=== PATIENT | male | born 1960 | race Caucasian/White ===

== ENCOUNTER 2023-08-24 11:00 | Inpatient (IN) | payer MEDICARE, OTHER, SELFPAY ==
[2023-08-24] VITALS (17 sets, daily range): BP systolic 115–146; BP diastolic 67–82; BMI 41.0
--- NOTE | 2023-08-24 08:33 | ED.GENMED ---
History of Present Illness
General
Chief Complaint: Musculo-Skeletal Complaint
Source: patient
Exam Limitations: none
Time Seen by Provider: 08/24/23 08:23
Nursing documentation reviewed up to this point in time: agreed with
Travel History
Have you had any contact with someone who has COVID-19?: No
Do you have any symptoms of coronavirus? Fever > 100 degrees, chills, cough, shortness of breath, sore throat, loss of taste or smell, muscle aches, or headache?: No
History of Present Illness
History of Present Illness:
62-year-old male with past medical history of hypertension hyperlipidemia, insulin-dependent diabetes presenting to the emergency department today with concerns of osteomyelitis to his right second toe. Patient was seen by his contract recruiter Dr. Casillas
who recommended admission for surgical treatment at this time. Patient denies any additional symptoms otherwise. No fevers nausea vomiting chest pain shortness of breath.
Past History
Past History
ED Past Medical History: HTN, Hypercholesterolemia, IDDM and Other (Osteomyelitis right foot, kidney stones, Cellulitis, osteomyelitis L foot with surgery on 05/07/23)
ED Past Surgical History: Appendectomy, Orthopedic, Tonsilectomy and Other (gastric stapling , Eliana-en-Y, debridement of right foot wound)
Social History
Tobacco: Non-smoker
Alcohol: Occasional
Drug: None
Personal: Single
Living: with roommate
Employment: Not employed
Family History
Family History: Other (Father with stomach cancer and father with lymphoma)
Review of Systems
Review of Systems
Allergies reviewed?: Yes
All Other Systems: ROS reviewed and negative except as documented in HPI and ROS
Phy Exam
Physical Exam
Physical Exam:
GENERAL: Alert , in no apparent distress
EYE: pupils equal and reactive
NECK: Supple, no significant adenopathy.
ENT: o/p clr, mmm.
CARDIAC: Regular rate and rhythm .
LUNGS: Clear breath sounds bilaterally, no acute respiratory distress, no wheezes/rales/rhonchi
ABDOMEN: Soft, without focal tenderness, no r/g, no cvat
NEUROLOGICAL: Alert and oriented, no focal neuro deficits
SKIN: Warm and dry, skin intact.
MUSCULOSKELETAL: Bandage of the right second toe is clean dry and intact. This was taking off and assessed he does have an ulcer just below the second toe with no obvious purulent drainage but is surrounded by redness. Mild tenderness to the area.
No edema, well perfused.
PSYCH: Normal and appropriate interaction.
Course
Orders/Labs/Results
Orders:
Orders
08/24/23 08:40
EKG [Electrocardiogram (*1)] Urgent
Reason for Study: PreOp
EKG- Treatment ONCE
CR Foot - Right Min 3 Views Urgent
Comment:
Reason For Exam: osteo 2nd toe
08/24/23 09:24
CBC/With Diff [Complete Blood Count/With Diff] Urgent
CMP [Comprehensive Metabolic Panel] Urgent
08/24/23 10:21
Admit/Transfer Patient As Directed
Co-Sign Provider:
Level of Care: Inpatient admission
Assign to:: Medical/Surgical
Physician / Group: Payal/hospitalist
Diagnosis: R toe OM
Reason for Hospitalization: R toe OM
Expected length of stay greater than two midnights?: Yes
ELOS- Estimated Length of Stay in days: 3
I certify the patient meets the requirements for IP care: Yes
08/24/23 10:23
Code Status As Directed
Resuscitation Status: Full Code
Abnormal Lab Results
08/24/23
09:24
RBC 3.99 L 10^6/uL
(4.70-6.10)
Hgb 11.3 L g/dL
(13.0-18.0)
Hct 33.1 L %
(39.0-52.0)
Chloride 108 H mmol/L
(98-107)
Glucose 103 H mg/dl
(70-99)
Alkaline Phosphatase 154 H U/L
(38-126)
08/24/23 09:24
08/24/23 09:24
Vital Signs
Initial and Last Documented VS:
Initial Vital Signs
Temp Pulse Resp BP Pulse Ox
98.3 F 73 16 137/77 100
08/24/23 07:07 08/24/23 07:07 08/24/23 07:07 08/24/23 07:07 08/24/23 07:07
Last Documented Vital Signs
Temp Pulse Resp BP Pulse Ox
98.3 F 68 18 142/81 96
08/24/23 07:07 08/24/23 10:00 08/24/23 10:00 08/24/23 10:00 08/24/23 10:00
MDM/Problems Addressed
MDM/Problems Addressed:
62-year-old male presenting to the emergency department today with concerns of osteomyelitis to the right second toe sent in for surgery. Denies systemic symptoms or additional concerns. Vital signs normal upon arrival. Case discussed with
patient's contract recruiter who would like to take him to surgery earlier this afternoon. Patient is been n.p.o. all day. Patient is well-appearing in no distress here stable for admission and surgical intervention.
*Critical Care Note
Total Time (30-74mins, 75-104mins- exclusive of procedures): Not Applicable
ED Attending Note
-
Portions of this chart may have been created with voice recognition software.� Occasional wrong word or��sound alike� substitutions may have occurred due to the inherent limitations of voice recognition software.
Discharge Plan
Departure
Patient Disposition: Admit
Date of Disposition: 08/24/23
Time of Disposition: 10:06
Admit to: Med/Surg
Presentation/result/management discussed w/ accepting MD/DO: Hospitalist
Patient with high blood pressure during this ER visit?: No
Condition: Good
Covid-19: Not Applicable
Discharge Problem:
Osteomyelitis
Prescriptions:
No Action
lisinopril 20 MG tablet
20 mg PO DAILY
calcium carbonate [Calcium 600] 600 MG tablet
600 mg PO DAILY
gabapentin 300 MG capsule
300 mg PO TID
carvedilol 12.5 MG tablet
12.5 mg PO Q12H
diphenhydramine HCl [Banophen] 25 MG capsule
25 mg PO HS
Flexi Joint 500-400-166.6 mg Tablet
1 tab PO DAILY
cyanocobalamin (vitamin B-12) 1,000 mcg Tablet
1,000 mcg PO Q48H@0800
aspirin 81 mg Tablet,Delayed Release (Dr/Ec)
81 mg PO DAILY
Align 4 mg Capsule
4 mg PO NOON
ascorbic acid (vitamin C) [Vitamin C] 1,000 mg Tablet
1,000 mg PO DAILY
atorvastatin 20 mg Tablet
20 mg PO DAILY
Theragen Tablet
1 tab PO DAILY
ferrous sulfate [iron] 325 mg (65 mg iron) Tablet
325 mg PO Q72H
Patient Comments:
08/24/2023, Q72H@0800.
insulin aspart U-100 [Novolog FlexPen U-100 Insulin] 100 unit/mL (3 mL) Insulin Pen
15 unit SC AC
cholecalciferol (vitamin D3) 50 mcg (2,000 unit) Tablet
50 mcg PO DAILY
Trulicity 4.5 mg/0.5 mL Pen Injector
4.5 mg SC MO@0800
Eliquis 5 mg tablet
5 mg PO Q12H
Patient Comments:
08/24/2023, currently on hold for pt.'s upcoming sugery.
insulin glargine U-300 conc [Toujeo SoloStar U-300 Insulin] 300 UNIT/ML insulin pen
30 unit SC HS
insulin glargine U-300 conc [Toujeo SoloStar U-300 Insulin] 300 UNIT/ML insulin pen
25 unit SC DAILY
Referrals:
Benjamin Simon MD [Family Provider] -
Interventions
Interventions:
*Risk Screen - Suicide Last Done: 08/24/23 07:07
*General Assessment Last Done: 08/24/23 07:07
*Neglect/Abuse Screening Last Done: 08/24/23 07:07
ED- Fall Risk Assessment Last Done: 08/24/23 09:07
*ED COVID-19 Vaccine History Last Done: 08/24/23 08:48
ED-Musculoskeletal Assessment Last Done: 08/24/23 09:07
[2023-08-24 09:36] LABS: % Basophils 0.4 % (0-2); % Eosinophils 2.3 % (0-6); % Immature Granulocytes 0.3 % (0-0.5); % Lymphocytes 24.7 % (20.5-51.1); % Neutrophils 65.3 % (42.2-75.2); Absolute Eosinophils 0.2 10^3/uL (0-0.7); Absolute Lymphocytes 1.7 10^3/uL (1.2-3.4); Absolute Monocytes 0.5 10^3/uL (0.1-0.6); Absolute Neutrophils 4.5 10^3/uL (1.4-6.5); Hematocrit 33.1 % (39.0-52.0); Hemoglobin 11.3 g/dL (13.0-18.0); Mean Corp Hgb Conc. 34.1 g/dL (33.0-37.0); Mean Corpuscular Hgb 28.3 pg (27.0-31.0); Mean Platelet Volume 8.7 fL (7.4-10.4); Nucleated Red Blood Cells % 0 % (-); Platelet Count 250 10^3/uL (130-400); Red Blood Cell Count 3.99 10^6/uL (4.70-6.10); Red Cell Dist. Width 13.5 % (11.5-14.5); White Blood Cell Count 6.8 10^3/uL (4.8-10.8)
[2023-08-24 09:51] LABS: ALT (SGPT) 25 U/L (0-50); AST (SGOT) 30 U/L (17-59); Albumin 3.8 g/dl (3.5-5.0); Alkaline Phosphatase 154 U/L (38-126); Blood Urea Nitrogen 12 mg/dl (9-20); Calcium 8.8 mg/dl (8.4-10.2); Carbon Dioxide 27 mmol/L (22-30); Chloride 108 mmol/L (98-107); Estimated Creatinine Clearance > 125 ml/min; Glucose 103 mg/dl (70-99); Potassium 4.1 mmol/L (3.5-5.1); Sodium 138 mmol/L (135-145); Total Bilirubin 0.9 mg/dl (0.2-1.3); Total Protein 7.2 g/dl (6.3-8.2); eGFR > 60.00
--- NOTE | 2023-08-24 09:58 | HPS.HSE ---
Family Physician
-
Family Physician: Benjamin Kumar [facility]
Chief Complaint
-
R second toe OM
History of Present Illness
HPI: 62-year-old male with PMH hypertension, hyperlipidemia, insulin-dependent diabetes, obesity; p/w right second toe osteomyelitis evidenced from outpatient MRI.
Patient was seen by his sports equipment repairer Dr. Casillas who recommended admission for surgical treatment at this time.
Patient denies any additional symptoms otherwise.� No fevers nausea vomiting chest pain shortness of breath.
Medical History
Past Medical History
Past Medical History: Reports Other
Additional Past Medical History:
Hypertension
DM-II
Obesity
Chronic R Foot Wounds / Osteomyelitis
Past Surgical History: Reports Other
Additional Past Surgical History:
Multiple R Foot Surgeries including 5th Toe Amputation, Partial R Toe Amputation, etc
Appendectomy
Eliana-en-Y Bypass
T&A
Social History
Tobacco: Non-smoker
Alcohol: Occasional (Rarely)
Drug: None
Family History
Family History: Other (Father: Gastric Cancer Mother: NHL)
Allergies / Home Medications
Allergies reflects when Allergies were last updated in [facility].
Home Medications with original date entered in [facility]
Allergy/Medication List:
Allergies
Allergy/AdvReac Type Severity Reaction Status Date / Time
ketorolac Allergy Rash Verified 08/24/23 07:07
NSAIDS (Non-Steroidal Allergy Rash Verified 08/24/23 07:07
Anti-Inflamma
Home Medications
calcium carbonate 600 mg calcium (1,500 mg) tablet (Calcium) 600 mg PO DAILY Supplement 04/23/13
lisinopril 20 mg tablet 20 mg PO DAILY Blood pressure 04/23/13
gabapentin 300 mg capsule 300 mg PO TID Neurological Condition 11/11/13
carvedilol 12.5 mg tablet 12.5 mg PO Q12H Blood pressure 09/13/20
diphenhydramine HCl 25 mg capsule (Banophen) 25 mg PO HS Allergies 09/13/20
qzhxeqlzrml-kgkap-zzw-vit C-Mn 500 mg-400 mg-166.6 mg tablet (Flexi Joint) 1 tab PO DAILY Supplement 03/29/22
aspirin 81 mg tablet,delayed release 81 mg PO DAILY Blood clot prevention/tx 08/22/22
cyanocobalamin (vitamin B-12) 1,000 mcg tablet 1,000 mcg PO Q48H@0800 Supplement 08/22/22
Bifidobacterium infantis 4 mg capsule (Align) 4 mg PO NOON Supplement 10/05/22
apixaban 5 mg tablet (Eliquis) 5 mg PO Q12H 08/24/23
ascorbic acid (vitamin C) 1,000 mg tablet (Vitamin C) 1,000 mg PO DAILY 08/24/23
atorvastatin 20 mg tablet 20 mg PO DAILY 08/24/23
cholecalciferol (vitamin D3) 50 mcg (2,000 unit) tablet 50 mcg PO DAILY 08/24/23
dulaglutide 4.5 mg/0.5 mL subcutaneous pen injector (Trulicity) 4.5 mg SC MO@0800 08/24/23
ferrous sulfate 325 mg (65 mg iron) tablet (iron) 325 mg PO Q72H 08/24/23
insulin aspart U-100 100 unit/mL (3 mL) subcutaneous pen (Novolog FlexPen U-100 Insulin aspart) 15 unit SC AC 08/24/23
insulin glargine U-300 conc 300 unit/mL (1.5 mL) subcutaneous pen (Toujeo SoloStar U-300 Insulin) 25 unit SC DAILY Diabetes 08/24/23
insulin glargine U-300 conc 300 unit/mL (1.5 mL) subcutaneous pen (Toujeo SoloStar U-300 Insulin) 30 unit SC HS Diabetes 08/24/23
therapeutic multivitamin 1 tab PO DAILY 08/24/23
Review of Systems
-
Constitutional: Reports No Symptoms
Physical Exam
Vital Signs
Vital Signs
Temp Pulse Resp BP Pulse Ox
36.8 C 73 16 137/77 100
08/24/23 07:07 08/24/23 07:07 08/24/23 07:07 08/24/23 07:07 08/24/23 07:07
Physical Exam
General: Well Developed, Well Nourished, No Apparent Distress, Comfortable and Conversant
HEENT: NormoCephalic, Moist mucous membranes and Atraumatic
Respiratory: Clear and Non Labored Respirations; No Accessory Resp Muscle Use
Cardiac: S1/S2 and Regular Rhythm; No Murmur or Rub
GI: Soft, Non Tender, Non Distended and Normal Bowel Sounds; No Organomegaly
Rectal: Deferred by Provider
Musculoskeletal: No Clubbing, No Cyanosis and No Edema
Skin: No Rash
Neuro: Awake
Psych: Calm and Intact Judgment/Insight
Laboratory Results
-
08/24/23 09:24
08/24/23 09:24
Laboratory Results
Total Bilirubin 0.9 mg/dl (0.2-1.3) 08/24/23 09:24
AST 30 U/L (17-59) 08/24/23 09:24
ALT 25 U/L (0-50) 08/24/23 09:24
Alkaline Phosphatase 154 U/L (38-126) H 08/24/23 09:24
Data Reviewed
-
Lab Data: Labs Reviewed by me
Impression/Plan
-
HPI: 62-year-old male with PMH hypertension, hyperlipidemia, insulin-dependent diabetes, obesity; p/w right second toe osteomyelitis evidenced from outpatient MRI.
Patient was seen by his sports equipment repairer Dr. Casillas who recommended admission for surgical treatment at this time.
Patient denies any additional symptoms otherwise.� No fevers nausea vomiting chest pain shortness of breath.
A/P:
# Right second toe osteomyelitis noted on outpt MRI
# h/o bilateral Foot Osteomyelitis, Right second toe diabetic wound with osteo by MRI and Left 5th met head diabetic wound with osteo by MRI, status post partial amp right 2nd toe, left 5th metatarsophalangeal joint resection
Pt was treated with daptomycin through 06/15/2023
Podiatry CS for surgical intervention
ID CS , defer Abx to ID
PT OT eval following procedure
# DM-II
decrease JAILER/TRAINING OFFICER Lantus to 20 units HS with current NPO status
hold bolus insulin
cover with ISS
# Benign Hypertension, Stable.�
Continue home meds Lisinopril and Coreg with holding parameter
# Morbid Obesity s/p Gastric Bypass
BMI 41
DVT Prophylaxis:�Lovenox SQ while off JAILER/TRAINING OFFICER Eliquis
Code Status:�Full
[2023-08-24] MEDS: COREG PO (11:31)
[2023-08-24 13:29] LABS: Glucose - Point of Care 85 mg/dl (70-99)
--- NOTE | 2023-08-24 13:30 | W.PN.UPDATE ---
Update Note
Progress Note Update
pt seen in RR
no pain
dressing cdi
cft intact
a/p s/p prox phal resection, 2nd met head right foot--stable
start iv abx, rec ID consult
will pull packing tomorrow, osteo resected, should ne fine for po abx upon d/c
nwb right foot
anticipate d/.c tomorrow
--- NOTE | 2023-08-24 14:00 | CON.ID ---
Consultation
-
Date/Time Consultation Requested: August 24, 2023 1109
Date/Time Consultation Performed: August 24, 2023 1400
Requesting Provider: Dr. Mariam Moe
Performing Provider: Dr. Keshia Basurto
Reason for Consultation: Toe osteo
Chief Complaint / Past History
Chief Complaint
Toe osteo
History of Present Illness
62-year-old male with history of diabetes mellitus, neuropathy, hx multiple right foot chronic wounds, osteomyelitis, toe amputations, bone resections last being 04/2023 s/p Right second toe partial amp and Left 5th MPJ resection and treated with 6
weeks daptomycin. He had non-healing wound on plantar aspect of the right second met head. His grain merchandiser ordered an MRI done outside which showed osteo. Pt was sent to ED today. He underwent right second toe prox phalanx and met head resection
just now. He reports no fever/chills. No post-op pain.
Past History
Additional Past Medical History:
Diabetes mellitus, well controlled.
Neuropathy.
Hypertension.
Class 3 obesity, BMI 40.
Dyslipidemia.
Sciatica.
History of bariatric surgery.
Remote history of right foot gangrene in 2007.
History of osteomyelitis right foot
S/P (R)2nd toe partial amp, (R) 3rd met head resection.
History of (R) 5th toe abscess S/P drainage & partial bone resection.
Right 5th MT stump and 4th met head resection (08/22/22)
s/p Right second toe partial amp and Left 5th MPJ resection (05/05/23) s/p 6 weeks daptomycin
Allergy History:
ketorolac Allergy (Verified 08/24/23 07:07)
Rash
NSAIDS (Non-Steroidal Anti-Inflamma Allergy (Verified 08/24/23 07:07)
Rash
Medications Reviewed: Yes
Current Antibiotics:
S/p cefazolin x 1
Social History
Tobacco: Non-Smoker
Alcohol: None
Drug: None
Personal: ()
Family History
Family History: Not Pertinent
Review of Systems
Review of Systems
General: Negative Fever, Chills or Change in Appetite
HEENT: Negative Sinus Problems or Headache
Cardiovascular: Negative Chest Pain or Edema
Respiratory: Negative Dyspnea or Cough
Gasteroenterology: Negative Nausea or Vomiting
Genital / Urological: Negative Dysuria
Neurological: Negative Dizziness
All systems: All other systems were reviewed and were negative
Vital Signs
Temp Pulse Resp BP Pulse Ox
97.9 F 64 17 140/81 97
08/24/23 13:12 08/24/23 13:45 08/24/23 13:45 08/24/23 13:30 08/24/23 13:45
Physical Exam
Physical Exam
Constitutional: No Acute Distress and Comfortable
Eyes: No Conjunctival Hemorrhage and Sclera Anicteric
Cardiovascular: Regular Rate and S1/S2
Pulmonary: Clear
Gastrointestinal: Soft, Non Tender, Non Distended and Normal Bowel Sounds
Genito-Urinary: Negative CVA Tenderness
Extremities: Negative Edema
Wound: Other (Right foot with post-op dressing)
Neurological: AO x 3
Lab / Diagnostic Study Results
08/24/23 09:24
08/24/23 09:24
Abs Immat Gran (auto) 0.0 10^3/uL (0-0.05) 08/24/23 09:24
Absolute Neuts (auto) 4.5 10^3/uL (1.4-6.5) 08/24/23 09:24
Absolute Lymphs (auto) 1.7 10^3/uL (1.2-3.4) 08/24/23 09:24
Absolute Monos (auto) 0.5 10^3/uL (0.1-0.6) 08/24/23 09:24
Absolute Basos (auto) 0.0 10^3/uL (0-0.2) 08/24/23 09:24
Immature Gran % 0.3 % (0-0.5) 08/24/23:
Neutrophils % 65.3 % (42.2-75.2) 08/24/23 09:
Lymphocytes % 24.7 % (20.5-51.1) 08/24/23:
Monocytes % 7.0 % (1.7-9.3) 08/24/23:
Eosinophils % 2.3 % (0-6) 08/24/23:
Basophils % 0.4 % (0-2) 08/24/23 09:24
Assessment / Plan
# Right foot nonhealing wound with osteo of right second toe by outside MRI.
- Today he underwent prox phalanx and met head resection.
Per Podiatry, + surgical cure.
- Recommend Augmentin 875mg po bid x 14 days.
- DC home tomorrow.
--- NOTE | 2023-08-24 16:09 | PTCARENOTE ---
Patient admitted from pacu post right second toe amputation and biopsy of second metatarsal.Vital signs are stable.The patient staes that he is having spasms but is unable to rate it.The dressing is dry and intact with an nacho wrap.Neurovascular
assessment is within normal limits and ongoing.
[2023-08-24 16:59] LABS: Glucose - Point of Care 87 mg/dl (70-99)
[2023-08-24] MEDS: LOVENOX 40 MG SC (17:02)
[2023-08-24] MEDS: NEURONTIN 300 MG PO ×2 (17:03→21:43)
[2023-08-24] MEDS: AUGMENTIN 875 MG/125 MG 1 TABLET PO (20:15)
[2023-08-24 21:37] LABS: Glucose - Point of Care 126 mg/dl (70-99)
[2023-08-24] MEDS: COREG 12.5 MG PO (21:43)
[2023-08-24] MEDS: LANTUS 0.200000000000000011 UNITS SC (21:43)
[2023-08-25 03:15] VITALS: BP 146/64
[2023-08-25 06:54] LABS: Hematocrit 33.2 % (39.0-52.0); Hemoglobin 11.4 g/dL (13.0-18.0); Mean Corp Hgb Conc. 34.3 g/dL (33.0-37.0); Mean Corpuscular Hgb 28.1 pg (27.0-31.0); Mean Platelet Volume 8.8 fL (7.4-10.4); Platelet Count 237 10^3/uL (130-400); Red Blood Cell Count 4.05 10^6/uL (4.70-6.10); Red Cell Dist. Width 13.3 % (11.5-14.5); White Blood Cell Count 7.2 10^3/uL (4.8-10.8)
[2023-08-25 07:26] LABS: Blood Urea Nitrogen 13 mg/dl (9-20); Calcium 8.7 mg/dl (8.4-10.2); Carbon Dioxide 26 mmol/L (22-30); Chloride 101 mmol/L (98-107); Estimated Creatinine Clearance > 125 ml/min; Glucose 141 mg/dl (70-99); Magnesium 2.1 mg/dl (1.6-2.3); Potassium 4.1 mmol/L (3.5-5.1); Sodium 138 mmol/L (135-145); eGFR > 60.00
[2023-08-25 07:54] LABS: Glucose - Point of Care 130 mg/dl (70-99)
[2023-08-25 07:55] VITALS: BP 122/69
[2023-08-25] MEDS: AUGMENTIN 875 MG/125 MG 1 TABLET PO (08:16)
[2023-08-25] MEDS: ASPIR LOW (ENTERIC COATED) 81 MG PO (08:16)
[2023-08-25] MEDS: NEURONTIN 300 MG PO (08:16)
[2023-08-25] MEDS: ZESTRIL 20 MG PO (08:17)
[2023-08-25 09:22] VITALS: BP 140/74; PULSE 74; O2SAT 97
[2023-08-25 09:27] LABS: Glycohemoglobin (HgbA1c) 6.7 % (4.0-5.6)
--- NOTE | 2023-08-25 09:29 | W.PN.HOSP.TC ---
Addendum entered and electronically signed by Mariam Moe MD 08/25/23 14:24:
total DC time 35 min
Original Note:
Today's Communication/Plan
-
DC home today
Assessment / Plan
Assessment / Plan
HPI: 62-year-old male with PMH hypertension, hyperlipidemia, insulin-dependent diabetes, obesity; p/w right second toe osteomyelitis evidenced from outpatient MRI.
Patient was seen by his pediatrician/medical doctor Dr. Casillas who recommended admission for surgical treatment at this time.
Patient denies any additional symptoms otherwise.� No fevers nausea vomiting chest pain shortness of breath.
A/P:
# Right second toe osteomyelitis noted on outpt MRI�
# h/o bilateral Foot Osteomyelitis, Right second toe diabetic wound with osteo by MRI and Left 5th met head diabetic wound with osteo by MRI, status post partial amp right 2nd toe, left 5th metatarsophalangeal joint resection
Pt was treated with daptomycin through 06/15/2023�
s/p Right second�prox phalange resection and 2nd met head
Per Podiatry, + surgical cure.
ID Recommend Augmentin 875mg po bid x 14 days.
follow path result outpt
# DM-II
resume home insulin after discharge
# Benign Hypertension, Stable.�
Continue home meds Lisinopril and Coreg with holding parameter
# Morbid Obesity s/p Gastric Bypass
BMI 41
DVT Prophylaxis:�Lovenox SQ while off [employer] Eliquis
Code Status:�Full
DW Traffic Signal Supervisor Maintenance 08/24
DW ID
Anticipated Discharge: Today
Subjective/Interval History
-
Date of Service: August 25, 2023
Objective Data
-
Labs:
Laboratory Results
08/25/23
06:25
WBC 7.2
Hgb 11.4 L
Hct 33.2 L
Plt Count 237
Sodium 138
Potassium 4.1
Chloride 101
Carbon Dioxide 26
BUN 13
Creatinine 0.8
Glucose 141 H
Calcium 8.7
Vital Signs:
Vital Signs
Temp Pulse Resp BP Pulse Ox
36.9 C 74 18 122/69 100
08/25/23 07:55 08/25/23 08:17 08/25/23 07:55 08/25/23 08:17 08/25/23 07:55
I&O
08/24/23 08/25/23 08/26/23
06:59 06:59 06:59
Intake Total 940 / 940
Balance 940 / 940
Review of Systems
-
History Source: Patient
All other systems: Reviewed and negative
Physical Exam
-
General: Well Developed, Well Nourished, No Apparent Distress, Comfortable and Morbidly Obese
HEENT: Normocephalic, Nose Appears Normal and Ears Appear Normal
Respiratory: Clear to Auscultation and Non Labored Respirations; Negative Accessory Resp Muscle Use
Cardiac: Regular Rhythm and S1/S2
GI: Soft and Nontender
Skin: Other (R foot in wound dressing)
Neuro: Awake
Psych: Calm and Intact Judgement/Insight
Data Reviewed
-
Labs: Labs Reviewed by me
[2023-08-25 09:31] VITALS: BP 140/74; PULSE 74; O2SAT 97
--- NOTE | 2023-08-25 09:38 | W.PN.ID1 ---
Date of Service
Date of Service: August 25, 2023
Today's Communication
Continue abx.
Assessment / Plan
# Right foot nonhealing wound with osteo of right second toe by outside MRI.
- S/P (R) 2nd toe / (R) 2nd met head resection (08/24/23)
- felt to be surgical cure per Pod.
- continue with 14 day course of Augmentin 875mg po BID
- local care to foot wound
- For D/C today.
Chief Complaint
-: Other (Right second toe osteomyelitis)
Subjective / Review of Systems
Review of Systems: No Fever and No Chills
Vital Signs / Physical Exam
Vital Signs
Vital Signs
Temp Pulse Resp BP Pulse Ox
98.5 F 74 18 122/69 100
08/25/23 07:55 08/25/23 08:17 08/25/23 07:55 08/25/23 08:17 08/25/23 07:55
Physical Exam
Constitutional: No Acute Distress, Comfortable and Non-toxic
Eyes: Sclera Anicteric
Pulmonary: Non Labored
Extremities: Edema (Bilateral lower extremities)
Wound: Other (Right foot dressed. No strikethrough. No erythema extending up the leg.)
Neurological: Awake and Alert
Psychological: Calm
Objective Data
Lab Data
Lab Results
08/25/23 06:25
08/25/23 06:25
Estimated Creat Clear > 125 ml/min 08/25/23 06:25
Total Bilirubin 0.9 mg/dl (0.2-1.3) 08/24/23 09:24
AST 30 U/L (17-59) 08/24/23 09:24
ALT 25 U/L (0-50) 08/24/23 09:24
Alkaline Phosphatase 154 U/L (38-126) H 08/24/23 09:24
Most recent labs reviewed.
Micro Results:
08/24/23 13:15 Tissue Culture - Pending
Toe Gram Stain - Preliminary
08/24/23 13:15 Tissue Culture - Pending
Foot - Right Gram Stain - Preliminary
08/24/23 13:15 Wound Culture - Pending
Toe Gram Stain - Preliminary
08/24/23 13:15 Anaerobic Culture - Pending
Foot - Right
08/24/23 13:15 Anaerobic Culture - Pending
Toe
08/24/23 13:15 Anaerobic Culture - Pending
Toe
Care Review
Plan reviewed with: Physician (Hospitalist)
[2023-08-25] MEDS: COREG 12.5 MG PO (10:55)
--- NOTE | 2023-08-25 11:07 | W.PN.POD ---
Today's Communication
Today's Communication
stable for dc on augmentin
Assessment / Plan
-
s/p removal prox phal/2nd met head right foot--stable
no SOI
packing pulled and repack
path pending
bandages applid
pt can be d/c
pt can change bandages at home
sunday
nwb right foot
Subjective
Chief Complaint
pt seen s/p removal prox phal and 2nd met head right foot
no pain
no f/n/c/ns
dressing with blood noted
Subjective
vasc intact, cft intact
derm sutures intact, mild edema and erythema
no cellulitis
'no pus
no SOI
Objective
Temp Pulse Resp BP Pulse Ox
98.5 F 71 18 129/68 100
08/25/23 07:55 08/25/23 10:55 08/25/23 07:55 08/25/23 10:55 08/25/23 07:55
08/25/23 06:25
08/25/23 06:25
Vital Signs and Lab results were reviewed.
[2023-08-25 11:25] LABS: Glucose - Point of Care 137 mg/dl (70-99)
[2023-08-25 11:34] VITALS: BP 130/76
--- NOTE | 2023-08-25 12:10 | CM ---
Reviewed the chart notes and spoke with the patient at the bedside. The patient resides with his partner in a one story home with a ramp to enter. The patient has a rollator. The patient is current with [facility]. The patient confirmed his
pharmacy of choice is the [facility] [address]. The patient is discharged to home. The patient's partner to provide transporation. CM continues to be available to patient/family and is monitoring medical plan for needs at discharge.
Plan: Discharge to home with resumption of [facility].
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
== END 2023-08-25 12:35 | disposition home health service (06) | DRG 617 ==
LOC: 2 SOUTH 11:00
PROVIDERS: Physician Assistant; ADMITTING PHYSICIAN Internal Medicine; CONSULT PHYSICIAN Podiatrist Foot Surgery; EMERGENCY PHYSICIAN Emergency Medicine; FAMILY PHYSICIAN Family Medicine; OTHER PHYSICIAN Internal Medicine Infectious Disease
PROC: 0Y6M0ZB Detachment at Right Foot, Partial 2nd Ray, Open Approach (ICD-10-PCS; 2023-08-24)
PROC: 0Y6R0Z1 Detachment at Right 2nd Toe, High, Open Approach (ICD-10-PCS; 2023-08-24)
DX: E11.69 Type 2 diabetes mellitus with other specified complication (principal); M86.171 Other acute osteomyelitis, right ankle and foot; Z68.41 Body mass index [BMI] 40.0-44.9, adult; E11.40 Type 2 diabetes mellitus with diabetic neuropathy, unspecified; E11.621 Type 2 diabetes mellitus with foot ulcer; M54.30 Sciatica, unspecified side; L97.519 Non-pressure chronic ulcer of other part of right foot with unspecified severity; I10 Essential (primary) hypertension; E78.00 Pure hypercholesterolemia, unspecified; E66.01 Morbid (severe) obesity due to excess calories; Z79.4 Long term (current) use of insulin; Z87.442 Personal history of urinary calculi; Z80.0 Family history of malignant neoplasm of digestive organs; Z80.7 Family history of other malignant neoplasms of lymphoid, hematopoietic and related tissues; Z79.82 Long term (current) use of aspirin; Z79.85 Long-term (current) use of injectable non-insulin antidiabetic drugs; Z79.01 Long term (current) use of anticoagulants; Z98.84 Bariatric surgery status
CPT/HCPCS: 88304; 88305; 88311; 73630; 80048; 80053; 82962; 83036; 83735; 85025; 85027; 87070; 87075; 87076; 87077; 87176; 87185; 87186; 87205; 93005; 97163; 97166; 99285

== ENCOUNTER → 2023-09-15 07:04 | Outpatient (REF) | payer MEDICARE, OTHER, SELFPAY ==
[2023-09-15 08:30] LABS: % Basophils 0.3 % (0-2); % Eosinophils 2.6 % (0-6); % Immature Granulocytes 0.4 % (0-0.5); % Lymphocytes 23.4 % (20.5-51.1); % Monocytes 8.1 % (1.7-9.3); % Neutrophils 65.2 % (42.2-75.2); Absolute Eosinophils 0.2 10^3/uL (0-0.7); Absolute Lymphocytes 1.7 10^3/uL (1.2-3.4); Absolute Monocytes 0.6 10^3/uL (0.1-0.6); Absolute Neutrophils 4.6 10^3/uL (1.4-6.5); Hematocrit 33.4 % (39.0-52.0); Hemoglobin 11.2 g/dL (13.0-18.0); Mean Corp Hgb Conc. 33.5 g/dL (33.0-37.0); Mean Corpuscular Hgb 28.5 pg (27.0-31.0); Mean Platelet Volume 9.1 fL (7.4-10.4); Nucleated Red Blood Cells % 0 % (-); Platelet Count 287 10^3/uL (130-400); Red Blood Cell Count 3.93 10^6/uL (4.70-6.10); Red Cell Dist. Width 13.1 % (11.5-14.5)
[2023-09-15 08:35] LABS: Microalbumin, Random Urine 1.6 mg/dl (0.6-1.7)
[2023-09-15 08:37] LABS: ALT (SGPT) 17 U/L (0-50); AST (SGOT) 24 U/L (17-59); Albumin 3.7 g/dl (3.5-5.0); Alkaline Phosphatase 155 U/L (38-126); Blood Urea Nitrogen 14 mg/dl (9-20); Calcium 8.8 mg/dl (8.4-10.2); Carbon Dioxide 26 mmol/L (22-30); Chloride 104 mmol/L (98-107); Glucose 117 mg/dl (70-99); HDL Cholesterol 37 mg/dl; Iron 55 ug/dl (49-181); LDL Cholesterol, Calculated 67 mg/dl; Potassium 4.7 mmol/L (3.5-5.1); Sodium 134 mmol/L (135-145); Total Cholesterol 117 mg/dl (50-199); Total Protein 7.1 g/dl (6.3-8.2); Triglyceride 68 mg/dl (10-149); Very Low Density Lipoprotein 13 mg/dl (0-30); eGFR > 60.00
[2023-09-15 08:46] LABS: Percent Saturation 21 % (20-50); Total Iron Binding Capacity 257 ug/dl (261-462)
[2023-09-15 09:09] LABS: Ferritin 84.7 ng/ml (17.9-464.0)
[2023-09-15 10:57] LABS: Glycohemoglobin (HgbA1c) 6.9 % (4.0-5.6)
== END ==
LOC: REG 07:04
PROVIDERS: ATTENDING PHYSICIAN Family Medicine
DX: E11.42 Type 2 diabetes mellitus with diabetic polyneuropathy (principal); Z79.4 Long term (current) use of insulin; D50.9 Iron deficiency anemia, unspecified
CPT/HCPCS: 36415; 80053; 80061; 82043; 82570; 82728; 83036; 83540; 83550; 85025

== ENCOUNTER 2023-09-17 16:03 | Emergency (ER) | payer MEDICARE, OTHER, SELFPAY ==
[2023-09-17 16:15] VITALS: BP 140/74
--- NOTE | 2023-09-17 17:41 | ED.GENMED ---
History of Present Illness
General
Chief Complaint: Wound Check/Suture Removal
Source: patient and physician
Time Seen by Provider: 09/17/23 17:04
Travel History
Have you had any contact with someone who has COVID-19?: No
Do you have any symptoms of coronavirus? Fever > 100 degrees, chills, cough, shortness of breath, sore throat, loss of taste or smell, muscle aches, or headache?: No
History of Present Illness
History of Present Illness:
62-year-old male with past medical history of hypertension, hyperlipidemia and diabetes, status post metatarsal resection secondary to osteomyelitis that had been treated about 3 weeks ago here at this facility, discharged home and been monitored by
a visiting nurse, completed a course of antibiotics and had out today with his design center consultant states small area of bleeding and slight dehiscence, sutures were removed from this area and due to sick bleeding was sent to the emergency department for
further evaluation. Patient notes that he is on Eliquis due to a DVT he developed in his right upper extremity from a previous PICC line that he had placed but notes that he is scheduled to have a repeat ultrasound in the coming weeks hopefully
discontinue the Eliquis. Patient notes that he had his Eliquis discontinued preoperatively and postoperatively but is now taking the medication again. Patient states that at the office he had a dressing placed and bleeding seems to have subsided.
He has no other concerns at this time.
Past History
Past History
ED Past Medical History: HTN, Hypercholesterolemia, IDDM and Other (Osteomyelitis right foot, kidney stones, Cellulitis, osteomyelitis L foot with surgery on 05/07/23)
ED Past Surgical History: Appendectomy, Orthopedic, Tonsilectomy and Other (gastric stapling , Elinaa-en-Y, debridement of right foot wound)
Social History
Tobacco: Non-smoker
Alcohol: Occasional
Drug: None
Personal: Single
Living: with roommate
Employment: Not employed
Family History
Family History: Other (Father with stomach cancer and father with lymphoma)
Review of Systems
Review of Systems
All Other Systems: ROS reviewed and negative except as documented in HPI and ROS
Phy Exam
Physical Exam
Physical Exam:
GENERAL: Alert , in no apparent distress
EYE: conjunctiva clear
Head: Normocephalic atraumatic
NECK: Supple,
ENT: mmm.
LUNGS: no acute respiratory distress
NEUROLOGICAL: Alert and oriented
SKIN: Warm and dry, Dehisced wound at the proximal portion of the dorsal foot at the level of the distal second metatarsal very small oozing but no active bleeding or arterial spurting noted. Bleeding is well-controlled with light pressure.
MUSCULOSKELETAL: well perfused.
PSYCH: Normal and appropriate interaction.
Scores
Heart Failure Risk
Heart Failure Risk Score: Not Applicable
Heart Score for Chest Pain Patients
STEMI patient?: Not applicable
Withdrawal Assessment of Alcohol
Withdrawal Assessment Completed?: Not applicable
Course
Vital Signs
Initial and Last Documented VS:
Initial Vital Signs
Temp Pulse Resp BP Pulse Ox
98.3 F 79 16 140/74 100
09/17/23 16:15 09/17/23 16:15 09/17/23 16:15 09/17/23 16:15 09/17/23 16:15
Last Documented Vital Signs
Temp Pulse Resp BP Pulse Ox
98.3 F 80 18 127/67 99
09/17/23 16:15 09/17/23 18:02 09/17/23 18:02 09/17/23 18:02 09/17/23 18:02
MDM/Problems Addressed
Differential Diagnosis Includes:
Postoperative bleeding, infectious etiology, poor wound healing secondary to diabetes
MDM/Problems Addressed:
62-year-old male present emergency department from his design center consultant office due to concern for bleeding from postoperative wound. At time of my exam bleeding is well-controlled. I replaced the dressing that was initially put on at the design center consultant
office which continue to control the bleeding. Will discuss case with patient's design center consultant to discuss further or if they would like any change in management.
Chronic conditions affecting care: DM
*Pulse Oximetry
Patient hypoxic: no
*Critical Care Note
Total Time (30-74mins, 75-104mins- exclusive of procedures): Not Applicable
Data Reviewed
Review of Other/Old Records Reveals: Labs, Records and Discharge Summary
Source: patient and physician
Patient Management
Discussion with other providers: Real Estate Agent/Broker
Escalation/DeEscalation of care consider admission/obs:
I spoke to patient's design center consultant, Dr. Casillas, who states that there was a significant amount of bleeding at his office which is why he was concerned and sent patient to the ER for further evaluation I explained that patient's bleeding is
well-controlled here and only a very slight ooze. It is certainly possible his bleeding persists because he is on Eliquis. There are no signs of hemodynamic instability. Notified podiatry that I replaced the pressure dressing and achieved good
hemostasis. Patient will continue follow-up as an outpatient and has a scheduled wound care nurse coming to his house this coming Sunday. He also has follow-up with his primary care doctor on . Stable for discharge and aware of return
precautions.
ED Attending Note
-
Portions of this chart may have been created with voice recognition software.� Occasional wrong word or��sound alike� substitutions may have occurred due to the inherent limitations of voice recognition software.
Discharge Plan
Departure
Patient Disposition: Home (Routine Discharge)
Date of Disposition: 09/17/23
Time of Disposition: 17:41
Patient with high blood pressure during this ER visit?: Yes
Discharge Problem:
Post-op bleeding
Instructions: Wound Care (DC)
Prescriptions:
No Action
lisinopril 20 MG tablet
20 mg PO DAILY
calcium carbonate [Calcium 600] 600 MG tablet
600 mg PO DAILY
gabapentin 300 MG capsule
300 mg PO TID
carvedilol 12.5 MG tablet
12.5 mg PO Q12H
diphenhydramine HCl [Banophen] 25 MG capsule
25 mg PO HS
Flexi Joint 500-400-166.6 mg Tablet
1 tab PO DAILY
cyanocobalamin (vitamin B-12) 1,000 mcg Tablet
1,000 mcg PO Q48H@0800
aspirin 81 mg Tablet,Delayed Release (Dr/Ec)
81 mg PO DAILY
Align 4 mg Capsule
4 mg PO NOON
ascorbic acid (vitamin C) [Vitamin C] 1,000 mg Tablet
1,000 mg PO DAILY
atorvastatin 20 mg Tablet
20 mg PO DAILY
therapeutic multivitamin Tablet
1 tab PO DAILY
ferrous sulfate [iron] 325 mg (65 mg iron) Tablet
325 mg PO Q72H
Patient Comments:
08/24/2023, Q72H@0800.
insulin aspart U-100 [Novolog FlexPen U-100 Insulin] 100 unit/mL (3 mL) Insulin Pen
15 unit SC AC
cholecalciferol (vitamin D3) 50 mcg (2,000 unit) Tablet
50 mcg PO DAILY
Trulicity 4.5 mg/0.5 mL Pen Injector
4.5 mg SC MO@0800
Eliquis 5 mg tablet
5 mg PO Q12H
Patient Comments:
08/24/2023, currently on hold for pt.'s upcoming sugery.
insulin glargine U-300 conc [Toujeo SoloStar U-300 Insulin] 300 UNIT/ML insulin pen
30 unit SC HS
insulin glargine U-300 conc [Toujeo SoloStar U-300 Insulin] 300 UNIT/ML insulin pen
25 unit SC DAILY
amoxicillin-pot clavulanate 875-125 mg Tablet
1 tab PO Q12 14 Days Qty: 28 0RF
Referrals:
Perilstein,Benjamin S., MD [Family Provider] -
Interventions
Interventions:
*Risk Screen - Suicide Last Done: 09/17/23 16:15
*General Assessment Last Done: 09/17/23 16:15
*Neglect/Abuse Screening Last Done: 09/17/23 16:15
ED- Fall Risk Assessment Last Done: 09/17/23 18:05
*ED COVID-19 Vaccine History Last Done: 09/17/23 16:15
*Nursing Disposition Last Done: 09/17/23 18:05
ED-Skin Assessment Last Done: 09/17/23 18:02
Discharge Date and Time
Discharge Date/Time: 09/17/23 18:06
[2023-09-17 18:02] VITALS: BP 127/67
== END 2023-09-17 18:06 | disposition home or self-care (01) ==
LOC: EMR 16:03
PROVIDERS: EMERGENCY PHYSICIAN Emergency Medicine; FAMILY PHYSICIAN Family Medicine
DX: L76.22 Postprocedural hemorrhage of skin and subcutaneous tissue following other procedure (principal); I10 Essential (primary) hypertension; E78.00 Pure hypercholesterolemia, unspecified; E11.9 Type 2 diabetes mellitus without complications
CPT/HCPCS: 99282

== ENCOUNTER 2023-09-21 10:48 | Inpatient (IN) | payer MEDICARE, OTHER, SELFPAY ==
[2023-09-21] VITALS (16 sets, daily range): BP systolic 95–125; BP diastolic 52–68; BMI 40.1
--- NOTE | 2023-09-21 07:26 | ED.GENMED ---
Addendum entered and electronically signed by Chandu Cary DO 09/21/23 10:50:
EKG incomplete right bundle branch block at 70 bpm
Original Note:
History of Present Illness
General
Chief Complaint: Skin Problem
Source: patient and physician
Exam Limitations: none
Time Seen by Provider: 09/21/23 06:47
Nursing documentation reviewed up to this point in time: agreed with
Travel History
Have you had any contact with someone who has COVID-19?: No
Do you have any symptoms of coronavirus? Fever > 100 degrees, chills, cough, shortness of breath, sore throat, loss of taste or smell, muscle aches, or headache?: No
History of Present Illness
History of Present Illness:
62-year-old diabetic recurrent wounds on his right lower extremity followed by Dr. Casillas from podiatry sent in for blood work facilitated expedited evaluation prior to planned for operative transmetatarsal resection today not currently on
antibiotics I reviewed images on the patient's phone looks like he has necrotic wounds on his right foot patient asked me not to undress his foot no fever no nausea or vomiting
Past History
Past History
ED Past Medical History: HTN, Hypercholesterolemia, IDDM and Other (Osteomyelitis right foot, kidney stones, Cellulitis, osteomyelitis L foot with surgery on 05/07/23)
ED Past Surgical History: Appendectomy, Orthopedic, Tonsilectomy and Other (gastric stapling , Eliana-en-Y, debridement of right foot wound)
Social History
Tobacco: Non-smoker
Alcohol: Occasional
Drug: None
Personal: Single
Living: with roommate
Employment: Not employed
Family History
Family History: Other (Father with stomach cancer and father with lymphoma)
Review of Systems
Review of Systems
All Other Systems: Not applicable
Constitutional: Denies fever or fatigue
EENT: Reports no symptoms
Respiratory: Reports no symptoms
Cardiac: Reports no symptoms
ABD/GI: Reports no symptoms
Phy Exam
Physical Exam
Physical Exam:
Physical Exam
General: no apparent distress, not acutely ill
Neck: No jaundice
Heart: s1/s2 regular rate and rhythm, no murmur. equal radial pulses.
Lungs: no acute respiratory distress.
Neuro: alert and oriented. no focal neurological deficits
Skin: no rash
Psychiatric: well kept. interactive and cooperative
Extremities: Right lower extremity foot swollen wrapped(images reviewed on the patient's phone described in HPI)
Course
Orders/Labs/Results
Orders:
Orders
09/21/23 06:52
Complete Blood Count/With Diff Urgent
Comprehensive Metabolic Panel Urgent
09/21/23 06:55
Foot, Right 3 View [CR Foot - Right Min 3 Views] Urgent
Comment:
Reason For Exam: infectin
09/21/23 07:00
Lactic Acid Q4H
Comment: CANCEL 2nd LACTIC ACID IF 1st LACTIC ACID IS LESS THAN 2
Blood Culture Q30M
MODESTA Source: Blood/Venous
Specimen Description:
09/21/23 07:16
MR Right Le Joint W W/o Urgent
Reason For Exam: osteo infection
OK for patient to be off Cardiac Monitoring for MRI: Yes
Recent pill cam endoscopy?: No
09/21/23 07:30
Blood Culture Q30M
MODESTA Source: Blood/Venous
Specimen Description:
09/21/23 11:00
Lactic Acid Q4H
Comment: CANCEL 2nd LACTIC ACID IF 1st LACTIC ACID IS LESS THAN 2
Vital Signs
Initial and Last Documented VS:
Initial Vital Signs
Temp Pulse Resp Pulse Ox
98.9 F 60 20 98
09/21/23 06:29 09/21/23 06:29 09/21/23 06:29 09/21/23 06:29
Last Documented Vital Signs
Temp Pulse Resp Pulse Ox
98.9 F 60 20 98
09/21/23 06:29 09/21/23 06:29 09/21/23 06:29 09/21/23 06:29
*Critical Care Note
Total Time (30-74mins, 75-104mins- exclusive of procedures): Not Applicable
Update Note
Update Note:
Suspect osteomyelitis, imaging requested by referring physician reviewed with radiology message sent to hospitalist
ED Attending Note
-
Portions of this chart may have been created with voice recognition software.� Occasional wrong word or��sound alike� substitutions may have occurred due to the inherent limitations of voice recognition software.
Discharge Plan
Departure
Patient Disposition: Admit
Date of Disposition: 09/21/23
Time of Disposition: 07:34
Admit to: Med/Surg
Presentation/result/management discussed w/ accepting MD/DO: Hospitalist
Patient with high blood pressure during this ER visit?: No
Condition: Fair
Discharge Problem:
Insulin dependent diabetes mellitus, Acute osteomyelitis of right foot, Obese, BMI 40.0-44.9, adult, Diabetic neuropathy, HLD (hyperlipidemia), Osteomyelitis
Prescriptions:
No Action
lisinopril 20 MG tablet
20 mg PO DAILY
calcium carbonate [Calcium 600] 600 MG tablet
600 mg PO DAILY
gabapentin 300 MG capsule
300 mg PO TID
carvedilol 12.5 MG tablet
12.5 mg PO Q12H
diphenhydramine HCl [Banophen] 25 MG capsule
25 mg PO HS
Flexi Joint 500-400-166.6 mg Tablet
1 tab PO DAILY
cyanocobalamin (vitamin B-12) 1,000 mcg Tablet
1,000 mcg PO Q48H@0800
aspirin 81 mg Tablet,Delayed Release (Dr/Ec)
81 mg PO DAILY
Align 4 mg Capsule
4 mg PO NOON
ascorbic acid (vitamin C) [Vitamin C] 1,000 mg Tablet
1,000 mg PO DAILY
atorvastatin 20 mg Tablet
20 mg PO DAILY
therapeutic multivitamin Tablet
1 tab PO DAILY
ferrous sulfate [iron] 325 mg (65 mg iron) Tablet
325 mg PO Q72H
Patient Comments:
08/24/2023, Q72H@0800.
insulin aspart U-100 [Novolog FlexPen U-100 Insulin] 100 unit/mL (3 mL) Insulin Pen
15 unit SC AC
cholecalciferol (vitamin D3) 50 mcg (2,000 unit) Tablet
50 mcg PO DAILY
Trulicity 4.5 mg/0.5 mL Pen Injector
4.5 mg SC MO@0800
Eliquis 5 mg tablet
5 mg PO Q12H
Patient Comments:
08/24/2023, currently on hold for pt.'s upcoming sugery.
insulin glargine U-300 conc [Toujeo SoloStar U-300 Insulin] 300 UNIT/ML insulin pen
30 unit SC HS
insulin glargine U-300 conc [Toujeo SoloStar U-300 Insulin] 300 UNIT/ML insulin pen
25 unit SC DAILY
amoxicillin-pot clavulanate 875-125 mg Tablet
1 tab PO Q12 14 Days Qty: 28 0RF
Interventions
Interventions:
*Risk Screen - Suicide Last Done: 09/21/23 06:29
*General Assessment Last Done: 09/21/23 06:29
*Neglect/Abuse Screening Last Done: 09/21/23 06:29
ED- Fall Risk Assessment Last Done: 09/21/23 06:29
*ED COVID-19 Vaccine History Last Done: 09/21/23 06:29
[2023-09-21 08:06] LABS: % Basophils 0.2 % (0-2); % Eosinophils 1.5 % (0-6); % Immature Granulocytes 0.2 % (0-0.5); % Lymphocytes 15.8 % (20.5-51.1); % Monocytes 10.2 % (1.7-9.3); % Neutrophils 72.1 % (42.2-75.2); Absolute Eosinophils 0.1 10^3/uL (0-0.7); Absolute Lymphocytes 0.8 10^3/uL (1.2-3.4); Absolute Monocytes 0.5 10^3/uL (0.1-0.6); Absolute Neutrophils 3.8 10^3/uL (1.4-6.5); Hematocrit 30.1 % (39.0-52.0); Hemoglobin 10.3 g/dL (13.0-18.0); Mean Corp Hgb Conc. 34.2 g/dL (33.0-37.0); Mean Corpuscular Hgb 27.7 pg (27.0-31.0); Mean Corpuscular Volume 80.9 fL (80.0-94.0); Mean Platelet Volume 8.8 fL (7.4-10.4); Nucleated Red Blood Cells % 0 % (-); Platelet Count 237 10^3/uL (130-400); Red Blood Cell Count 3.72 10^6/uL (4.70-6.10); Red Cell Dist. Width 13.2 % (11.5-14.5); White Blood Cell Count 5.3 10^3/uL (4.8-10.8)
[2023-09-21 08:16] LABS: Lactic Acid 1.1 mmol/L (0.7-2.0)
[2023-09-21 08:17] LABS: ALT (SGPT) 22 U/L (0-50); AST (SGOT) 39 U/L (17-59); Albumin 3.5 g/dl (3.5-5.0); Alkaline Phosphatase 154 U/L (38-126); Blood Urea Nitrogen 20 mg/dl (9-20); Calcium 8.7 mg/dl (8.4-10.2); Carbon Dioxide 22 mmol/L (22-30); Chloride 105 mmol/L (98-107); Estimated Creatinine Clearance 104 ml/min; Glucose 162 mg/dl (70-99); Potassium 4.3 mmol/L (3.5-5.1); Sodium 134 mmol/L (135-145); Total Bilirubin 1.1 mg/dl (0.2-1.3); eGFR > 60.00
--- NOTE | 2023-09-21 10:59 | HPS.HSE ---
Family Physician
-
Family Physician: Benjamin Kumar [facility] [place]
Chief Complaint
-
Right foot bleeding
History of Present Illness
Patient started to have issues with right foot bleeding for which he needed to come to ER 3 days ago. He was discharged to the care of his door liner who sent him back today with concerns of bleeding and wound infection and the need of
transmetatarsal amputation of the right foot.
He denies any fever or chills.
He has neuropathy in the feet and still feeling pain in the right foot which he states is moderate.
Denies any chest pain, palpitations or shortness of breath. Denies any cardiac disease.
No known functional status as he cannot walk much with the foot issues.
He was here a month ago ,he had a left second toe osteomyelitis and had toe amputation along with second metatarsal head amputation.
He tolerated the procedure well.
Medical History
Past Medical History
Past Medical History: Reports HTN, Hypercholesterolemia and IDDM
Past Surgical History: Reports Appendectomy and Other (LE toe amputations;gastric stapling)
Social History
Tobacco: Non-smoker
Alcohol: None
Drug: None
Family History
Family History: Not pertinent
Allergies / Home Medications
Allergies reflects when Allergies were last updated in [facility].
Home Medications with original date entered in [facility]
Allergy/Medication List:
Allergies
Allergy/AdvReac Type Severity Reaction Status Date / Time
ketorolac Allergy Rash Verified 09/21/23 06:28
NSAIDS (Non-Steroidal Allergy Rash Verified 09/21/23 06:28
Anti-Inflamma
Home Medications
calcium carbonate 600 mg calcium (1,500 mg) tablet (Calcium) 600 mg PO DAILY Supplement 04/23/13
lisinopril 20 mg tablet 20 mg PO DAILY Blood pressure 04/23/13
gabapentin 300 mg capsule 300 mg PO TID pain 04/15/14
carvedilol 12.5 mg tablet 12.5 mg PO Q12H Blood pressure 09/13/20
diphenhydramine HCl 25 mg capsule (Banophen) 25 mg PO HS sleep 09/13/20
tfgfncwkzjk-cigeo-rwr-vit C-Mn 500 mg-400 mg-166.6 mg tablet (Flexi Joint) 1 tab PO DAILY Supplement 03/29/22
aspirin 81 mg tablet,delayed release 81 mg PO DAILY Blood clot prevention/tx 08/22/22
cyanocobalamin (vitamin B-12) 1,000 mcg tablet 1,000 mcg PO MOTUTHFRSA Supplement 08/22/22
Bifidobacterium infantis 4 mg capsule (Align) 4 mg PO NOON probiotic 10/05/22
apixaban 5 mg tablet (Eliquis) 5 mg PO Q12H dvt 08/24/23
ascorbic acid (vitamin C) 1,000 mg tablet (Vitamin C) 1,000 mg PO DAILY Supplement 08/24/23
atorvastatin 20 mg tablet 20 mg PO DAILY High Cholesterol 08/24/23
cholecalciferol (vitamin D3) 50 mcg (2,000 unit) tablet 50 mcg PO DAILY Supplement 08/24/23
dulaglutide 4.5 mg/0.5 mL subcutaneous pen injector (Trulicity) 4.5 mg SC MO@0800 Diabetes 08/24/23
ferrous sulfate 325 mg (65 mg iron) tablet (iron) 325 mg PO Q48H Supplement 08/24/23
insulin aspart U-100 100 unit/mL (3 mL) subcutaneous pen (Novolog FlexPen U-100 Insulin aspart) 15 unit SC AC Diabetes 08/24/23
insulin glargine U-300 conc 300 unit/mL (1.5 mL) subcutaneous pen (Toujeo SoloStar U-300 Insulin) 25 unit SC DAILY Diabetes 08/24/23
insulin glargine U-300 conc 300 unit/mL (1.5 mL) subcutaneous pen (Toujeo SoloStar U-300 Insulin) 30 unit SC HS Diabetes 08/24/23
therapeutic multivitamin 1 tab PO DAILY Supplement 08/24/23
zolpidem 5 mg tablet 5 mg PO HS PRN sleep 09/21/23
Review of Systems
-
A 12 point ROS was completed and negative except as noted: Yes
Physical Exam
Vital Signs
Vital Signs
Temp Pulse Resp BP Pulse Ox
98.9 F 74 18 118/68 97
09/21/23 06:29 09/21/23 08:49 09/21/23 08:49 09/21/23 08:49 09/21/23 08:49
Physical Exam
General: Comfortable
HEENT: Moist mucous membranes
Respiratory: Clear
Cardiac: S1/S2 and Regular Rhythm
Musculoskeletal: Edema, Right Lower Extremity (warm to touch); No Edema, Right Upper Extremity
Neuro: AO x 3 and No Motor Deficits
Laboratory Results
-
09/21/23 07:40
09/21/23 07:40
Laboratory Results
Lactic Acid Cancelled 09/21/23 11:00
Total Bilirubin 1.1 mg/dl (0.2-1.3) 09/21/23 07:40
AST 39 U/L (17-59) 09/21/23 07:40
ALT 22 U/L (0-50) 09/21/23 07:40
Alkaline Phosphatase 154 U/L (38-126) H 09/21/23 07:40
Data Reviewed
-
Lab Data: Labs Reviewed by me
Impression/Plan
-
Right diabetic wound infection with bleeding-plan for TMA today noted. Suspect surrounding cellulitis. Admit to hospital for proposed surgery. Keep NPO. Start on empirical cefazolin based on prior isolates. Consult ID.
Diabetes mellitus type 2-continue with his insulin regimen postop once he is on diet. Patient on Trulicity at home which is noted. Add sliding scale insulin.
Hypertension-hold lisinopril today, start tomorrow.cw coreg
History of right arm PICC associated DVT and now November 2022. Patient still remains on anticoagulation. Currently right lung base normal without any edema. I do not see further indication for Eliquis. This is his first episode of DVT which is
provoked by PICC line. Start subcu heparin for postop DVT prophylaxis. He has not taken his Eliquis for 3 days now as advised by his door liner.
Full code
[2023-09-21 12:37] LABS: Glucose - Point of Care 121 mg/dl (70-99)
[2023-09-21 14:41] LABS: Glucose - Point of Care 160 mg/dl (70-99)
--- NOTE | 2023-09-21 14:43 | CON.ID ---
Consultation
-
Date/Time Consultation Requested: 09/21/2023 1030
Date/Time Consultation Performed: 09/22/2023 1415
Requesting Provider: Dr. Hunter
Performing Provider: Dr. Hernandez
Reason for Consultation: Right foot infection
Chief Complaint / Past History
History of Present Illness
Julio Sexton is a 62-year-old man with a significant past medical history of diabetes mellitus and recent right foot osteomyelitis being evaluated at the request of Dr. Hunter in regards to possible recurrence of right foot infection. History is
obtained from chart review, along with patient interview. The patient was seen by the Infectious Diseases service on his prior admission dated 08/24/2023. During that period of time he underwent right second toe and partial metatarsal amputation
for osteomyelitis. He was discharged to home on 08/25/2013, to continue with a 14-day course of Augmentin.
The patient presented back to the emergency room yesterday, having been sent in by Dr. Casillas secondary to wound dehiscence and bleeding. The patient had followed up with Dr. Casillas in the office, and x-rays there revealed several areas of new
fractures, indicating the patient had not adhered to his nonweightbearing status. The patient was brought into the hospital, and is currently in the PACU, status post right TMA. Intraoperative cultures have been obtained.
Past History
Additional Past Medical History:
Diabetes mellitus, well controlled.
Neuropathy.
Hypertension.
Class 3 obesity, BMI 40.
Dyslipidemia.
Sciatica.
Additional Past Surgical History:
History of bariatric surgery.
Remote history of right foot gangrene in 2007.
History of osteomyelitis right foot
S/P (R)2nd toe partial amp, (R) 3rd met head resection.
History of (R) 5th toe abscess S/P drainage & partial bone resection.
Right 5th MT stump and 4th met head resection (08/22/22)
s/p Right second toe partial amp and Left 5th MPJ resection (05/05/23) s/p 6 weeks daptomycin
Allergy History:
ketorolac Allergy (Verified 09/21/23 06:28)
Rash
NSAIDS (Non-Steroidal Anti-Inflamma Allergy (Verified 09/21/23 06:28)
Rash
Medications Reviewed: Yes
Social History
Tobacco: Non-Smoker
Alcohol: Occasional
Drug: None
Personal: Single
Living: With Roomate
Employment: Not Employed
Family History
Family History: Not Pertinent
Review of Systems
Vital Signs
Temp Pulse Resp BP Pulse Ox
99.8 F 74 18 120/64 98
09/21/23 11:40 09/21/23 11:40 09/21/23 11:40 09/21/23 11:40 09/21/23 11:40
Physical Exam
Physical Exam
Constitutional: No Acute Distress, Comfortable and Non-toxic
Eyes: No Conjunctival Hemorrhage and Sclera Anicteric
Cardiovascular: Regular Rate and S1/S2; Negative S3/S4
Pulmonary: Clear; Negative Wheezes, Rales or Rhonchi
Gastrointestinal: Soft, Non Tender, Non Distended and Normal Bowel Sounds
Extremities: Edema (Right lower extremity; 2+) and Erythema
Wound: Other (Right foot dressed in Junito wrap.)
Neurological: Other (Somnolent status post surgery)
Lab / Diagnostic Study Results
09/21/23 07:40
09/21/23 07:40
Abs Immat Gran (auto) 0.0 10^3/uL (0-0.05) 09/21/23 07:40
Absolute Neuts (auto) 3.8 10^3/uL (1.4-6.5) 09/21/23 07:40
Absolute Lymphs (auto) 0.8 10^3/uL (1.2-3.4) L 09/21/23 07:40
Absolute Monos (auto) 0.5 10^3/uL (0.1-0.6) 09/21/23 07:40
Absolute Basos (auto) 0.0 10^3/uL (0-0.2) 09/21/23 07:40
Immature Gran % 0.2 % (0-0.5) 09/21/23 07:40
Neutrophils % 72.1 % (42.2-75.2) 09/21/23 07:40
Lymphocytes % 15.8 % (20.5-51.1) L 09/21/23 07:40
Monocytes % 10.2 % (1.7-9.3) H 09/21/23 07:40
Eosinophils % 1.5 % (0-6) 09/21/23 07:40
Basophils % 0.2 % (0-2) 09/21/23 07:40
Lactic Acid Cancelled 09/21/23 11:00
Microbiology Results
Micro:
09/21/23 10:23 Blood Culture - Pending
Blood/Venous
09/21/23 07:40 Blood Culture - Pending
Blood/Venous
Assessment / Plan
Right foot wound dehiscence
Suspected ongoing wound infection
S/P (R) TMA)
Diabetes mellitus, well controlled.
Neuropathy.
Hypertension.
Class 3 obesity, BMI 40.
Dyslipidemia.
Sciatica.
Recommendations:
Prior cultures reviewed and were polymicrobial.
Begin vancomycin and Zosyn for now.
Case discussed with Podiatry; intraoperative cultures obtained, along with proximal margin biopsies.
Follow white count and temperature.
Follow-up pending cultures and adjust antibiotics as further data is returned.
Care Review
Plan reviewed with: Physician (Podiatry)
--- NOTE | 2023-09-21 14:49 | W.PN.UPDATE ---
Update Note
Progress Note Update
pt seen in RR
no pain
no bleeding
afvss
a/p s/p TMA right--stable, NWB with complete bed rest. If wb will bleed and pop sutures
d/w ID, will start abx
will apply post splint
will pull packing this weekend
c& s taken of bone nd ST
1st met, 2nd met sent to path, prox 2nd met sent for clean margin
3rd toe sent to path
2nd met bone cult
NWB
--- NOTE | 2023-09-21 15:17 | PHA.VAN.IN ---
Assessment
- Assessment
Renal Function: Appears elevated from baseline (08/25/23 BASELINE SCR: 0.8)
Concomitant Antimicrobials: ZOSYN
- Previous Dosing Experience
Previous Regimen: 1500MG IV Q12H
Date of Regimen: 05/04/23
Provided Trough of: 14
Provided AUC of: 432
Patient's SCR is: Elevated compared to previous dosing experience (05/04/23 SCR = 0.9)
Patient's weight is: Decreased compared to previous dosing experience (05/04/23 WT = 138.9 KG)
AUC Dosing Plan
- Dosing Variables
Dosing Weight (kg): 137.7
Dosing CrCl (ml/min): 100
Vd coefficient (L/kg): 0.5
- Empiric Dosing
Initial / Loading Dose: 2GM
Maintenance Regimen: 1500MG IV Q12H
Estimated AUC (mcg*h/mL): 531
Estimated Peak (mcg*h/mL): 33.5
Estimated Trough (mcg/ml): 13.4
Estimated Half Life (H): 7.9
Pharmacokinetics Vancomycin I
- -
Patient Age: 62
Patient Sex: Male
Vancomycin Day #: 1
Indication: Bone And Joint ([R] FOOT OM/TMA)
Requesting Provider: DAVID
Height / Weight:
Height 6 ft 1 in
Actual Weight 137.7 kg
Pertinent Past Medical History: DM; PRIOR TMA
- Vital Signs / Lab Results
Temp Pulse Resp BP Pulse Ox
97.4 F 68 9 114/64 95
09/21/23 14:30 09/21/23 15:15 09/21/23 15:15 09/21/23 15:00 09/21/23 15:15
Lab Results - Hematology
09/21/23
07:40
WBC 5.3
Lab Results - Chemistry
09/21/23
07:40
BUN 20
Creatinine 1.1
Estimated Creat Clear 104
Albumin 3.5
09/21/23 09/21/23
07:40 11:00
Lactic Acid 1.1 Cancelled
[2023-09-21] MEDS: VANCOCIN 540 MG IV (15:30)
--- NOTE | 2023-09-21 16:39 | PTCARENOTE ---
Pt arrived to 2S in bed. Full assessment completed. IV Vancomycin infusing per order. Continuous pulse ox applied, nasal cannula maintained. RLE DSG secured with nacho wrap. + doppler R popliteal pulse. Pt educated on strict bedrest and NWB status,
verbalized understanding. Bed locked and in the lowest position, safety maintained. Oriented to room and call.
[2023-09-21] MEDS: NOVOLOG FLEXPEN-LOW RESISTANCE SC (17:00)
[2023-09-21 17:01] LABS: Glucose - Point of Care 184 mg/dl (70-99)
[2023-09-21] MEDS: HEPARIN 5000 UNITS SC ×2 (17:41→23:51)
[2023-09-21] MEDS: NEURONTIN 300 MG PO ×2 (17:41→20:24)
[2023-09-21] MEDS: NOVOLOG FLEXPEN 15 UNITS SC (17:41)
[2023-09-21] MEDS: ZOSYN 50 IV ×2 (17:41→23:51)
[2023-09-21] MEDS: NOVOLOG FLEXPEN-LOW RESISTANCE 1 UNITS SC (17:42)
[2023-09-21] MEDS: COLACE 100 MG PO (20:21)
[2023-09-21] MEDS: COREG 12.5 MG PO (20:21)
[2023-09-21] MEDS: BENADRYL 25 MG PO (20:24)
[2023-09-21 21:33] LABS: Glucose - Point of Care 260 mg/dl (70-99)
[2023-09-21] MEDS: LANTUS 0.239999999999999991 UNITS SC (21:36)
[2023-09-22 03:10] VITALS: BP 108/58
[2023-09-22] MEDS: ZOSYN 50 IV ×4 (05:34→23:42)
[2023-09-22] MEDS: VANCOCIN 300 ML IV ×2 (06:09→18:13)
[2023-09-22] MEDS: VANCOCIN 300 MG IV ×2 (06:09→18:13)
[2023-09-22 06:51] LABS: Hemoglobin 9.9 g/dL (13.0-18.0); Mean Corp Hgb Conc. 34.1 g/dL (33.0-37.0); Mean Corpuscular Volume 82.2 fL (80.0-94.0); Mean Platelet Volume 9.1 fL (7.4-10.4); Platelet Count 250 10^3/uL (130-400); Red Blood Cell Count 3.53 10^6/uL (4.70-6.10); Red Cell Dist. Width 12.9 % (11.5-14.5); White Blood Cell Count 7.1 10^3/uL (4.8-10.8)
[2023-09-22 07:16] LABS: Blood Urea Nitrogen 15 mg/dl (9-20); Calcium 8.2 mg/dl (8.4-10.2); Carbon Dioxide 23 mmol/L (22-30); Chloride 105 mmol/L (98-107); Estimated Creatinine Clearance > 125 ml/min; Glucose 146 mg/dl (70-99); Potassium 4.5 mmol/L (3.5-5.1); Sodium 133 mmol/L (135-145); eGFR > 60.00
[2023-09-22 07:18] VITALS: BP 127/62
[2023-09-22] MEDS: COLACE PO ×3 (07:55→19:55)
[2023-09-22] MEDS: MIRALAX PO (07:56)
[2023-09-22] MEDS: VITAMIN C 1000 MG PO (07:58)
[2023-09-22] MEDS: ASPIR LOW (ENTERIC COATED) 81 MG PO (07:58)
[2023-09-22] MEDS: NEURONTIN 300 MG PO ×3 (07:58→22:15)
[2023-09-22] MEDS: VITAMIN D3 (cholecalciferol) 50 MCG PO (07:58)
[2023-09-22] MEDS: THERAGRAN 1 TABLET PO (07:58)
[2023-09-22] MEDS: OSCAL CAL 500 500 MG PO (07:59)
[2023-09-22] MEDS: LIPITOR 20 MG PO (07:59)
[2023-09-22] MEDS: LANTUS 0.200000000000000011 UNITS SC (07:59)
[2023-09-22] MEDS: HEPARIN 5000 UNITS SC ×3 (07:59→23:42)
--- NOTE | 2023-09-22 08:27 | PHA.VAN.FU ---
Vancomycin Assessment / Plan
- Assessment
Renal Function: SCR Decreasing
WBC's are: WNL
In the past 24 hrs, patient has been: Afebrile
Concomitant Antimicrobials: zosyn
- Dosing Plan
Continue: 1500mg q12h
- Monitoring Plan
Peak Level: 09/23 @2100
Trough Level: 09/24 @0530
- Follow Up
Pharmacy will continue to follow.
Vancomycin Follow UP
- -
Patient Age: 62
Patient Sex: Male
Vancomycin Day #: 2
Indication: Bone And Joint ([R] FOOT OM/TMA)
Requesting Provider: DAVID
Height / Weight:
Height 6 ft 1 in
Actual Weight 137.7 kg
Pertinent Past Medical History: DM; PRIOR TMA
- Vital Signs / Lab Results
Temp Pulse Resp BP Pulse Ox
98 F 71 19 127/62 97
09/22/23 07:18 09/22/23 07:18 09/22/23 07:18 09/22/23 07:18 09/22/23 07:18
Lab Results - Hematology
09/21/23 09/22/23
07:40 05:13
WBC 5.3 7.1
Lab Results - Chemistry
09/21/23 09/22/23
07:40 05:13
BUN 20 15
Creatinine 1.1 0.8
Estimated Creat Clear 104 > 125
Albumin 3.5
09/21/23 09/21/23
07:40 11:00
Lactic Acid 1.1 Cancelled
Microbiology Results
09/21/23 07:40 Blood Culture - Preliminary
Blood/Venous Positive culture in progress
Gram Stain - Preliminary
09/21/23 15:00 Gram Stain - Final
Wound-Superficial
[2023-09-22] MEDS: NOVOLOG FLEXPEN-LOW RESISTANCE SC (08:54)
[2023-09-22] MEDS: COREG 12.5 MG PO ×2 (08:55→19:44)
[2023-09-22] MEDS: VITAMIN B-12 1000 MCG PO (08:55)
[2023-09-22] MEDS: NOVOLOG FLEXPEN 15 UNITS SC ×3 (08:56→17:15)
--- NOTE | 2023-09-22 11:09 | W.PN.HOSP.TC ---
Today's Communication/Plan
-
Follow BCX data
CW ABX
Follow HH
Assessment / Plan
Assessment / Plan
Right diabetic wound infection with bleeding-status post TMA 09/21.� Continue with wound care and pain medication per car dropper
Suspect surrounding cellulitis.� Continue with current antibiotics of Zosyn and vancomycin. ID following. Afebrile and white count normal.
Staph aureus bacteremia -1 out of 2 bottles from admission lab draw showed Staph aureus-patient currently on vancomycin which I would continue.
Acute blood loss anemia-patient had a bleeding before adx and with procedure. Hemoglobin 9.9 which is below his baseline. Continue to follow.
Diabetes mellitus type 2-hemoglobin A1c 6.9 .� Continue his home insulin regimen along with sliding scale insulin. Patient on Trulicity as well at home. No hypoglycemia
Hypertension-resume lisinopril .cw coreg
History of right arm PICC associated DVT and now November 2022.� Patient still remains on anticoagulation.� Currently right arm normal without any edema.� I do not see further indication for Eliquis.� This is his first episode of DVT which is provoked by
PICC line.� cw subcu heparin for postop DVT prophylaxis.� He has not taken his Eliquis for 3 days now as advised by his car dropper.
Full code
Anticipated Discharge: 24 - 48 hours
Subjective/Interval History
-
Date of Service: September 22, 2023
Intermittent throbbing pain to the right foot. Has peripheral neuropathy. Pain picks at it is 5-6 out of 10.
Not requiring much pain medicine he states.
No fever or chills.
No shortness of breath or chest pain.
Objective Data
-
Labs:
Laboratory Results
09/22/23
05:13
WBC 7.1
Hgb 9.9 L
Hct 29.0 L
Plt Count 250
Sodium 133 L
Potassium 4.5
Chloride 105
Carbon Dioxide 23
BUN 15
Creatinine 0.8
Glucose 146 H
Calcium 8.2 L
Vital Signs:
Vital Signs
Temp Pulse Resp BP Pulse Ox
98 F 71 19 127/62 97
09/22/23 07:18 09/22/23 07:18 09/22/23 07:18 09/22/23 07:18 09/22/23 07:18
I&O
09/21/23 09/22/23 09/23/23
06:59 06:59 06:59
Intake Total 1170 / 1170
Balance 1170 / 1170
Review of Systems
-
Respiratory: Denies Trouble Breathing
Cardiac: Denies Chest Pain
Abdomen/GI: Denies Abdominal Pain, Nausea or Vomiting
Neuro: Denies Dizzy
Physical Exam
-
General: No Apparent Distress
HEENT: Moist Mucous Membranes
Respiratory: Clear to Auscultation
Cardiac: Regular Rhythm and S1/S2
GI: Soft and Nontender
Musculoskeletal: Other (Right TMA site opened by car dropper who is at bedside-no bleeding. No drainage.)
Neuro: AO x 3
Psych: Calm
Data Reviewed
-
Labs: Labs Reviewed by me
--- NOTE | 2023-09-22 11:21 | W.PN.POD ---
Today's Communication
Today's Communication
s/p TMA right foot--stable
cont abx, ID involved, following cultures
flap warm
packing advanced, no active blood
will pull tomorrow and suture at bedside
nwb, will apply splint as well
anticipate dc sunday/sunday
appreciate all input
Subjective
Chief Complaint
pt seen at bedside s/p tma right foot
+ throbs
minimal pain
no bleeding threw bandages
packing in place
Subjective
vasc intact, flap with normal cft, warm
derm mild edema
no cellulitis
no pus
no active bleeding
no cellulitis
sutures intact
Objective
Temp Pulse Resp BP Pulse Ox
98 F 71 19 127/62 97
09/22/23 07:18 09/22/23 07:18 09/22/23 07:18 09/22/23 07:18 09/22/23 07:18
09/22/23 05:13
09/22/23 05:13
Vital Signs and Lab results were reviewed.
[2023-09-22 11:24] VITALS: BP 105/56
[2023-09-22 12:04] LABS: Glucose - Point of Care 172 mg/dl (70-99)
[2023-09-22] MEDS: VISBIOME 1 CAP PO (12:12)
[2023-09-22] MEDS: NOVOLOG FLEXPEN-LOW RESISTANCE 1 UNITS SC ×2 (12:14→17:19)
--- NOTE | 2023-09-22 13:11 | W.PN.ID1 ---
Date of Service
Date of Service: September 22, 2023
Today's Communication
s aureus bacteremia
blood cultures x2
continue current antibiotics
Assessment / Plan
Right foot wound dehiscence
Suspected ongoing wound infection
S/P (R) TMA)
H/o R arm DVT related to PICC
Diabetes mellitus, well controlled.
Neuropathy.
Hypertension.
Class 3 obesity, BMI 40.
Dyslipidemia.
Sciatica.
Recommendations:
09/21 blood culture s aurues in 1 set, repeat blood cultures x2 today
Prior cultures reviewed and were polymicrobial.
OR cultures in progress
Continue vancomycin and Zosyn for now.
Follow white count and temperature.
Follow-up pending cultures and adjust antibiotics as further data is returned.
Chief Complaint
-: Other (diabetic foot infection,)
Subjective / Review of Systems
afebrile
bp stable
wbc normal
cr stable
OR culture in progress - gram stain few gpcs
Vital Signs / Physical Exam
Vital Signs
Vital Signs
Temp Pulse Resp BP Pulse Ox
98.3 F 69 19 105/56 96
09/22/23 11:24 09/22/23 11:24 09/22/23 11:24 09/22/23 11:24 09/22/23 11:24
Physical Exam
Constitutional: No Acute Distress
Cardiovascular: Regular Rate and S1/S2; Negative Murmur or Rub
Pulmonary: Clear and Symmetric; Negative Wheezes or Rales
Gastrointestinal: Soft, Non Tender, Non Distended and Normal Bowel Sounds
Skin: Warm and Dry; Negative Rash or Jaundice
Wound: Other (dressing clean, dry, intact)
Objective Data
Lab Data
Lab Results
09/22/23 05:13
09/22/23 05:13
Estimated Creat Clear > 125 ml/min 09/22/23 05:13
Lactic Acid Cancelled 09/21/23 11:00
Total Bilirubin 1.1 mg/dl (0.2-1.3) 09/21/23 07:40
AST 39 U/L (17-59) 09/21/23 07:40
ALT 22 U/L (0-50) 09/21/23 07:40
Alkaline Phosphatase 154 U/L (38-126) H 09/21/23 07:40
Most recent labs reviewed.
Micro Results:
09/21/23 15:00 Wound Culture - Pending
Foot - Right Gram Stain - Pending
09/21/23 14:59 Tissue Culture - Pending
Bone Gram Stain - Pending
09/21/23 10:23 Blood Culture - Preliminary
Blood/Venous No Growth in 24 hours- Final report to follow
09/21/23 07:40 Blood Culture - Preliminary
Blood/Venous Staphylococcus aureus
Gram Stain - Preliminary
09/21/23 15:00 Gram Stain - Final
Wound-Superficial
09/21/23 15:00 Anaerobic Culture - Pending
Wound-Superficial
09/21/23 14:59 Anaerobic Culture - Pending
Bone
[2023-09-22 15:39] VITALS: BP 126/69
--- NOTE | 2023-09-22 16:15 | CM ---
Alert awake oriented patient who lives with his SO Damir who lives in a 1 story home with ramp and bed and bathroom on first floor. He is independent in driving and in all activities of daily living.He is current with [facility].Uses walker cane.
[facility] /SNF history
Pharmacy [facility]
PCP DR Simon
PLAN Home with [facility]
[2023-09-22 17:13] LABS: Glucose - Point of Care 155 mg/dl (70-99)
[2023-09-22] MEDS: LANTUS 0.299999999999999989 UNITS SC (22:15)
[2023-09-22] MEDS: BENADRYL 25 MG PO (22:15)
[2023-09-22 22:19] LABS: Glucose - Point of Care 133 mg/dl (70-99)
[2023-09-22 23:40] VITALS: BP 102/57
[2023-09-23] MEDS: ZOSYN 50 IV ×4 (05:59→23:05)
[2023-09-23] MEDS: VANCOCIN 300 ML IV ×2 (06:30→17:51)
[2023-09-23] MEDS: VANCOCIN 300 MG IV ×2 (06:30→17:51)
[2023-09-23 07:10] VITALS: BP 106/65
[2023-09-23 07:29] LABS: Glucose - Point of Care 109 mg/dl (70-99)
[2023-09-23] MEDS: NOVOLOG FLEXPEN-LOW RESISTANCE SC ×3 (07:31→17:19)
--- NOTE | 2023-09-23 07:49 | PHA.VAN.FU ---
Vancomycin Assessment / Plan
- Assessment
Renal Function: SCR Decreasing
WBC's are: WNL
In the past 24 hrs, patient has been: Afebrile
Concomitant Antimicrobials: ZOSYN
- Dosing Plan
Continue: 1500MG Q12H
- Monitoring Plan
Peak Level: 09/23 @2100
Trough Level: 09/24 @0530
- Follow Up
Pharmacy will continue to follow.
Vancomycin Follow UP
- -
Patient Age: 62
Patient Sex: Male
Vancomycin Day #: 3
Indication: Bone And Joint ([R] FOOT OM/TMA)
Requesting Provider: DAVID
Height / Weight:
Height 6 ft 1 in
Actual Weight 137.7 kg
Pertinent Past Medical History: DM; PRIOR TMA
- Vital Signs / Lab Results
Temp Pulse Resp BP Pulse Ox
99.2 F 72 18 102/57 96
09/22/23 23:40 09/22/23 23:40 09/22/23 23:40 09/22/23 23:40 09/22/23 23:40
Lab Results - Hematology
09/21/23 09/22/23
07:40 05:13
WBC 5.3 7.1
Lab Results - Chemistry
09/21/23 09/22/23
07:40 05:13
BUN 20 15
Creatinine 1.1 0.8
Estimated Creat Clear 104 > 125
Albumin 3.5
09/21/23 09/21/23
07:40 11:00
Lactic Acid 1.1 Cancelled
Microbiology Results
09/21/23 14:59 Gram Stain - Preliminary
Bone
09/21/23 14:59 Anaerobic Culture - Preliminary
Bone Culture pending. Anaerobic cultures are examined after 3
days incubation. Additional information to follow.
09/21/23 15:00 Anaerobic Culture - Preliminary
Wound-Superficial Culture pending. Anaerobic cultures are examined after 3
days incubation. Additional information to follow.
09/21/23 15:00 Wound Culture - Preliminary
Foot - Right Gram Stain - Preliminary
09/21/23 10:23 Blood Culture - Preliminary
Blood/Venous No Growth in 24 hours- Final report to follow
09/21/23 07:40 Blood Culture - Preliminary
Blood/Venous Staphylococcus aureus
Gram Stain - Preliminary
[2023-09-23] MEDS: MIRALAX PO (08:38)
[2023-09-23] MEDS: COLACE PO (08:38)
[2023-09-23] MEDS: ASPIR LOW (ENTERIC COATED) 81 MG PO (08:43)
[2023-09-23] MEDS: COREG 12.5 MG PO ×2 (08:44→20:20)
[2023-09-23] MEDS: NEURONTIN 300 MG PO ×3 (08:44→21:48)
[2023-09-23] MEDS: LIPITOR 20 MG PO (08:44)
[2023-09-23] MEDS: FEOSOL 325 MG PO (08:44)
[2023-09-23] MEDS: THERAGRAN 1 TABLET PO (08:44)
[2023-09-23] MEDS: OSCAL CAL 500 500 MG PO (08:45)
[2023-09-23] MEDS: ZESTRIL 20 MG PO (08:45)
[2023-09-23] MEDS: VITAMIN D3 (cholecalciferol) 50 MCG PO (08:45)
[2023-09-23] MEDS: VITAMIN C 1000 MG PO (08:45)
[2023-09-23] MEDS: HEPARIN 5000 UNITS SC ×3 (08:46→23:05)
[2023-09-23] MEDS: LANTUS 0.25 UNITS SC (08:47)
[2023-09-23] MEDS: NOVOLOG FLEXPEN 15 UNITS SC ×3 (08:47→17:49)
--- NOTE | 2023-09-23 10:30 | W.PN.ID1 ---
Date of Service
Date of Service: September 23, 2023
Today's Communication
continue vanc/zosyn
Assessment / Plan
Right foot wound dehiscence
Suspected ongoing wound infection
S/P (R) TMA)
H/o R arm DVT related to PICC
Diabetes mellitus, well controlled.
Neuropathy.
Hypertension.
Class 3 obesity, BMI 40.
Dyslipidemia.
Sciatica.
Recommendations:
09/21 blood culture s aureus in 1 set, repeat blood cultures x2 no growth
Prior cultures reviewed and were polymicrobial.
OR cultures - s aureus and a gram negative; 08/24 culture sensi not reported on the staph
Continue vancomycin and Zosyn for now.
Discussed PICC 09/22 - refusing home IV antibiotics, he identifies Dr Basurto as his ID MD, encouraged him to discuss further with Dr Basurto who will be back on service tomorrow
Follow white count and temperature.
Follow-up pending cultures and adjust antibiotics as further data is returned.
Chief Complaint
-: Other (diabetic foot infection,)
Subjective / Review of Systems
afebrile
bp stable
wound culture in progress
no complaints
podiatry removed packing - reports no signs of infection
Vital Signs / Physical Exam
Vital Signs
Vital Signs
Temp Pulse Resp BP Pulse Ox
98.2 F 73 18 109/57 95
09/23/23 07:10 09/23/23 08:45 09/23/23 07:10 09/23/23 08:45 09/23/23 07:10
Physical Exam
Constitutional: No Acute Distress
Cardiovascular: Regular Rate and S1/S2; Negative Murmur or Rub
Pulmonary: Clear and Symmetric; Negative Wheezes or Rales
Gastrointestinal: Soft, Non Tender, Non Distended and Normal Bowel Sounds
Skin: Warm and Dry; Negative Rash or Jaundice
Wound: Other (dressing clean/dry/intact)
Objective Data
Lab Data
Lab Results
09/22/23 05:13
09/22/23 05:13
Estimated Creat Clear > 125 ml/min 09/22/23 05:13
Lactic Acid Cancelled 09/21/23 11:00
Total Bilirubin 1.1 mg/dl (0.2-1.3) 09/21/23 07:40
AST 39 U/L (17-59) 09/21/23 07:40
ALT 22 U/L (0-50) 09/21/23 07:40
Alkaline Phosphatase 154 U/L (38-126) H 09/21/23 07:40
Most recent labs reviewed.
Micro Results:
09/21/23 10:23 Blood Culture - Preliminary
Blood/Venous No Growth in 48 hours- Final report to follow
09/21/23 07:40 Blood Culture - Preliminary
Blood/Venous Staphylococcus aureus
Gram Stain - Preliminary
09/22/23 15:05 Blood Culture - Pending
Blood/Venous
09/21/23 14:59 Tissue Culture - Pending
Bone Gram Stain - Preliminary
09/22/23 14:32 Blood Culture - Pending
Blood/Venous
09/21/23 14:59 Anaerobic Culture - Preliminary
Bone Culture pending. Anaerobic cultures are examined after 3
days incubation. Additional information to follow.
09/21/23 15:00 Anaerobic Culture - Preliminary
Wound-Superficial Culture pending. Anaerobic cultures are examined after 3
days incubation. Additional information to follow.
09/21/23 15:00 Wound Culture - Preliminary
Foot - Right Gram Stain - Preliminary
[2023-09-23 11:01] LABS: Glucose - Point of Care 152 mg/dl (70-99)
--- NOTE | 2023-09-23 11:43 | W.PN.POD ---
Today's Communication
Today's Communication
s/p tma right---stable
no SOI
packing pulled, 3 simple sutures placed
bandages and splint applied
PT for NWB right foot
cont ABX PER id
will see tomorrow, if stable will be ok to dc after i round
Subjective
Chief Complaint
s/p TMA right foot
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
dressing cdi
Subjective
vasc intact
foot warm, cft wnl to flap, pink and wrm
sutures intact
derm mild edema, no erythema or cellulitis, no pus
packing in place, pulled out, no bleeding
Objective
Temp Pulse Resp BP Pulse Ox
98.2 F 73 18 109/57 95
09/23/23 07:10 09/23/23 08:45 09/23/23 07:10 09/23/23 08:45 09/23/23 07:10
09/22/23 05:13
09/22/23 05:13
Vital Signs and Lab results were reviewed.
path pending
bone and wound cx, wbc and gram positive cocci,
[2023-09-23] MEDS: VISBIOME 1 CAP PO (11:52)
--- NOTE | 2023-09-23 12:43 | W.PN.HOSP.TC ---
Today's Communication/Plan
-
Continue antibiotics and wound care
Follow-up repeat blood cultures
Assessment / Plan
Assessment / Plan
Right diabetic wound infection with bleeding-status post TMA 09/21.� Continue with wound care and pain medication per batch unit treater
Suspect surrounding cellulitis.� Continue with current antibiotics of Zosyn and vancomycin. ID following. Afebrile and white count normal.
Staph aureus bacteremia -1 out of 2 bottles from admission lab draw showed Staph aureus-patient currently on vancomycin which I would continue.
Acute blood loss anemia-patient had a bleeding before adx and with procedure. Hemoglobin 9.9 which is below his baseline. Continue to follow.
Diabetes mellitus type 2-hemoglobin A1c 6.9 .� Continue his home insulin regimen along with sliding scale insulin. Patient on Trulicity as well at home. No hypoglycemia
Hypertension-resume lisinopril .cw coreg
History of right arm PICC associated DVT and now November 2022.� Patient still remains on anticoagulation.� Currently right arm normal without any edema.� I do not see further indication for Eliquis.� This is his first episode of DVT which is provoked by
PICC line.� cw subcu heparin for postop DVT prophylaxis.� He has not taken his Eliquis for 3 days now as advised by his batch unit treater.
Full code
Anticipated Discharge: Within 24 hours
Subjective/Interval History
-
Date of Service: September 23, 2023
No overnight events
Pain from the right foot amputation site is okay
Objective Data
-
Vital Signs:
Vital Signs
Temp Pulse Resp BP Pulse Ox
98.2 F 73 18 109/57 95
09/23/23 07:10 09/23/23 08:45 09/23/23 07:10 09/23/23 08:45 09/23/23 07:10
I&O
09/22/23 09/23/23 09/24/23
06:59 06:59 06:59
Intake Total 1170 / 1170 2480 / 2480
Output Total 1200 / 1200
Balance 1170 / 1170 1280 / 1280
Review of Systems
-
Constitutional: Denies Fever or Chills
Respiratory: Denies Trouble Breathing
Cardiac: Denies Chest Pain
Abdomen/GI: Denies Abdominal Pain, Nausea or Vomiting
Neuro: Denies Dizzy
Physical Exam
-
General: No Apparent Distress
HEENT: Moist Mucous Membranes
Respiratory: Clear to Auscultation
Cardiac: Regular Rhythm and S1/S2
GI: Soft
Musculoskeletal: Other (Right foot in dressing)
Neuro: AO x 3
Psych: Calm
Data Reviewed
-
Labs: Labs Reviewed by me
[2023-09-23 12:47] LABS: Glucose - Point of Care 108 mg/dl (70-99)
[2023-09-23] MEDS: ROXICODONE 10 MG PO (14:37)
--- NOTE | 2023-09-23 14:41 | PTCARENOTE ---
Called to room by patient for severe pain of the right ankle in the area of the splint; Reached out to Dr. Casillas who instructed this RN to remove top TYESHA wrap and splint
[2023-09-23 15:10] VITALS: BP 121/60
[2023-09-23 16:53] LABS: Glucose - Point of Care 111 mg/dl (70-99)
[2023-09-23 17:50] LABS: Glucose - Point of Care 105 mg/dl (70-99)
[2023-09-23 20:19] VITALS: BP 112/59
[2023-09-23] MEDS: COLACE 100 MG PO (20:20)
[2023-09-23 21:36] LABS: Vancomycin Peak 29.6 ug/ml (18-26)
[2023-09-23 21:48] LABS: Glucose - Point of Care 124 mg/dl (70-99)
[2023-09-23] MEDS: BENADRYL 25 MG PO (21:48)
[2023-09-23] MEDS: LANTUS 0.299999999999999989 UNITS SC (21:49)
[2023-09-23 22:52] VITALS: BP 117/61
[2023-09-24] MEDS: ZOSYN 50 IV (05:05)
[2023-09-24 06:04] LABS: Hematocrit 28.6 % (39.0-52.0); Hemoglobin 9.5 g/dL (13.0-18.0); Mean Corp Hgb Conc. 33.2 g/dL (33.0-37.0); Mean Corpuscular Volume 84.4 fL (80.0-94.0); Platelet Count 273 10^3/uL (130-400); Red Blood Cell Count 3.39 10^6/uL (4.70-6.10); Red Cell Dist. Width 13.2 % (11.5-14.5)
[2023-09-24 06:13] LABS: Vancomycin Trough 19.4 ug/ml (5-20)
[2023-09-24] MEDS: VANCOCIN 300 MG IV (06:23)
[2023-09-24] MEDS: VANCOCIN 300 ML IV (06:23)
[2023-09-24 06:31] LABS: Blood Urea Nitrogen 12 mg/dl (9-20); Calcium 8.7 mg/dl (8.4-10.2); Carbon Dioxide 27 mmol/L (22-30); Chloride 103 mmol/L (98-107); Estimated Creatinine Clearance > 125 ml/min; Glucose 93 mg/dl (70-99); Potassium 4.1 mmol/L (3.5-5.1); Sodium 138 mmol/L (135-145); eGFR > 60.00
[2023-09-24 07:10] VITALS: BP 156/80
[2023-09-24 07:33] LABS: Glucose - Point of Care 96 mg/dl (70-99)
[2023-09-24] MEDS: NOVOLOG FLEXPEN-LOW RESISTANCE SC ×2 (07:38→12:53)
[2023-09-24] MEDS: MIRALAX 17 GRAMS PO (07:46)
[2023-09-24] MEDS: COLACE 100 MG PO (07:47)
[2023-09-24] MEDS: ZESTRIL 20 MG PO (07:49)
[2023-09-24] MEDS: COREG 12.5 MG PO (07:49)
[2023-09-24] MEDS: ASPIR LOW (ENTERIC COATED) 81 MG PO (07:49)
[2023-09-24] MEDS: OSCAL CAL 500 500 MG PO (07:50)
[2023-09-24] MEDS: NEURONTIN 300 MG PO ×2 (07:50→15:19)
[2023-09-24] MEDS: VITAMIN C 1000 MG PO (07:50)
[2023-09-24] MEDS: VITAMIN D3 (cholecalciferol) 50 MCG PO (07:50)
[2023-09-24] MEDS: LIPITOR 20 MG PO (07:50)
[2023-09-24] MEDS: THERAGRAN 1 TABLET PO (07:51)
[2023-09-24] MEDS: HEPARIN 5000 UNITS SC ×2 (07:51→15:19)
[2023-09-24] MEDS: LANTUS 0.25 UNITS SC (07:53)
[2023-09-24] MEDS: VITAMIN B-12 1000 MCG PO (08:40)
[2023-09-24] MEDS: NOVOLOG FLEXPEN 15 UNITS SC ×2 (08:40→12:53)
--- NOTE | 2023-09-24 08:40 | PHA.VAN.FU ---
Vancomycin Assessment / Plan
- Assessment
Renal Function: Stable
WBC's are: WNL
In the past 24 hrs, patient has been: Afebrile
Concomitant Antimicrobials: piperacillin/tazobactam
- Assessment - Therapeutic Drug Monitoring
Extrapolated Cmax (mcg/mL): 32.5
Peak level was drawn: Appropriately (drawn ~1.7H after end of previous infusion)
Extrapolated Cmin (mcg/mL): 18.5
Trough Drawn: Appropriately
Levels were drawn: At steady state (levels drawn after 4th maintenance dose)
Calculated AUC (mcg*h/mL): 598
Calculated ke: 0.0538
Calculated half life (H): 12.9
Calculated Vd (L): 93 (~0.67 L/kg)
Calculated Vanc CL (ml/min): 84
Patient has additional accumulation this admission vs prior admission in Apr - was on vancomycin for longer period of time prior to levels this admission and with BMI may be slow to accumulate
- Dosing Plan
Adjust Regimen to: dosing by level
Patient does not follow population PK
Will follow dose by level for now to assess clearance and potential for Q24H regimen
- Monitoring Plan
Random Level: 09/25 0600
- Follow Up
Pharmacy will continue to follow.
Vancomycin Follow UP
- -
Patient Age: 62
Patient Sex: Male
Vancomycin Day #: 4
Indication: [facility]
Requesting Provider: Dr. Hernandez
Pertinent Antimicrobial Allergies:
no pertinent antibiotic allergies
Height / Weight:
Height 6 ft 1 in
Actual Weight 137.7 kg
Pertinent Past Medical History: BMI ~40, DM
- Vital Signs / Lab Results
Temp Pulse Resp BP Pulse Ox
97.5 F 67 18 134/69 96
09/23/23 22:52 09/24/23 07:49 09/23/23 22:52 09/24/23 07:49 09/23/23 22:52
Lab Results - Hematology
09/22/23 09/24/23
05:13 04:56
WBC 7.1 6.0
Lab Results - Chemistry
09/22/23 09/24/23
05:13 04:56
BUN 15 12
Creatinine 0.8 0.9
Estimated Creat Clear > 125 > 125
09/21/23
11:00
Lactic Acid Cancelled
Microbiology Results
09/21/23 07:40 Blood Culture - Preliminary
Blood/Venous S aureus-Methicillin Sensitive
Gram Stain - Preliminary
09/21/23 14:59 Tissue Culture - Preliminary
Bone Staphylococcus aureus
Gram negative bacilli
Gram Stain - Preliminary
09/22/23 15:05 Blood Culture - Preliminary
Blood/Venous No Growth in 24 hours- Final report to follow
09/22/23 14:32 Blood Culture - Preliminary
Blood/Venous No Growth in 24 hours- Final report to follow
09/21/23 15:00 Anaerobic Culture - Preliminary
Wound-Superficial Culture pending. Anaerobic cultures are examined after 3
days incubation. Additional information to follow.
09/21/23 15:00 Wound Culture - Preliminary
Foot - Right Staphylococcus aureus
Gram negative bacilli
Gram Stain - Preliminary
09/21/23 14:59 Anaerobic Culture - Preliminary
Bone Culture pending. Anaerobic cultures are examined after 3
days incubation. Additional information to follow.
09/21/23 10:23 Blood Culture - Preliminary
Blood/Venous No Growth in 48 hours- Final report to follow
Therapeutic Drug Monitoring
Vancomycin Peak 29.6 ug/ml (18-26) H 09/23/23 21:05
Vancomycin Trough 19.4 ug/ml (5-20) 09/24/23 04:56
[2023-09-24 08:41] LABS: Glucose - Point of Care 148 mg/dl (70-99)
[2023-09-24 09:10] VITALS: BP 147/78; PULSE 67; O2SAT 96
--- NOTE | 2023-09-24 10:11 | W.PN.ID1 ---
Date of Service
Date of Service: September 24, 2023
Today's Communication
See below.
Assessment / Plan
Right foot wound dehiscence with underlying osteomyelitis S/P (R) TMA)
MSSA bacteremia 1 of 2 sets
H/o R arm DVT related to PICC
Diabetes mellitus, well controlled.
Neuropathy.
Hypertension.
Class 3 obesity, BMI 40.
Dyslipidemia.
Sciatica.
Recommendations:
OR cultures - MSSA, Citrobacter, Serratia.
Recommend IV abx. Pt refuses PICC due to h/o complications.
Also his insurance does not cover home IV care.
After extensive discussion, patient is agreeable to midline.
Will try to set up Ertapenem 1g IV daily at [facility]
Pt may have issues with transportation to [facility]. Will ask casework supervisor if there are any transportation services available.
Infusion sheet submitted to casework supervisor.
Chief Complaint
-: Other (diabetic foot infection,)
Subjective / Review of Systems
Feels OK.
Vital Signs / Physical Exam
Vital Signs
Vital Signs
Temp Pulse Resp BP Pulse Ox
97.5 F 67 18 134/69 96
09/24/23 07:10 09/24/23 07:49 09/24/23 07:10 09/24/23 07:49 09/24/23 07:10
Physical Exam
Constitutional: No Acute Distress
Cardiovascular: Regular Rate and S1/S2
Gastrointestinal: Soft, Non Tender and Non Distended
Extremities: Negative Edema
Wound: Other (right foot TMA site closed)
Neurological: AO x 3
Objective Data
Lab Data
Lab Results
09/24/23 04:56
09/24/23 04:56
Estimated Creat Clear > 125 ml/min 09/24/23 04:56
Lactic Acid Cancelled 09/21/23 11:00
Total Bilirubin 1.1 mg/dl (0.2-1.3) 09/21/23 07:40
AST 39 U/L (17-59) 09/21/23 07:40
ALT 22 U/L (0-50) 09/21/23 07:40
Alkaline Phosphatase 154 U/L (38-126) H 09/21/23 07:40
Most recent labs reviewed.
Micro Results:
09/21/23 15:00 Wound Culture - Preliminary
Foot - Right S aureus-Methicillin Sensitive
Citrobacter koseri
Gram Stain - Preliminary
09/21/23 14:59 Tissue Culture - Preliminary
Bone S aureus-Methicillin Sensitive
Citrobacter koseri
Serratia marcescens
Gram Stain - Preliminary
09/21/23 07:40 Blood Culture - Preliminary
Blood/Venous S aureus-Methicillin Sensitive
Gram Stain - Preliminary
09/22/23 15:05 Blood Culture - Preliminary
Blood/Venous No Growth in 24 hours- Final report to follow
09/22/23 14:32 Blood Culture - Preliminary
Blood/Venous No Growth in 24 hours- Final report to follow
09/21/23 15:00 Anaerobic Culture - Preliminary
Wound-Superficial Culture pending. Anaerobic cultures are examined after 3
days incubation. Additional information to follow.
09/21/23 14:59 Anaerobic Culture - Preliminary
Bone Culture pending. Anaerobic cultures are examined after 3
days incubation. Additional information to follow.
09/21/23 10:23 Blood Culture - Preliminary
Blood/Venous No Growth in 48 hours- Final report to follow
[2023-09-24] MEDS: INVANZ 60 MG IV (11:26)
[2023-09-24] MEDS: VISBIOME 1 CAP PO (11:26)
--- NOTE | 2023-09-24 12:12 | W.PN.HOSP.TC ---
Addendum entered and electronically signed by Cale Carroll MD 09/28/23 16:39:
Overweight
Addendum entered and electronically signed by Cale Carroll MD 09/24/23 16:44:
[id number]
Original Note:
Today's Communication/Plan
-
restart anticoag
cbc in 2-5 days week with pcp
Ertapenem at outpatient infusion center
f/u podiatry, pcp outpatient
Assessment / Plan
Assessment / Plan
Right foot wound dehiscence with underlying osteomyelitis S/P (R) TMA)
MSSA bacteremia 1 of 2 sets
-Was on Vanc/zosyn
-Switch to Ertapenem IV infusions outpatient
-ID involved
-Pt refuses PICC due to h/o complications.
Acute blood loss anemia
-patient had a bleeding before adx and with procedure.
-Stable; Continue to follow
-resume anticoag
-cbc in 3-5 days
#Diabetes mellitus type 2
-hemoglobin A1c 6.9 .
� Continue his home insulin regimen along with sliding scale insulin.
-Patient on Trulicity as well at home. No hypoglycemia
Hypertension-resume lisinopril . cw coreg
History of right arm PICC associated DVT and now November 2022.� patient states noted clot end of june 2023; Patient still remains on anticoagulation.� has plan for Doppler in october with PCP; Restart Anticoag and f/u outpatient pcp for continued
anticoagulation for provoked dvt. IF bleeding increases, will need to stop.
Full code
More than 30 minutes spent in discharge including
Final examination of the patient
Summarizing hospital stay
Instructions for continuing care to all relevant caregivers
Preparation of discharge records, prescriptions, and referral forms
Total time spent (35 in minutes):
Anticipated Discharge: Today
Subjective/Interval History
-
Date of Service: September 24, 2023
no acute events
Objective Data
-
Labs:
Laboratory Results
09/24/23
04:56
WBC 6.0
Hgb 9.5 L
Hct 28.6 L
Plt Count 273
Sodium 138
Potassium 4.1
Chloride 103
Carbon Dioxide 27
BUN 12
Creatinine 0.9
Glucose 93
Calcium 8.7
Vital Signs:
Vital Signs
Temp Pulse Resp BP Pulse Ox
97.5 F 67 18 134/69 96
09/24/23 07:10 09/24/23 07:49 09/24/23 07:10 09/24/23 07:49 09/24/23 07:10
I&O
09/23/23 09/24/23 09/25/23
06:59 06:59 06:59
Intake Total 2480 / 2480 2220 / 2220
Output Total 1200 / 1200 1600 / 1600
Balance 1280 / 1280 620 / 620
Review of Systems
-
Constitutional: Denies Fever or Chills
Respiratory: Denies Trouble Breathing
Cardiac: Denies Chest Pain
Abdomen/GI: Denies Abdominal Pain, Nausea or Vomiting
Neuro: Denies Dizzy
Physical Exam
-
General: No Apparent Distress
HEENT: Moist Mucous Membranes
Respiratory: Clear to Auscultation
Cardiac: Regular Rhythm and S1/S2
GI: Soft
Musculoskeletal: Other (Right foot in dressing)
Neuro: AO x 3
Psych: Calm
Data Reviewed
-
Diagnostic Radiology: Image personally visualized and interpreted and Report Reviewed by me
MRI: Image personally visualized and interpreted and Report Reviewed by me
Labs: Labs Reviewed by me
--- NOTE | 2023-09-24 12:13 | W.PN.POD ---
Today's Communication
Today's Communication
s/p TMA right---stable
splint applied, no pain
ok for PT
nwb right foot
abx per [facility], anticoag ok upon d/c
pt to do dry bandage changed daily at home, re apply splint
nwb
fu /sunday
will sign off
Subjective
Chief Complaint
s/p TMa
no pain
no f.hall tender
dressing with minimal bleeding
Subjective
vasc intact
derm no edema or erythema
mno SOI
sutures intact
foot warm cft wnl to flap, pink
Objective
Temp Pulse Resp BP Pulse Ox
97.5 F 67 18 134/69 96
09/24/23 07:10 09/24/23 07:49 09/24/23 07:10 09/24/23 07:49 09/24/23 07:10
09/24/23 04:56
09/24/23 04:56
Vital Signs and Lab results were reviewed.
--- NOTE | 2023-09-24 12:22 | W.DS.TRANS ---
DC Summary - [employer]
-
Discharge Instructions:
Discharge Diagnosis/Procedures Right foot wound dehiscence with underlying
osteomyelitis S/P (R) TMA)
MSSA bacteremia 1 of 2 sets
H/o R arm DVT related to PICC
Diet Diabetic, Carb Controlled,Low Cholesterol,Low
Fat
Activity As tolerated
Blood Work cbc and cmp in 3-5 days with pcp
Others Tests US to evaluate dvt s/p picc line
Instructions:
Stand-Alone Forms:
Changes to Home Medications: Yes
Discharge Medications:
DC Medications w/original date entered in [employer]
calcium carbonate 600 mg calcium (1,500 mg) tablet (Calcium) 600 mg PO DAILY Supplement 04/23/13
lisinopril 20 mg tablet 20 mg PO DAILY Blood pressure 04/23/13
gabapentin 300 mg capsule 300 mg PO TID pain 11/11/13
carvedilol 12.5 mg tablet 12.5 mg PO Q12H Blood pressure 09/13/20
diphenhydramine HCl 25 mg capsule (Banophen) 25 mg PO HS sleep 09/13/20
umlmessndwi-ykcty-asf-vit C-Mn 500 mg-400 mg-166.6 mg tablet (Flexi Joint) 1 tab PO DAILY Supplement 03/29/22
aspirin 81 mg tablet,delayed release 81 mg PO DAILY Blood clot prevention/tx 08/22/22
cyanocobalamin (vitamin B-12) 1,000 mcg tablet 1,000 mcg PO MOTUTHFRSA Supplement 08/22/22
Bifidobacterium infantis 4 mg capsule (Align) 4 mg PO NOON probiotic 10/05/22
apixaban 5 mg tablet (Eliquis) 5 mg PO Q12H dvt 08/24/23
ascorbic acid (vitamin C) 1,000 mg tablet (Vitamin C) 1,000 mg PO DAILY Supplement 08/24/23
atorvastatin 20 mg tablet 20 mg PO DAILY High Cholesterol 08/24/23
cholecalciferol (vitamin D3) 50 mcg (2,000 unit) tablet 50 mcg PO DAILY Supplement 08/24/23
dulaglutide 4.5 mg/0.5 mL subcutaneous pen injector (Trulicity) 4.5 mg SC MO@0800 Diabetes 08/24/23
ferrous sulfate 325 mg (65 mg iron) tablet (iron) 325 mg PO Q48H Supplement 08/24/23
insulin aspart U-100 100 unit/mL (3 mL) subcutaneous pen (Novolog FlexPen U-100 Insulin aspart) 15 unit SC AC Diabetes 08/24/23
insulin glargine U-300 conc 300 unit/mL (1.5 mL) subcutaneous pen (Toujeo SoloStar U-300 Insulin) 25 unit SC DAILY Diabetes 08/24/23
insulin glargine U-300 conc 300 unit/mL (1.5 mL) subcutaneous pen (Toujeo SoloStar U-300 Insulin) 30 unit SC HS Diabetes 08/24/23
therapeutic multivitamin 1 tab PO DAILY Supplement 08/24/23
zolpidem 5 mg tablet 5 mg PO HS PRN sleep 09/21/23
Ertapenem [Invanz] 1,000 mg 120 mls/hr IV Q24H 09/24/23
Home Medication Changes
Pending Results: No
[2023-09-24 12:54] LABS: Glucose - Point of Care 107 mg/dl (70-99)
[2023-09-24 15:44] VITALS: BP 117/63
--- NOTE | 2023-09-24 16:07 | CM ---
Patient has been medically cleared for discharge to home with resumption of [facility] services and Outpatient Infusion services at . Significant Other will transport home.
[facility] FAX #: [phone]
--- NOTE | 2023-09-25 12:09 | PN.CDI ---
CDI
- -
CDI:
Physician Documentation Request
Admit Date: 09/21/23 10:48
Dear Doctor Glen,
Clinical Indicators:
Height: 6 ft 1 inch
Weight: 303 lb
BMI: 40.1
RD notes states 'Reviewed due to BMI of 4.1- morbid obesity
If possible, please provide an associated diagnosis related to the abnormal BMI, such as:
BMI > or = to 40
Overweight
Obesity:
Due to excess calories
Drug induced
Due to other cause
Severe or morbid obesity:
With alveolar hypoventilation (Obesity hypoventilation syndrome)
Without alveolar hypoventilation
- BMI is not significant
- Other
- Unable to determine
Use of terms such as suspected, likely, concern for, or probable (associated with a specific diagnosis that is being evaluated, monitored, or treated as if it exists) are acceptable and can be coded in the inpatient setting, when documented at the
time of discharge.
Thank you,
Padma Bird RN, BSN
CDI Specialist
tiger text
Please use your independent medical judgment in providing your response.
== END 2023-09-24 16:54 | disposition home health service (06) | DRG 475 ==
LOC: 2 SOUTH 10:48
PROVIDERS: ADMITTING PHYSICIAN Internal Medicine; ATTENDING PHYSICIAN Internal Medicine; CONSULT PHYSICIAN Podiatrist Foot Surgery; EMERGENCY PHYSICIAN Emergency Medicine; FAMILY PHYSICIAN Family Medicine; OTHER PHYSICIAN Internal Medicine Infectious Disease
PROC: 0Y6M0Z0 Detachment at Right Foot, Complete, Open Approach (ICD-10-PCS; 2023-09-21)
DX: T87.81 Dehiscence of amputation stump (principal); D62 Acute posthemorrhagic anemia; M86.171 Other acute osteomyelitis, right ankle and foot; Z68.41 Body mass index [BMI] 40.0-44.9, adult; R78.81 Bacteremia; M84.474A Pathological fracture, right foot, initial encounter for fracture; E11.69 Type 2 diabetes mellitus with other specified complication; L08.9 Local infection of the skin and subcutaneous tissue, unspecified; E11.40 Type 2 diabetes mellitus with diabetic neuropathy, unspecified; I10 Essential (primary) hypertension; M54.30 Sciatica, unspecified side; E11.610 Type 2 diabetes mellitus with diabetic neuropathic arthropathy; B95.61 Methicillin susceptible Staphylococcus aureus infection as the cause of diseases classified elsewhere; E78.00 Pure hypercholesterolemia, unspecified; X58.XXXA Exposure to other specified factors, initial encounter; E66.01 Morbid (severe) obesity due to excess calories; Z79.4 Long term (current) use of insulin; Z79.82 Long term (current) use of aspirin; Z79.01 Long term (current) use of anticoagulants; Z88.6 Allergy status to analgesic agent; Z88.8 Allergy status to other drugs, medicaments and biological substances; Z79.85 Long-term (current) use of injectable non-insulin antidiabetic drugs; Z86.718 Personal history of other venous thrombosis and embolism; Z98.84 Bariatric surgery status; Z91.199 Patient's noncompliance with other medical treatment and regimen due to unspecified reason
CPT/HCPCS: 88304; 88307; 88311; 73630; 73720; 80048; 80053; 80202; 82962; 83605; 85025; 85027; 87040; 87070; 87075; 87077; 87147; 87149; 87176; 87186; 87205; 93005; 97162; 97530; 99285; A9575; J1335

== ENCOUNTER 2023-09-27 13:36 | Outpatient (RCR) | payer MEDICARE, OTHER, SELFPAY ==
[2023-09-25 14:42] VITALS: BP 125/71
[2023-09-25] MEDS: INVANZ 60 MG IV (14:50)
[2023-09-25 15:27] VITALS: BP 120/75
[2023-09-26 13:50] VITALS: BP 138/55
[2023-09-26] MEDS: INVANZ 60 MG IV (14:04)
[2023-09-27] MEDS: INVANZ 60 MG IV (13:58)
[2023-09-27 14:47] VITALS: BP 124/70
== END 2023-09-27 23:59 | disposition home or self-care (01) ==
LOC: OID 13:36
PROVIDERS: ATTENDING PHYSICIAN Internal Medicine Infectious Disease; FAMILY PHYSICIAN Family Medicine
DX: M86.171 Other acute osteomyelitis, right ankle and foot (principal); L03.90 Cellulitis, unspecified; E11.9 Type 2 diabetes mellitus without complications
CPT/HCPCS: 96365; J1335

== ENCOUNTER 2023-10-27 07:48 | Outpatient (RCR) | payer MEDICARE, OTHER, SELFPAY ==
[2023-09-28] MEDS: INVANZ 60 MG IV (13:50)
[2023-09-28 14:00] VITALS: BP 152/71
[2023-09-29 07:34] VITALS: BP 100/72
[2023-09-29] MEDS: INVANZ 60 MG IV (07:38)
[2023-09-30] MEDS: INVANZ 60 MG IV (07:51)
[2023-09-30 07:54] VITALS: BP 125/94
[2023-10-01 13:35] VITALS: BP 104/49
[2023-10-01] MEDS: INVANZ 60 MG IV (13:47)
[2023-10-01 14:08] LABS: % Basophils 0.6 % (0-2); % Eosinophils 2.7 % (0-6); % Immature Granulocytes 0.3 % (0-0.5); % Lymphocytes 28.5 % (20.5-51.1); % Monocytes 6.4 % (1.7-9.3); % Neutrophils 61.5 % (42.2-75.2); Absolute Eosinophils 0.2 10^3/uL (0-0.7); Absolute Monocytes 0.5 10^3/uL (0.1-0.6); Absolute Neutrophils 4.3 10^3/uL (1.4-6.5); Hematocrit 30.7 % (39.0-52.0); Hemoglobin 10.3 g/dL (13.0-18.0); Mean Corp Hgb Conc. 33.6 g/dL (33.0-37.0); Mean Corpuscular Volume 83.4 fL (80.0-94.0); Mean Platelet Volume 8.7 fL (7.4-10.4); Nucleated Red Blood Cells % 0 % (-); Platelet Count 464 10^3/uL (130-400); Red Blood Cell Count 3.68 10^6/uL (4.70-6.10); Red Cell Dist. Width 13.8 % (11.5-14.5)
[2023-10-01 14:17] LABS: ALT (SGPT) 27 U/L (0-50); AST (SGOT) 31 U/L (17-59); Albumin 3.6 g/dl (3.5-5.0); Alkaline Phosphatase 153 U/L (38-126); Blood Urea Nitrogen 12 mg/dl (9-20); Calcium 8.8 mg/dl (8.4-10.2); Carbon Dioxide 21 mmol/L (22-30); Chloride 106 mmol/L (98-107); Glucose 140 mg/dl (70-99); Potassium 4.4 mmol/L (3.5-5.1); Sodium 136 mmol/L (135-145); Total Bilirubin 0.6 mg/dl (0.2-1.3); Total Protein 7.2 g/dl (6.3-8.2); eGFR > 60.00
[2023-10-02 13:50] VITALS: BP 108/49
[2023-10-02] MEDS: INVANZ 60 MG IV (13:56)
[2023-10-03 13:35] VITALS: BP 116/61
[2023-10-03] MEDS: INVANZ 60 MG IV (13:43)
[2023-10-04] MEDS: INVANZ 60 MG IV (14:24)
[2023-10-04 14:30] VITALS: BP 103/48
[2023-10-05 13:35] VITALS: BP 99/64
[2023-10-05] MEDS: INVANZ 60 MG IV (13:51)
[2023-10-06] MEDS: INVANZ 60 MG IV (08:12)
[2023-10-06 08:21] VITALS: BP 94/53
[2023-10-07] MEDS: INVANZ 60 MG IV (08:06)
[2023-10-07 08:07] VITALS: BP 115/62
[2023-10-08 13:35] VITALS: BP 91/60
[2023-10-08] MEDS: INVANZ 60 MG IV (13:52)
[2023-10-08 14:04] LABS: % Basophils 0.7 % (0-2); % Eosinophils 1.8 % (0-6); % Immature Granulocytes 0.1 % (0-0.5); % Lymphocytes 28.1 % (20.5-51.1); % Neutrophils 62.3 % (42.2-75.2); Absolute Basophils 0.1 10^3/uL (0-0.2); Absolute Eosinophils 0.1 10^3/uL (0-0.7); Absolute Monocytes 0.5 10^3/uL (0.1-0.6); Absolute Neutrophils 4.5 10^3/uL (1.4-6.5); Hematocrit 32.1 % (39.0-52.0); Hemoglobin 10.7 g/dL (13.0-18.0); Mean Corp Hgb Conc. 33.3 g/dL (33.0-37.0); Mean Corpuscular Hgb 27.9 pg (27.0-31.0); Mean Corpuscular Volume 83.6 fL (80.0-94.0); Nucleated Red Blood Cells % 0 % (-); Platelet Count 344 10^3/uL (130-400); Red Blood Cell Count 3.84 10^6/uL (4.70-6.10); Red Cell Dist. Width 13.8 % (11.5-14.5); White Blood Cell Count 7.2 10^3/uL (4.8-10.8)
[2023-10-08 14:19] LABS: ALT (SGPT) 26 U/L (0-50); AST (SGOT) 34 U/L (17-59); Albumin 3.8 g/dl (3.5-5.0); Alkaline Phosphatase 181 U/L (38-126); Blood Urea Nitrogen 18 mg/dl (9-20); Calcium 8.9 mg/dl (8.4-10.2); Carbon Dioxide 21 mmol/L (22-30); Chloride 109 mmol/L (98-107); Glucose 140 mg/dl (70-99); Potassium 4.5 mmol/L (3.5-5.1); Sodium 136 mmol/L (135-145); Total Bilirubin 0.8 mg/dl (0.2-1.3); Total Protein 7.4 g/dl (6.3-8.2); eGFR > 60.00
[2023-10-09 13:55] VITALS: BP 99/54
[2023-10-09] MEDS: INVANZ 60 MG IV (14:02)
[2023-10-10] MEDS: INVANZ 60 MG IV (13:51)
[2023-10-10 13:53] VITALS: BP 93/42
[2023-10-11 14:00] VITALS: BP 90/57
[2023-10-11] MEDS: INVANZ 60 MG IV (14:20)
[2023-10-12 13:56] VITALS: BP 110/48
[2023-10-12] MEDS: INVANZ 60 MG IV (14:02)
[2023-10-13 07:55] VITALS: BP 102/67
[2023-10-13] MEDS: INVANZ 60 MG IV (07:55)
[2023-10-14] MEDS: INVANZ 60 MG IV (07:55)
[2023-10-14 08:18] VITALS: BP 110/69
[2023-10-15 13:40] VITALS: BP 107/69
[2023-10-15] MEDS: INVANZ 60 MG IV (13:47)
[2023-10-15 14:00] LABS: % Basophils 0.5 % (0-2); % Eosinophils 3.1 % (0-6); % Immature Granulocytes 0.2 % (0-0.5); % Lymphocytes 33.9 % (20.5-51.1); % Monocytes 7.7 % (1.7-9.3); % Neutrophils 54.6 % (42.2-75.2); Absolute Eosinophils 0.2 10^3/uL (0-0.7); Absolute Lymphocytes 2.1 10^3/uL (1.2-3.4); Absolute Monocytes 0.5 10^3/uL (0.1-0.6); Absolute Neutrophils 3.3 10^3/uL (1.4-6.5); Hematocrit 32.4 % (39.0-52.0); Hemoglobin 10.7 g/dL (13.0-18.0); Mean Corpuscular Hgb 27.6 pg (27.0-31.0); Mean Corpuscular Volume 83.5 fL (80.0-94.0); Mean Platelet Volume 9.4 fL (7.4-10.4); Nucleated Red Blood Cells % 0 % (-); Platelet Count 247 10^3/uL (130-400); Red Blood Cell Count 3.88 10^6/uL (4.70-6.10); Red Cell Dist. Width 13.9 % (11.5-14.5); White Blood Cell Count 6.1 10^3/uL (4.8-10.8)
[2023-10-15 14:12] LABS: ALT (SGPT) 24 U/L (0-50); AST (SGOT) 34 U/L (17-59); Alkaline Phosphatase 188 U/L (38-126); Blood Urea Nitrogen 16 mg/dl (9-20); Calcium 8.8 mg/dl (8.4-10.2); Carbon Dioxide 21 mmol/L (22-30); Chloride 109 mmol/L (98-107); Glucose 138 mg/dl (70-99); Potassium 4.5 mmol/L (3.5-5.1); Sodium 136 mmol/L (135-145); Total Bilirubin 0.7 mg/dl (0.2-1.3); Total Protein 7.5 g/dl (6.3-8.2); eGFR > 60.00
[2023-10-16] MEDS: INVANZ 60 MG IV (13:59)
[2023-10-16 14:44] VITALS: BP 113/88
[2023-10-17 13:40] VITALS: BP 92/42
[2023-10-17] MEDS: INVANZ 60 MG IV (13:51)
[2023-10-18 13:45] VITALS: BP 101/58
[2023-10-18] MEDS: INVANZ 60 MG IV (14:01)
[2023-10-19 13:50] VITALS: BP 94/50
[2023-10-19] MEDS: INVANZ 60 MG IV (14:02)
[2023-10-20 07:33] VITALS: BP 112/67
[2023-10-20] MEDS: INVANZ 60 MG IV (07:37)
[2023-10-21 07:45] VITALS: BP 109/76
[2023-10-21] MEDS: INVANZ 60 MG IV (07:54)
[2023-10-22] MEDS: INVANZ 60 MG IV (13:39)
[2023-10-22 13:52] LABS: % Basophils 0.3 % (0-2); % Eosinophils 3.9 % (0-6); % Immature Granulocytes 0.2 % (0-0.5); % Lymphocytes 29.7 % (20.5-51.1); % Monocytes 6.8 % (1.7-9.3); % Neutrophils 59.1 % (42.2-75.2); Absolute Eosinophils 0.2 10^3/uL (0-0.7); Absolute Lymphocytes 1.8 10^3/uL (1.2-3.4); Absolute Monocytes 0.4 10^3/uL (0.1-0.6); Absolute Neutrophils 3.6 10^3/uL (1.4-6.5); Hematocrit 32.2 % (39.0-52.0); Hemoglobin 10.5 g/dL (13.0-18.0); Mean Corp Hgb Conc. 32.6 g/dL (33.0-37.0); Mean Corpuscular Hgb 27.6 pg (27.0-31.0); Mean Corpuscular Volume 84.5 fL (80.0-94.0); Mean Platelet Volume 9.4 fL (7.4-10.4); Nucleated Red Blood Cells % 0 % (-); Platelet Count 214 10^3/uL (130-400); Red Blood Cell Count 3.81 10^6/uL (4.70-6.10); White Blood Cell Count 6.2 10^3/uL (4.8-10.8)
[2023-10-22 13:54] VITALS: BP 115/56
[2023-10-22 14:03] LABS: ALT (SGPT) 22 U/L (0-50); AST (SGOT) 29 U/L (17-59); Albumin 3.9 g/dl (3.5-5.0); Alkaline Phosphatase 164 U/L (38-126); Blood Urea Nitrogen 15 mg/dl (9-20); Calcium 8.9 mg/dl (8.4-10.2); Carbon Dioxide 21 mmol/L (22-30); Chloride 106 mmol/L (98-107); Glucose 119 mg/dl (70-99); Sodium 138 mmol/L (135-145); Total Bilirubin 0.6 mg/dl (0.2-1.3); Total Protein 7.2 g/dl (6.3-8.2); eGFR > 60.00
[2023-10-22 14:05] LABS: C-Reactive Protein < 5.00 mg/L (0.0-10.00)
[2023-10-23 14:20] VITALS: BP 121/61
[2023-10-23] MEDS: INVANZ 60 MG IV (14:32)
[2023-10-24 14:27] VITALS: BP 109/55
[2023-10-24] MEDS: INVANZ 60 MG IV (14:30)
[2023-10-25 14:10] VITALS: BP 134/70
[2023-10-25] MEDS: INVANZ 60 MG IV (14:33)
[2023-10-26 14:03] VITALS: BP 123/58
[2023-10-26] MEDS: INVANZ 60 MG IV (14:09)
[2023-10-27] MEDS: INVANZ 60 MG IV (08:14)
[2023-10-27 08:18] VITALS: BP 111/87
[2023-10-28] MEDS: INVANZ 60 MG IV (08:02)
== END 2023-10-28 23:59 | disposition home or self-care (01) ==
LOC: OID 07:48
PROVIDERS: ATTENDING PHYSICIAN Internal Medicine Infectious Disease; FAMILY PHYSICIAN Family Medicine
DX: M86.171 Other acute osteomyelitis, right ankle and foot (principal); L03.90 Cellulitis, unspecified; E11.9 Type 2 diabetes mellitus without complications
CPT/HCPCS: 36415; 80053; 85025; 86140; 96365; J1335

== ENCOUNTER 2023-11-02 14:26 | Outpatient (RCR) | payer MEDICARE, OTHER, SELFPAY ==
[2023-10-29 14:16] VITALS: BP 116/60
[2023-10-29] MEDS: INVANZ 60 MG IV (14:29)
[2023-10-29 15:00] LABS: % Basophils 0.6 % (0-2); % Eosinophils 2.9 % (0-6); % Immature Granulocytes 0.2 % (0-0.5); % Lymphocytes 29.7 % (20.5-51.1); % Monocytes 7.1 % (1.7-9.3); % Neutrophils 59.5 % (42.2-75.2); Absolute Eosinophils 0.2 10^3/uL (0-0.7); Absolute Lymphocytes 1.6 10^3/uL (1.2-3.4); Absolute Monocytes 0.4 10^3/uL (0.1-0.6); Absolute Neutrophils 3.1 10^3/uL (1.4-6.5); Hematocrit 29.7 % (39.0-52.0); Mean Corp Hgb Conc. 33.7 g/dL (33.0-37.0); Mean Corpuscular Volume 83.2 fL (80.0-94.0); Mean Platelet Volume 9.5 fL (7.4-10.4); Nucleated Red Blood Cells % 0 % (-); Platelet Count 205 10^3/uL (130-400); Red Blood Cell Count 3.57 10^6/uL (4.70-6.10); Red Cell Dist. Width 14.2 % (11.5-14.5); White Blood Cell Count 5.2 10^3/uL (4.8-10.8)
[2023-10-29 15:32] LABS: ALT (SGPT) 24 U/L (0-50); AST (SGOT) 31 U/L (17-59); Albumin 3.6 g/dl (3.5-5.0); Alkaline Phosphatase 161 U/L (38-126); Blood Urea Nitrogen 13 mg/dl (9-20); Calcium 8.6 mg/dl (8.4-10.2); Carbon Dioxide 24 mmol/L (22-30); Chloride 108 mmol/L (98-107); Glucose 134 mg/dl (70-99); Potassium 3.9 mmol/L (3.5-5.1); Sodium 135 mmol/L (135-145); Total Bilirubin 0.5 mg/dl (0.2-1.3); Total Protein 6.6 g/dl (6.3-8.2); eGFR > 60.00
[2023-10-30] MEDS: INVANZ 60 MG IV (14:17)
[2023-10-30 14:19] VITALS: BP 118/57
[2023-10-31] MEDS: INVANZ 60 MG IV (14:17)
[2023-11-01 14:05] VITALS: BP 112/70
[2023-11-01] MEDS: INVANZ 60 MG IV (14:11)
[2023-11-02 14:30] VITALS: BP 135/68
[2023-11-02] MEDS: INVANZ 60 MG IV (14:34)
--- NOTE | 2023-11-02 15:18 | PTCARENOTE ---
Pt's right sl midline d/c, per md order; 15cm midline retrieved, pt tolerated well. no bleeding noted at site, pressure dressing applied.
== END 2023-11-05 11:31 | disposition home or self-care (01) ==
LOC: OID 14:26
PROVIDERS: ATTENDING PHYSICIAN Internal Medicine Infectious Disease; FAMILY PHYSICIAN Family Medicine
DX: M86.171 Other acute osteomyelitis, right ankle and foot (principal); L03.90 Cellulitis, unspecified; E11.9 Type 2 diabetes mellitus without complications
CPT/HCPCS: 80053; 85025; 86140; 96365; J1335

== ENCOUNTER → 2023-11-15 10:55 | Outpatient (REF) | payer MEDICARE, OTHER, SELFPAY | LOC: RAD 10:55 | PROVIDERS: ATTENDING PHYSICIAN Family Medicine | DX: I82.621 Acute embolism and thrombosis of deep veins of right upper extremity (principal) | CPT/HCPCS: 93971; 96365 ==

== ENCOUNTER → 2024-01-19 07:07 | Outpatient (REF) | payer MEDICARE, OTHER, SELFPAY ==
[2024-01-19 09:27] LABS: Urine Bacteria Few (Negative); Urine Red Blood Cell 0-2 /HPF (0-2); Urine Squamous Cell 0-2 /LPF (Few); Urine White Cell 0-2 /HPF (0-5)
== END ==
LOC: REG 07:07
PROVIDERS: ATTENDING PHYSICIAN Internal Medicine Hematology & Oncology; FAMILY PHYSICIAN Family Medicine
DX: R36.1 Hematospermia (principal)
CPT/HCPCS: 81015; 87086

== ENCOUNTER → 2024-02-14 15:54 | Outpatient (REF) | payer MEDICARE, OTHER, SELFPAY | LOC: RAD 15:54 | PROVIDERS: ATTENDING PHYSICIAN Internal Medicine Hematology & Oncology; FAMILY PHYSICIAN Family Medicine; REFERRING PHYSICIAN Internal Medicine Endocrinology, Diabetes & Metabolism | DX: R36.1 Hematospermia (principal) | CPT/HCPCS: 76856 ==

== ENCOUNTER 2024-02-20 20:41 | Inpatient (IN) | payer MEDICARE, OTHER, SELFPAY ==
[2024-02-20 16:23] VITALS: BP 112/50; BMI 38.8
[2024-02-20 16:44] LABS: % Basophils 0.2 % (0-2); % Eosinophils 0.5 % (0-6); % Immature Granulocytes 0.7 % (0-0.5); % Lymphocytes 10.1 % (20.5-51.1); % Monocytes 5.9 % (1.7-9.3); % Neutrophils 82.6 % (42.2-75.2); Absolute Eosinophils 0.1 10^3/uL (0-0.7); Absolute Immature Granulocytes 0.1 10^3/uL (0-0.05); Absolute Lymphocytes 1.5 10^3/uL (1.2-3.4); Absolute Monocytes 0.9 10^3/uL (0.1-0.6); Absolute Neutrophils 12.7 10^3/uL (1.4-6.5); Hematocrit 28.9 % (39.0-52.0); Hemoglobin 10.2 g/dL (13.0-18.0); Mean Corp Hgb Conc. 35.3 g/dL (33.0-37.0); Mean Corpuscular Hgb 28.3 pg (27.0-31.0); Mean Corpuscular Volume 80.3 fL (80.0-94.0); Nucleated Red Blood Cells % 0 % (-); Platelet Count 309 10^3/uL (130-400); White Blood Cell Count 15.3 10^3/uL (4.8-10.8)
[2024-02-20 17:02] LABS: ALT (SGPT) 32 U/L (0-50); AST (SGOT) 44 U/L (17-59); Albumin 3.6 g/dl (3.5-5.0); Alkaline Phosphatase 152 U/L (38-126); Blood Urea Nitrogen 22 mg/dl (9-20); Calcium 8.9 mg/dl (8.4-10.2); Carbon Dioxide 23 mmol/L (22-30); Chloride 100 mmol/L (98-107); Estimated Creatinine Clearance 79 ml/min; Glucose 145 mg/dl (70-99); Potassium 4.3 mmol/L (3.5-5.1); Sodium 131 mmol/L (135-145); Total Bilirubin 1.2 mg/dl (0.2-1.3); Total Protein 7.2 g/dl (6.3-8.2); eGFR 57.18
[2024-02-20 17:37] LABS: Lactic Acid 1.7 mmol/L (0.7-2.0)
--- NOTE | 2024-02-20 19:29 | ED.GENMED ---
History of Present Illness
General
Chief Complaint: Skin Problem
Source: patient
Exam Limitations: none
Time Seen by Provider: 02/20/24 18:23
History of Present Illness
History of Present Illness:
This is a 63 year old male that comes in with c/o open wound right foot. State that today he went to his pediatrist and they contacted Dr. Garcia. State that he has his toe amputated and know they are going to amputate his foot and some of his leg.
States that he has infection in the foot and was told to come to the hospital for IV antibiotics to get him ready for surgery. States that he has had a fever on and off and the past couple days he had vertigo but this is now gone. Denies any chills,
chest pain, SOB, abd pain, nausea, vomiting, diarrhea, headache, dizziness, urinary burning.
Past History
Past History
ED Past Medical History: HTN, Hypercholesterolemia, IDDM, Other (Back pain, Neuropathy, Sciatica, sleep apnea, Renal calculus, Cellulitis, Iron def anemia, ) and Other (Osteomyelitis right foot, kidney stones, Cellulitis, osteomyelitis L foot with
surgery on 05/07/23)
ED Past Surgical History: Appendectomy, Orthopedic (Amputation toes of right foot), Tonsilectomy and Other (gastric stapling , Eliana-en-Y, debridement of right foot wound)
Social History
Tobacco: Non-smoker
Alcohol: None
Drug: None
Personal: Partner (Same sex )
Living: with roommate
Employment: Not employed
Family History
Family History: Other (Father with stomach cancer and father with lymphoma)
Review of Systems
Review of Systems
All Other Systems: ROS reviewed and negative except as documented in HPI and ROS
Constitutional: Reports fever (on and off); Denies chills
EENT: Reports no symptoms
Respiratory: Reports no symptoms; Denies cough or trouble breathing
Cardiac: Reports no symptoms; Denies chest pain
ABD/GI: Reports no symptoms; Denies abdominal pain, nausea, vomiting or diarrhea
: Reports no symptoms; Denies dysuria, frequency or urgency
Musculoskeletal: Reports no symptoms
Skin: Reports other (Open wound right foot)
Neurological: Reports no symptoms; Denies dizzy or headache
Psychiatric: Reports no symptoms
Phy Exam
General Physical Exam
General Presentation: no apparent distress
General age: appears stated age
General Skin: warm and dry
General Habitus: normal
General Mental: alert
General Hydration: dry mucous membranes
ENT Exam
ENT Exam: TM's normal, pharynx normal and neck supple
Eye Exam
Eye Exam: EOMI
Cardiovascular Exam
Cardiovascular Exam: regular rate/rhythm, no edema and normal peripheral pulses
Pulmonary Exam
Pulmonary Exam: lungs clear, no respiratory distress, no rales, chest non tender, no crackles, no rhonchi, no wheezing and no cough
Gastrointestinal Exam
Gastrointestinal Exam: normal bowel sounds, non tender, soft, no organomegaly, no pulsatile mass, non distended and other (Obese)
Musculoskeletal Exam
Musculoskeletal Exam: full ROM and no edema
Skin Exam
Skin Exam: normal color, warm/dry, no petechia and other (Open wound right planter aspect, slight redness noted with bleeding. )
Psychiatric Exam
Psychiatric Exam: normal mood/affect
Course
Orders/Labs/Results
Orders:
Orders
02/20/24 Dinner
2000 calorie (17 carb) Diabetic
At Your Request: Full Participation
02/20/24 16:28
Electrocardiogram (*1) Urgent
Reason for Study: Other
Other Reason for Exam: Possible Sepsis
02/20/24 16:29
EKG- Treatment ONCE
02/20/24 16:37
Complete Blood Count/With Diff Urgent
Comprehensive Metabolic Panel Urgent
Lactic Acid Stat
02/20/24 19:29
Piperacillin/Tazo 3.375 Gram [Zosyn] 3.375 gram in 50 ml IV NOW
Vancomycin 1 Gram/200 ml [Vancocin] 1 gram in 200 ml IV NOW
02/20/24 19:32
CR Foot - Right Min 3 Views Urgent
Comment: r/o osteo
Reason For Exam: Open wound
02/20/24 19:45
Wound Culture [Wound/Abscess/Other Culture] Urgent
MODESTA Source: Foot
Specimen Description: Right
Date Specimen was Collected: 02/20/24
Time Specimen was Collected: 19:30
02/20/24 20:06
Admit/Transfer Patient As Directed
Co-Sign Provider:
Level of Care: Inpatient admission
Assign to:: Medical/Surgical
Physician / Group: macie
Diagnosis: open right foot wound
Reason for Hospitalization: open right foot wound
Expected length of stay greater than two midnights?: Yes
ELOS- Estimated Length of Stay in days: 2
I certify the patient meets the requirements for IP care: Yes
Code Status As Directed
Resuscitation Status: Full Code
02/20/24 21:46
0.9% Sodium Chloride 1000 ml [Nss] 1,000 ml IV 100 mls/hr
Acetaminophen [Tylenol] 650 mg PO Q4HPRN PRN
02/20/24 21:46
Activity As Directed
Activity Level: As Tolerated
Vital Signs As Directed
Frequency: Per unit guidelines
DX Deep Vein Thrombosis Video Routine
02/20/24 22:00
VANCOMYCIN Pharmacy to Dose [VANCOCIN Pharmacy to Dose] 1 each Pharmacy To Prepare [Call Pharmacy To Prepare] 0 ml IV PER PROTOCOL
02/21/24 02:00
Piperacillin/Tazo 3.375 Gram [Zosyn] 3.375 gram in 50 ml IV Q6H
02/21/24 06:00
Complete Blood Count/With Diff IN AM
Comprehensive Metabolic Panel IN AM
02/21/24 08:00
Heparin 5,000 units SC Q12
Abnormal Lab Results
02/20/24
16:37
WBC 15.3 H 10^3/uL
(4.8-10.8)
RBC 3.60 L 10^6/uL
(4.70-6.10)
Hgb 10.2 L g/dL
(13.0-18.0)
Hct 28.9 L %
(39.0-52.0)
Abs Immat Gran (auto) 0.1 H 10^3/uL
(0-0.05)
Absolute Neuts (auto) 12.7 H 10^3/uL
(1.4-6.5)
Absolute Monos (auto) 0.9 H 10^3/uL
(0.1-0.6)
Immature Gran % 0.7 H %
(0-0.5)
Neutrophils % 82.6 H %
(42.2-75.2)
Lymphocytes % 10.1 L %
(20.5-51.1)
Sodium 131 L mmol/L
(135-145)
BUN 22 H mg/dl
(9-20)
Creatinine 1.4 H mg/dL
(0.7-1.3)
Glucose 145 H mg/dl
(70-99)
Alkaline Phosphatase 152 H U/L
(38-126)
02/20/24 16:37
02/20/24 16:37
Leukocytosis, H/H slightly low. Anemic, Sodium slightly low Dehydraton. Glucose nofnasting. Alk phos elevation. Lactic acid normal at 1.7
Vital Signs
Initial and Last Documented VS:
Initial Vital Signs
Temp Pulse Resp BP Pulse Ox
100.3 F 73 16 112/50 97
02/20/24 16:23 02/20/24 16:23 02/20/24 16:23 02/20/24 16:23 02/20/24 16:23
Last Documented Vital Signs
Temp Pulse Resp BP Pulse Ox
98.7 F 69 24 122/65 96
02/20/24 23:30 02/20/24 23:30 02/20/24 23:30 02/20/24 23:30 02/20/24 23:35
MDM/Problems Addressed
Differential Diagnosis Includes:
Wound infection,
MDM/Problems Addressed:
This is a 63 year old male that comes in with c/o open wound on the right foot that is infected. States that they are going to Amputate his foot and part of his leg. Pediatrist spoke with Dr. Garcia and he was to come in for admission and started
antibiotics. Patient has a fever on and off.
Will get labs, start antibiotics and admit. Hospitalist notified about admission.
Chronic conditions affecting care: DM
Acute Exacerbation and/or Progression of Chronic Illness: DM and Other (Open wound foot)
*Radiology
Radiology exam reviewed: radiology read reviewed (Right foot-Previou transmetatarsal amputation with ne hypertrophic changes at the resection margins. No clear-evidence for new osseous destruction or erosion to indicate acute osteomyelitis by
radiograph but MRI would be more sensitive if there is persistent clinical concern. ) and other (X-ray cont- Significant irregularity of the overlying stump soft tissues. )
*Pulse Oximetry
Patient hypoxic: no
*EKG
Interpreted by ED Provider?: Yes
Heart Rate: 71
Rate: normal
[place]: left axis deviation
Interval: normal interval
QRS Pattern: right bundle branch block
Ischemia: no ischemia
*Agriculture Instructor Interpretation
Rate: Agriculture Instructor- N/A
*Critical Care Note
Total Time (30-74mins, 75-104mins- exclusive of procedures): Not Applicable
ED Attending Note
-
Portions of this chart may have been created with voice recognition software.� Occasional wrong word or��sound alike� substitutions may have occurred due to the inherent limitations of voice recognition software.
Discharge Plan
Departure
Patient Disposition: Admit
Date of Disposition: 02/20/24
Time of Disposition: 19:41
Admit to: Med/Surg
Presentation/result/management discussed w/ accepting MD/DO: Hospitalist
Patient with high blood pressure during this ER visit?: No
Discharge Problem:
Open wound of right foot, Wound infection
Interventions
Interventions:
*Risk Screen - Suicide Last Done: 02/20/24 16:23
*General Assessment Last Done: 02/20/24 21:32
*Neglect/Abuse Screening Last Done: 02/20/24 16:23
*ED COVID-19 Vaccine History Last Done: 02/20/24 22:16
*Nursing Disposition Last Done: 02/20/24 21:45
ED-Skin Assessment Last Done: 02/20/24 19:30
Discharge Date and Time
Discharge Date/Time: 02/20/24 21:48
[2024-02-20 19:44] VITALS: BP 120/68
--- NOTE | 2024-02-20 20:09 | HPS.HSE ---
Family Physician
-
Family Physician: Benjamin Kumar [facility]
Chief Complaint
-
open wound
History of Present Illness
63-year-old male past medical history of right foot wound complicated by dehiscence with underlying osteomyelitis status post right TMA, MSSA bacteremia, type 2 diabetes, hypertension, right upper extremity PICC line associated DVT,
hypercholesterolemia, presenting with open wound of the right foot ongoing since recent right transmetatarsal amputation for osteomyelitis in August. Today he went to his med spec and they contacted Dr. Garcia who recommended that his foot is
infected and needs to be amputated. He has had a fever on and off for the past few days has had vertigo but this is resolved. Denies any chest pain, shortness of breath, abdominal pain, nausea vomiting, diarrhea, headache, dizziness or urinary
symptoms.
Denies smoking or alcohol use.
Medical History
Past Medical History
Past Medical History: Reports Other ( right foot wound complicated by dehiscence with underlying osteomyelitis status post right TMA, MSSA bacteremia, type 2 diabetes, hypertension, right upper extremity PICC line associated DVT,
hypercholesterolemia)
Past Surgical History: Reports Other ( Appendectomy, Orthopedic (Amputation toes of right foot), Tonsilectomy and Other (gastric stapling , Eliana-en-Y, debridement of right foot wound))
Social History
Tobacco: Non-smoker
Alcohol: None
Drug: None
Family History
Family History: Not pertinent
Allergies / Home Medications
Allergies reflects when Allergies were last updated in [employer].
Home Medications with original date entered in [employer]
Allergy/Medication List:
Allergies
Allergy/AdvReac Type Severity Reaction Status Date / Time
coconut Allergy Rash Verified 02/20/24 16:23
ketorolac Allergy Rash Verified 02/20/24 16:23
NSAIDS (Non-Steroidal Allergy Rash Verified 02/20/24 16:23
Anti-Inflamma
Home Medications
calcium carbonate (Calcium 600) 600 mg PO DAILY Supplement 04/23/13
lisinopril 20 mg tablet 20 mg PO DAILY Blood pressure 04/23/13
gabapentin 300 mg capsule 300 mg PO TID pain 11/11/13
carvedilol 12.5 mg tablet 12.5 mg PO Q12H Blood pressure 09/13/20
diphenhydramine HCl 25 mg capsule (Banophen) 25 mg PO HS sleep 09/13/20
jwmvhmtjifo-mhzvz-esb-vit C-Mn 500 mg-400 mg-166.6 mg tablet (Flexi Joint) 1 tab PO DAILY Supplement 03/29/22
aspirin 81 mg tablet,delayed release 81 mg PO DAILY Blood clot prevention/tx 08/22/22
cyanocobalamin (vitamin B-12) 1,000 mcg tablet 1,000 mcg PO MOTUTHFRSA Supplement 08/22/22
Bifidobacterium infantis 4 mg capsule (Align) 4 mg PO NOON probiotic 10/05/22
ascorbic acid (vitamin C) 1,000 mg tablet (Vitamin C) 1,000 mg PO DAILY Supplement 08/24/23
atorvastatin 20 mg tablet 20 mg PO DAILY High Cholesterol 08/24/23
cholecalciferol (vitamin D3) 50 mcg (2,000 unit) tablet 50 mcg PO DAILY Supplement 08/24/23
dulaglutide 4.5 mg/0.5 mL subcutaneous pen injector (Trulicity) 4.5 mg SC MO@0800 Diabetes 08/24/23
ferrous sulfate 325 mg (65 mg iron) tablet (iron) 325 mg PO Q48H Supplement 08/24/23
insulin aspart U-100 100 unit/mL (3 mL) subcutaneous pen (Novolog FlexPen U-100 Insulin aspart) 15 unit SC AC Diabetes 08/24/23
insulin glargine U-300 conc 300 unit/mL (1.5 mL) subcutaneous pen (Toujeo SoloStar U-300 Insulin) 25 unit SC DAILY Diabetes 08/24/23
insulin glargine U-300 conc 300 unit/mL (1.5 mL) subcutaneous pen (Toujeo SoloStar U-300 Insulin) 30 unit SC HS Diabetes 08/24/23
therapeutic multivitamin 1 tab PO DAILY Supplement 08/24/23
zolpidem 5 mg tablet 5 mg PO HS PRN sleep 09/21/23
Ertapenem [Invanz] 1,000 mg 120 mls/hr IV Q24H 09/24/23
Review of Systems
-
History Source: Patient
A 12 point ROS was completed and negative except as noted: Yes
Constitutional: Reports No Symptoms
EENT: Reports No Symptoms
Respiratory: Reports No Symptoms
Cardiac: Reports No Symptoms
Abdomen/GI: Reports No Symptoms
: Reports No Symptoms
Musculoskeletal: Reports No Symptoms
Skin: Reports No Symptoms
Neurological: Reports No Symptoms
Endocrine: Reports No Symptoms
Hematologic/Lymphatic: Reports No Symptoms
Psych: Reports No Symptoms
Physical Exam
Vital Signs
Vital Signs
Temp Pulse Resp BP Pulse Ox
100.3 F 73 16 112/50 97
02/20/24 16:23 02/20/24 16:23 02/20/24 16:23 02/20/24 16:23 02/20/24 16:23
Physical Exam
General: Well Developed, Well Nourished and No Apparent Distress
HEENT: NormoCephalic, Moist mucous membranes and Atraumatic
Respiratory: Clear
Cardiac: S1/S2 and Regular Rhythm; No Murmur or Rub
GI: Soft, Non Tender, Non Distended and Normal Bowel Sounds; No Organomegaly
Rectal: Deferred by Provider
Musculoskeletal: No Clubbing, No Cyanosis and No Edema
Skin: No Rash
Neuro: Nonfocal/grossly intact and DTR's Intact & Symmetrical (right foot open wound with discharge, surrounding erythema )
Laboratory Results
-
02/20/24 16:37
02/20/24 16:37
Laboratory Results
Lactic Acid 1.7 mmol/L (0.7-2.0) 02/20/24 16:37
Total Bilirubin 1.2 mg/dl (0.2-1.3) 02/20/24 16:37
AST 44 U/L (17-59) 02/20/24 16:37
ALT 32 U/L (0-50) 02/20/24 16:37
Alkaline Phosphatase 152 U/L (38-126) H 02/20/24 16:37
Data Reviewed
-
Lab Data: Labs Reviewed by me
Old Records: Reviewed
Impression/Plan
-
IMPRESSION:
PLAN:
# Sepsis (fever, leukocytosis) secondary to Open right foot wound likely underlying osteomyelitis with surrounding cellulitis despite recent right transmetatarsal amputation for underlying osteomyelitis
-Wound culture pending
-Vancomycin/Zosyn
-Podiatry, vascular consulted and to determine timing of amputation
# Acute kidney injury
-hold lisinopril
-IV fluids
History of right foot wound dehiscence with underlying osteomyelitis status post right transmetatarsal amputation as well as MSSA bacteremia
History of right upper extremity DVT related to PICC line
-Patient completed anticoagulation last week
Type 2 diabetes
-Continue Toujeo 25 units daytime, 30 units nighttime
-continue premeal Novolog
-insulin sliding scale
Essential hypertension
-Continue Coreg
-hold lisinopril
Chronic anemia
-Continue ferrous sulfate
Hypercholesterolemia
-Continue statin
Full code
DVT prophylaxis�heparin
Diabetic diet
[2024-02-20] MEDS: ZOSYN 50 IV (20:16)
[2024-02-20 20:17] VITALS: BP 120/68
[2024-02-20] MEDS: VANCOCIN 200 IV ×2 (20:50→22:46)
[2024-02-20 21:00] VITALS: BP 142/76
[2024-02-20 22:09] LABS: Glucose - Point of Care 263 mg/dl (70-99)
[2024-02-20 22:12] VITALS: BP 128/54; BMI 39.4
--- NOTE | 2024-02-20 22:25 | PTCARENOTE ---
Received patient from ED via stretcher. Pt AAOX3. Pox: 96% RA. Patient denies pain/SOB. Call sandoval within reach. Plan of care ongoing.
--- NOTE | 2024-02-20 22:39 | PHA.VAN.IN ---
Assessment
- Assessment
Renal Function: Appears elevated from baseline (09/24/23 SCR = 0.9)
Concomitant Antimicrobials: ZOSYN
- Previous Dosing Experience
Previous Regimen: 1500MG IV Q12H
Date of Regimen: 09/22/23
Provided Trough of: 19.4
Provided AUC of: 531 PREDICTED
Patient's SCR is: Elevated compared to previous dosing experience (09/22/23 SCR = 1.1)
Patient's weight is: Decreased compared to previous dosing experience (09/22/23 WT = 137.7 KG)
Plan
- Plan
Initial / Loading Dose: 2 GM TOTAL
Maintenance Regimen: DOSING BY RANDOM LEVELS
Monitoring: RANDOM VANCOMYCIN LEVEL 02/21/24
Pharmacokinetics Vancomycin I
- -
Patient Age: 63
Patient Sex: Male
Vancomycin Day #: 1
Indication: Skin And Soft Tissue ([R] FOOT WOUND)
Requesting Provider: ABEL
Height / Weight:
Height 6 ft 1 in
Actual Weight 135.284 kg
Pertinent Past Medical History: DM,OM, MSSA BACTEREMIA, TMA 09/22
- Vital Signs / Lab Results
Temp Pulse Resp BP Pulse Ox
100.4 F H 79 18 128/54 96
02/20/24 22:12 02/20/24 22:12 02/20/24 22:12 02/20/24 22:12 02/20/24 22:12
Lab Results - Hematology
02/20/24
16:37
WBC 15.3 H
Lab Results - Chemistry
02/20/24
16:37
BUN 22 H
Creatinine 1.4 H
Estimated Creat Clear 79
Albumin 3.6
02/20/24
16:37
Lactic Acid 1.7
[2024-02-20] MEDS: TYLENOL 650 MG PO (22:40)
[2024-02-20] MEDS: AMBIEN 5 MG PO (22:40)
[2024-02-20] MEDS: BENADRYL 25 MG PO (22:40)
[2024-02-20] MEDS: NEURONTIN 300 MG PO (22:41)
[2024-02-20] MEDS: LANTUS 0.24 UNITS SC (22:41)
[2024-02-20] MEDS: NSS 1000 IV (22:43)
[2024-02-20 23:30] VITALS: BP 122/65
[2024-02-21] MEDS: ZOSYN 50 IV ×2 (01:26→08:19)
[2024-02-21 07:08] VITALS: BP 118/66
[2024-02-21 07:31] LABS: Glucose - Point of Care 182 mg/dl (70-99)
[2024-02-21] MEDS: NOVOLOG FLEXPEN 20 UNITS SC ×3 (08:16→17:17)
[2024-02-21] MEDS: LANTUS 0.2 UNITS SC (08:17)
[2024-02-21] MEDS: OSCAL CAL 500 500 MG PO (08:18)
[2024-02-21] MEDS: COREG 12.5 MG PO ×2 (08:18→19:42)
[2024-02-21] MEDS: FEOSOL 325 MG PO (08:18)
[2024-02-21] MEDS: THERAGRAN 1 TABLET PO (08:19)
[2024-02-21] MEDS: HEPARIN 5000 UNITS SC ×2 (08:19→19:42)
[2024-02-21] MEDS: VITAMIN C 1000 MG PO (08:19)
[2024-02-21] MEDS: ASPIR LOW (ENTERIC COATED) 81 MG PO (08:19)
[2024-02-21] MEDS: LIPITOR 20 MG PO (08:19)
[2024-02-21] MEDS: VITAMIN D3 (cholecalciferol) 50 MCG PO (08:19)
[2024-02-21] MEDS: NEURONTIN 300 MG PO ×3 (08:19→21:41)
[2024-02-21] MEDS: NOVOLOG FLEXPEN-LOW RESISTANCE 14 UNITS SC (08:21)
[2024-02-21 08:34] LABS: % Basophils 0.3 % (0-2); % Immature Granulocytes 0.7 % (0-0.5); % Lymphocytes 9.8 % (20.5-51.1); % Monocytes 4.6 % (1.7-9.3); % Neutrophils 82.6 % (42.2-75.2); Absolute Eosinophils 0.2 10^3/uL (0-0.7); Absolute Immature Granulocytes 0.1 10^3/uL (0-0.05); Absolute Lymphocytes 1.1 10^3/uL (1.2-3.4); Absolute Monocytes 0.5 10^3/uL (0.1-0.6); Absolute Neutrophils 9.3 10^3/uL (1.4-6.5); Hematocrit 30.8 % (39.0-52.0); Hemoglobin 10.6 g/dL (13.0-18.0); Mean Corp Hgb Conc. 34.4 g/dL (33.0-37.0); Mean Corpuscular Hgb 28.6 pg (27.0-31.0); Mean Corpuscular Volume 83.2 fL (80.0-94.0); Mean Platelet Volume 9.1 fL (7.4-10.4); Nucleated Red Blood Cells % 0 % (-); Platelet Count 299 10^3/uL (130-400); Red Cell Dist. Width 13.1 % (11.5-14.5); White Blood Cell Count 11.3 10^3/uL (4.8-10.8)
[2024-02-21 09:28] LABS: Vancomycin Random 11.7 ug/ml
[2024-02-21 09:35] LABS: ALT (SGPT) 29 U/L (0-50); AST (SGOT) 32 U/L (17-59); Albumin 3.3 g/dl (3.5-5.0); Alkaline Phosphatase 147 U/L (38-126); Blood Urea Nitrogen 16 mg/dl (9-20); Calcium 8.7 mg/dl (8.4-10.2); Carbon Dioxide 22 mmol/L (22-30); Chloride 103 mmol/L (98-107); Estimated Creatinine Clearance 112 ml/min; Glucose 165 mg/dl (70-99); Potassium 4.2 mmol/L (3.5-5.1); Sodium 133 mmol/L (135-145); Total Bilirubin 1.1 mg/dl (0.2-1.3); eGFR > 60.00
--- NOTE | 2024-02-21 10:24 | PHA.VAN.FU ---
Vancomycin Assessment / Plan
- Assessment
Renal Function: SCR Decreasing
WBC's are: Trending Down
Concomitant Antimicrobials: piperacillin/tazobactam
- Assessment - Therapeutic Drug Monitoring
Random Level: 11.7 - drawn ~9.5H after divided loading dose of 2g
- Dosing Plan
Adjust Regimen to: Vanc 1750mg Q12H - first dose at noon then 02/21 06
New Regimen Predicts: AUC (487), Peak (31.4), Trough (11.8)
Dosing Comments: used Vd 0.6 L/kg given BMI ~39
- Monitoring Plan
No level(s) ordered at this time: consider levels in next few days
- Follow Up
Pharmacy will continue to follow.
Vancomycin Follow UP
- -
Patient Age: 63
Patient Sex: Male
Vancomycin Day #: 2
Indication: Skin And Soft Tissue
Requesting Provider: Dr. Sifuentes
Pertinent Antimicrobial Allergies:
no pertinent antibiotic allergies
Height / Weight:
Height 6 ft 1 in
Actual Weight 135.284 kg
Pertinent Past Medical History: DM 2, BMI ~39, R. TMA
- Vital Signs / Lab Results
Temp Pulse Resp BP Pulse Ox
98.5 F 64 14 118/66 96
02/21/24 07:08 02/21/24 07:08 02/21/24 07:08 02/21/24 08:18 02/21/24 07:08
Lab Results - Hematology
02/20/24 02/21/24
16:37 08:07
WBC 15.3 H 11.3 H
Lab Results - Chemistry
02/20/24 02/21/24
16:37 08:07
BUN 22 H 16
Creatinine 1.4 H 1.0
Estimated Creat Clear 79 112
Albumin 3.6 3.3 L
02/20/24
16:37
Lactic Acid 1.7
Microbiology Results
02/20/24 19:45 Gram Stain - Preliminary
Foot - Right
Therapeutic Drug Monitoring
Random Vancomycin 11.7 ug/ml 02/21/24 08:07
[2024-02-21 11:03] LABS: Glycohemoglobin (HgbA1c) 7.2 % (4.0-5.6)
--- NOTE | 2024-02-21 11:46 | VATNOTE ---
Called by unit due to infiltration at IV site in R arm. Upon assessment large area of infiltrate noted. Pt denies pain. No redness on assessment. Pt states he would like to get washed. Asked PCN to apply heat and elevate arm once pt is settled.
Will continue to monitor.
[2024-02-21 11:47] LABS: Glucose - Point of Care 146 mg/dl (70-99)
[2024-02-21] MEDS: VANCOCIN 535 MG IV (12:05)
[2024-02-21] MEDS: NOVOLOG FLEXPEN-LOW RESISTANCE SC ×2 (12:13→17:18)
[2024-02-21] MEDS: VISBIOME 1 CAP PO (12:15)
[2024-02-21] MEDS: VITAMIN B-12 1000 MCG PO (12:15)
--- NOTE | 2024-02-21 12:27 | CON.VAS ---
Addendum entered and electronically signed by Cleveland Garcia MD 02/21/24 15:18:
Seen and examined with JORGE Benavidez. Agree with findings as noted below. 63-year-old male with history of chronic right foot wounds. 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 Was prior seen by us a few years ago and in the inpatient setting and had normal
arterial imaging studies. Had sufficient perfusion for wound healing. However continued with chronic wounds. He has been suffering with this since 2007. More recently underwent TMA. He was able to heal the TMA but subsequently developed a
plantar foot wound on the same side. This has now not been healing. Given chronicity of all his wounds, and diabetic neuropathic foot findings, he had discussions with his polysomnographic tech regarding continued local wound care and attempts at healing
versus more proximal amputation. Patient actually wishes for an amputation he wishes to move on with his life as he is tired of the chronic wound and wound care issues. Of note I had discussed with Dr. Casillas exactly this. I was asked regarding
how to proceed if patient wished to proceed with amputation. We discussed either outpatient or inpatient if needed. Dr. Casillas's concern was worsening of the wounds and therefore he had sent him over to the emergency room. There was a note in the
admitting history and physical note that says 'Today he went to his polysomnographic tech and they contacted Dr. Garcia who recommended that his foot is infected and needs to be amputated. He has had a fever on and off for the past few days has had vertigo but
this is resolved.'
For clarification, I did not make this recommendation. I had not proir seen the patient's foot and could not assess that it was infected and or needs amputation.
On exam today patient has warm well-perfused feet with easily palpable strong 2+ DP and PT pulses bilaterally. Mild to moderate calf edema and moderate calf girth. His right foot plantar aspect has what appears to be extensive wound with moderate
necrosis. The TMA suture line is completely healed.
Plan/no evidence of arterial insufficiency. Noninvasive studies reviewed and confirm this. Discussed with patient that based on arterial sufficiency, could continue local wound care attempts at wound healing with other options (outside of my
realm). Alternatively given nonhealing and extensive wounds, amputation is an option. Patient strongly wishes to proceed with amputation below the knee. I discussed with him below the knee versus [id number] amputation. Discussed he should
have enough perfusion for healing below the knee. However discussed he does have some swelling as well as moderate girth which could together complicate wound healing efforts. Discussed that there is a risk of requiring repeated surgeries to
achieve successful healing, or even alternatively require eventual staged [id number] amputation. Discussed other risks of procedure including but not limited to bleeding, infections, revisions as noted above. He understands all wishes to
proceed with right BKA. Discussed with him that I am not in the operating room tomorrow or Sunday but my partner Dr. Tran is available to perform procedure tomorrow or Sunday.
Original Note:
Consultation
Consultation Request
Performing Provider: Jose
Reason for Consultation: Nonhealing right foot wounds
Medical History
-
Chief Complaint: Nonhealing right foot wounds
History of Present Illness:
63 yo male with right TMA nonhealing wounds admitted for infection/antibiotic management. Pt has been dealing with nonhealing wounds to this foot since 2007. Pt had TMA in August 2023 and persistent nonhealing wounds to the site since then as
well. PMH DM, HTN, high cholesterol, gastric stapling and jayesh-en-Y bypass. Pt was seen by Vascular surgery in consult in 2020 with US studies that suggested normal flow.
Pt is followed outpatient by Dr Casillas ([employer]) who sent him in for antibiotics yesterday. Pt requested Vascular consultation to discuss amputation.
Pt seen at bedside this am. Vascular ultrasounds studies normal. Pt stated he was not interested in wound care of any kind. Dressing removed at bedside, image below. Pt stating he wants an amputation as soon as possible and is not interested in any
other therapies. Pt has palpable PT pulse at the right ankle. TMA is warm/pink.
Past Medical History
Past Medical History: HTN, Hypercholesterolemia, IDDM and Other (DVT at PICC line)
Past Surgical History: Appendectomy, Bowel Resection (gastric stapling , Jayesh-en-Y), Orthopedic (R TMA) and Tonsilectomy
Social History
Tobacco: Non-Smoker
Alcohol: None
Drug: None
Personal: Partner
Living: With Family
Family History
Family History: Reviewed & Not Pertinent
Allergies / Home Medications
Allergy/AdvReac Type Severity Reaction Status Date / Time
coconut Allergy Rash Verified 02/20/24 16:23
ketorolac Allergy Rash Verified 02/20/24 16:23
NSAIDS (Non-Steroidal Allergy Rash Verified 02/20/24 16:23
Anti-Inflamma
�Medication �Instructions �Recorded �Confirmed �Type
calcium carbonate (Calcium 600) 600 mg PO DAILY Supplement 04/23/13 02/20/24 History
lisinopril 20 mg tablet 20 mg PO DAILY Blood pressure 04/23/13 02/20/24 History
gabapentin 300 mg capsule 300 mg PO TID pain 11/11/13 02/20/24 History
carvedilol 12.5 mg tablet 12.5 mg PO BID Blood pressure 09/13/20 02/20/24 History
diphenhydramine HCl 25 mg capsule 25 mg PO HS sleep 09/13/20 02/20/24 History
(Banophen)
bfrrncxggrz-unfaw-qtp-vit C-Mn 500 1 tab PO DAILY Supplement 03/29/22 02/20/24 History
mg-400 mg-166.6 mg tablet (Flexi
Joint)
aspirin 81 mg tablet,delayed 81 mg PO DAILY Blood clot 08/22/22 02/20/24 History
release prevention/tx
cyanocobalamin (vitamin B-12) 1,000 mcg PO MOTUTHFRSA Supplement 08/22/22 02/20/24 History
1,000 mcg tablet
Bifidobacterium infantis 4 mg 4 mg PO NOON probiotic 10/05/22 02/20/24 History
capsule (Align)
ascorbic acid (vitamin C) 1,000 mg 1,000 mg PO DAILY Supplement 08/24/23 02/20/24 History
tablet (Vitamin C)
atorvastatin 20 mg tablet 20 mg PO DAILY High Cholesterol 08/24/23 02/20/24 History
cholecalciferol (vitamin D3) 50 50 mcg PO DAILY Supplement 08/24/23 02/20/24 History
mcg (2,000 unit) tablet
ferrous sulfate 325 mg (65 mg 325 mg PO Q48H Supplement 08/24/23 02/20/24 History
iron) tablet (iron)
insulin aspart U-100 100 unit/mL 20 unit SC AC Diabetes 08/24/23 02/20/24 History
(3 mL) subcutaneous pen (Novolog
FlexPen U-100 Insulin aspart)
insulin glargine U-300 conc 300 25 unit SC DAILY Diabetes 08/24/23 02/20/24 History
unit/mL (1.5 mL) subcutaneous pen
(Toujeo SoloStar U-300 Insulin)
insulin glargine U-300 conc 300 30 unit SC HS Diabetes 08/24/23 02/20/24 History
unit/mL (1.5 mL) subcutaneous pen
(Toujeo SoloStar U-300 Insulin)
therapeutic multivitamin 1 tab PO DAILY Supplement 08/24/23 02/20/24 History
zolpidem 5 mg tablet 5 mg PO HSPRN PRN sleep 09/21/23 02/20/24 History
meclizine 25 mg tablet 25 mg PO Q8HPRN PRN dizziness 02/20/24 02/20/24 History
semaglutide 0.25 mg or 0.5 mg (2 0.5 mg SC MO Diabetes 02/20/24 02/20/24 History
mg/3 mL) subcutaneous pen injector
(Ozempic)
Review of Systems
-
History Source: Patient
All other systems: Negative unless noted
Constitutional: Reports No Symptoms
EENT: Reports No Symptoms
Respiratory: Reports No Symptoms
Cardiac: Reports No Symptoms
Vascular: Denies Leg Pain / Claudication
Abdomen/GI: Reports No Symptoms
: Reports No Symptoms
Musculoskeletal: Reports Edema
Skin: Reports Other (R foot wound)
Neurological: Reports No Symptoms
Endocrine: Reports No Symptoms
Physical Exam
Vital Signs
Temp Pulse Resp BP Pulse Ox
98.5 F 64 14 118/66 96
02/21/24 07:08 02/21/24 07:08 02/21/24 07:08 02/21/24 08:18 02/21/24 07:08
Lab Results
02/21/24 08:07
02/21/24 08:07
Physical Exam
General: No Apparent Distress
HEENT: Normocephalic and Atraumatic
Respiratory: Non Labored Respirations
Cardiac: Negative JVD
GI: Non Tender
Musculoskeletal: No Clubbing, No Cyanosis and Edema (BL LE +1)
Skin: Warm and Other (R TMA site wrapped with gauze- pt refused dressing change at this time to assess)
Neuro: Awake, Alert and Oriented
Psych: Calm
Pulses: Left Posterior Tibial: +1 and Right Posterior Tibial: +1
Assessment / Plan
-
63 yo male with nonhealing wounds to his R foot ongoing since 2007.
s/p R TMA in August 2023, still continues with wounds to the TMA site.
Palpable R PT pulse
Plan:
-Right BKA Sunday
-Antibiotics
-Cont local wound care
Data Reviewed
-
Ultrasound: Discussed with Patient
Labs: Labs Reviewed by me
[2024-02-21] MEDS: NSS 1000 IV (14:38)
[2024-02-21] MEDS: ZOSYN 100 IV ×3 (14:38→23:00)
[2024-02-21 15:08] VITALS: BP 111/47
--- NOTE | 2024-02-21 15:32 | W.PN.HOSP.TC ---
Today's Communication/Plan
-
continue Vanc/Zosyn
Cardio consult
Assessment / Plan
Assessment / Plan
# Sepsis (fever, leukocytosis) secondary to Open right foot wound likely underlying osteomyelitis with surrounding cellulitis despite recent right transmetatarsal amputation for underlying osteomyelitis
-Wound culture pending
-Vancomycin/Zosyn
-Podiatry, vascular consulted and to determine timing of amputation, plan is for Sunday
Vasc surg requesting pre-op cardiac clearance. Pt has gone to Dr. Salinas in past
# Acute kidney injury
-hold lisinopril
-IV fluids
History of right foot wound dehiscence with underlying osteomyelitis status post right transmetatarsal amputation as well as MSSA bacteremia
History of right upper extremity DVT related to PICC line
-Patient completed anticoagulation last week
Type 2 diabetes
-Continue Toujeo 25 units daytime, 30 units nighttime
-continue premeal Novolog
-insulin sliding scale
a1c 7.2%
Essential hypertension
-Continue Coreg
-hold lisinopril
Chronic anemia
-Continue ferrous sulfate
Hypercholesterolemia
-Continue statin
Full code
DVT prophylaxis�heparin
Diabetic diet
Anticipated Discharge: > 48 hours
Subjective/Interval History
-
Date of Service: February 21, 2024
awake, alert
Objective Data
-
Labs:
Laboratory Results
02/21/24
08:07
WBC 11.3 H
Hgb 10.6 L
Hct 30.8 L
Plt Count 299
Sodium 133 L
Potassium 4.2
Chloride 103
Carbon Dioxide 22
BUN 16
Creatinine 1.0
Glucose 165 H
Calcium 8.7
Total Bilirubin 1.1
AST 32
ALT 29
Alkaline Phosphatase 147 H
Vital Signs:
Vital Signs
Temp Pulse Resp BP Pulse Ox
98.5 F 64 14 118/66 96
02/21/24 07:08 02/21/24 07:08 02/21/24 07:08 02/21/24 08:18 02/21/24 13:14
I&O
02/20/24 02/21/24 02/22/24
06:59 06:59 06:59
Intake Total 1330 / 1330
Output Total 1825 / 1825
Balance -495 / -495
Review of Systems
-
History Source: Patient and Family (sig other in room)
Constitutional: Reports Fever (Tmax 100.4)
Respiratory: Reports No Symptoms
Cardiac: Reports No Symptoms
Abdomen/GI: Reports No Symptoms
Genitourinary: Reports No Symptoms
Musculoskeletal: Reports Joint Pain (rt foot)
Physical Exam
-
General: Well Developed, Well Nourished and No Apparent Distress
HEENT: Normocephalic, Atraumatic and Moist Mucous Membranes
Respiratory: Clear to Auscultation; Negative Wheezes, Rales or Rhonchi
Cardiac: Regular Rhythm and S1/S2
Musculoskeletal: Other (rt foot wrapped, evidence of prior surgery)
Neuro: Awake, Alert and Oriented
--- NOTE | 2024-02-21 16:28 | CON.CAR ---
Addendum entered and electronically signed by Moses Grissom MD 02/21/24 17:35:
I saw and examined the patient.
The ANALYTICAL DATA MINER's note was reviewed and I agree with the note.
63-year-old male seen as part of her preoperative valuation. Normally followed by Dr. Salinas. Patient has a history of right bundle branch block, hypertension, hypercholesterolemia, diabetes, who has a nonhealing wound on the right lower extremity
and is being evaluated for below the knee amputation. Patient has no known history of coronary artery disease. Normal left ventricular function on an echocardiogram a year ago. No chest discomfort or shortness of breath. He appears euvolemic on
exam. He has limited functional capacity but when he uses his kneeling scooter and transitions from one place to the other he feels fine without activity. Overall patient's condition is stable. There is some limitation to his preoperative
assessment due to his limited functional status. NSQIP risk suggests average cardiovascular risk. He likely has some additional increased risk due to PAD, MIK and obesity. However his overall condition appears to be stable to proceed with
surgery. No additional testing required at this time. Would recommend
-Continued medical therapy including continued use of carvedilol.
-Monitor on telemetry postoperatively
Original Note:
Consultation
Consultation Request
Date/Time Consultation Requested: 02/21/24 1524
Date/Time Consultation Performed: 02/21/24 1600
Requesting Provider: Keshia Arceo ANALYTICAL DATA MINER
Performing Provider: Amarilys CLARK for Dr. Grissom
Reason for Consultation: pre-op cardiovascular risk assessment
Medical History
-
Chief Complaint: RLE non-healing wound
History of Present Illness:
63 y/o male with obesity, RBBB, HTN, HLD, DM2 on insulin, vertigo, DVT s/p PICC line (previously on Eliquis), and metatarsal amputation who is here for RLE non-healing wound. He is on abx and there are plans for right BKA this admit and we are
consulted for pre-op cardiovascular risk assessment. His customs officer is Dr. Rita. Patient denies any chest pain or shortness of breath. He uses a leg goldberg and is active normally with this. He is not limited by SOB or CP.
Past Medical History
Past Medical History: HTN, Hypercholesterolemia and Other (as above)
Social History
Tobacco: Non-Smoker
Family History
Family History: Other (dad had pacemaker)
Allergies / Home Medications
Allergy/AdvReac Type Severity Reaction Status Date / Time
coconut Allergy Rash Verified 02/20/24 16:23
ketorolac Allergy Rash Verified 02/20/24 16:23
NSAIDS (Non-Steroidal Allergy Rash Verified 02/20/24 16:23
Anti-Inflamma
�Medication �Instructions �Recorded �Confirmed �Type
calcium carbonate (Calcium 600) 600 mg PO DAILY Supplement 04/23/13 02/20/24 History
lisinopril 20 mg tablet 20 mg PO DAILY Blood pressure 04/23/13 02/20/24 History
gabapentin 300 mg capsule 300 mg PO TID pain 11/11/13 02/20/24 History
carvedilol 12.5 mg tablet 12.5 mg PO BID Blood pressure 09/13/20 02/20/24 History
diphenhydramine HCl 25 mg capsule 25 mg PO HS sleep 09/13/20 02/20/24 History
(Banophen)
jklvecejwwa-niyja-akx-vit C-Mn 500 1 tab PO DAILY Supplement 03/29/22 02/20/24 History
mg-400 mg-166.6 mg tablet (Flexi
Joint)
aspirin 81 mg tablet,delayed 81 mg PO DAILY Blood clot 08/22/22 02/20/24 History
release prevention/tx
cyanocobalamin (vitamin B-12) 1,000 mcg PO MOTUTHFRSA Supplement 08/22/22 02/20/24 History
1,000 mcg tablet
Bifidobacterium infantis 4 mg 4 mg PO NOON probiotic 10/05/22 02/20/24 History
capsule (Align)
ascorbic acid (vitamin C) 1,000 mg 1,000 mg PO DAILY Supplement 08/24/23 02/20/24 History
tablet (Vitamin C)
atorvastatin 20 mg tablet 20 mg PO DAILY High Cholesterol 08/24/23 02/20/24 History
cholecalciferol (vitamin D3) 50 50 mcg PO DAILY Supplement 08/24/23 02/20/24 History
mcg (2,000 unit) tablet
ferrous sulfate 325 mg (65 mg 325 mg PO Q48H Supplement 08/24/23 02/20/24 History
iron) tablet (iron)
insulin aspart U-100 100 unit/mL 20 unit SC AC Diabetes 08/24/23 02/20/24 History
(3 mL) subcutaneous pen (Novolog
FlexPen U-100 Insulin aspart)
insulin glargine U-300 conc 300 25 unit SC DAILY Diabetes 08/24/23 02/20/24 History
unit/mL (1.5 mL) subcutaneous pen
(Toujeo SoloStar U-300 Insulin)
insulin glargine U-300 conc 300 30 unit SC HS Diabetes 08/24/23 02/20/24 History
unit/mL (1.5 mL) subcutaneous pen
(Toujeo SoloStar U-300 Insulin)
therapeutic multivitamin 1 tab PO DAILY Supplement 08/24/23 02/20/24 History
zolpidem 5 mg tablet 5 mg PO HSPRN PRN sleep 09/21/23 02/20/24 History
meclizine 25 mg tablet 25 mg PO Q8HPRN PRN dizziness 02/20/24 02/20/24 History
semaglutide 0.25 mg or 0.5 mg (2 0.5 mg SC MO Diabetes 02/20/24 02/20/24 History
mg/3 mL) subcutaneous pen injector
(Ozempic)
Review of Systems
-
History Source: Patient
All other systems: Negative unless noted
Skin: Other (right lower extremity non-healing wound)
Physical Exam
Vital Signs
Temp Pulse Resp BP Pulse Ox
98.4 F 69 14 111/47 97
02/21/24 15:08 02/21/24 15:08 02/21/24 15:08 02/21/24 15:08 02/21/24 15:08
Lab Results
02/21/24 08:07
02/21/24 08:07
Physical Exam
General: Well Developed, Well Nourished and No Apparent Distress
HEENT: Normocephalic and Anicteric
Respiratory: Clear and Non Labored Respirations
Cardiac: Regular Rhythm
Skin: Warm and Dry
Neuro: AO x 3
Psych: Calm
Impression / Plan
-
RLE non-healing wounds:
-this diagnosis is threat to bodily function
-he is on IV antibiotics
-plan is for right BKA
-pre-op cardiovascular risk assessment: He denies any history of CHF or CAD. He denies any CP or SOB. He is laying relatively flat without difficulty. His EKG is stable from previous. Continue ASA, statin, BB. Post-op telemetry.
RBBB:
-chronic, stable
HTN:
-stable
-continue ACEI and BB
HLD:
-continue statin
DM2:
-on insulin
Data Reviewed
-
EKG: Tracing Personally Visualized and interpreted (SR with RBBB - stable from previous OP EKG)
Radiology: Report Reviewed by me (foot xray: Previous transmetatarsal amputation with new hypertrophic changes at the resection margins. No clear evidence for new osseous destruction or erosion to indicate acute osteomyelitis by radiograph.
Significant irregularity of the overlying stump soft tissues)
Medical Tests (Nuc Med, Echo etc): Report Reviewed by me (echo 01/04/23: EF 60-65%, mild concentric LVH, grade I DD, trace to mild TR, RVSP 30-35%, no pulm HTN, aortic root and prox ascending aorta atherosclerosis)
Labs: Labs Reviewed by me
--- NOTE | 2024-02-21 16:46 | W.PN.UPDATE ---
Update Note
Progress Note Update
Plan for R BKA Sunday if cleared by cardiology. Pt and team aware.
[2024-02-21 16:53] LABS: Glucose - Point of Care 115 mg/dl (70-99)
[2024-02-21 17:42] VITALS: BP 125/73
[2024-02-21] MEDS: NSS IV (18:19)
[2024-02-21 21:24] LABS: Glucose - Point of Care 118 mg/dl (70-99)
[2024-02-21] MEDS: BENADRYL 25 MG PO (21:41)
[2024-02-21] MEDS: LANTUS 0.24 UNITS SC (21:41)
[2024-02-21 22:59] VITALS: BP 111/53
[2024-02-22] MEDS: NSS 1000 IV (02:04)
[2024-02-22] MEDS: ZOSYN 100 IV ×3 (05:19→17:32)
[2024-02-22] MEDS: VANCOCIN 535 MG IV ×2 (06:01→19:13)
[2024-02-22 07:12] LABS: Glucose - Point of Care 111 mg/dl (70-99)
[2024-02-22 07:36] VITALS: BP 109/56
[2024-02-22] MEDS: NOVOLOG FLEXPEN-LOW RESISTANCE SC ×2 (08:16→12:13)
[2024-02-22 08:38] LABS: Blood Urea Nitrogen 12 mg/dl (9-20); Calcium 8.3 mg/dl (8.4-10.2); Carbon Dioxide 21 mmol/L (22-30); Chloride 107 mmol/L (98-107); Estimated Creatinine Clearance 112 ml/min; Glucose 125 mg/dl (70-99); Potassium 4.5 mmol/L (3.5-5.1); Sodium 136 mmol/L (135-145); eGFR > 60.00
[2024-02-22 08:44] LABS: % Basophils 0.4 % (0-2); % Eosinophils 2.3 % (0-6); % Immature Granulocytes 0.9 % (0-0.5); % Lymphocytes 12.5 % (20.5-51.1); % Monocytes 4.3 % (1.7-9.3); % Neutrophils 79.6 % (42.2-75.2); Absolute Eosinophils 0.3 10^3/uL (0-0.7); Absolute Immature Granulocytes 0.1 10^3/uL (0-0.05); Absolute Lymphocytes 1.4 10^3/uL (1.2-3.4); Absolute Monocytes 0.5 10^3/uL (0.1-0.6); Absolute Neutrophils 8.7 10^3/uL (1.4-6.5); Hematocrit 28.5 % (39.0-52.0); Hemoglobin 9.8 g/dL (13.0-18.0); Mean Corp Hgb Conc. 34.4 g/dL (33.0-37.0); Mean Corpuscular Volume 81.4 fL (80.0-94.0); Nucleated Red Blood Cells % 0 % (-); Platelet Count 373 10^3/uL (130-400); Red Cell Dist. Width 13.2 % (11.5-14.5); White Blood Cell Count 10.9 10^3/uL (4.8-10.8)
--- NOTE | 2024-02-22 08:45 | VATNOTE ---
vat rounds: right arm infiltrate has been resolved. no c/o pain.
[2024-02-22] MEDS: OSCAL CAL 500 500 MG PO (08:49)
[2024-02-22] MEDS: VITAMIN C 1000 MG PO (08:49)
[2024-02-22] MEDS: VITAMIN D3 (cholecalciferol) 50 MCG PO (08:49)
[2024-02-22] MEDS: ASPIR LOW (ENTERIC COATED) 81 MG PO (08:49)
[2024-02-22] MEDS: THERAGRAN 1 TABLET PO (08:49)
[2024-02-22] MEDS: NOVOLOG FLEXPEN 20 UNITS SC ×3 (08:49→17:34)
[2024-02-22] MEDS: LANTUS 0.2 UNITS SC (08:49)
[2024-02-22] MEDS: NEURONTIN 300 MG PO ×3 (08:49→21:25)
[2024-02-22] MEDS: LIPITOR 20 MG PO (08:49)
[2024-02-22] MEDS: HEPARIN 5000 UNITS SC ×2 (08:50→21:23)
[2024-02-22] MEDS: COREG 12.5 MG PO ×2 (08:50→21:23)
[2024-02-22] MEDS: VITAMIN B-12 1000 MCG PO (09:08)
--- NOTE | 2024-02-22 11:07 | CM ---
CM visited patient at bedside. IA Completed.
Dx: Open R foot wound - per notes patient scheduled for R BKA on Saturday 02/24
PMH: IDDM, recent right wound dehiscense, HTN, HDL
Patient lives in [place] with his partner in a 1 story home.
Ramp into home.
PLOF: Independent and drives.
Has DME at home.
Discussed cm role and options given for possible acute rehab or skilled rehab if not accepted to acute.
Currently on [facility] home health services.
Called Jasmyn from [facility] to check if patient able to go there once discharged. Will inform patient.
PCP: Benjamin Simon
Pharmacy: [address], [place]
PLAN: Discharge when stable. Home with acute vs. skilled vs. home health
[2024-02-22 11:34] LABS: Glucose - Point of Care 133 mg/dl (70-99)
--- NOTE | 2024-02-22 12:39 | PHA.VAN.FU ---
Vancomycin Assessment / Plan
- Assessment
Renal Function: Stable (1.0>1.0)
WBC's are: Trending Down (11.3>10.9)
In the past 24 hrs, patient has been: Afebrile
Concomitant Antimicrobials: Piperacillin-tazobactam
- Dosing Plan
Continue: Vancomycin 1750mg IV Q12hrs
- Monitoring Plan
No level(s) ordered at this time: Will order levels according to vancomycin dosing protocol
- Follow Up
Pharmacy will continue to follow.
Vancomycin Follow UP
- -
Patient Age: 63
Patient Sex: Male
Vancomycin Day #: 2
Indication: Skin And Soft Tissue
Requesting Provider: Dr. Sifuentes
Pertinent Antimicrobial Allergies:
no pertinent antibiotic allergies
Height / Weight:
Height 6 ft 1 in
Actual Weight 135.284 kg
IBW in k.9
Adjusted BW in k.1
Pertinent Past Medical History: DM 2, BMI ~39, R. TMA
- Vital Signs / Lab Results
Temp Pulse Resp BP Pulse Ox
98.1 F 69 20 109/56 94
02/22/24 07:36 02/22/24 07:36 02/22/24 07:36 02/22/24 07:36 02/22/24 07:36
Lab Results - Hematology
02/20/24 02/21/24 02/22/24
16:37 08:07 07:38
WBC 15.3 H 11.3 H 10.9 H
Lab Results - Chemistry
02/20/24 02/21/24 02/22/24
16:37 08:07 07:38
BUN 22 H 16 12
Creatinine 1.4 H 1.0 1.0
Estimated Creat Clear 79 112 112
Albumin 3.6 3.3 L
02/20/24
16:37
Lactic Acid 1.7
Microbiology Results
02/20/24 19:45 Wound Culture - Final
Foot - Right Staph aureus MRSA
Gram Stain - Final
Therapeutic Drug Monitoring
Random Vancomycin 11.7 ug/ml 02/21/24 08:07
[2024-02-22] MEDS: VISBIOME 1 CAP PO (12:49)
--- NOTE | 2024-02-22 14:27 | W.PN.HOSP.TC ---
Today's Communication/Plan
-
ID consult
Surgical intervention planned for Saturday 02/24
Assessment / Plan
Assessment / Plan
# Sepsis (fever, leukocytosis) secondary to Open right foot wound likely underlying osteomyelitis with surrounding cellulitis despite recent right transmetatarsal amputation for underlying osteomyelitis
-Wound culture MRSA
-Vancomycin/Zosyn
Vasc Surg requesting ID consult, will place
-Podiatry, vascular consulted and to determine timing of amputation, plan is for Sunday
Vasc surg requesting pre-op cardiac clearance. Pt has gone to Dr. Salinas in past, consult placed to Dr. Moses Grissom
WBC 15.3-->11.3-->10.9
# Acute kidney injury
-hold lisinopril
-IV fluids
BUN/Creat 22/1.4-->16/1.0-->12/1.0
History of right foot wound dehiscence with underlying osteomyelitis status post right transmetatarsal amputation as well as MSSA bacteremia
History of right upper extremity DVT related to PICC line
-Patient completed anticoagulation last week
Type 2 diabetes
-Continue Toujeo 25 units daytime, 30 units nighttime
-continue premeal Novolog
-insulin sliding scale
a1c 7.2%
Essential hypertension
-Continue Coreg
-hold lisinopril
Chronic anemia
-Continue ferrous sulfate
Hypercholesterolemia
-Continue statin
Full code
DVT prophylaxis�heparin
Diabetic diet
Anticipated Discharge: > 48 hours
Subjective/Interval History
-
Date of Service: February 22, 2024
In good spirits
Objective Data
-
Labs:
Laboratory Results
02/22/24
07:38
WBC 10.9 H
Hgb 9.8 L
Hct 28.5 L
Plt Count 373 D
Sodium 136
Potassium 4.5
Chloride 107
Carbon Dioxide 21 L
BUN 12
Creatinine 1.0
Glucose 125 H
Calcium 8.3 L
Vital Signs:
Vital Signs
Temp Pulse Resp BP Pulse Ox
98.1 F 69 20 109/56 94
02/22/24 07:36 02/22/24 07:36 02/22/24 07:36 02/22/24 07:36 02/22/24 07:36
I&O
02/21/24 02/22/24 02/23/24
06:59 06:59 06:59
Intake Total 1330 / 1330 735 / 735
Output Total 1825 / 1825
Balance -495 / -495 735 / 735
Review of Systems
-
History Source: Patient and Family (sig other in room)
Constitutional: Reports Fever (Tmax 100.4 on 02/19 @22:12)
Respiratory: Reports No Symptoms
Cardiac: Reports No Symptoms
Abdomen/GI: Reports No Symptoms
Genitourinary: Reports No Symptoms
Musculoskeletal: Reports Joint Pain (rt foot)
Physical Exam
-
General: Well Developed, Well Nourished and No Apparent Distress
HEENT: Normocephalic, Atraumatic and Moist Mucous Membranes
Respiratory: Clear to Auscultation; Negative Wheezes, Rales or Rhonchi
Cardiac: Regular Rhythm and S1/S2
Musculoskeletal: Other (rt foot wrapped, evidence of prior surgery)
Neuro: Awake, Alert and Oriented
--- NOTE | 2024-02-22 15:28 | PN.CDI ---
CDI
- -
CDI:
Physician Documentation Request
Admit Date: 02/20/24 20:41
Dear Doctor Mansi,
Patient admitted with sepsis.
02/19 Na 131
02/20 Na 133
Patient received IV NSS.
Based on the above, please clarify in the progress notes, the appropriate diagnosis, if significant, that supports the above abnormalities and additional evaluation, monitoring and/or treatment rendered:
Hyponatremia
Insignificant abnormal lab findings
Other
Use of terms such as suspected, likely, concern for, or probable (associated with a specific diagnosis that is being evaluated, monitored, or treated as if it exists) are acceptable and can be coded in the inpatient setting, when documented at the
time of discharge.
Thank you,
Ida MIGUEL,RN,CCDS
CDI Specialist
Available via tiger text
Please use your independent medical judgment in providing your response.
[2024-02-22 15:42] VITALS: BP 140/67
[2024-02-22 15:55] LABS: Glucose - Point of Care 203 mg/dl (70-99)
--- NOTE | 2024-02-22 16:17 | CON.ID ---
Consultation
-
Date/Time Consultation Requested: 02/22/24 14:38
Date/Time Consultation Performed: 02/22/24 16:18
Requesting Provider: Dr Barajas
Performing Provider: Dr Gandhi
Reason for Consultation: dehiscence of surgical site
Chief Complaint / Past History
Chief Complaint
wound dehiscence
History of Present Illness
Mr Carlie Sexton is a 62-year-old man with a significant past medical history of diabetes mellitus and chronic right foot osteomyelitis who represented here 02/19 for recurrence of right foot infection; he has been followed by my partner Dr
Sb. History is obtained from chart review and patient interview.
He was first seen by Infectious Diseases service on for osteomyelitis 04/20 with chronic nonhealing right lateral foot wound, MRI with early osteo vs stress response of the 5th met stump.08/22/22 s/p 4th met head and 5th MT resection. He was
discharged on 2 weeks of Linezolid eventually extended to 6 weeks based on bone biopsy/culture. 05/04/23 reevaluated for Right second toe diabetic wound with osteo by MRI and left 5th met head diabetic wound with osteo by MRI. He udnerrwent R
recond toe aprtial amp and 5th MTP joint resection. Right bone cultures: Enterococcus, Staph lugdunensis. Path necrotizing inflammation
- Left bone: Coag neg staph. Path no acute inflammation. He completed a 6 week course of daptomycin through 06/15. 08/24/2023 for right second toe and partial metatarsal amputation for osteomyelitis. At some point there was a R arm DVT related to
this PICC line. He was discharged to home on 08/25/2013, to continue with a 14-day course of Augmentin. 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 Outpatient x-rays at Podiatry office
showed several areas of new fractures, indicating the patient had not adhered to his nonweightbearing status. Then underewent TMA. Blood culture 1 of two sets with MSSA, abscess culture MSSSA, Citrobacter, Serratia, after discussion with Dr Basurto
he was agreeable to midline placement and set up for ertapenem 1 gm through 11/02/23 for a 6 week course. He was not seen in our office again. Subsequently the TMA surgical site healed however he developed a plantar foot wound on the ipsilateral
side that has not bee healing; he is now requesting a BKA. Patient is currently on vancomycin and zosyn, a superficial culture has show MRSA thus far. Blood cultures have not been done, ID is consulted for assistance with management.
Past History
Additional Past Medical History:
right foot wound complicated by dehiscence with underlying osteomyelitis status post right TMA, MSSA bacteremia, type 2 diabetes, hypertension, right upper extremity PICC line associated DVT, hypercholesterolemia
Additional Past Surgical History:
Appendectomy, Orthopedic (Amputation toes of right foot), Tonsilectomy and Other (gastric stapling , Eliana-en-Y, debridement of right foot wound
Allergy History:
coconut Allergy (Verified 02/20/24 16:23)
Rash
ketorolac Allergy (Verified 02/20/24 16:23)
Rash
NSAIDS (Non-Steroidal Anti-Inflamma Allergy (Verified 02/20/24 16:23)
Rash
Medications Reviewed: Yes
Social History
Tobacco: Non-Smoker
Alcohol: None
Drug: None
Family History
Family History: Not Pertinent
Review of Systems
Review of Systems
General: Fever
All systems: All other systems were reviewed and were negative
Vital Signs
Temp Pulse Resp BP Pulse Ox
98.1 F 71 20 140/67 97
02/22/24 15:42 02/22/24 15:42 02/22/24 15:42 02/22/24 15:42 02/22/24 15:42
Physical Exam
Physical Exam
Constitutional: No Acute Distress
Cardiovascular: Regular Rate and S1/S2; Negative Murmur or Rub
Pulmonary: Clear and Symmetric; Negative Wheezes, Rales or Rhonchi
Gastrointestinal: Soft, Non Tender, Non Distended and Normal Bowel Sounds
Skin: Warm and Dry; Negative Rash or Jaundice
Wound: Other (dressing clean, dry, intact - deferred take down today)
Lab / Diagnostic Study Results
02/22/24 07:38
02/22/24 07:38
Abs Immat Gran (auto) 0.1 10^3/uL (0-0.05) H 02/22/24 07:38
Absolute Neuts (auto) 8.7 10^3/uL (1.4-6.5) H 02/22/24 07:38
Absolute Lymphs (auto) 1.4 10^3/uL (1.2-3.4) 02/22/24 07:38
Absolute Monos (auto) 0.5 10^3/uL (0.1-0.6) 02/22/24 07:38
Absolute Basos (auto) 0.0 10^3/uL (0-0.2) 02/22/24 07:38
Immature Gran % 0.9 % (0-0.5) H 02/22/24 07:38
Neutrophils % 79.6 % (42.2-75.2) H 02/22/24 07:38
Lymphocytes % 12.5 % (20.5-51.1) L 02/22/24 07:38
Monocytes % 4.3 % (1.7-9.3) 02/22/24 07:38
Eosinophils % 2.3 % (0-6) 02/22/24 07:38
Basophils % 0.4 % (0-2) 02/22/24 07:38
Lactic Acid 1.7 mmol/L (0.7-2.0) 02/20/24 16:37
Microbiology Results
Micro:
02/20/24 19:45 Wound Culture - Final
Foot - Right Staph aureus MRSA
Gram Stain - Final
Assessment / Plan
Diabetic foot infection
DM2 well controlled with a1c 7.1
Class II/borderline III obesity
- wound culture will likely be polymicrobial, thus far with MRSA
- would not recommend blood cultures unless there are further fevers as very low yield
- agree with BKA
- continue vancomycin and zosyn in the interim
[2024-02-22] MEDS: NOVOLOG FLEXPEN-LOW RESISTANCE 2 UNITS SC (17:34)
[2024-02-22 21:13] LABS: Glucose - Point of Care 146 mg/dl (70-99)
[2024-02-22] MEDS: BENADRYL 25 MG PO (21:24)
[2024-02-22] MEDS: LANTUS 0.24 UNITS SC (21:24)
[2024-02-22] MEDS: AMBIEN 5 MG PO (21:27)
[2024-02-22 23:30] VITALS: BP 130/65
[2024-02-23] MEDS: ZOSYN 100 IV ×4 (00:18→19:35)
[2024-02-23] MEDS: VANCOCIN 535 MG IV ×2 (06:38→16:30)
[2024-02-23 07:00] VITALS: BP 140/68
--- NOTE | 2024-02-23 07:00 | W.PN.VS ---
Today's Communication / Plan
-
Patient seen and examined at bedside with Dr. Jose Tran III, below plan reviewed with attending.
Assessment/Plan
-
Assessment: 63 yo male with nonhealing wounds to his R foot ongoing since 2007, requesting right lower extremity amputation
Plan:
OR 02/25/2024 for planned right lower extremity BKA
N.p.o. at midnight on 02/24
Subjective Data
-
Date of Service: February 23, 2024
Patient seen at bedside, offers no complaints. Reports eagerness for amputation procedure.
Objective Data
-
Vital Signs
Temp Pulse Resp BP Pulse Ox
98.9 F 68 18 130/65 98
02/22/24 23:30 02/22/24 23:30 02/22/24 23:30 02/22/24 23:30 02/22/24 23:30
Intake and Output
02/22/24 02/23/24 02/24/24
06:59 06:59 06:59
Intake Total 735 / 735 1680 / 1680
Balance 735 / 735 1680 / 1680
Intake:
Oral fluids 1680 / 1680
IV piggybacks 735 / 735
Other:
Number of approximated MODERATE 2 3
amounts of urine
Calcium 8.3 mg/dl (8.4-10.2) L 02/22/24 07:38
Total Bilirubin 1.1 mg/dl (0.2-1.3) 02/21/24 08:07
AST 32 U/L (17-59) 02/21/24 08:07
ALT 29 U/L (0-50) 02/21/24 08:07
Alkaline Phosphatase 147 U/L (38-126) H 02/21/24 08:07
Total Protein 7.0 g/dl (6.3-8.2) 02/21/24 08:07
Albumin 3.3 g/dl (3.5-5.0) L 02/21/24 08:07
Physical Exam
-
No apparent distress, resting in chair comfortably
No tachycardia
No dyspnea
ABD rotund, nondistended
[2024-02-23] MEDS: LIPITOR 20 MG PO (08:10)
[2024-02-23] MEDS: NEURONTIN 300 MG PO ×3 (08:10→21:23)
[2024-02-23] MEDS: FEOSOL 325 MG PO (08:10)
[2024-02-23] MEDS: NOVOLOG FLEXPEN 20 UNITS SC ×3 (08:10→17:39)
[2024-02-23] MEDS: THERAGRAN 1 TABLET PO (08:10)
[2024-02-23] MEDS: VITAMIN D3 (cholecalciferol) 50 MCG PO (08:10)
[2024-02-23] MEDS: VITAMIN C 1000 MG PO (08:10)
[2024-02-23] MEDS: HEPARIN 5000 UNITS SC ×2 (08:10→21:23)
[2024-02-23] MEDS: OSCAL CAL 500 500 MG PO (08:10)
[2024-02-23] MEDS: ASPIR LOW (ENTERIC COATED) 81 MG PO (08:11)
[2024-02-23] MEDS: COREG 12.5 MG PO ×2 (08:11→21:23)
[2024-02-23] MEDS: LANTUS 0.2 UNITS SC (08:13)
[2024-02-23] MEDS: VITAMIN B-12 1000 MCG PO (08:13)
[2024-02-23] MEDS: NOVOLOG FLEXPEN-LOW RESISTANCE SC ×3 (08:18→16:42)
[2024-02-23 08:22] LABS: Glucose - Point of Care 120 mg/dl (70-99)
[2024-02-23 08:57] LABS: % Basophils 0.4 % (0-2); % Eosinophils 2.2 % (0-6); % Immature Granulocytes 0.6 % (0-0.5); % Lymphocytes 16.6 % (20.5-51.1); % Monocytes 6.2 % (1.7-9.3); Absolute Eosinophils 0.2 10^3/uL (0-0.7); Absolute Immature Granulocytes 0.1 10^3/uL (0-0.05); Absolute Lymphocytes 1.3 10^3/uL (1.2-3.4); Absolute Monocytes 0.5 10^3/uL (0.1-0.6); Absolute Neutrophils 5.7 10^3/uL (1.4-6.5); Hematocrit 30.6 % (39.0-52.0); Hemoglobin 10.8 g/dL (13.0-18.0); Mean Corp Hgb Conc. 35.3 g/dL (33.0-37.0); Mean Corpuscular Volume 79.3 fL (80.0-94.0); Mean Platelet Volume 8.8 fL (7.4-10.4); Nucleated Red Blood Cells % 0 % (-); Platelet Count 416 10^3/uL (130-400); Red Blood Cell Count 3.86 10^6/uL (4.70-6.10); Red Cell Dist. Width 13.2 % (11.5-14.5); White Blood Cell Count 7.7 10^3/uL (4.8-10.8)
[2024-02-23 09:18] LABS: Blood Urea Nitrogen 10 mg/dl (9-20); Calcium 8.6 mg/dl (8.4-10.2); Carbon Dioxide 21 mmol/L (22-30); Chloride 107 mmol/L (98-107); Estimated Creatinine Clearance 124 ml/min; Glucose 72 mg/dl (70-99); Magnesium 2.2 mg/dl (1.6-2.3); Potassium 4.4 mmol/L (3.5-5.1); Sodium 136 mmol/L (135-145); eGFR > 60.00
--- NOTE | 2024-02-23 10:05 | PHA.VAN.FU ---
Vancomycin Assessment / Plan
- Assessment
Renal Function: SCR Decreasing (1.4->1.0-->0.9)
WBC's are: WNL
In the past 24 hrs, patient has been: Afebrile
Concomitant Antimicrobials: piperacillin/tazo
- Dosing Plan
Continue: vancomycin 1750 mg q12h
- Monitoring Plan
Peak Level: 02/220 - after 5th maint. dose
Trough Level: 02/23 530
- Follow Up
Pharmacy will continue to follow.
Vancomycin Follow UP
- -
Patient Age: 63
Patient Sex: Male
Vancomycin Day #: 3
Indication: Skin And Soft Tissue
Requesting Provider: Dr. Sifuentes
Pertinent Antimicrobial Allergies:
no pertinent antibiotic allergies
Height / Weight:
Height 6 ft 1 in
Actual Weight 135.284 kg
IBW in k.9
Adjusted BW in k.1
Pertinent Past Medical History: DM 2, BMI ~39, R. TMA
- Vital Signs / Lab Results
Temp Pulse Resp BP Pulse Ox
98.9 F 65 16 140/68 97
02/23/24 07:00 02/23/24 07:00 02/23/24 07:00 02/23/24 07:00 02/23/24 07:00
Lab Results - Hematology
02/20/24 02/21/24 02/22/24
16:37 08:07 07:38
WBC 15.3 H 11.3 H 10.9 H
02/23/24
07:44
WBC 7.7
Lab Results - Chemistry
02/20/24 02/21/24 02/22/24
16:37 08:07 07:38
BUN 22 H 16 12
Creatinine 1.4 H 1.0 1.0
Estimated Creat Clear 79 112 112
Albumin 3.6 3.3 L
02/23/24
07:44
BUN 10
Creatinine 0.9
Estimated Creat Clear 124
Albumin
02/20/24
16:37
Lactic Acid 1.7
Microbiology Results
02/20/24 19:45 Wound Culture - Final
Foot - Right Staph aureus MRSA
Gram Stain - Final
Therapeutic Drug Monitoring
Random Vancomycin 11.7 ug/ml 02/21/24 08:07
[2024-02-23 11:24] LABS: Glucose - Point of Care 122 mg/dl (70-99)
[2024-02-23] MEDS: VISBIOME 1 CAP PO (12:22)
--- NOTE | 2024-02-23 14:13 | CM ---
CM reviewed chart, patient for R BKA on Saturday 02/24. CM will follow for PT/OT recommendations when appropriate. CM will continue to follow for all discharge planning needs.
Plan; SNF vs Acute, watch for PT/OT evals when medically stable.
[2024-02-23 15:11] VITALS: BP 128/70
[2024-02-23 16:37] LABS: Glucose - Point of Care 118 mg/dl (70-99)
--- NOTE | 2024-02-23 17:16 | W.PN.HOSP.TC ---
Today's Communication/Plan
-
planned surgical intervention on Sunday, 02/24, potential BKA
Assessment / Plan
Assessment / Plan
# Sepsis (fever, leukocytosis) secondary to Open right foot wound likely underlying osteomyelitis with surrounding cellulitis despite recent right transmetatarsal amputation for underlying osteomyelitis
-Wound culture MRSA
-Vancomycin/Zosyn
appreciate ID consult, will continue current Tx
-Podiatry, vascular consulted and to determine timing of amputation, plan is for Sunday
Vasc surg requesting pre-op cardiac clearance. Pt has gone to Dr. Salinas in past, consult placed to Dr. Moses Grissom, input appreciated
WBC 15.3-->11.3-->10.9-->7.7
# Acute kidney injury
-hold lisinopril
-IV fluids
BUN/Creat 22/1.4-->16/1.0-->12/1.0
Hyponatremia
mild 131, now resolve 136
History of right foot wound dehiscence with underlying osteomyelitis status post right transmetatarsal amputation as well as MSSA bacteremia
History of right upper extremity DVT related to PICC line
-Patient completed anticoagulation last week
Type 2 diabetes
-Continue Toujeo 25 units daytime, 30 units nighttime
-continue premeal Novolog
-insulin sliding scale
a1c 7.2%
Essential hypertension
-Continue Coreg
-hold lisinopril
Chronic anemia
-Continue ferrous sulfate
Hypercholesterolemia
-Continue statin
Full code
DVT prophylaxis�heparin
Diabetic diet
Anticipated Discharge: > 48 hours
Subjective/Interval History
-
Date of Service: February 23, 2024
awake, in good spirits
Objective Data
-
Labs:
Laboratory Results
02/23/24
07:44
WBC 7.7
Hgb 10.8 L
Hct 30.6 L
Plt Count 416 H
Sodium 136
Potassium 4.4
Chloride 107
Carbon Dioxide 21 L
BUN 10
Creatinine 0.9
Glucose 72
Calcium 8.6
Vital Signs:
Vital Signs
Temp Pulse Resp BP Pulse Ox
97.7 F 66 16 128/70 96
02/23/24 15:11 02/23/24 15:11 02/23/24 15:11 02/23/24 15:11 02/23/24 15:11
I&O
02/22/24 02/23/24 02/24/24
06:59 06:59 06:59
Intake Total 735 / 735 1680 / 1680
Balance 735 / 735 1680 / 1680
Review of Systems
-
History Source: Patient and Family (sig other in room)
Constitutional: Reports Fever (Tmax 100.4 on 02/19 @22:12)
Respiratory: Reports No Symptoms
Cardiac: Reports No Symptoms
Abdomen/GI: Reports No Symptoms
Genitourinary: Reports No Symptoms
Musculoskeletal: Reports Joint Pain (rt foot)
Physical Exam
-
General: Well Developed, Well Nourished and No Apparent Distress
HEENT: Normocephalic, Atraumatic and Moist Mucous Membranes
Respiratory: Clear to Auscultation; Negative Wheezes, Rales or Rhonchi
Cardiac: Regular Rhythm and S1/S2
GI: Soft, Nontender and Nondistended
Musculoskeletal: Other (rt foot wrapped, evidence of prior surgery)
Neuro: Awake, Alert and Oriented
[2024-02-23 21:14] LABS: Glucose - Point of Care 114 mg/dl (70-99)
[2024-02-23] MEDS: BENADRYL 25 MG PO (21:23)
[2024-02-23] MEDS: LANTUS 0.24 UNITS SC (21:24)
[2024-02-23 21:48] LABS: Vancomycin Peak 31.8 ug/ml (18-26)
[2024-02-23 23:13] VITALS: BP 142/66
[2024-02-24] MEDS: ZOSYN 100 IV ×5 (00:43→23:14)
--- NOTE | 2024-02-24 06:21 | W.PN.UPDATE ---
Update Note
Progress Note Update
Discussed below the knee amputation with patient in detail.
The technical aspects of this procedure were discussed with him in detail. The benefits and rationale for this approach were discussed with him in detail. Operative risks were discussed with him in detail including but not limited to bleeding,
heart attack, infection, wound healing complications, need for additional procedures and need for [id number] conversion if below the knee does not heal. Anticipated postoperative recovery, both inpatient and outpatient, was discussed with him
in detail.
He expressed a clear understanding of our conversation and agrees to proceed with surgery as detailed.
OR for BKA 02/25/2024
Jose Tran III, MD
[facility] Vascular Surgery
[phone] ([phone])
[2024-02-24 07:00] VITALS: BP 113/65
[2024-02-24 07:38] LABS: Glucose - Point of Care 101 mg/dl (70-99)
[2024-02-24 07:45] LABS: Vancomycin Trough 24.2 ug/ml (5-20)
[2024-02-24] MEDS: NOVOLOG FLEXPEN-LOW RESISTANCE SC ×3 (07:46→16:55)
[2024-02-24] MEDS: VANCOCIN IV ×2 (07:53→08:16)
[2024-02-24] MEDS: LANTUS 0.2 UNITS SC (07:54)
[2024-02-24] MEDS: NEURONTIN 300 MG PO ×3 (07:54→21:19)
[2024-02-24] MEDS: ASPIR LOW (ENTERIC COATED) 81 MG PO (07:54)
[2024-02-24] MEDS: VITAMIN D3 (cholecalciferol) 50 MCG PO (07:54)
[2024-02-24] MEDS: THERAGRAN 1 TABLET PO (07:55)
[2024-02-24] MEDS: LIPITOR 20 MG PO (07:55)
[2024-02-24] MEDS: VITAMIN C 1000 MG PO (07:55)
[2024-02-24] MEDS: COREG 12.5 MG PO ×2 (07:55→21:18)
[2024-02-24] MEDS: HEPARIN 5000 UNITS SC ×2 (07:55→21:18)
[2024-02-24] MEDS: OSCAL CAL 500 500 MG PO (07:55)
[2024-02-24] MEDS: NOVOLOG FLEXPEN 20 UNITS SC ×3 (07:56→17:09)
--- NOTE | 2024-02-24 09:02 | PHA.VAN.FU ---
Vancomycin Assessment / Plan
- Assessment
Renal Function: No New Labs Today
- Assessment - Therapeutic Drug Monitoring
Extrapolated Cmax (mcg/mL): 34.4
Peak level was drawn: Appropriately
Extrapolated Cmin (mcg/mL): 25.8
Trough Drawn: Appropriately
Levels were drawn: At steady state
Calculated AUC (mcg*h/mL): 719
Calculated ke: 0.0289
Calculated half life (H): 24
Calculated Vd (L): 168.44
Calculated Vanc CL (ml/min): 81.13
- Dosing Plan
Adjust Regimen to: dose by level for now
Dosing by Level: Hold off on dosing today
Dosing Comments: pt may need 24h dosing interval or greater
Pt is scheduled for BKA tomorrow at 1130
- Monitoring Plan
Random Level: ordered for 0602/24
- Follow Up
Pharmacy will continue to follow.
Vancomycin Follow UP
- -
Patient Age: 63
Patient Sex: Male
Vancomycin Day #: 4
Indication: Skin And Soft Tissue
Requesting Provider: Dr. Sifuentes
Pertinent Antimicrobial Allergies:
no pertinent antibiotic allergies
Height / Weight:
Height 6 ft 1 in
Actual Weight 135.284 kg
IBW in k.9
Adjusted BW in k.1
Pertinent Past Medical History: DM 2, BMI ~39, R. TMA
- Vital Signs / Lab Results
Temp Pulse Resp BP Pulse Ox
97.9 F 68 16 113/65 95
02/24/24 07:00 02/24/24 07:00 02/24/24 07:00 02/24/24 07:00 02/24/24 07:00
Lab Results - Hematology
02/22/24 02/23/24
07:38 07:44
WBC 10.9 H 7.7
Lab Results - Chemistry
02/21/24 02/22/24 02/23/24
08:07 07:38 07:44
BUN 16 12 10
Creatinine 1.0 1.0 0.9
Estimated Creat Clear 112 112 124
Albumin 3.3 L
Microbiology Results
02/23/24 17:44 C. difficile GDH Antigen & Toxins - Final
Feces/Stool Negative for toxigenic C.difficile
02/20/24 19:45 Wound Culture - Final
Foot - Right Staph aureus MRSA
Gram Stain - Final
Therapeutic Drug Monitoring
Vancomycin Peak 31.8 ug/ml (18-26) H 02/23/24 21:16
Vancomycin Trough 24.2 ug/ml (5-20) H* 02/24/24 06:43
Random Vancomycin 11.7 ug/ml 02/21/24 08:07
[2024-02-24 11:56] LABS: Glucose - Point of Care 102 mg/dl (70-99)
[2024-02-24] MEDS: VISBIOME 1 CAP PO (12:11)
--- NOTE | 2024-02-24 13:03 | CM ---
CM reviewed chart, patient for OR for BKA on Saturday 02/24. CM will follow for PT/OT recommendations when appropriate. CM will continue to follow for all discharge planning needs.
Plan; SNF vs Acute, watch for PT/OT evals when medically stable.
[2024-02-24 15:00] VITALS: BP 122/66
--- NOTE | 2024-02-24 16:39 | W.PN.HOSP.TC ---
Today's Communication/Plan
-
surgical intervention tomorrow
AM Lantus on hold, will start low rate D51/2NS perioperatively
Assessment / Plan
Assessment / Plan
# Sepsis (fever, leukocytosis) secondary to Open right foot wound likely underlying osteomyelitis with surrounding cellulitis despite recent right transmetatarsal amputation for underlying osteomyelitis
-Wound culture MRSA
-Vancomycin/Zosyn
appreciate ID consult, will continue current Tx
-Podiatry, vascular consulted and to determine timing of amputation, plan is for Sunday
Vasc surg requesting pre-op cardiac clearance. Pt has gone to Dr. Salinas in past, consult placed to Dr. Moses Grissom, input appreciated
WBC 15.3-->11.3-->10.9-->7.7
# Acute kidney injury
-hold lisinopril
-IV fluids
BUN/Creat 22/1.4-->16/1.0-->12/1.0
Diarrhea
C. Diff neg. ?abx associated diarrhea
Hyponatremia
mild 131, now resolve 136
History of right foot wound dehiscence with underlying osteomyelitis status post right transmetatarsal amputation as well as MSSA bacteremia
History of right upper extremity DVT related to PICC line
-Patient completed anticoagulation last week
Type 2 diabetes
-Continue Toujeo 25 units daytime, 30 units nighttime
-continue premeal Novolog
-insulin sliding scale
a1c 7.2%
Pt currently on Lantus 20 qam and [address] qam on hold with planned surgical intervention and start low rate D51/2NS perioperatively
Essential hypertension
-Continue Coreg
-hold lisinopril
Chronic anemia
-Continue ferrous sulfate
Hypercholesterolemia
-Continue statin
Full code
DVT prophylaxis�heparin
Diabetic diet
Anticipated Discharge: > 48 hours
Subjective/Interval History
-
Date of Service: February 24, 2024
Awake, alert, conversant, having diarrhea
Objective Data
-
Vital Signs:
Vital Signs
Temp Pulse Resp BP Pulse Ox
98.9 F 68 16 122/66 97
02/24/24 15:00 02/24/24 15:00 02/24/24 15:00 02/24/24 15:00 02/24/24 15:00
I&O
02/23/24 02/24/24 02/25/24
06:59 06:59 06:59
Intake Total 1680 / 1680 1899 / 0
Balance 1680 / 1680 0 / 1900
Review of Systems
-
History Source: Patient and Family (sig other in room)
Constitutional: Reports Fever (Tmax 100.4 on 02/19 @22:12)
Respiratory: Reports No Symptoms
Cardiac: Reports No Symptoms
Abdomen/GI: Reports No Symptoms
Genitourinary: Reports No Symptoms
Musculoskeletal: Reports Joint Pain (rt foot)
Physical Exam
-
General: Well Developed, Well Nourished and No Apparent Distress
HEENT: Normocephalic, Atraumatic and Moist Mucous Membranes
Respiratory: Clear to Auscultation; Negative Wheezes, Rales or Rhonchi
Cardiac: Regular Rhythm and S1/S2
GI: Soft, Nontender and Nondistended
Musculoskeletal: Other (rt foot wrapped, evidence of prior surgery)
Neuro: Awake, Alert and Oriented
[2024-02-24 16:52] LABS: Glucose - Point of Care 142 mg/dl (70-99)
[2024-02-24 21:09] LABS: Glucose - Point of Care 182 mg/dl (70-99)
[2024-02-24] MEDS: BENADRYL 25 MG PO (21:18)
[2024-02-24] MEDS: LANTUS 0.24 UNITS SC (21:18)
[2024-02-24] MEDS: AMBIEN 5 MG PO (21:26)
[2024-02-24 23:07] VITALS: BP 129/64
[2024-02-25] MEDS: ZOSYN 100 IV (05:51)
[2024-02-25] MEDS: D5/0.45%NACL 1000 IV (06:54)
[2024-02-25 06:57] LABS: Glucose - Point of Care 129 mg/dl (70-99)
[2024-02-25 07:00] VITALS: BP 134/71
[2024-02-25] MEDS: NOVOLOG FLEXPEN-LOW RESISTANCE SC ×2 (07:44→12:46)
[2024-02-25 08:23] LABS: Hemoglobin 10.2 g/dL (13.0-18.0); Mean Corpuscular Hgb 28.3 pg (27.0-31.0); Mean Corpuscular Volume 83.1 fL (80.0-94.0); Mean Platelet Volume 8.4 fL (7.4-10.4); Platelet Count 462 10^3/uL (130-400); Red Blood Cell Count 3.61 10^6/uL (4.70-6.10); Red Cell Dist. Width 13.2 % (11.5-14.5)
[2024-02-25 08:42] LABS: Vancomycin Random 15.5 ug/ml
[2024-02-25 08:57] LABS: Blood Urea Nitrogen 16 mg/dl (9-20); Calcium 8.8 mg/dl (8.4-10.2); Carbon Dioxide 20 mmol/L (22-30); Chloride 111 mmol/L (98-107); Estimated Creatinine Clearance 49 ml/min; Glucose 126 mg/dl (70-99); Potassium 4.1 mmol/L (3.5-5.1); Sodium 140 mmol/L (135-145); eGFR 31.52
--- NOTE | 2024-02-25 08:57 | PHA.VAN.FU ---
Vancomycin Assessment / Plan
- Assessment
Renal Function: SCR Decreasing
WBC's are: WNL
In the past 24 hrs, patient has been: Afebrile
Concomitant Antimicrobials: piperacillin/tazobactam
- Assessment - Therapeutic Drug Monitoring
Random Level: 15.5 - drawn ~25H after trough of 24.2 (no doses administered in between)
Calculated ke: 0.0176
Calculated half life (H): 39.4
- Dosing Plan
Dosing by Level: Hold off on dosing today
Based on current t1/2, anticipated that level will remain > 10 for ~25H
Additionally, SCR increased 0.9 --> 2.3
Will hold off on re-dosing today
- Monitoring Plan
Random Level: 02/25 0600
- Follow Up
Pharmacy will continue to follow.
Vancomycin Follow UP
- -
Patient Age: 63
Patient Sex: Male
Vancomycin Day #: 5
Indication: Skin And Soft Tissue
Requesting Provider: Dr. Sifuentes / Oksana
Pertinent Antimicrobial Allergies:
no pertinent antibiotic allergies
Height / Weight:
Height 6 ft 1 in
Actual Weight 135.284 kg
IBW in k.9
Adjusted BW in k.1
Pertinent Past Medical History: DM 2, BMI ~39, R. TMA
- Vital Signs / Lab Results
Temp Pulse Resp BP Pulse Ox
98.6 F 66 16 134/71 96
02/25/24 07:00 02/25/24 07:00 02/25/24 07:00 02/25/24 07:00 02/25/24 07:00
Lab Results - Hematology
02/23/24 02/25/24
07:44 08:02
WBC 7.7 9.0
Lab Results - Chemistry
02/23/24 02/25/24
07:44 08:02
BUN 10 16
Creatinine 0.9 2.3 H
Estimated Creat Clear 124 49
Microbiology Results
02/23/24 17:44 C. difficile GDH Antigen & Toxins - Final
Feces/Stool Negative for toxigenic C.difficile
Therapeutic Drug Monitoring
Vancomycin Peak 31.8 ug/ml (18-26) H 02/23/24 21:16
Vancomycin Trough 24.2 ug/ml (5-20) H* 02/24/24 06:43
Random Vancomycin 15.5 ug/ml 02/25/24 08:02
[2024-02-25] MEDS: THERAGRAN PO (09:00)
[2024-02-25] MEDS: OSCAL CAL 500 PO (09:00)
[2024-02-25] MEDS: VITAMIN D3 (cholecalciferol) PO (09:00)
[2024-02-25] MEDS: VITAMIN C PO (09:00)
[2024-02-25] MEDS: VITAMIN B-12 PO (09:00)
[2024-02-25] MEDS: FEOSOL PO (09:00)
[2024-02-25] MEDS: LIPITOR PO (09:00)
[2024-02-25] MEDS: HEPARIN 5000 UNITS SC ×2 (09:09→22:01)
[2024-02-25] MEDS: NEURONTIN 300 MG PO ×3 (09:10→22:02)
[2024-02-25] MEDS: COREG 12.5 MG PO ×2 (09:10→22:00)
[2024-02-25] MEDS: ASPIR LOW (ENTERIC COATED) 81 MG PO (09:10)
[2024-02-25] MEDS: PERIDEX 0.12% ORAL RINSE 15 ML PO (09:28)
[2024-02-25] MEDS: BACTROBAN 2% OINTMENT 1 APPLIC NASAL (09:28)
--- NOTE | 2024-02-25 11:07 | CM ---
Patient for OR today.
Will f/u post op for d/c planning.
Plan: rehab (skilled vs acute) when medically stable.
--- NOTE | 2024-02-25 11:40 | W.CON.NEPH ---
Consultation
-
Date/Time Consultation Requested: 02/25/2024 11:30 AM
Date/Time Consultation Performed: 02/25/2024 1148
Requesting Provider: Dr. Le
Performing Provider: Dr. Moulton
Reason for Consultation: Acute kidney injury
Medical History
-
Chief Complaint: Acute kidney injury
History of Present Illness:
The patient is a 63-year-old male with a past medical history of hypertension maintained on carvedilol and lisinopril. He does have a history of diabetes with multiple vascular complications including nonhealing right foot wound for which he is
maintained on insulin therapy. He has diabetic neuropathy as a function of his diabetes. He has ongoing history of right foot wound which has been complicated by dehiscence with underlying osteomyelitis. He has previously undergone right TMA and
has had complications including MSSA bacteremia. He presented to the emergency room on February 20, 2024 with open wound of right foot and suspected osteomyelitis. He was actually to undergo amputation today but was noted to have acute renal failure
with his creatinine escalating from 0.9-2.3. Nephrology was consulted for his acute kidney injury. Of note the patient has been placed on vancomycin and Zosyn for his osteomyelitis.
Past Medical History
Diabetes with known diabetic neuropathy
Hypertension
History of DVT status post PICC line for treatment of MSSA bacteremia from ongoing right foot wound
History of TMA of right lower extremity
Dyslipidemia
Appendectomy
Tonsillectomy
Prior history of gastric stapling with Eliana-en-Y
Social History
Tobacco: Non-Smoker
Alcohol: None
Family History
No chronic kidney disease
Allergies / Home Medications
Allergy/AdvReac Type Severity Reaction Status Date / Time
coconut Allergy Rash Verified 02/20/24 16:23
ketorolac Allergy Rash Verified 02/20/24 16:23
NSAIDS (Non-Steroidal Allergy Rash Verified 02/20/24 16:23
Anti-Inflamma
�Medication �Instructions �Recorded �Confirmed �Type
calcium carbonate (Calcium 600) 600 mg PO DAILY Supplement 04/23/13 02/20/24 History
lisinopril 20 mg tablet 20 mg PO DAILY Blood pressure 04/23/13 02/20/24 History
gabapentin 300 mg capsule 300 mg PO TID pain 11/11/13 02/20/24 History
carvedilol 12.5 mg tablet 12.5 mg PO BID Blood pressure 09/13/20 02/20/24 History
diphenhydramine HCl 25 mg capsule 25 mg PO HS sleep 09/13/20 02/20/24 History
(Banophen)
dpwujnvajbv-xzqcl-ylh-vit C-Mn 500 1 tab PO DAILY Supplement 03/29/22 02/20/24 History
mg-400 mg-166.6 mg tablet (Flexi
Joint)
aspirin 81 mg tablet,delayed 81 mg PO DAILY Blood clot 08/22/22 02/20/24 History
release prevention/tx
cyanocobalamin (vitamin B-12) 1,000 mcg PO MOTUTHFRSA Supplement 08/22/22 02/20/24 History
1,000 mcg tablet
Bifidobacterium infantis 4 mg 4 mg PO NOON probiotic 10/05/22 02/20/24 History
capsule (Align)
ascorbic acid (vitamin C) 1,000 mg 1,000 mg PO DAILY Supplement 08/24/23 02/20/24 History
tablet (Vitamin C)
atorvastatin 20 mg tablet 20 mg PO DAILY High Cholesterol 08/24/23 02/20/24 History
cholecalciferol (vitamin D3) 50 50 mcg PO DAILY Supplement 08/24/23 02/20/24 History
mcg (2,000 unit) tablet
ferrous sulfate 325 mg (65 mg 325 mg PO Q48H Supplement 08/24/23 02/20/24 History
iron) tablet (iron)
insulin aspart U-100 100 unit/mL 20 unit SC AC Diabetes 08/24/23 02/20/24 History
(3 mL) subcutaneous pen (Novolog
FlexPen U-100 Insulin aspart)
insulin glargine U-300 conc 300 25 unit SC DAILY Diabetes 08/24/23 02/20/24 History
unit/mL (1.5 mL) subcutaneous pen
(Toujeo SoloStar U-300 Insulin)
insulin glargine U-300 conc 300 30 unit SC HS Diabetes 08/24/23 02/20/24 History
unit/mL (1.5 mL) subcutaneous pen
(Toujeo SoloStar U-300 Insulin)
therapeutic multivitamin 1 tab PO DAILY Supplement 08/24/23 02/20/24 History
zolpidem 5 mg tablet 5 mg PO HSPRN PRN sleep 09/21/23 02/20/24 History
meclizine 25 mg tablet 25 mg PO Q8HPRN PRN dizziness 02/20/24 02/20/24 History
semaglutide 0.25 mg or 0.5 mg (2 0.5 mg SC MO Diabetes 02/20/24 02/20/24 History
mg/3 mL) subcutaneous pen injector
(Ozempic)
Review of Systems
-
All other systems: Negative unless noted
Musculoskeletal: Other (Right lower extremity foot wound)
Neurological: Other (Neuropathy of lower extremity)
Physical Exam
Vital Signs
Vital Signs
Temp Pulse Resp BP Pulse Ox
98.6 F 66 16 134/71 96
02/25/24 07:00 02/25/24 07:00 02/25/24 07:00 02/25/24 07:00 02/25/24 07:00
Lab Results
WBC 9.0 10^3/uL (4.8-10.8) 02/25/24 08:02
RBC 3.61 10^6/uL (4.70-6.10) L 02/25/24 08:02
Hgb 10.2 g/dL (13.0-18.0) L 02/25/24 08:02
Hct 30.0 % (39.0-52.0) L 02/25/24 08:02
Plt Count 462 10^3/uL (130-400) H 02/25/24 08:02
Sodium 140 mmol/L (135-145) 02/25/24 08:02
Potassium 4.1 mmol/L (3.5-5.1) 02/25/24 08:02
Chloride 111 mmol/L (98-107) H 02/25/24 08:02
Carbon Dioxide 20 mmol/L (22-30) L 02/25/24 08:02
BUN 16 mg/dl (9-20) 02/25/24 08:02
Creatinine 2.3 mg/dL (0.7-1.3) H 02/25/24 08:02
eGFR 31.52 02/25/24 08:02
Glucose 126 mg/dl (70-99) H 02/25/24 08:02
Calcium 8.8 mg/dl (8.4-10.2) 02/25/24 08:02
Albumin 3.3 g/dl (3.5-5.0) L 02/21/24 08:07
Physical Exam
02/25/24 08:02
02/25/24 08:02
General: AOx3, Nontoxic , NAD, obese
HEENT: PERRL, EOMI, Anicteric, Conjunctivae Clear, Ear/Nose Intact, Hearing Normal, Oropharynx Clear/Moist, Dentition Intact, Facial Symmetry, Neck Supple, Neck: Trachea Midline, No JVD and No Thyromegaly, no Bruits
Respiratory: Clear to auscultation bilaterally with normal lung exersion
Cardiac: S1/S2 and Regular Rate/Rhythm
Breast: Deferred by me
Abdomen: Soft, Nontender, Nondistended, Normal Bowel Sounds and No Hepatosplenomegaly
Rectal: Deferred by Provider
Genito-urinary: No Costovertebral Tenderness
Extremities: No Clubbing, No Cyanosis and plus one edema of right lower extremity , right foot open with discharge and surrounding erythema and
Skin: No Rash or open lesions
Neuro: some Neurosensory loss and lower extremity) and Strength (Musculoskeletal exam 5 out of 5 both upper and lower extremities)
Hematologic/Lymphatic: No Cervical Lymphadenopathy, No Submandibular Lymphadenopathy and No Supraclavicular Lymphadenopathy
Psych: Mood/afflect pleasant, Insight/judgement good and Appropriate
Vascular: ?pedal and plus one radial pulses
Data Reviewed
-
Radiology: Report Reviewed by me (Right foot x-ray notes previous transmetatarsal amputation no clear evidence of osteomyelitis)
Labs: Labs Reviewed by me (BMP CBC and urinalysis)
Old Records: Reviewed (Previous creatinine reviewed in electronic medical record from 12/15/2023 0.9, urine microalbumin to creatinine ratio 9.2 from 12/15/2023)
Assessment/Plan
-
Impression:
KODY
Right foot wound
Hypertension
Diabetes
Anemia
Plan:
-I would withhold right BKA surgery today given sudden onset of acute renal failure
-I strongly suspect there may be a drug-induced interstitial nephritis or complication related to his vancomycin and Zosyn administration
-Obtain fractional secretion of sodium urine eosinophils and kidney and bladder u/s, and UA
-Withhold TYESHA inhibitor
-Of note patient has been hemodynamically stable, no evidence of NSAIDs or iodine based IV contrast agents
[2024-02-25 11:48] LABS: Glucose - Point of Care 135 mg/dl (70-99)
[2024-02-25] MEDS: MERREM 500 MG IV ×2 (12:56→22:01)
[2024-02-25] MEDS: VISBIOME 1 CAP PO (12:57)
[2024-02-25] MEDS: STERILE WATER FOR INJECTION 10 ML IV ×2 (12:57→22:01)
[2024-02-25 13:24] LABS: Urine Albumin Trace (Neg - Trace); Urine Bilirubin Negative (Negative); Urine Character Clear (Clear); Urine Color Yellow; Urine Glucose Negative (Negative); Urine Ketone Negative (Negative); Urine Leukocyte Negative (Negative); Urine Nitrite Negative (Negative); Urine Occult Blood 1+ (Negative); Urine Urobilinogen Negative (Neg - 1+)
--- NOTE | 2024-02-25 13:50 | W.PN.HOSP.TC ---
Today's Communication/Plan
-
BKA cancelled due to KODY; nephrology consulting
Abx adjusted as per ID
patient/RN updated
Assessment / Plan
Assessment / Plan
Assessment:
Sepsis (fever, leukocytosis) POA
Open Right foot wound with underlying acute osteomyelitis with surrounding cellulitis
Previous History of right foot wound dehiscence with underlying osteomyelitis status post right transmetatarsal amputation as well as MSSA bacteremia
- wound cultures MRSA
- continue Vancomycin; renally dosed
- Podiatry/Vascular following; planned for BKA when medically optimized; cancelled today due to creat rise
- pre-op cardiac risk assessment by [facility] cardiology appreciated
KODY, initially improved
- then returned 02/24 with Creat 2.3
- given concurrent Vancomycin and Zosyn, likely idiosyncratic increase in Cr. D/W ID and antibiotics were adjusted
- monitor bladder scans
- check urine studies. urine eosinophils negative
- hold nephrotoxins
- Nephrology consulted
Diarrhea
- C. Diff neg. ?abx associated diarrhea
Hyponatremia
- resolved
History of right upper extremity DVT related to PICC line
- Patient completed anticoagulation last week
Type 2 diabetes
- continue Toujeo 25 units daytime, 30 units nighttime; reduce to 1/2 dose pre-op when scheduled
- continue premeal Novolog
- insulin sliding scale
- A1c is 7.2%
Essential hypertension
- continue Coreg
- hold lisinopril
Chronic anemia
- continue ferrous sulfate
Hypercholesterolemia
- continue statin
DVT ppx: Heparin
Code: Full
Anticipated Discharge: > 48 hours
Subjective/Interval History
-
Date of Service: February 25, 2024
initially set for BKA today but Cr came back as 2.3 today from normal yesterday, OR postponed for workup
Objective Data
-
Labs:
Laboratory Results
02/25/24
08:02
WBC 9.0
Hgb 10.2 L
Hct 30.0 L
Plt Count 462 H
Sodium 140
Potassium 4.1
Chloride 111 H
Carbon Dioxide 20 L
BUN 16
Creatinine 2.3 H
Glucose 126 H
Calcium 8.8
Vital Signs:
Vital Signs
Temp Pulse Resp BP Pulse Ox
98.6 F 66 16 134/71 96
02/25/24 07:00 02/25/24 07:00 02/25/24 07:00 02/25/24 07:00 02/25/24 07:00
I&O
02/24/24 02/25/24 02/26/24
06:59 06:59 06:59
Intake Total 1899 1080 / 1080
Balance 1899 1080 / 1080
Physical Exam
-
General: No Apparent Distress
HEENT: Normocephalic and Atraumatic
Respiratory: Negative Wheezes
Cardiac: Regular Rhythm and S1/S2
GI: Soft
Genito-urinary: No Costovertebral Tender
Musculoskeletal: Other (rt foot wrapped, evidence of prior surgery)
Neuro: AO x 3
Psych: Calm
Data Reviewed
-
Total Time Spent with Patient (in minutes): 45
Labs: Labs Reviewed by me
[2024-02-25 13:53] LABS: Body Fluid for Eosinophils No Eosinophils seen
[2024-02-25 14:38] LABS: Urine Amorphous Seen; Urine Granular Cast 0-2 /LPF (0); Urine Mucus Many
[2024-02-25 14:39] LABS: Urine Red Blood Cell 0-2 /HPF (0-2); Urine White Cell 0-2 /HPF (0-5)
--- NOTE | 2024-02-25 14:42 | W.PN.ID1 ---
Addendum entered and electronically signed by Micheal Hernandez, DO 02/25/24 15:21:
Cr. noted to have abruptly increased today.
Not clear if secondary to abx therapy, but zosy has been transitioned to meropenem dosed for current CrCl.
Will continue to follow Cr. closely.
Original Note:
Date of Service
Date of Service: February 25, 2024
Today's Communication
Continue antibiotics.
Assessment / Plan
Diabetic foot infection
DM2 well controlled with a1c 7.1
Class II/borderline III obesity
- wound culture will likely be polymicrobial, thus far with MRSA
- Await BKA
- Continue vancomycin and zosyn pending surgery.
����������������������������������������������������������
Chief Complaint
-: Other (Right foot infection)
Subjective / Review of Systems
Review of Systems: No Fever and No Chills
Vital Signs / Physical Exam
Vital Signs
Vital Signs
Temp Pulse Resp BP Pulse Ox
98.6 F 66 16 134/71 96
02/25/24 07:00 02/25/24 07:00 02/25/24 07:00 02/25/24 07:00 02/25/24 07:00
Physical Exam
Constitutional: No Acute Distress, Comfortable and Non-toxic
Eyes: Sclera Anicteric
Cardiovascular: S1/S2; Negative S3/S4
Pulmonary: Non Labored
Gastrointestinal: Soft, Non Tender and Non Distended
Extremities: Edema; Negative Erythema
Wound: Other (Right foot dressed.)
Neurological: Awake and Alert
Psychological: Calm
Objective Data
Lab Data
Lab Results
02/25/24 08:02
02/25/24 08:02
Estimated Creat Clear 49 ml/min 02/25/24 08:02
Lactic Acid 1.7 mmol/L (0.7-2.0) 02/20/24 16:37
Total Bilirubin 1.1 mg/dl (0.2-1.3) 02/21/24 08:07
AST 32 U/L (17-59) 02/21/24 08:07
ALT 29 U/L (0-50) 02/21/24 08:07
Alkaline Phosphatase 147 U/L (38-126) H 02/21/24 08:07
Most recent labs reviewed.
Micro Results:
02/23/24 17:44 C. difficile GDH Antigen & Toxins - Final
Feces/Stool Negative for toxigenic C.difficile
02/20/24 19:45 Wound Culture - Final
Foot - Right Staph aureus MRSA
Gram Stain - Final
[2024-02-25 15:00] VITALS: BP 136/74
--- NOTE | 2024-02-25 15:06 | W.PN.ID1 ---
Date of Service
Date of Service: February 25, 2024
Assessment / Plan
Diabetic foot infection
DM2 well controlled with a1c 7.1
Class II/borderline III obesity
- wound culture will likely be polymicrobial, thus far with MRSA
- Await BKA
- Continue vancomycin and zosyn pending surgery.
����������������������������������������������������������
Chief Complaint
-: Other (Right foot infection)
Subjective / Review of Systems
afebrile
bp stable
no contrast this admission
Vital Signs / Physical Exam
Vital Signs
Vital Signs
Temp Pulse Resp BP Pulse Ox
98.6 F 66 16 134/71 96
02/25/24 07:00 02/25/24 07:00 02/25/24 07:00 02/25/24 07:00 02/25/24 07:00
Objective Data
Lab Data
Lab Results
02/25/24 08:02
02/25/24 08:02
Estimated Creat Clear 49 ml/min 02/25/24 08:02
Lactic Acid 1.7 mmol/L (0.7-2.0) 02/20/24 16:37
Total Bilirubin 1.1 mg/dl (0.2-1.3) 02/21/24 08:07
AST 32 U/L (17-59) 02/21/24 08:07
ALT 29 U/L (0-50) 02/21/24 08:07
Alkaline Phosphatase 147 U/L (38-126) H 02/21/24 08:07
Most recent labs reviewed.
Micro Results:
02/23/24 17:44 C. difficile GDH Antigen & Toxins - Final
Feces/Stool Negative for toxigenic C.difficile
02/20/24 19:45 Wound Culture - Final
Foot - Right Staph aureus MRSA
Gram Stain - Final
[2024-02-25 16:55] LABS: Glucose - Point of Care 156 mg/dl (70-99)
[2024-02-25] MEDS: NOVOLOG FLEXPEN-LOW RESISTANCE 1 UNITS SC (18:31)
[2024-02-25] MEDS: NOVOLOG FLEXPEN 20 UNITS SC (18:31)
--- NOTE | 2024-02-25 18:50 | PTCARENOTE ---
1845 Pt mention takes ozempic injection at home and would have his partner bring in his own ozempic and pt would like to self inject.
Explain to pt per hospital protocol, need to obtain an order from MD in order for pt to take own medication. Report given to grappler nurse.
[2024-02-25 20:56] LABS: Glucose - Point of Care 162 mg/dl (70-99)
[2024-02-25] MEDS: DESENEX/MITRAZOL/ZEASORB 1 APPLIC TOPICAL (22:01)
[2024-02-25] MEDS: LANTUS 0.24 UNITS SC (22:02)
[2024-02-25] MEDS: AMBIEN 5 MG PO (22:02)
[2024-02-25] MEDS: BENADRYL 25 MG PO (22:02)
[2024-02-25 22:07] LABS: Urine Sodium 91 mmol/L (30-90)
[2024-02-26 03:27] LABS: Glucose - Point of Care 105 mg/dl (70-99)
[2024-02-26] MEDS: STERILE WATER FOR INJECTION 10 ML IV ×3 (04:59→20:44)
[2024-02-26] MEDS: MERREM 500 MG IV ×3 (04:59→20:44)
[2024-02-26 07:00] VITALS: BP 154/70
[2024-02-26] MEDS: VITAMIN D3 (cholecalciferol) 50 MCG PO (07:57)
[2024-02-26] MEDS: ASPIR LOW (ENTERIC COATED) 81 MG PO (07:57)
[2024-02-26] MEDS: VITAMIN C 1000 MG PO (07:57)
[2024-02-26] MEDS: OSCAL CAL 500 500 MG PO (07:57)
[2024-02-26] MEDS: COREG 12.5 MG PO ×2 (07:57→20:43)
[2024-02-26] MEDS: THERAGRAN 1 TABLET PO (07:57)
[2024-02-26] MEDS: NEURONTIN 300 MG PO ×3 (07:57→21:05)
[2024-02-26] MEDS: LIPITOR 20 MG PO (07:57)
[2024-02-26] MEDS: HEPARIN 5000 UNITS SC ×2 (07:58→20:43)
[2024-02-26] MEDS: DESENEX/MITRAZOL/ZEASORB 1 APPLIC TOPICAL ×2 (07:58→20:45)
[2024-02-26 07:59] LABS: Hematocrit 29.4 % (39.0-52.0); Hemoglobin 9.9 g/dL (13.0-18.0); Mean Corp Hgb Conc. 33.7 g/dL (33.0-37.0); Mean Corpuscular Hgb 27.7 pg (27.0-31.0); Mean Corpuscular Volume 82.1 fL (80.0-94.0); Mean Platelet Volume 8.2 fL (7.4-10.4); Platelet Count 475 10^3/uL (130-400); Red Blood Cell Count 3.58 10^6/uL (4.70-6.10); Red Cell Dist. Width 13.2 % (11.5-14.5); White Blood Cell Count 9.7 10^3/uL (4.8-10.8)
[2024-02-26] MEDS: VITAMIN B-12 1000 MCG PO (08:01)
[2024-02-26] MEDS: NOVOLOG FLEXPEN SC (08:06)
[2024-02-26 08:10] LABS: Vancomycin Random 10.8 ug/ml
[2024-02-26 08:31] LABS: Glucose - Point of Care 135 mg/dl (70-99)
[2024-02-26] MEDS: NOVOLOG FLEXPEN-LOW RESISTANCE SC (08:39)
[2024-02-26 08:58] LABS: Blood Urea Nitrogen 16 mg/dl (9-20); Calcium 8.5 mg/dl (8.4-10.2); Carbon Dioxide 22 mmol/L (22-30); Chloride 109 mmol/L (98-107); Estimated Creatinine Clearance 56 ml/min; Glucose 103 mg/dl (70-99); Potassium 4.5 mmol/L (3.5-5.1); Sodium 138 mmol/L (135-145); eGFR 37.27
[2024-02-26] MEDS: LANTUS 0.2 UNITS SC (09:02)
--- NOTE | 2024-02-26 09:11 | W.PN.HOSP.TC ---
Today's Communication/Plan
-
monitor BMP
renal/bladder US
rescheduling of OR timing TBD by Vascular surgery
Assessment / Plan
Assessment / Plan
Assessment:
Sepsis (fever, leukocytosis) POA
Open Right foot wound with underlying acute osteomyelitis with surrounding cellulitis
Previous History of right foot wound dehiscence with underlying osteomyelitis status post right transmetatarsal amputation as well as MSSA bacteremia
- wound cultures MRSA
- continue Vancomycin; renally dosed
- Podiatry/Vascular following; planned for BKA when medically optimized
- pre-op cardiac risk assessment by [facility] cardiology appreciated
KODY, initially improved
- then returned 02/24 with Creat 2.3
- given concurrent Vancomycin and Zosyn, likely idiosyncratic increase in Cr. D/W ID and antibiotics were adjusted. FENA 1.3 consistent with intrinsic etiology. Eosinophils negative.
- monitor bladder scans
- hold nephrotoxins
- Nephrology following
- follow BMP, Cr is now 2.0
Diarrhea
- C. Diff neg. ?abx associated diarrhea
Hyponatremia
- resolved
History of right upper extremity DVT related to PICC line
- Patient completed anticoagulation last week
Type 2 diabetes
- continue Toujeo 25 units daytime, 30 units nighttime; reduce to 1/2 dose pre-op when scheduled
- continue premeal Novolog
- insulin sliding scale
- A1c is 7.2%
Essential hypertension
- continue Coreg
- hold lisinopril
Chronic anemia
- continue ferrous sulfate
Hypercholesterolemia
- continue statin
DVT ppx: Heparin
Code: Full
Anticipated Discharge: > 48 hours
Subjective/Interval History
-
Date of Service: February 26, 2024
no retention noted
Cr 2.0 from 2.3
denies any complaints
Objective Data
-
Labs:
Laboratory Results
02/26/24
07:21
WBC 9.7
Hgb 9.9 L
Hct 29.4 L
Plt Count 475 H
Sodium 138
Potassium 4.5
Chloride 109 H
Carbon Dioxide 22
BUN 16
Creatinine 2.0 H
Glucose 103 H
Calcium 8.5
Vital Signs:
Vital Signs
Temp Pulse Resp BP Pulse Ox
97.9 F 69 14 154/70 96
02/26/24 07:00 02/26/24 07:00 02/26/24 07:00 02/26/24 07:57 02/26/24 07:00
I&O
02/25/24 02/26/24 02/27/24
06:59 06:59 06:59
Intake Total 1080 / 1080 1520 / 1520
Output Total 900 / 900
Balance 1080 / 1080 620 / 620
Physical Exam
-
General: No Apparent Distress
HEENT: Normocephalic and Atraumatic
Respiratory: Negative Wheezes
Cardiac: Regular Rhythm and S1/S2
GI: Soft
Genito-urinary: No Costovertebral Tender
Neuro: AO x 3
Hematologic / Lymphatic: No Lymphadenopathy
Psych: Calm
Data Reviewed
-
Total Time Spent with Patient (in minutes): 42
Labs: Labs Reviewed by me
--- NOTE | 2024-02-26 09:21 | PHA.VAN.FU ---
Vancomycin Assessment / Plan
- Assessment
Renal Function: SCR Decreasing
WBC's are: WNL
In the past 24 hrs, patient has been: Afebrile
Concomitant Antimicrobials: meropenem
- Assessment - Therapeutic Drug Monitoring
Random Level: 10.8 - drawn ~23.3H after previous level of 15.5
Calculated ke: 0.0155
Calculated half life (H): 44.7
- Dosing Plan
Dosing by Level: Re-dose today (Vanc 1250mg)
- Monitoring Plan
Random Level: 02/26 06
- Follow Up
Pharmacy will continue to follow.
Vancomycin Follow UP
- -
Patient Age: 63
Patient Sex: Male
Vancomycin Day #: 6
Indication: Skin And Soft Tissue
Requesting Provider: Dr. Sifuentes / Oksana
Pertinent Antimicrobial Allergies:
no pertinent antibiotic allergies
Height / Weight:
Height 6 ft 1 in
Actual Weight 135.284 kg
IBW in k.9
Adjusted BW in k.1
Pertinent Past Medical History: DM 2, BMI ~39, R. TMA
- Vital Signs / Lab Results
Temp Pulse Resp BP Pulse Ox
97.9 F 69 14 154/70 96
02/26/24 07:00 02/26/24 07:00 02/26/24 07:00 02/26/24 07:57 02/26/24 07:00
Lab Results - Hematology
02/25/24 02/26/24
08:02 07:21
WBC 9.0 9.7
Lab Results - Chemistry
02/25/24 02/26/24
08:02 07:21
BUN 16 16
Creatinine 2.3 H 2.0 H
Estimated Creat Clear 49 56
Lab Results - Urine
02/25/24
13:17
Urine Nitrite Negative
Ur Leukocyte Esterase Negative
Urine WBC 0-2
Ur Squamous Epith Cells 11-15
Microbiology Results
02/23/24 17:44 C. difficile GDH Antigen & Toxins - Final
Feces/Stool Negative for toxigenic C.difficile
Therapeutic Drug Monitoring
Vancomycin Peak 31.8 ug/ml (18-26) H 02/23/24 21:16
Vancomycin Trough 24.2 ug/ml (5-20) H* 02/24/24 06:43
Random Vancomycin 10.8 ug/ml 02/26/24 07:21
--- NOTE | 2024-02-26 10:08 | W.PN.ID1 ---
Date of Service
Date of Service: February 26, 2024
Today's Communication
Continue Vanco/meropenem through BKA.
Assessment / Plan
# Right foot TMA draining wounds/osteomyelitis
# KODY
- Foot no longer salvageable. For BKA tomorrow.
- Wound cx MRSA
- Continue Vanco/meropenem through BKA.
- Renally adjusted abx's.
# Additional PMHx
Diabetes mellitus, well controlled.
Neuropathy.
Hypertension.
Class 3 obesity, BMI 40.
Dyslipidemia.
Sciatica.
Chief Complaint
-: Other (Right foot infection)
Subjective / Review of Systems
Upset that his dog is dying. He got permission for his to bring the dog in to see him.
Vital Signs / Physical Exam
Vital Signs
Vital Signs
Temp Pulse Resp BP Pulse Ox
97.9 F 69 14 154/70 96
02/26/24 07:00 02/26/24 07:00 02/26/24 07:00 02/26/24 07:57 02/26/24 07:00
Physical Exam
Constitutional: Comfortable
Cardiovascular: Regular Rate and S1/S2
Pulmonary: Clear
Gastrointestinal: Soft, Non Tender and Non Distended
Wound: Other (right foot dressing with plantar drainage strike-through)
Neurological: AO x 3
Objective Data
Lab Data
Lab Results
02/26/24 07:21
02/26/24 07:21
Estimated Creat Clear 56 ml/min 02/26/24 07:21
Lactic Acid 1.7 mmol/L (0.7-2.0) 02/20/24 16:37
Total Bilirubin 1.1 mg/dl (0.2-1.3) 02/21/24 08:07
AST 32 U/L (17-59) 02/21/24 08:07
ALT 29 U/L (0-50) 02/21/24 08:07
Alkaline Phosphatase 147 U/L (38-126) H 02/21/24 08:07
Most recent labs reviewed.
Micro Results:
02/23/24 17:44 C. difficile GDH Antigen & Toxins - Final
Feces/Stool Negative for toxigenic C.difficile
02/20/24 19:45 Wound Culture - Final
Foot - Right Staph aureus MRSA
Gram Stain - Final
[2024-02-26] MEDS: VISBIOME 1 CAP PO (12:15)
[2024-02-26] MEDS: VANCOCIN IV (12:15)
[2024-02-26 13:09] LABS: Glucose - Point of Care 189 mg/dl (70-99)
[2024-02-26] MEDS: NOVOLOG FLEXPEN-LOW RESISTANCE 1 UNITS SC ×2 (13:31→18:08)
[2024-02-26] MEDS: NOVOLOG FLEXPEN 20 UNITS SC ×2 (13:31→18:08)
--- NOTE | 2024-02-26 14:13 | W.PN.NEPH.PH ---
Today's Communication / Plan
-
Follow BMP
Hold TYESHA inhibitor
Assessment/Plan
-
Impression:
KODY
Right foot wound
Hypertension
Diabetes
Anemia
Plan:
-Creatinine down to 2, nonoliguric
-Can proceed for vascular surgery when scheduled
-Urine eosinophils negative (vanco/zosyn now held)
-Obtained fractional secretion of sodium urine eosinophils and kidney and bladder u/s, and UA (unimpressive)
-Withhold TYESHA inhibitor
-Of note patient has been hemodynamically stable, no evidence of NSAIDs or iodine based IV contrast agents
-
-
Date of Service: February 26, 2024
CC / HPI / ROS
-
Chief Complaint:
Acute kidney injury
History of Present Illness:
Creatinine improved to 2.0
Hemodynamically stable
Remains on vanco/meropenem for foot wound
Review of Systems:
Nonoliguric
Chest pain or shortness of breath
Labs
-
Labs:
WBC 9.7 10^3/uL (4.8-10.8) 02/26/24 07:21
RBC 3.58 10^6/uL (4.70-6.10) L 02/26/24 07:21
Hgb 9.9 g/dL (13.0-18.0) L 02/26/24 07:21
Hct 29.4 % (39.0-52.0) L 02/26/24 07:21
Plt Count 475 10^3/uL (130-400) H 02/26/24 07:21
Sodium 138 mmol/L (135-145) 02/26/24 07:21
Potassium 4.5 mmol/L (3.5-5.1) 02/26/24 07:21
Chloride 109 mmol/L (98-107) H 02/26/24 07:21
Carbon Dioxide 22 mmol/L (22-30) 02/26/24 07:21
BUN 16 mg/dl (9-20) 02/26/24 07:21
Creatinine 2.0 mg/dL (0.7-1.3) H 02/26/24 07:21
eGFR 37.27 02/26/24 07:21
Glucose 103 mg/dl (70-99) H 02/26/24 07:21
Calcium 8.5 mg/dl (8.4-10.2) 02/26/24 07:21
Albumin 3.3 g/dl (3.5-5.0) L 02/21/24 08:07
Physical Exam
-
Vital Signs:
Vital Signs
Temp Pulse Resp BP Pulse Ox
97.9 F 69 14 154/70 96
02/26/24 07:00 02/26/24 07:00 02/26/24 07:00 02/26/24 07:57 02/26/24 08:00
Cardiovascular:: Regular rate and rhythm
Respiratory:: Bilateral: CTA
Lung Excursion:: Normal
Abdomen:: Nontender and Soft
Bowel Sounds:: Normal
Extremity Edema:: +1: Right:
Tran Catheter: No
[2024-02-26 14:33] LABS: Glucose - Point of Care 141 mg/dl (70-99)
[2024-02-26] MEDS: VANCOCIN 275 MG IV (14:34)
[2024-02-26 15:00] VITALS: BP 125/66
[2024-02-26 18:08] LABS: Glucose - Point of Care 165 mg/dl (70-99)
[2024-02-26] MEDS: BENADRYL 25 MG PO (21:05)
[2024-02-26 22:33] LABS: Glucose - Point of Care 106 mg/dl (70-99)
[2024-02-26] MEDS: LANTUS 0.24 UNITS SC (22:33)
[2024-02-26] MEDS: AMBIEN 5 MG PO (22:34)
[2024-02-26] MEDS: D5/0.45%NACL 1000 IV (22:39)
[2024-02-26 23:00] VITALS: BP 143/65
[2024-02-27] VITALS (13 sets, daily range): BP systolic 101–147; BP diastolic 61–76
[2024-02-27 00:01] LABS: Glucose - Point of Care 117 mg/dl (70-99)
[2024-02-27] MEDS: MERREM 500 MG IV ×3 (04:59→21:47)
[2024-02-27] MEDS: STERILE WATER FOR INJECTION 10 ML IV ×3 (04:59→21:47)
[2024-02-27 05:55] LABS: Glucose - Point of Care 117 mg/dl (70-99)
[2024-02-27] MEDS: VITAMIN C 1000 MG PO (08:45)
[2024-02-27] MEDS: NOVOLOG FLEXPEN-LOW RESISTANCE SC ×2 (08:45→12:46)
[2024-02-27] MEDS: THERAGRAN 1 TABLET PO (08:45)
[2024-02-27] MEDS: FEOSOL 325 MG PO (08:45)
[2024-02-27] MEDS: LIPITOR 20 MG PO (08:45)
[2024-02-27] MEDS: OSCAL CAL 500 500 MG PO (08:45)
[2024-02-27] MEDS: NEURONTIN 300 MG PO ×3 (08:45→21:48)
[2024-02-27] MEDS: COREG 12.5 MG PO ×2 (08:45→21:46)
[2024-02-27] MEDS: VITAMIN D3 (cholecalciferol) 50 MCG PO (08:45)
[2024-02-27] MEDS: NOVOLOG FLEXPEN SC ×2 (08:46→12:46)
[2024-02-27] MEDS: ASPIR LOW (ENTERIC COATED) 81 MG PO (08:49)
[2024-02-27] MEDS: DESENEX/MITRAZOL/ZEASORB TOPICAL ×2 (08:54→21:46)
[2024-02-27] MEDS: HEPARIN 5000 UNITS SC ×2 (08:55→21:47)
[2024-02-27 08:59] LABS: Hemoglobin 10.8 g/dL (13.0-18.0); Mean Corp Hgb Conc. 33.8 g/dL (33.0-37.0); Mean Corpuscular Hgb 27.6 pg (27.0-31.0); Mean Corpuscular Volume 81.6 fL (80.0-94.0); Mean Platelet Volume 8.2 fL (7.4-10.4); Platelet Count 447 10^3/uL (130-400); Red Blood Cell Count 3.92 10^6/uL (4.70-6.10); Red Cell Dist. Width 13.2 % (11.5-14.5); White Blood Cell Count 7.8 10^3/uL (4.8-10.8)
[2024-02-27 10:17] LABS: Blood Urea Nitrogen 15 mg/dl (9-20); Calcium 8.6 mg/dl (8.4-10.2); Carbon Dioxide 23 mmol/L (22-30); Chloride 109 mmol/L (98-107); Estimated Creatinine Clearance 62 ml/min; Glucose 107 mg/dl (70-99); Potassium 4.4 mmol/L (3.5-5.1); Sodium 138 mmol/L (135-145)
--- NOTE | 2024-02-27 10:19 | PHA.VAN.FU ---
Vancomycin Assessment / Plan
- Assessment
Renal Function: SCR Decreasing
WBC's are: WNL
In the past 24 hrs, patient has been: Afebrile
Concomitant Antimicrobials: Meropenem
- Assessment - Therapeutic Drug Monitoring
Random Level: 12 - drawn ~17.5H after previous dose of 1250mg
- Dosing Plan
Dosing by Level: Re-dose today (Vanc 1250mg)
- Monitoring Plan
Random Level: 02/27 0600
- Follow Up
Pharmacy will continue to follow.
Vancomycin Follow UP
- -
Patient Age: 63
Patient Sex: Male
Vancomycin Day #: 7
Indication: Skin And Soft Tissue
Requesting Provider: Dr. Sifuentes / Oksana
Pertinent Antimicrobial Allergies:
no pertinent antibiotic allergies
Height / Weight:
Height 6 ft 1 in
Actual Weight 135.284 kg
IBW in k.9
Adjusted BW in k.1
Pertinent Past Medical History: DM 2, BMI ~39, R. TMA
- Vital Signs / Lab Results
Temp Pulse Resp BP Pulse Ox
97.5 F 60 12 135/68 97
02/27/24 07:00 02/27/24 07:00 02/27/24 07:00 02/27/24 07:00 02/27/24 07:00
Lab Results - Hematology
02/25/24 02/26/24 02/27/24
08:02 07:21 07:53
WBC 9.0 9.7 7.8
Lab Results - Chemistry
02/25/24 02/26/24 02/27/24
08:02 07:21 07:53
BUN 16 16 15
Creatinine 2.3 H 2.0 H 1.8 H
Estimated Creat Clear 49 56 62
Therapeutic Drug Monitoring
Vancomycin Peak 31.8 ug/ml (18-26) H 02/23/24 21:16
Vancomycin Trough 24.2 ug/ml (5-20) H* 02/24/24 06:43
Random Vancomycin 12.0 ug/ml 02/27/24 07:53
--- NOTE | 2024-02-27 10:59 | W.PN.HOSP.TC ---
Today's Communication/Plan
-
BKA today
Assessment / Plan
Assessment / Plan
Assessment:
Sepsis (fever, leukocytosis) POA
Open Right foot wound with underlying acute osteomyelitis with surrounding cellulitis
Previous History of right foot wound dehiscence with underlying osteomyelitis status post right transmetatarsal amputation as well as MSSA bacteremia
- wound cultures MRSA
- continue Vancomycin; renally dosed. on Meropenem
- Podiatry/Vascular following; planned for BKA today which would represent definitive cure.
- pre-op cardiac risk assessment by [facility] cardiology appreciated
KODY, initially improved
- then returned 02/24 with Creat 2.3
- given concurrent Vancomycin and Zosyn, likely idiosyncratic increase in Cr. D/W ID and antibiotics were adjusted. FENA 1.3 consistent with intrinsic etiology. Eosinophils negative.
- monitor bladder scans
- hold nephrotoxins
- Nephrology following
- follow BMP, Cr is now 1.8
Diarrhea
- C. Diff neg. ?abx associated diarrhea
Hyponatremia
- resolved
History of right upper extremity DVT related to PICC line
- Patient completed anticoagulation last week
Type 2 diabetes
- continue Toujeo 25 units daytime, 30 units nighttime
- continue premeal Novolog
- insulin sliding scale
- A1c is 7.2%
Essential hypertension
- continue Coreg
- hold lisinopril
Chronic anemia
- continue ferrous sulfate
Hypercholesterolemia
- continue statin
DVT ppx: Heparin
Code: Full
Anticipated Discharge: 24 - 48 hours
Subjective/Interval History
-
Date of Service: February 27, 2024
for BKA today
Objective Data
-
Labs:
Laboratory Results
02/27/24
07:53
WBC 7.8
Hgb 10.8 L
Hct 32.0 L
Plt Count 447 H
Sodium 138
Potassium 4.4
Chloride 109 H
Carbon Dioxide 23
BUN 15
Creatinine 1.8 H
Glucose 107 H
Calcium 8.6
Vital Signs:
Vital Signs
Temp Pulse Resp BP Pulse Ox
97.5 F 60 12 135/68 97
02/27/24 07:00 02/27/24 07:00 02/27/24 07:00 02/27/24 07:00 02/27/24 07:00
I&O
02/26/24 02/27/24 02/28/24
06:59 06:59 06:59
Intake Total 1520 / 1520 1140 / 1140
Output Total 900 / 900
Balance 620 / 620 1140 / 1140
Physical Exam
-
General: No Apparent Distress
HEENT: Normocephalic and Atraumatic
Respiratory: Clear to Auscultation; Negative Wheezes
Cardiac: Regular Rhythm and S1/S2
GI: Soft
Genito-urinary: No Costovertebral Tender
Musculoskeletal: No Edema
Neuro: AO x 3
Hematologic / Lymphatic: No Lymphadenopathy
Data Reviewed
-
Total Time Spent with Patient (in minutes): 44
Labs: Labs Reviewed by me
[2024-02-27] MEDS: PERIDEX 0.12% ORAL RINSE 15 ML PO (11:17)
[2024-02-27] MEDS: BACTROBAN 2% OINTMENT 1 APPLIC NASAL (11:17)
--- NOTE | 2024-02-27 11:58 | PTCARENOTE ---
Pt arrived in packing house laborer recovery. Anesthesiologist paged. VS obtained. Afebrile. VSS. Dr Garcia obtained consent.Site marked.
--- NOTE | 2024-02-27 12:24 | W.SUR.PREOP ---
Pre-Operative Surgical Note
-
I have examined this patient prior to the performance of the scheduled procedure.
The patient's condition is unchanged from the time of the current History and
Physical and the patient is able to undergo the scheduled procedure.
[2024-02-27 12:28] LABS: Glucose - Point of Care 118 mg/dl (70-99)
[2024-02-27] MEDS: VANCOCIN 275 MG IV (12:31)
[2024-02-27] MEDS: NSS 500 IV (12:32)
[2024-02-27] MEDS: VISBIOME PO (12:46)
--- NOTE | 2024-02-27 13:00 | PTCARENOTE ---
pt transferred in to procedure room
--- NOTE | 2024-02-27 14:38 | CM ---
Patient off the floor for OR.
Plan: f/u for d/c needs.
--- NOTE | 2024-02-27 14:55 | CM ---
Patient seen at bedside.
Awaiting to go to OR today for scheduled procedure.
Will await postop PT/OT recommendations. Acute rehab vs. SNF
PLAN: OR today for BKA - Discharge when stable to Acute rehab vs. SNF
--- NOTE | 2024-02-27 15:00 | W.SUR.POST ---
Surgical Immediate Post Op
Note
Pre Op Diagnosis: Nonhealing chronic wound right foot
Post Op Diagnosis: Same
Procedure Performed: Right BKA
Primary Surgeon: Jose
Assist: Adis CLARK
Anesthesia: General/Block
Estimated Blood Loss:
Fluids: See anesthesia flowsheet
Drains/Shunts: Same
Specimens/Cultures: Right leg
Doppler/Duplex/Angio (Y/N): N
Complications: None
Operative Findings: Successful amputation
[2024-02-27 15:27] LABS: Glucose - Point of Care 167 mg/dl (70-99)
--- NOTE | 2024-02-27 15:28 | OR.RPT ---
Operative Report
Operative Report
PROCEDURE DATE: 02/27/2024
Preoperative diagnosis: Chronic nonhealing right foot wounds.
Postoperative diagnosis: Same
Procedure: Right below the knee amputation
Surgeon: Jose
Ekg Monitor: JORGE Arceo, required for all aspects of procedure including traction/countertraction, assistance with closure.
Complications: None
Anesthesia: General
Indications for procedure:
Chronic nonhealing wounds. Patient had extensive discussion with his supplemental manager. He wished to proceed with below the knee amputation due to chronic nonhealing wounds and extensive wound care issues. Risk/benefits/alternatives of below the knee
amputation discussed with the patient. He understood all wish to proceed.
Description of procedure:
Patient was identified brought to the operating room placed on the table in supine position. After the adequate administration of anesthesia and perioperative antibiotics he was prepped and draped in the standard surgical fashion. A standard
preoperative timeout was undertaken and everybody was in agreement the plan. Standard posterior flap type incisions were made in the right lower extremity with a transverse incision anteriorly at approximately 12 cm distal to the tibial tuberosity.
Medial and lateral longitudinal incisions were carried down. And then posterior transverse incision was then again carried down. The incisions were carried through the skin subcutaneous tissue with the electrocautery and then through the fascial
layer. Hemostasis was achieved as we progressed. Next the muscles of the anterior and lateral compartments of the calf were divided with electrocautery. The anterior tibial neurovascular bundle was ligated between silk ties and then divided. As
the vessel was pulsatile, multiple silk ties, as well as silk suture ligature were used to ligate the proximal vessel. The muscles/attachments of the tibia medially were also divided with electrocautery. As such the tibia was then freed of all its
attachments and a periosteal elevator was used to elevate the periosteum circumferentially. The fibula was similarly freed of all its surrounding soft tissue and muscles. These were transected with electrocautery. The intermuscular septum was
then divided with electrocautery. Circumferential dissection of the fibula was undertaken carefully and a periosteal elevator was used to elevate the periosteum circumferentially around the fibula as well. At this point the tibia and fibula were
transected with an oscillating saw. The posterior tissues were then cut with a amputation knife and a direction parallel to the access of the leg. This was then teed off in a perpendicular access at the distal posterior transverse skin incision
site. The leg specimen was then removed. The peroneal and posterior tibial arteries were then controlled with hemostats. These were then ligated. (Ligated distally and the transection site). Next I removed any redundant muscle with the
electrocautery. I then we ligated the peroneal and posterior tibial arteries and veins with silk suture ligatures proximally just distal to the bone transection site. Next hemostasis was achieved throughout the muscle bed with [id number] 2-0
and 3-0 silk suture. Next the oscillating saw was used to bevel the anterior aspect of the tibia so as to avoid any pressure point. A rasp was used to smooth the edges. The fibula was then re- transected with the oscillating saw to a point
approximately 1 cm proximal to the tibial transection. A rasp was used to smooth the edges. Next we irrigated copiously. Hemostasis was confirmed. We then closed in layers after trimming the skin flap of any redundant/dogear type projections.
0-Vicryl interrupted suture was used to reapproximate the fascial layer. Next running 3-0 Vicryl deep dermal suture layer was run. Finally skin clips were applied. Bulky dressings were applied. The patient tolerated procedure well.
[2024-02-27] MEDS: DILAUDID 0.5 MG IV (15:43)
[2024-02-27] MEDS: DILAUDID PCA 30 IV (15:46)
[2024-02-27] MEDS: DILAUDID 0.25 MG IV (16:03)
[2024-02-27 16:29] LABS: Hematocrit 27.6 % (39.0-52.0); Hemoglobin 9.4 g/dL (13.0-18.0); Mean Corp Hgb Conc. 34.1 g/dL (33.0-37.0); Mean Corpuscular Hgb 27.9 pg (27.0-31.0); Mean Corpuscular Volume 81.9 fL (80.0-94.0); Mean Platelet Volume 8.1 fL (7.4-10.4); Platelet Count 420 10^3/uL (130-400); Red Blood Cell Count 3.37 10^6/uL (4.70-6.10); Red Cell Dist. Width 13.1 % (11.5-14.5); White Blood Cell Count 10.7 10^3/uL (4.8-10.8)
[2024-02-27] MEDS: D5/0.45%NACL 1000 IV (16:33)
[2024-02-27 16:51] LABS: Blood Urea Nitrogen 15 mg/dl (9-20); Calcium 8.3 mg/dl (8.4-10.2); Carbon Dioxide 21 mmol/L (22-30); Chloride 109 mmol/L (98-107); Estimated Creatinine Clearance 66 ml/min; Glucose 185 mg/dl (70-99); Sodium 136 mmol/L (135-145)
--- NOTE | 2024-02-27 17:18 | W.PN.NEPH.PH ---
Today's Communication / Plan
-
follow labs
Assessment/Plan
-
Impression:
KODY
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
Hypertension
Diabetes
Anemia
Plan:
-KODY-Creatinine down to 1.7,
bland UA and was nonoliguric
s/p right BKA today for non healing wounds
-Urine eosinophils negative (vanco/zosyn now held)
-reviewed fractional secretion of sodium urine eosinophils and kidney and bladder u/s, and UA (unimpressive)
-cont to hold TYESHA inhibitor
BP stable, cont IVF
labs in am
-
-
Date of Service: February 27, 2024
CC / HPI / ROS
-
Chief Complaint:
Acute kidney injury
History of Present Illness:
Creatinine improved to 1.7
Hemodynamically stable
Remains on vanco/meropenem for foot wound
s/p BKA today
Review of Systems:
pain at the surgical site
Chest pain or shortness of breath
Labs
-
Labs:
WBC 10.7 10^3/uL (4.8-10.8) 02/27/24 16:23
RBC 3.37 10^6/uL (4.70-6.10) L 02/27/24 16:23
Hgb 9.4 g/dL (13.0-18.0) L 02/27/24 16:23
Hct 27.6 % (39.0-52.0) L 02/27/24 16:23
Plt Count 420 10^3/uL (130-400) H 02/27/24 16:23
Sodium 136 mmol/L (135-145) 02/27/24 16:23
Potassium 5.0 mmol/L (3.5-5.1) 07/31/24 16:23
Chloride 109 mmol/L (98-107) H 02/27/24 16:23
Carbon Dioxide 21 mmol/L (22-30) L 02/27/24 16:23
BUN 15 mg/dl (9-20) 02/27/24 16:23
Creatinine 1.7 mg/dL (0.7-1.3) H 02/27/24 16:23
eGFR 45.30 02/27/24 16:23
Glucose 185 mg/dl (70-99) H 02/27/24 16:23
Calcium 8.3 mg/dl (8.4-10.2) L 02/27/24 16:23
Albumin 3.3 g/dl (3.5-5.0) L 02/21/24 08:07
Physical Exam
-
Vital Signs:
Vital Signs
Temp Pulse Resp BP Pulse Ox
98.0 F 58 16 122/61 96
02/27/24 17:10 02/27/24 17:10 02/27/24 17:10 02/27/24 17:10 02/27/24 17:10
Cardiovascular:: Regular rate and rhythm
Respiratory:: Bilateral: CTA
Lung Excursion:: Normal
Abdomen:: Nontender and Soft
Extremity Edema:: None: Left:
Tran Catheter: Yes
Other Findings::
rt bka stump in bandage
[2024-02-27 17:20] LABS: Glucose - Point of Care 207 mg/dl (70-99)
--- NOTE | 2024-02-27 17:30 | PTCARENOTE ---
Received from PACU, VSS. Pain 4 on scale, FLIGHT TEST MECHANIC being utilized appropriately. Right stump dressing c/d/i, weak but palpable popliteal pulse. Tolerating sips of clears, denies n/v.
[2024-02-27] MEDS: NOVOLOG FLEXPEN-LOW RESISTANCE 2 UNITS SC (17:34)
[2024-02-27] MEDS: NOVOLOG FLEXPEN 20 UNITS SC (18:47)
[2024-02-27 21:28] LABS: Glucose - Point of Care 353 mg/dl (70-99)
[2024-02-27] MEDS: COLACE 100 MG PO (21:46)
[2024-02-27] MEDS: BENADRYL 25 MG PO (21:47)
[2024-02-27] MEDS: LANTUS 0.24 UNITS SC (21:48)
[2024-02-28] VITALS (7 sets, daily range): BP systolic 108–149; BP diastolic 59–74; PULSE 62; O2SAT 95
[2024-02-28] MEDS: STERILE WATER FOR INJECTION 10 ML IV (04:10)
[2024-02-28] MEDS: MERREM 500 MG IV (04:10)
[2024-02-28 04:25] LABS: Glucose - Point of Care 258 mg/dl (70-99)
[2024-02-28] MEDS: NSS 1000 IV ×2 (04:48→20:40)
[2024-02-28] MEDS: NSS IV (04:48)
[2024-02-28] MEDS: D5/0.45%NACL IV (04:54)
[2024-02-28 07:42] LABS: Glucose - Point of Care 174 mg/dl (70-99)
[2024-02-28 08:26] LABS: Hematocrit 28.2 % (39.0-52.0); Hemoglobin 9.3 g/dL (13.0-18.0); Mean Corpuscular Hgb 27.6 pg (27.0-31.0); Mean Corpuscular Volume 83.7 fL (80.0-94.0); Mean Platelet Volume 8.2 fL (7.4-10.4); Platelet Count 480 10^3/uL (130-400); Red Blood Cell Count 3.37 10^6/uL (4.70-6.10); White Blood Cell Count 11.5 10^3/uL (4.8-10.8)
[2024-02-28 08:45] LABS: Vancomycin Random 12.6 ug/ml
[2024-02-28 08:55] LABS: Blood Urea Nitrogen 20 mg/dl (9-20); Calcium 8.4 mg/dl (8.4-10.2); Carbon Dioxide 24 mmol/L (22-30); Chloride 106 mmol/L (98-107); Estimated Creatinine Clearance 66 ml/min; Glucose 171 mg/dl (70-99); Potassium 5.1 mmol/L (3.5-5.1); Sodium 137 mmol/L (135-145)
[2024-02-28] MEDS: NOVOLOG FLEXPEN-LOW RESISTANCE 1 UNITS SC ×2 (09:11→13:48)
[2024-02-28] MEDS: NOVOLOG FLEXPEN 20 UNITS SC ×3 (09:11→18:47)
[2024-02-28] MEDS: LANTUS 0.2 UNITS SC (09:12)
--- NOTE | 2024-02-28 09:13 | W.PN.ID1 ---
Date of Service
Date of Service: February 28, 2024
Today's Communication
DC abx's.
ID will sign off. Call prn.
Assessment / Plan
# Right foot TMA draining wounds/osteomyelitis
- 02/27/24 s/p R BKA.
- Discontinue Vanco/meropenem.
# Leukocytosis
- reactive postop
# KODY - stable
ID will sign off.
# Additional PMHx
Diabetes mellitus, well controlled.
Neuropathy.
Hypertension.
Class 3 obesity, BMI 40.
Dyslipidemia.
Sciatica.
Chief Complaint
-: Other (Right foot infection)
Subjective / Review of Systems
Experienced phantom pain last night.
Vital Signs / Physical Exam
Vital Signs
Vital Signs
Temp Pulse Resp BP Pulse Ox
98.3 F 60 18 114/67 96
02/28/24 07:00 02/28/24 07:00 02/28/24 07:00 02/28/24 07:00 02/28/24 07:00
Physical Exam
Constitutional: No Acute Distress
Gastrointestinal: Soft, Non Tender, Non Distended and Normal Bowel Sounds
Wound: Other (R stump post-op dressing dry)
Neurological: AO x 3
Objective Data
Lab Data
Lab Results
02/28/24 07:37
02/28/24 07:37
Estimated Creat Clear 66 ml/min 02/28/24 07:37
Lactic Acid 1.7 mmol/L (0.7-2.0) 02/20/24 16:37
Total Bilirubin 1.1 mg/dl (0.2-1.3) 02/21/24 08:07
AST 32 U/L (17-59) 02/21/24 08:07
ALT 29 U/L (0-50) 02/21/24 08:07
Alkaline Phosphatase 147 U/L (38-126) H 02/21/24 08:07
Most recent labs reviewed.
Micro Results:
02/23/24 17:44 C. difficile GDH Antigen & Toxins - Final
Feces/Stool Negative for toxigenic C.difficile
02/20/24 19:45 Wound Culture - Final
Foot - Right Staph aureus MRSA
Gram Stain - Final
[2024-02-28] MEDS: HEPARIN 5000 UNITS SC ×2 (09:14→20:42)
[2024-02-28] MEDS: DESENEX/MITRAZOL/ZEASORB TOPICAL ×2 (09:18→20:42)
[2024-02-28] MEDS: LIPITOR 20 MG PO (09:22)
[2024-02-28] MEDS: COLACE 100 MG PO ×2 (09:22→20:41)
[2024-02-28] MEDS: OSCAL CAL 500 500 MG PO (09:22)
[2024-02-28] MEDS: NEURONTIN 300 MG PO ×3 (09:22→22:25)
[2024-02-28] MEDS: ASPIR LOW (ENTERIC COATED) 81 MG PO (09:22)
[2024-02-28] MEDS: COREG 12.5 MG PO ×2 (09:22→20:42)
[2024-02-28] MEDS: VITAMIN C 1000 MG PO (09:22)
[2024-02-28] MEDS: THERAGRAN 1 TABLET PO (09:23)
[2024-02-28] MEDS: VITAMIN D3 (cholecalciferol) 50 MCG PO (09:23)
[2024-02-28] MEDS: VITAMIN B-12 1000 MCG PO (09:24)
--- NOTE | 2024-02-28 10:29 | W.PN.VS ---
Addendum entered and electronically signed by Cleveland Garcia MD 02/28/24 10:45:
Seen and examined with CLEARING HAND. Agree with findings as noted below. Agree with plan as noted below as well.
Original Note:
Today's Communication / Plan
-
Patient seen and examined at bedside with Dr. Cleveland Garcia, below plan reviewed with attending
Assessment/Plan
-
Assessment: 63 yo male with nonhealing wounds to his R foot ongoing since 2007, requesting right lower extremity amputation, POD #1 right lower extremity BKA
Plan:
Discontinue Tran catheter
Continue with physical therapy
Can continue SLIPCOVER CUTTER today will transition to p.o. pain management tomorrow
Will change postoperative dressing either POD #2 or 3, given dressing is currently CDI and desiring to reduce edema
Case management following for disposition planning
Subjective Data
-
Date of Service: February 28, 2024
Patient seen and examined at bedside, offers no complaints. Currently working with physical therapy and was able to get out of bed to chair. Reports well-managed postoperative pain.
Objective Data
-
Vital Signs
Temp Pulse Resp BP Pulse Ox
98.3 F 60 18 114/67 96
02/28/24 07:00 02/28/24 07:00 02/28/24 07:00 02/28/24 07:00 02/28/24 07:00
Intake and Output
02/27/24 02/28/24 02/29/24
06:59 06:59 06:59
Intake Total 1140 / 1140 1010 / 1010
Output Total 1225 / 1225
Balance 1140 / 1140 -215 / -215
Intake:
Oral fluids 1140 / 1140 420 / 420
IV fluids (Total) 340 / 340
NSS 300 / 300
IV piggybacks 250 / 250
Output:
Urine, Tran 425 / 425
Urine, Voided 800 / 800
Other:
Number of approximated MODERATE 2
amounts of urine
Lab Results
02/28/24 07:37
02/28/24 07:37
Calcium 8.4 mg/dl (8.4-10.2) 02/28/24 07:37
Magnesium 2.2 mg/dl (1.6-2.3) 02/23/24 07:44
Total Bilirubin 1.1 mg/dl (0.2-1.3) 02/21/24 08:07
AST 32 U/L (17-59) 02/21/24 08:07
ALT 29 U/L (0-50) 02/21/24 08:07
Alkaline Phosphatase 147 U/L (38-126) H 02/21/24 08:07
Total Protein 7.0 g/dl (6.3-8.2) 02/21/24 08:07
Albumin 3.3 g/dl (3.5-5.0) L 02/21/24 08:07
Physical Exam
-
No apparent distress, resting at bedside comfortably
No tachycardia
No dyspnea on room air
ABD rotund, nondistended
Right lower extremity BKA dressing site CDI
Tran draining clear yellow urine
--- NOTE | 2024-02-28 10:33 | W.PN.CD ---
Today's Communication / Plan
-
stable from cardiology standpoint. Monitor on telemetryfor an additonal 24 horus pos op. If unremarkable and without symptoms then can discontinue
Impression / Plan
-
RLE non-healing wounds:
post op right BKA 02/27/24
RBBB:
-chronic, stable
HTN: - continue to monitor post op
HLD:
-continue statin
DM2:tx per primary team
Physical Exam
Vital Signs/Labs
Vital Signs
Temp Pulse Resp BP Pulse Ox
98.3 F 60 18 114/67 96
02/28/24 07:00 02/28/24 07:00 02/28/24 07:00 02/28/24 07:00 02/28/24 07:00
02/28/24 07:37
02/28/24 07:37
Magnesium 2.2 mg/dl (1.6-2.3) 02/23/24 07:44
Physical Exam
Constitutional: No acute distress
Cardiovascular: Rhythm & rate is regular
Respiratory: Respiratory effort normal
GI: Soft
Neuro/Psych: Alert and Oriented
Data Reviewed
-
Date of Service: February 28, 2024
Medical Decision Making: Reviewed Test Results
Labs: Labs Ordered by me
--- NOTE | 2024-02-28 12:17 | W.PN.HOSP.TC ---
Today's Communication/Plan
-
wound care, pain control per Vascular
off Abx
monitor tele x 24 hours further
DC Planning to a rehab
Assessment / Plan
Assessment / Plan
Assessment:
Sepsis (fever, leukocytosis) POA
Open Right foot wound with underlying acute osteomyelitis with surrounding cellulitis
Previous History of right foot wound dehiscence with underlying osteomyelitis status post right transmetatarsal amputation as well as MSSA bacteremia
- wound cultures MRSA
- s/p BKA 02/26 which represents definitive cure and Abx were stopped
- continue MANUSCRIPT READER pump and transition to orals tomorrow
- wound care per Vascular
- PT/OT with rehab placement being pursued
KODY, initially improved
- then returned 02/24 with Creat 2.3
- given concurrent Vancomycin and Zosyn, likely idiosyncratic increase in Cr. FENA 1.3 consistent with intrinsic etiology. Eosinophils negative.
- monitor bladder scans
- hold nephrotoxins
- Nephrology following
- follow BMP, Cr is now 1.7
Diarrhea
- C. Diff neg. ?abx associated diarrhea
Hyponatremia
- resolved
History of right upper extremity DVT related to PICC line
- Patient completed anticoagulation last week
Type 2 diabetes
- continue Toujeo 25 units daytime, 30 units nighttime
- continue premeal Novolog
- insulin sliding scale
- A1c is 7.2%
Essential hypertension
- continue Coreg
- hold lisinopril
Chronic anemia
- continue ferrous sulfate
Hypercholesterolemia
- continue statin
DVT ppx: Heparin
Code: Full
Anticipated Discharge: 24 - 48 hours
Subjective/Interval History
-
Date of Service: February 28, 2024
s/p BKA
on MANUSCRIPT READER pump
Objective Data
-
Labs:
Laboratory Results
02/28/24
07:37
WBC 11.5 H
Hgb 9.3 L
Hct 28.2 L
Plt Count 480 H
Sodium 137
Potassium 5.1
Chloride 106
Carbon Dioxide 24
BUN 20
Creatinine 1.7 H
Glucose 171 H
Calcium 8.4
Vital Signs:
Vital Signs
Temp Pulse Resp BP Pulse Ox
97.5 F 56 18 108/59 95
02/28/24 11:06 02/28/24 11:06 02/28/24 11:06 02/28/24 11:06 02/28/24 11:06
I&O
02/27/24 02/28/24 02/29/24
06:59 06:59 06:59
Intake Total 1140 / 1140 1010 / 1010
Output Total 1225 / 1225
Balance 1140 / 1140 -215 / -215
Physical Exam
-
General: No Apparent Distress
HEENT: Normocephalic and Atraumatic
Respiratory: Negative Wheezes
Cardiac: Regular Rhythm and S1/S2
GI: Soft
Musculoskeletal: Other (R BKA)
Neuro: AO x 3
Hematologic / Lymphatic: No Lymphadenopathy
Psych: Calm
Data Reviewed
-
Total Time Spent with Patient (in minutes): 44
Labs: Labs Reviewed by me
[2024-02-28 12:42] LABS: Glucose - Point of Care 166 mg/dl (70-99)
[2024-02-28] MEDS: VISBIOME 1 CAP PO (13:48)
--- NOTE | 2024-02-28 16:21 | W.PN.NEPH.PH ---
Today's Communication / Plan
-
- trend Cr
Assessment/Plan
-
Impression:
KODY
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
Hypertension
Diabetes
Anemia
Plan:
-KODY-Creatinine down to 1.7
-bland UA and was nonoliguric
-s/p right BKA for non healing wounds
-Urine eosinophils negative (vanco/zosyn now held)
-reviewed fractional secretion of sodium urine eosinophils and kidney and bladder u/s, and UA (unimpressive)
-cont to hold TYESHA inhibitor
-BP stable, cont IVF
-labs in am
-
-
Date of Service: February 28, 2024
CC / HPI / ROS
-
Chief Complaint:
Acute kidney injury
History of Present Illness:
Creatinine improved to 1.7 (appears to have plateued)
Hemodynamically stable
Remains on vanco/meropenem for foot wound
s/p BKA
Review of Systems:
pain at the surgical site
Chest pain or shortness of breath
Labs
-
Labs:
WBC 11.5 10^3/uL (4.8-10.8) H 02/28/24 07:37
RBC 3.37 10^6/uL (4.70-6.10) L 02/28/24 07:37
Hgb 9.3 g/dL (13.0-18.0) L 02/28/24 07:37
Hct 28.2 % (39.0-52.0) L 02/28/24 07:37
Plt Count 480 10^3/uL (130-400) H 02/28/24 07:37
Sodium 137 mmol/L (135-145) 02/28/24 07:37
Potassium 5.1 mmol/L (3.5-5.1) 02/28/24 07:37
Chloride 106 mmol/L (98-107) 02/28/24 07:37
Carbon Dioxide 24 mmol/L (22-30) 02/28/24 07:37
BUN 20 mg/dl (9-20) 02/28/24 07:37
Creatinine 1.7 mg/dL (0.7-1.3) H 02/28/24 07:37
eGFR 45.30 02/28/24 07:37
Glucose 171 mg/dl (70-99) H 02/28/24 07:37
Calcium 8.4 mg/dl (8.4-10.2) 02/28/24 07:37
Albumin 3.3 g/dl (3.5-5.0) L 02/21/24 08:07
Physical Exam
-
Vital Signs:
Vital Signs
Temp Pulse Resp BP Pulse Ox
97.8 F 62 20 125/71 96
02/28/24 14:45 02/28/24 14:45 02/28/24 14:45 02/28/24 14:45 02/28/24 14:45
Cardiovascular:: Regular rate and rhythm
Respiratory:: Bilateral: CTA
Lung Excursion:: Normal
Abdomen:: Nontender and Soft
Bowel Sounds:: Normal
Extremity Edema:: None: Left:
Tran Catheter: Yes
Other Findings::
rt bka stump in bandage
--- NOTE | 2024-02-28 16:31 | CM ---
PT/OT recommending acute rehab.
[facility] referral sent.
Plan: [facility] one medically stable.
[2024-02-28 17:52] LABS: Glucose - Point of Care 149 mg/dl (70-99)
[2024-02-28] MEDS: NOVOLOG FLEXPEN-LOW RESISTANCE SC (18:46)
[2024-02-28 21:05] LABS: Glucose - Point of Care 202 mg/dl (70-99)
[2024-02-28] MEDS: LANTUS 0.24 UNITS SC (22:25)
[2024-02-28] MEDS: BENADRYL 25 MG PO (22:25)
[2024-02-29] VITALS (7 sets, daily range): BP systolic 112–139; BP diastolic 57–67; O2SAT 96–99
[2024-02-29] MEDS: AMBIEN 5 MG PO (00:32)
[2024-02-29 08:05] LABS: Glucose - Point of Care 112 mg/dl (70-99)
[2024-02-29] MEDS: FEOSOL 325 MG PO (08:15)
[2024-02-29] MEDS: COLACE 100 MG PO (08:15)
[2024-02-29] MEDS: VITAMIN D3 (cholecalciferol) 50 MCG PO (08:16)
[2024-02-29] MEDS: NEURONTIN 300 MG PO ×3 (08:16→22:17)
[2024-02-29] MEDS: HEPARIN 5000 UNITS SC ×2 (08:16→20:11)
[2024-02-29] MEDS: THERAGRAN 1 TABLET PO (08:16)
[2024-02-29] MEDS: ASPIR LOW (ENTERIC COATED) 81 MG PO (08:16)
[2024-02-29] MEDS: OSCAL CAL 500 500 MG PO (08:16)
[2024-02-29] MEDS: LIPITOR 20 MG PO (08:16)
[2024-02-29] MEDS: DESENEX/MITRAZOL/ZEASORB TOPICAL ×2 (08:17→20:08)
[2024-02-29] MEDS: VITAMIN C 1000 MG PO (08:17)
[2024-02-29] MEDS: COREG 12.5 MG PO ×2 (08:17→20:11)
[2024-02-29] MEDS: LANTUS 0.2 UNITS SC (08:20)
[2024-02-29 08:24] LABS: Hemoglobin 8.3 g/dL (13.0-18.0); Mean Corp Hgb Conc. 33.2 g/dL (33.0-37.0); Mean Corpuscular Hgb 27.8 pg (27.0-31.0); Mean Corpuscular Volume 83.6 fL (80.0-94.0); Mean Platelet Volume 8.2 fL (7.4-10.4); Platelet Count 362 10^3/uL (130-400); Red Blood Cell Count 2.99 10^6/uL (4.70-6.10); Red Cell Dist. Width 13.1 % (11.5-14.5); White Blood Cell Count 7.2 10^3/uL (4.8-10.8)
[2024-02-29] MEDS: NOVOLOG FLEXPEN-LOW RESISTANCE SC ×2 (08:25→17:42)
[2024-02-29] MEDS: VITAMIN B-12 1000 MCG PO (08:27)
--- NOTE | 2024-02-29 08:46 | W.PN.HOSP.TC ---
Today's Communication/Plan
-
add bowel regimen
DC planning to [facility]
Assessment / Plan
Assessment / Plan
Assessment:
Sepsis (fever, leukocytosis) POA
Open Right foot wound with underlying acute osteomyelitis with surrounding cellulitis
Previous History of right foot wound dehiscence with underlying osteomyelitis status post right transmetatarsal amputation as well as MSSA bacteremia
- wound cultures MRSA
- s/p BKA 02/26 which represents definitive cure and Abx were stopped
- continue PO pain control + bowel regimen
- wound care per Vascular
- PT/OT with acute rehab placement being pursued
KODY, initially improved
- then returned 02/24 with Creat 2.3
- given concurrent Vancomycin and Zosyn, likely idiosyncratic increase in Cr. FENA 1.3 consistent with intrinsic etiology. Eosinophils negative.
- monitor bladder scans
- hold nephrotoxins
- Nephrology following
- follow BMP, Cr is now 1.5
Diarrhea
- C. Diff neg. ?abx associated diarrhea
Hyponatremia
- resolved
History of right upper extremity DVT related to PICC line
- Patient completed anticoagulation last week
Type 2 diabetes
- continue Toujeo 25 units daytime, 30 units nighttime
- continue premeal Novolog
- insulin sliding scale
- A1c is 7.2%
Essential hypertension
- continue Coreg
- hold lisinopril
Acute post-op anemia on chronic anemia
- monitor Hb
- continue ferrous sulfate
Hypercholesterolemia
- continue statin
DVT ppx: Heparin
Code: Full
Anticipated Discharge: Within 24 hours
Subjective/Interval History
-
Date of Service: February 29, 2024
no complaints, taken off [employer]
Objective Data
-
Labs:
Laboratory Results
02/29/24
07:51
WBC 7.2
Hgb 8.3 L
Hct 25.0 L
Plt Count 362 D
Sodium Pending
Potassium Pending
Chloride Pending
Carbon Dioxide Pending
BUN Pending
Creatinine Pending
Glucose Pending
Calcium Pending
Vital Signs:
Vital Signs
Temp Pulse Resp BP Pulse Ox
98.2 F 63 18 137/76 93
02/29/24 07:00 02/29/24 08:17 02/29/24 07:00 02/29/24 08:17 02/29/24 07:00
I&O
02/28/24 02/29/24 03/01/24
06:59 06:59 06:59
Intake Total 1010 / 1010 2480 / 2480
Output Total 1225 / 1225 1989 / 1989
Balance -215 / -215 490 / 490
Physical Exam
-
General: No Apparent Distress
HEENT: Normocephalic and Atraumatic
Respiratory: Negative Wheezes
Cardiac: Regular Rhythm and S1/S2
GI: Soft
Genito-urinary: No Costovertebral Tender
Musculoskeletal: No Edema
Neuro: AO x 3
Hematologic / Lymphatic: No Lymphadenopathy
Psych: Calm
Data Reviewed
-
Total Time Spent with Patient (in minutes): 42
Labs: Labs Reviewed by me
[2024-02-29 08:59] LABS: Blood Urea Nitrogen 19 mg/dl (9-20); Calcium 8.5 mg/dl (8.4-10.2); Carbon Dioxide 24 mmol/L (22-30); Chloride 107 mmol/L (98-107); Estimated Creatinine Clearance 75 ml/min; Glucose 92 mg/dl (70-99); Potassium 4.6 mmol/L (3.5-5.1); Sodium 135 mmol/L (135-145); eGFR 52.64
[2024-02-29] MEDS: NOVOLOG FLEXPEN 20 UNITS SC ×3 (08:59→17:42)
--- NOTE | 2024-02-29 11:36 | W.PN.CD ---
Today's Communication / Plan
-
stable from cardiac perspective
d/c tele
please call us back with additional questions
Impression / Plan
-
RLE non-healing wounds:
-post op right BKA 02/27/24
-stable from cardiac perspective
-d/c tele
RBBB:
-chronic, stable
HTN: - continue to monitor post op
HLD:
-continue statin
DM2:tx per primary team
Physical Exam
Vital Signs/Labs
Vital Signs
Temp Pulse Resp BP Pulse Ox
98.2 F 63 16 137/76 94
02/29/24 07:00 02/29/24 08:17 02/29/24 08:00 02/29/24 08:17 02/29/24 08:00
02/29/24 07:51
02/29/24 07:51
Magnesium 2.2 mg/dl (1.6-2.3) 02/23/24 07:44
Physical Exam
Constitutional: No acute distress and Comfortable
EENT: Moist mucous membranes
Cardiovascular: Rhythm & rate is regular, JVD pressure is normal and Systolic murmur absent
Respiratory: Respiratory effort normal and Lungs clear to auscul.
GI: Soft and Distention absent
Neuro/Psych: AO x 3
Data Reviewed
-
Date of Service: February 29, 2024
EKG: Other (SR 60s)
Labs: Labs Reviewed by me
--- NOTE | 2024-02-29 11:49 | W.PN.VS ---
Addendum entered and electronically signed by Jose Tran III, MD 02/29/24 12:15:
This patient was seen and examined with AMBER Fournier. I agree with the history and physical exam as well as the assessment and plan. I have the following additions:
Wound looks good
Healing nicely
Stump protector
Follow-up with Garcia in the office
Call with questions or concerns
Signed:
Jose Tran III, MD
[facility]
[phone] ([phone])
Original Note:
Today's Communication / Plan
-
Patient seen and examined at bedside with Dr. Jose Tran III, below plan reviewed with attending
Assessment/Plan
-
Assessment: 63 yo male with nonhealing wounds to his R foot ongoing since 2007, requesting right lower extremity amputation, POD #2 right lower extremity BKA
Plan:
Ordered for the wall stump protector
Continue with physical therapy
Will transition [employer] to p.o. pain management
Continue with Junito wrap daily for compression to decrease edema
Case management following for disposition planning
Cleared for discharge tomorrow vascular surgery perspective to rehab if patient remains stable
Subjective Data
-
Date of Service: February 29, 2024
Patient seen and examined bedside, he does endorse intermittent breakthrough pain from [employer] at right BKA site otherwise reports he is progressing well. He endorses that he has worked with physical therapy and overall is feeling ready for next steps
to rehab. Endorses post void following removal of Tran catheter.
Objective Data
-
Vital Signs
Temp Pulse Resp BP Pulse Ox
99.4 F 65 18 112/57 93
02/29/24 11:41 02/29/24 11:41 02/29/24 11:41 02/29/24 11:41 02/29/24 11:44
Intake and Output
02/28/24 02/29/24 03/01/24
06:59 06:59 06:59
Intake Total 1010 / 1010 2480 / 2480
Output Total 1225 / 1225 1989
Balance -215 / -215 490 / 490
Intake:
Oral fluids 420 / 420 1979 / 1979
IV fluids (Total) 340 / 340 500 / 500
NSS 300 / 300
IV piggybacks 250 / 250
Output:
Urine, Tran 425 / 425 600 / 600
Urine, Voided 800 / 800 690 / 690
Straight cath output 700 / 700
Lab Results
02/29/24 07:51
02/29/24 07:51
Calcium 8.5 mg/dl (8.4-10.2) 02/29/24 07:51
Magnesium 2.2 mg/dl (1.6-2.3) 02/23/24 07:44
Total Bilirubin 1.1 mg/dl (0.2-1.3) 02/21/24 08:07
AST 32 U/L (17-59) 02/21/24 08:07
ALT 29 U/L (0-50) 02/21/24 08:07
Alkaline Phosphatase 147 U/L (38-126) H 02/21/24 08:07
Total Protein 7.0 g/dl (6.3-8.2) 02/21/24 08:07
Albumin 3.3 g/dl (3.5-5.0) L 02/21/24 08:07
Physical Exam
-
No apparent distress, resting comfortably in bed
No tachycardia
No dyspnea on room air
ABD rotund, nondistended
Right lower extremity BKA site CDI, staple line well-approximated, no evidence of bleeding or hematoma
[2024-02-29] MEDS: VISBIOME 1 CAP PO (11:55)
--- NOTE | 2024-02-29 12:01 | W.PN.NEPH.PH ---
Today's Communication / Plan
-
sign off
Assessment/Plan
-
Impression:
KODY
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
Hypertension
Diabetes
Anemia
Plan:
-KODY-Creatinine down to 1.5
-bland UA and was nonoliguric
-s/p right BKA for non healing wounds
-Urine eosinophils negative (vanco/zosyn now held)
-reviewed fractional secretion of sodium urine eosinophils and kidney and bladder u/s, and UA (unimpressive)
-can add back TYESHA inhibitor once creatinine nadirs and bp improves
-BP stable
-we will sign off
-
-
Date of Service: February 29, 2024
CC / HPI / ROS
-
Chief Complaint:
Acute kidney injury
History of Present Illness:
Creatinine improved to 1.5 (
Hemodynamically stable
Remains on vanco/meropenem for foot wound
s/p BKA
Review of Systems:
pain at the surgical site
no Chest pain or shortness of breath
Labs
-
Labs:
WBC 7.2 10^3/uL (4.8-10.8) 02/29/24 07:51
RBC 2.99 10^6/uL (4.70-6.10) L 02/29/24 07:51
Hgb 8.3 g/dL (13.0-18.0) L 02/29/24 07:51
Hct 25.0 % (39.0-52.0) L 02/29/24 07:51
Plt Count 362 10^3/uL (130-400) D 02/29/24 07:51
Sodium 135 mmol/L (135-145) 02/29/24 07:51
Potassium 4.6 mmol/L (3.5-5.1) 02/29/24 07:51
Chloride 107 mmol/L (98-107) 02/29/24 07:51
Carbon Dioxide 24 mmol/L (22-30) 02/29/24 07:51
BUN 19 mg/dl (9-20) 02/29/24 07:51
Creatinine 1.5 mg/dL (0.7-1.3) H 02/29/24 07:51
eGFR 52.64 02/29/24 07:51
Glucose 92 mg/dl (70-99) 02/29/24 07:51
Calcium 8.5 mg/dl (8.4-10.2) 02/29/24 07:51
Albumin 3.3 g/dl (3.5-5.0) L 02/21/24 08:07
Physical Exam
-
Vital Signs:
Vital Signs
Temp Pulse Resp BP Pulse Ox
99.4 F 65 18 112/57 93
02/29/24 11:41 02/29/24 11:41 02/29/24 11:41 02/29/24 11:41 02/29/24 11:44
Cardiovascular:: Regular rate and rhythm
Respiratory:: Bilateral: CTA
Lung Excursion:: Normal
Abdomen:: Nontender and Soft
Bowel Sounds:: Normal
Extremity Edema:: None: Left:
Tran Catheter: Yes
Other Findings::
rt bka stump in bandage
[2024-02-29 12:24] LABS: Glucose - Point of Care 205 mg/dl (70-99)
[2024-02-29] MEDS: NOVOLOG FLEXPEN-LOW RESISTANCE 2 UNITS SC (13:23)
--- NOTE | 2024-02-29 14:40 | CON.MD ---
Documented by User: Светлана Archibald PA-C 02/29/24 16:08
Consultation - Medical
-
Referring Provider: Latanya Lorenz
Chief Complaint: Right BKA with Ambulatory Dysfunction
History of Present Illness: This is a 63 year old male with PMH of (HTN, hyperlipidemia, Diabetes Mellitus, Anemia, Right upper extremity PICC line associated DVT, MSSA bacteremia, h/o osteomyelitis, amputation) who presented to the hospital from
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 He reports to have experience 1 episode of phantom pain the day of surgery then
none since. His pain is currently being managed with a combination of narcotics, muscle relaxer and anti-neuropathic medicine.
Past Medical History: HTN, hyperlipidemia, Diabetes Mellitus, Anemia, Right upper extremity PICC line associated DVT, MSSA bacteremia, h/o osteomyelitis,
Procedure History: Right BKA, amputations,
Family History: DM, multiple members h/o cancer
Social History:
Functional Level Premorbidly: Independent with all activities
Functional Level Currently:
Tobacco: Denies
Alcohol: Denies
Drug use: Denies
Lives with: partner
24-hour assistance available:
Number of floors: 1
# steps to enter: none, has a ramp on the side of house
# steps to second floor: none
Potential First floor set up:yes
Driving: yes
Occupation: Retired field sales specialist
�
Allergies:
Allergy/AdvReac Type Severity Reaction Status Date / Time
coconut Allergy Rash Verified 02/20/24 16:23
ketorolac Allergy Rash Verified 02/20/24 16:23
NSAIDS (Non-Steroidal Allergy Rash Verified 02/20/24 16:23
Anti-Inflamma
Review of Systems:
Constitutional: (x) Normal _
Eye: (x) Normal _
Ear/Nose/Throat: (x) Normal _
Respiratory: (x) Normal _
Cardiovascular: (x) Normal _
Gastrointestinal: (x) Normal _
Genitourinary: (x) was not urinating, but is now
Musculoskeletal: (x)right bka
Integumentary: (x) Normal _
Neurologic: (x) Normal _
Psychiatric: (x) Normal _
Endocrine: (x) diabetes
Hematologic/Lymphatic: (x) Normal _
Allergic/Immunologic: (x) Normal _
Medications:
Active Current Visit Medication List
Category Date Time Status
Acetaminophen [Tylenol] Med 02/29/24 16:00 Active
650 mg PO Q4HWA
Ascorbic Acid [Vitamin C] Med 02/21/24 08:00 Active
1,000 mg PO DAILY
Aspirin Low Dose EC [Aspir Low (Enteric Coated)] Med 02/21/24 08:00 Active
81 mg PO DAILY
Atorvastatin [Lipitor] Med 02/21/24 08:00 Active
20 mg PO DAILY
Bisacodyl [Dulcolax] Med 02/27/24 13:34 Active
10 mg RECTAL DAILYPRN PRN
Calcium Carbonate [Oscal Eleazar 500] Med 02/21/24 08:00 Active
500 mg PO DAILY
Carvedilol [Coreg] Med 02/21/24 08:00 Active
12.5 mg PO BID
Cholecalciferol (Vitamin D3) [VITAMIN D3 ( Med 02/21/24 08:00 Active
cholecalciferol)]
50 mcg PO DAILY
Cyanocobalamin [Vitamin B-12] Med 02/21/24 08:00 Active
1,000 mcg PO MoTuThFrSa@0800
Cyclobenzaprine HCl [Flexeril] Med 02/29/24 12:11 Active
5 mg PO Q8HPRN PRN
Dextrose 50%-Water [Dextrose 50% Syringe] Med 02/20/24 21:46 Active
12.5 grams IV [id number] PRN
Diphenhydramine [Benadryl] Med 02/20/24 22:00 Active
25 mg PO HS
Ferrous Sulfate [Feosol] Med 02/21/24 08:00 Active
325 mg PO Q48H
Flush (0.9% Sodium Chloride) [Flush (Nss)] Med 02/20/24 23:00 Active
See Dose Instructions IV PER PROTOCOL
Gabapentin [Neurontin] Med 02/20/24 22:00 Active
300 mg PO TID
Glucagon [GlucaGen] Med 02/20/24 21:46 Active
1 mg IM PRN PRN
HYDROmorphone [Dilaudid] Med 02/29/24 12:09 Active
2 mg PO Q4HPRN PRN
Heparin Med 02/21/24 08:00 Active
5,000 units SC Q12
Insulin Aspart Corrective Low [Novolog Flexpen-Low Med 02/21/24 07:30 Active
Resistance]
See Protocol SC AC
Insulin Aspart Pen [Novolog Flexpen] Med 02/21/24 07:30 Active
20 units SC AC
Insulin Glargine Lantus [Lantus] 20 units Med 02/21/24 08:00 Active
Subcutaneous Insulin Syringe [Syringe-Insulin] 0 unit
SC DAILY
Insulin Glargine Lantus [Lantus] 24 units Med 02/20/24 22:00 Active
Subcutaneous Insulin Syringe [Syringe-Insulin] 0 unit
SC HS
Lactobac/Bifidobac [Visbiome] Med 02/21/24 12:00 Active
1 cap PO NOON
Meclizine [Antivert] Med 02/20/24 21:46 Active
25 mg PO Q8HPRN PRN
Miconazole Nitrate [Desenex/Mitrazol/Zeasorb] Med 02/25/24 20:00 Active
See Dose Instructions TOPICAL BID
Multivitamin [Theragran] Med 02/21/24 08:00 Active
1 tablet PO DAILY
Oxycodone [Roxicodone] Med 02/29/24 12:09 Active
10 mg PO Q4HPRN PRN
Oxycodone [Roxicodone] Med 02/29/24 12:09 Active
5 mg PO Q4HPRN PRN
Zolpidem Tartrate [Ambien] Med 02/20/24 21:46 Active
5 mg PO HSPRN PRN
Vitals:
Temp Pulse Resp BP Pulse Ox
99.4 F 65 18 112/57 96
02/29/24 11:41 02/29/24 11:41 02/29/24 11:41 02/29/24 11:41 02/29/24 12:20
Height 6 ft 1 in
Actual Weight 135.284 kg
Body Mass Index (BMI) 39.4
Physical Exam:
General Appearance/Observation: Well-developed, well-nourished individual in no apparent distress. Resting in bed with oxygen cannula off and resting on chest
Pain/Comfort Assessment: Denies, had 1 episode of phantom pain
Mood/Affect: Appropriate
Integumentary/Operative Site:right thigh/stump wrapped in tyesha
�� Pressure Ulcer Evaluation: absent over left heel.
��
�� Other Type of Wound: absent
Eyes: Conjunctiva/Lids: normal ��� Pupils: pupils equal round and reactive to light and Accommodation
Ears/Nose/Throat: oral mucosa moist,� throat clear.������������ Lips/Teeth/Gums: normal
Neck: No muscle spasm or tenderness
Cardiovascular: Heart: regular, no murmur
Pulses: dorsalis pedis 1+ on left
Respiratory: Respiratory Effort/Chest Expansion: normal ������� Auscultation: Clear to auscultation bilaterally
Gastrointestinal: abdomen not tender, no distension, normal abdominal bowel sounds
Genitourinary: No Tran
Extremities: Edema: right thigh, stump- wrapped in tyesha Cyanosis: None Trophic changes: venous discoloration - lle
Neurology Exam:
Orientation: Alert, Oriented to self, Time, Place
Memory: Intact for immediate medical concerns
Higher cortical function
Repetition: Intact
Comprehension: Intact
Two step command: Intact
Naming: Intact
Cranial Nerves:
�� CNII: Pupillary light reflex: Intact��� Visual Field: Intact
�� CN III, IV, : Extraocular muscles: Intact
�� CN V: Facial Sensation at Forehead: Intact, Maxilla: Intact, Mandible: Intact
�� CN VII: Facial movement: Symmetric
�� CN VIII: Hearing: Normal
�� CN IX/X: Speech & swallow: Normal, Position of Uvula: Midline
�� CN XI: Shoulder shrug: Symmetric
�� CN XII: Tongue protrusion: Midline
Sensory:
�� Light touch: Intact in bilateral upper and lower extremities
��
Reflexes:
�� Biceps: 1+ bilaterally
�� Brachioradialis: 1+ bilaterally
�� Triceps: 1+ bilaterally
�� Patellar: absent on left. Deferred right
�� Achilles: absent on left,
�� Babinski: Down going bilaterally
�� Janet: Negative bilaterally
Cerebellar: Dysmetria/Ataxia: None
Musculoskeletal:
Motor: (Manual muscle scale 0-5)
Muscle SA EF WE EE FF FA HF KE DF EHL PF
Right� 5 5 5 5 5 5 5 4 - - -
Left 5 5 5 5 5 5 5 5 5 5 5
Tone: Normal in all extremities
Range of Motion: Passively within normal limits in all extremities
Lab Results
Labs
WBC 7.2 10^3/uL (4.8-10.8) 02/29/24 07:51
RBC 2.99 10^6/uL (4.70-6.10) L 02/29/24 07:51
Hgb 8.3 g/dL (13.0-18.0) L 02/29/24 07:51
Hct 25.0 % (39.0-52.0) L 02/29/24 07:51
MCV 83.6 fL (80.0-94.0) 02/29/24 07:51
MCH 27.8 pg (27.0-31.0) 02/29/24 07:51
MCHC 33.2 g/dL (33.0-37.0) 02/29/24 07:51
RDW 13.1 % (11.5-14.5) 02/29/24 07:51
Plt Count 362 10^3/uL (130-400) D 02/29/24 07:51
MPV 8.2 fL (7.4-10.4) 02/29/24 07:51
Abs Immat Gran (auto) 0.1 10^3/uL (0-0.05) H 02/23/24 07:44
Absolute Neuts (auto) 5.7 10^3/uL (1.4-6.5) 02/23/24 07:44
Absolute Lymphs (auto) 1.3 10^3/uL (1.2-3.4) 02/23/24 07:44
Absolute Monos (auto) 0.5 10^3/uL (0.1-0.6) 02/23/24 07:44
Absolute Eos (auto) 0.2 10^3/uL (0-0.7) 02/23/24 07:44
Absolute Basos (auto) 0.0 10^3/uL (0-0.2) 02/23/24 07:44
Immature Gran % 0.6 % (0-0.5) H 02/23/24 07:44
Neutrophils % 74.0 % (42.2-75.2) 02/23/24 07:44
Lymphocytes % 16.6 % (20.5-51.1) L 02/23/24 07:44
Monocytes % 6.2 % (1.7-9.3) 02/23/24 07:44
Eosinophils % 2.2 % (0-6) 02/23/24 07:44
Basophils % 0.4 % (0-2) 02/23/24 07:44
Nucleated RBC % 0 % (-) 02/23/24 07:44
Sodium 135 mmol/L (135-145) 02/29/24 07:51
Potassium 4.6 mmol/L (3.5-5.1) 02/29/24 07:51
Chloride 107 mmol/L (98-107) 02/29/24 07:51
Carbon Dioxide 24 mmol/L (22-30) 02/29/24 07:51
BUN 19 mg/dl (9-20) 02/29/24 07:51
Creatinine 1.5 mg/dL (0.7-1.3) H 02/29/24 07:51
Estimated Creat Clear 75 ml/min 02/29/24 07:51
eGFR 52.64 02/29/24 07:51
Glucose 92 mg/dl (70-99) 02/29/24 07:51
Hemoglobin A1c 7.2 % (4.0-5.6) H 02/21/24 08:07
Lactic Acid 1.7 mmol/L (0.7-2.0) 02/20/24 16:37
Calcium 8.5 mg/dl (8.4-10.2) 02/29/24 07:51
Magnesium 2.2 mg/dl (1.6-2.3) 02/23/24 07:44
Total Bilirubin 1.1 mg/dl (0.2-1.3) 02/21/24 08:07
AST 32 U/L (17-59) 02/21/24 08:07
ALT 29 U/L (0-50) 02/21/24 08:07
Alkaline Phosphatase 147 U/L (38-126) H 02/21/24 08:07
Total Protein 7.0 g/dl (6.3-8.2) 02/21/24 08:07
Albumin 3.3 g/dl (3.5-5.0) L 02/21/24 08:07
Urine Color Yellow 02/25/24 13:17
Urine Clarity Clear (Clear) 02/25/24 13:17
Urine pH 5.0 (5.0-9.0) 02/25/24 13:17
Ur Specific Marion 1.020 (<1.030) 02/25/24 13:17
Urine Ketones Negative (Negative) 02/25/24 13:17
Urine Occult Blood 1+ (Negative) A 02/25/24 13:17
Urine Nitrite Negative (Negative) 02/25/24 13:17
Urine Bilirubin Negative (Negative) 02/25/24 13:17
Urine Urobilinogen Negative (Neg - 1+) 02/25/24 13:17
Ur Leukocyte Esterase Negative (Negative) 02/25/24 13:17
Urine RBC 0-2 /HPF (0-2) 02/25/24 13:17
Urine WBC 0-2 /HPF (0-5) 02/25/24 13:17
Ur Squamous Epith Cells 11-15 /LPF (Few) 02/25/24 13:17
Amorphous Crystals Seen 02/25/24 13:17
Granular Casts 0-2 /LPF (0) 02/25/24 13:17
Urine Mucus Many 02/25/24 13:17
Urine Creatinine 118.900 mg/dl 02/25/24 13:17
Urine Sodium 91 mmol/L (30-90) H 02/25/24 13:17
Urine Glucose Negative (Negative) 02/25/24 13:17
Urine Albumin Trace (Neg - Trace) 02/25/24 13:17
Fluid Eosinophils Cancelled 02/25/24 13:16
Fluid Eosinophils No eosinophils seen 02/25/24 13:16
Vancomycin Peak 31.8 ug/ml (18-26) H 02/23/24 21:16
Vancomycin Trough 24.2 ug/ml (5-20) H* 02/24/24 06:43
Random Vancomycin 12.6 ug/ml 02/28/24 07:37
POC Glucose 205 mg/dl (70-99) H 02/29/24 12:23
Blood Type A POS 02/25/24 08:02
Blood Type Confirm A POS 02/25/24 09:26
Antibody Screen Negative (Negative) 02/25/24 08:02
Crossmatch IS Only See Detail 02/25/24 08:02
�
Diagnostic Results: as per HPI
Assessment: This is a 63 year old male with PMH of (HTN, hyperlipidemia, Diabetes Mellitus, Anemia, Right upper extremity PICC line associated DVT, MSSA bacteremia, h/o osteomyelitis, amputations) s/p right BKA on 02/27/2024 due to open right foot
wound with osteomyelitis and cellulitis.
Plan
PT/OT to increase independence with ADLs, improve balance, coordination, endurance, strength, mobility, community reintegration, decreased burden of care on others and family education.
Transtibial Amputation: Monitor incision, edema control with TYESHA wrap, pain control, desensitization, Phantom limb pain education, maintain full ROM at hip and knee.
HTN: continue medications, monitor closely. carvedilol 12.5mg bid
RBBB: chronic, stable- telemetry to be d/antoni per cardiology
KODY Creatinine down to 1.5. Urine eosinophils negative (vanco/zosyn now held)
HLD: Atorvastatin 20mg
IDDM : Accu-Cheks, insulin sliding scale, aspart 20 units sc AC, lantus 20 units daily and 24 units HS.
Anemia: Likely multifactorial.�Post surgical. Continue to monitor. Ferrous sulfate 325mg bid. Hgb 8.3
Psych: Psychology consult.� Monitor mood, adjust medications as needed.
Insomnia: Ambien 10mg HS prn
Skin: monitor for pressure sores/rashes/lesions.
Pain: acetaminophen prn, oxycodone 5mg or 10mg, Dilaudid 2mg , flexeril as needed, gabapentin 300mg tid.
Bowel: Colace and Senna, PRN bisacodyl.
Bladder: Time void, PVRs, PRN straight cath.
GI Prophylaxis: Pantoprazole
DVT Prophylaxis: Mechanical and Heparin 5000 units sc
Pulmonary: Incentive spirometry
Morbid obesity: Continue to certified substance abuse counselor patient about diet adjustments to control obesity. Body habitus and increased force to move body and extremities causes further difficulty with functional tasks.
Safety: Continue to reinforce assistance with all transfers.
Code Status:� Full code
Dispo (date/plan/equipment needs): Home with family care.� Social history reviewed.
Functional and Medical Goals: Modified Independent with ADL�s, ambulation, transfers
Discharge Destination: Acute Inpatient Rehabilitation
Summary of recommendations: Would benefit from Acute Inpatient Rehab post right below knee amputation for PT/OT to increase independence with ADLs, improve balance, coordination, endurance, strength, mobility, community reintegration, decreased
burden of care on others and family education.
Transtibial Amputation: Monitor incision, edema control with TYESHA wrap, pain control, desensitization, Phantom limb pain education, maintain full ROM at hip and knee.
HTN: continue medications, monitor closely. carvedilol 12.5mg bid
Pain: acetaminophen prn, oxycodone 5mg or 10mg, Dilaudid 2mg , flexeril as needed, gabapentin 300mg tid.
Bowel: Colace and Senna, PRN bisacodyl.
Bladder: Time void, PVRs, PRN straight cath.
GI Prophylaxis: Pantoprazole
DVT Prophylaxis: Mechanical and Heparin 5000 units sc
Pulmonary: Incentive spirometry
Morbid obesity: Continue to certified substance abuse counselor patient about diet adjustments to control obesity. Body habitus and increased force to move body and extremities causes further difficulty with functional tasks.
Safety: Continue to reinforce assistance with all transfers.
Code Status:� Full code
Thank you for allowing me to care for your patient. Please contact me with any questions or concerns.
This note was dictated using a voice recognition system. Please excuse any typographical errors from loan operations manager. If you believe there are any discrepancies, please notify our office.

Documented by User: Julio Espino MD 02/29/24 17:39
Consultation - Medical
-
Referring Provider: Latanya Lorenz
Chief Complaint: Right BKA with Ambulatory Dysfunction
History of Present Illness: This is a 63 year old male with PMH of (HTN, hyperlipidemia, Diabetes Mellitus, Anemia, Right upper extremity PICC line associated DVT, MSSA bacteremia, h/o osteomyelitis, amputation) who presented to the hospital from
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 He reports to have experience 1 episode of phantom pain the day of surgery then
none since. His pain is currently being managed with a combination of narcotics, muscle relaxer and anti-neuropathic medicine.
Past Medical History: HTN, hyperlipidemia, Diabetes Mellitus, Anemia, Right upper extremity PICC line associated DVT, MSSA bacteremia, h/o osteomyelitis,
Procedure History: Right BKA, amputations,
Family History: DM, multiple family members h/o cancer
Social History:
Functional Level Premorbidly: Independent with all activities
Functional Level Currently:
Tobacco: Denies
Alcohol: Denies
Drug use: Denies
Lives with: partner
24-hour assistance available: Yes
Number of floors: 1
# steps to enter: none, has a ramp on the side of house
# steps to second floor: none
Potential First floor set up:yes
Driving: yes
Occupation: Retired field sales specialist
Allergies:
Allergy/AdvReac Type Severity Reaction Status Date / Time
coconut Allergy Rash Verified 02/20/24 16:23
ketorolac Allergy Rash Verified 02/20/24 16:23
NSAIDS (Non-Steroidal Allergy Rash Verified 02/20/24 16:23
Anti-Inflamma
Review of Systems:
Constitutional: (x) Normal _
Eye: (x) Normal _
Ear/Nose/Throat: (x) Normal _
Respiratory: (x) Normal _
Cardiovascular: (x) Normal _
Gastrointestinal: (x) Normal _
Genitourinary: (x) was not urinating, but is now
Musculoskeletal: (x)right bka
Integumentary: (x) Normal _
Neurologic: (x) Normal _
Psychiatric: (x) Normal _
Endocrine: (x) diabetes
Hematologic/Lymphatic: (x) Normal _
Allergic/Immunologic: (x) Normal _
Medications:
Active Current Visit Medication List
Category Date Time Status
Acetaminophen [Tylenol] Med 02/29/24 16:00 Active
650 mg PO Q4HWA
Ascorbic Acid [Vitamin C] Med 02/21/24 08:00 Active
1,000 mg PO DAILY
Aspirin Low Dose EC [Aspir Low (Enteric Coated)] Med 02/21/24 08:00 Active
81 mg PO DAILY
Atorvastatin [Lipitor] Med 02/21/24 08:00 Active
20 mg PO DAILY
Bisacodyl [Dulcolax] Med 02/27/24 13:34 Active
10 mg RECTAL DAILYPRN PRN
Calcium Carbonate [Oscal Eleazar 500] Med 02/21/24 08:00 Active
500 mg PO DAILY
Carvedilol [Coreg] Med 02/21/24 08:00 Active
12.5 mg PO BID
Cholecalciferol (Vitamin D3) [VITAMIN D3 ( Med 02/21/24 08:00 Active
cholecalciferol)]
50 mcg PO DAILY
Cyanocobalamin [Vitamin B-12] Med 02/21/24 08:00 Active
1,000 mcg PO MoTuThFrSa@0800
Cyclobenzaprine HCl [Flexeril] Med 02/29/24 12:11 Active
5 mg PO Q8HPRN PRN
Dextrose 50%-Water [Dextrose 50% Syringe] Med 02/20/24 21:46 Active
12.5 grams IV [id number] PRN
Diphenhydramine [Benadryl] Med 02/20/24 22:00 Active
25 mg PO HS
Ferrous Sulfate [Feosol] Med 02/21/24 08:00 Active
325 mg PO Q48H
Flush (0.9% Sodium Chloride) [Flush (Nss)] Med 02/20/24 23:00 Active
See Dose Instructions IV PER PROTOCOL
Gabapentin [Neurontin] Med 02/20/24 22:00 Active
300 mg PO TID
Glucagon [GlucaGen] Med 02/20/24 21:46 Active
1 mg IM PRN PRN
HYDROmorphone [Dilaudid] Med 02/29/24 12:09 Active
2 mg PO Q4HPRN PRN
Heparin Med 02/21/24 08:00 Active
5,000 units SC Q12
Insulin Aspart Corrective Low [Novolog Flexpen-Low Med 02/21/24 07:30 Active
Resistance]
See Protocol SC AC
Insulin Aspart Pen [Novolog Flexpen] Med 02/21/24 07:30 Active
20 units SC AC
Insulin Glargine Lantus [Lantus] 20 units Med 02/21/24 08:00 Active
Subcutaneous Insulin Syringe [Syringe-Insulin] 0 unit
SC DAILY
Insulin Glargine Lantus [Lantus] 24 units Med 02/20/24 22:00 Active
Subcutaneous Insulin Syringe [Syringe-Insulin] 0 unit
SC HS
Lactobac/Bifidobac [Visbiome] Med 02/21/24 12:00 Active
1 cap PO NOON
Meclizine [Antivert] Med 02/20/24 21:46 Active
25 mg PO Q8HPRN PRN
Miconazole Nitrate [Desenex/Mitrazol/Zeasorb] Med 02/25/24 20:00 Active
See Dose Instructions TOPICAL BID
Multivitamin [Theragran] Med 02/21/24 08:00 Active
1 tablet PO DAILY
Oxycodone [Roxicodone] Med 02/29/24 12:09 Active
10 mg PO Q4HPRN PRN
Oxycodone [Roxicodone] Med 02/29/24 12:09 Active
5 mg PO Q4HPRN PRN
Zolpidem Tartrate [Ambien] Med 02/20/24 21:46 Active
5 mg PO HSPRN PRN
Vitals:
Temp Pulse Resp BP Pulse Ox
99.4 F 65 18 112/57 96
02/29/24 11:41 02/29/24 11:41 02/29/24 11:41 02/29/24 11:41 02/29/24 12:20
Height 6 ft 1 in
Actual Weight 135.284 kg
Body Mass Index (BMI) 39.4
Physical Exam:
General Appearance/Observation: Well-developed, well-nourished individual in no apparent distress. Resting in bed with oxygen cannula off and resting on chest
Pain/Comfort Assessment: Denies, had 1 episode of phantom pain
Mood/Affect: Appropriate
Integumentary/Operative Site:right thigh/stump wrapped in tyesha
�� Pressure Ulcer Evaluation: absent over left heel/foot.
�
Eyes: Conjunctiva/Lids: normal ��� Pupils: pupils equal round and reactive to light and Accommodation
Ears/Nose/Throat: oral mucosa moist,� throat clear.������������ Lips/Teeth/Gums: normal
Neck: No muscle spasm or tenderness
Cardiovascular: Heart: regular, no murmur
Pulses: dorsalis pedis 1+ on left
Respiratory: Respiratory Effort/Chest Expansion: normal ������� Auscultation: Clear to auscultation bilaterally
Gastrointestinal: abdomen not tender, no distension, normal abdominal bowel sounds
Genitourinary: No Tran
Extremities: Edema: right thigh, stump- wrapped in tyesha Cyanosis: None Trophic changes: venous discoloration - lle
Neurology Exam:
Orientation: Alert, Oriented to self, Time, Place
Memory: Intact for immediate medical concerns
Higher cortical function
Repetition: Intact
Comprehension: Intact
Two step command: Intact
Naming: Intact
Cranial Nerves:
�� CNII: Pupillary light reflex: Intact��� Visual Field: Intact
�� CN III, IV, : Extraocular muscles: Intact
�� CN V: Facial Sensation at Forehead: Intact, Maxilla: Intact, Mandible: Intact
�� CN VII: Facial movement: Symmetric
�� CN VIII: Hearing: Normal
�� CN IX/X: Speech & swallow: Normal, Position of Uvula: Midline
�� CN XI: Shoulder shrug: Symmetric
�� CN XII: Tongue protrusion: Midline
Sensory:
�� Light touch: Intact in bilateral upper and lower extremities
��
Reflexes:
�� Biceps: 1+ bilaterally
�� Brachioradialis: 1+ bilaterally
�� Triceps: 1+ bilaterally
�� Patellar: absent on left. Deferred right
�� Achilles: absent on left,
�� Babinski: Down going bilaterally
�� Janet: Negative bilaterally
Cerebellar: Dysmetria/Ataxia: None
Musculoskeletal: Motor: (Manual muscle scale 0-5)
Muscle SA EF WE EE FF FA HF KE DF EHL PF
Right� 5 5 5 5 5 5 4 4 - - -
Left 5 5 5 5 5 5 5 5 5 5 5
Tone: Normal in all extremities
Range of Motion: Passively within normal limits in all extremities
Lab Results
Labs
WBC 7.2 10^3/uL (4.8-10.8) 02/29/24 07:51
RBC 2.99 10^6/uL (4.70-6.10) L 02/29/24 07:51
Hgb 8.3 g/dL (13.0-18.0) L 02/29/24 07:51
Hct 25.0 % (39.0-52.0) L 02/29/24 07:51
MCV 83.6 fL (80.0-94.0) 02/29/24 07:51
MCH 27.8 pg (27.0-31.0) 02/29/24 07:51
MCHC 33.2 g/dL (33.0-37.0) 02/29/24 07:51
RDW 13.1 % (11.5-14.5) 02/29/24 07:51
Plt Count 362 10^3/uL (130-400) D 02/29/24 07:51
MPV 8.2 fL (7.4-10.4) 02/29/24 07:51
Abs Immat Gran (auto) 0.1 10^3/uL (0-0.05) H 02/23/24 07:44
Absolute Neuts (auto) 5.7 10^3/uL (1.4-6.5) 02/23/24 07:44
Absolute Lymphs (auto) 1.3 10^3/uL (1.2-3.4) 02/23/24 07:44
Absolute Monos (auto) 0.5 10^3/uL (0.1-0.6) 02/23/24 07:44
Absolute Eos (auto) 0.2 10^3/uL (0-0.7) 02/23/24 07:44
Absolute Basos (auto) 0.0 10^3/uL (0-0.2) 02/23/24 07:44
Immature Gran % 0.6 % (0-0.5) H 02/23/24 07:44
Neutrophils % 74.0 % (42.2-75.2) 02/23/24 07:44
Lymphocytes % 16.6 % (20.5-51.1) L 02/23/24 07:44
Monocytes % 6.2 % (1.7-9.3) 02/23/24 07:44
Eosinophils % 2.2 % (0-6) 02/23/24 07:44
Basophils % 0.4 % (0-2) 02/23/24 07:44
Nucleated RBC % 0 % (-) 02/23/24 07:44
Sodium 135 mmol/L (135-145) 02/29/24 07:51
Potassium 4.6 mmol/L (3.5-5.1) 02/29/24 07:51
Chloride 107 mmol/L (98-107) 02/29/24 07:51
Carbon Dioxide 24 mmol/L (22-30) 02/29/24 07:51
BUN 19 mg/dl (9-20) 02/29/24 07:51
Creatinine 1.5 mg/dL (0.7-1.3) H 02/29/24 07:51
Estimated Creat Clear 75 ml/min 02/29/24 07:51
eGFR 52.64 02/29/24 07:51
Glucose 92 mg/dl (70-99) 02/29/24 07:51
Hemoglobin A1c 7.2 % (4.0-5.6) H 02/21/24 08:07
Lactic Acid 1.7 mmol/L (0.7-2.0) 02/20/24 16:37
Calcium 8.5 mg/dl (8.4-10.2) 02/29/24 07:51
Magnesium 2.2 mg/dl (1.6-2.3) 02/23/24 07:44
Total Bilirubin 1.1 mg/dl (0.2-1.3) 02/21/24 08:07
AST 32 U/L (17-59) 02/21/24 08:07
ALT 29 U/L (0-50) 02/21/24 08:07
Alkaline Phosphatase 147 U/L (38-126) H 02/21/24 08:07
Total Protein 7.0 g/dl (6.3-8.2) 02/21/24 08:07
Albumin 3.3 g/dl (3.5-5.0) L 02/21/24 08:07
Urine Color Yellow 02/25/24 13:17
Urine Clarity Clear (Clear) 02/25/24 13:17
Urine pH 5.0 (5.0-9.0) 02/25/24 13:17
Ur Specific [place] 1.020 (<1.030) 02/25/24 13:17
Urine Ketones Negative (Negative) 02/25/24 13:17
Urine Occult Blood 1+ (Negative) A 02/25/24 13:17
Urine Nitrite Negative (Negative) 02/25/24 13:17
Urine Bilirubin Negative (Negative) 02/25/24 13:17
Urine Urobilinogen Negative (Neg - 1+) 02/25/24 13:17
Ur Leukocyte Esterase Negative (Negative) 02/25/24 13:17
Urine RBC 0-2 /HPF (0-2) 02/25/24 13:17
Urine WBC 0-2 /HPF (0-5) 02/25/24 13:17
Ur Squamous Epith Cells 11-15 /LPF (Few) 02/25/24 13:17
Amorphous Crystals Seen 02/25/24 13:17
Granular Casts 0-2 /LPF (0) 02/25/24 13:17
Urine Mucus Many 02/25/24 13:17
Urine Creatinine 118.900 mg/dl 02/25/24 13:17
Urine Sodium 91 mmol/L (30-90) H 02/25/24 13:17
Urine Glucose Negative (Negative) 02/25/24 13:17
Urine Albumin Trace (Neg - Trace) 02/25/24 13:17
Fluid Eosinophils Cancelled 02/25/24 13:16
Fluid Eosinophils No eosinophils seen 02/25/24 13:16
Vancomycin Peak 31.8 ug/ml (18-26) H 02/23/24 21:16
Vancomycin Trough 24.2 ug/ml (5-20) H* 02/24/24 06:43
Random Vancomycin 12.6 ug/ml 02/28/24 07:37
POC Glucose 205 mg/dl (70-99) H 02/29/24 12:23
Blood Type A POS 02/25/24 08:02
Blood Type Confirm A POS 02/25/24 09:26
Antibody Screen Negative (Negative) 02/25/24 08:02
Crossmatch IS Only See Detail 02/25/24 08:02
Diagnostic Results: as per HPI
Assessment: This is a 63 year old male with PMH of (HTN, hyperlipidemia, Diabetes Mellitus, Anemia, Right upper extremity PICC line associated DVT, MSSA bacteremia, h/o osteomyelitis, amputations) s/p right transtibial amputation on 02/27/2024 due
to open right foot wound with osteomyelitis and cellulitis resulting in ADL and ambulatory dysfunction.
Plan
PT/OT to increase independence with ADLs, improve balance, coordination, endurance, strength, mobility, community reintegration, decreased burden of care on others and family education.
Right transtibial Amputation: Monitor incision, edema control with TYESHA wrap, pain control, desensitization, Phantom limb pain education, maintain full ROM at hip and knee. No current phantom pain concerns, post surgical pain well-controlled, came
off of REGIONAL EXTENSION SERVICE SPECIALIST pump.
HTN: monitor closely. carvedilol 12.5 mg bid
RBBB: chronic, stable- telemetry to be d/antoni per cardiology
KODY Creatinine down to 1.5. Urine eosinophils negative (vanco/zosyn now held)
HLD: Atorvastatin 20mg
Uncontrolled IDDM : Hemoglobin A1c 7.2. Accu-Cheks, insulin sliding scale, aspart 20 units sc AC, lantus 20 units daily and 24 units HS.
Anemia: Likely multifactorial including post surgical. Monitor. Ferrous sulfate 325mg bid. Hgb 8.3
Psych: Psychology consult.� Monitor mood, adjust medications as needed.
Insomnia: Ambien 10mg HS prn
Skin: monitor for pressure sores/rashes/lesions.
Pain: acetaminophen prn, oxycodone 5mg or 10mg, Dilaudid 2 mg , Flexeril as needed, gabapentin 300mg tid.
Bowel: Colace and Senna, PRN bisacodyl.
Bladder: Time void, PVRs, PRN straight cath.
DVT Prophylaxis: Mechanical and Heparin 5000 units sc
Pulmonary: Incentive spirometry
Morbid obesity: Continue to certified substance abuse counselor patient about diet adjustments to control obesity. Body habitus and increased force to move body and extremities causes further difficulty with functional tasks.
Safety: Continue to reinforce assistance with all transfers.
Code Status:� Full code
Dispo (date/plan/equipment needs): Home with family care.� Social history reviewed.
Functional and Medical Goals: Modified Independent with ADL�s, ambulation, transfers
Discharge Destination: Acute Inpatient Rehabilitation
Attending Statement:
I saw and examined the patient today. Reviewed care plan with patient, therapy, nursing, and physician family services assistant. I agree with the above subjective and physical exam, and plan as documented by ALISHA Archibald with adjustments made as necessary.A
total of 60 minutes were spent with the patient preparing for the evaluation, obtaining history, performing examination and evaluation, counseling, data review, case management, care coordination, border measurer and cutter, and EMR documentation.
Summary of recommendations: Would benefit from Acute Inpatient Rehab post right below knee amputation for PT/OT to increase independence with ADLs, improve balance, coordination, endurance, strength, mobility, community reintegration, decreased
burden of care on others and family education.
Transtibial Amputation: Monitor incision, edema control with TYESHA wrap, pain control, desensitization, Phantom limb pain education, maintain full ROM at hip and knee.
HTN: continue medications, monitor closely. carvedilol 12.5mg bid
Pain: acetaminophen prn, oxycodone 5mg or 10mg, Dilaudid 2mg , flexeril as needed, gabapentin 300mg tid.
Bowel: Colace and Senna, PRN bisacodyl.
Bladder: Time void, PVRs, PRN straight cath.
DVT Prophylaxis: Mechanical and Heparin 5000 units sc
Morbid obesity: Continue to certified substance abuse counselor patient about diet adjustments to control obesity. Body habitus and increased force to move body and extremities causes further difficulty with functional tasks.
Thank you for allowing me to care for your patient. Please contact me with any questions or concerns.
--- NOTE | 2024-02-29 15:54 | CM ---
Patient seen at bedside.
Possible discharge tomorrow to [facility].
IMM signed.
PLAN: Discharge to [facility].
Please contact Lindy at [phone] to let them know he is coming to [facility].
Report #: [phone]
Fax #: [phone]
[2024-02-29] MEDS: TYLENOL 650 MG PO ×2 (16:14→20:10)
[2024-02-29 17:38] LABS: Glucose - Point of Care 76 mg/dl (70-99)
[2024-02-29] MEDS: SENOKOT-S PO (20:08)
[2024-02-29 22:06] LABS: Glucose - Point of Care 79 mg/dl (70-99)
[2024-02-29] MEDS: LANTUS SC (22:17)
[2024-02-29] MEDS: BENADRYL 25 MG PO (22:17)
[2024-02-29] MEDS: TYLENOL PO (23:03)
[2024-03-01] MEDS: TYLENOL PO (04:04)
[2024-03-01 07:07] VITALS: BP 150/69
[2024-03-01 07:20] LABS: Glucose - Point of Care 155 mg/dl (70-99)
[2024-03-01 07:42] LABS: Hematocrit 25.9 % (39.0-52.0); Hemoglobin 8.9 g/dL (13.0-18.0); Mean Corp Hgb Conc. 34.4 g/dL (33.0-37.0); Mean Corpuscular Volume 81.4 fL (80.0-94.0); Mean Platelet Volume 8.4 fL (7.4-10.4); Platelet Count 389 10^3/uL (130-400); Red Blood Cell Count 3.18 10^6/uL (4.70-6.10); Red Cell Dist. Width 13.2 % (11.5-14.5); White Blood Cell Count 6.9 10^3/uL (4.8-10.8)
[2024-03-01 07:58] LABS: Blood Urea Nitrogen 18 mg/dl (9-20); Calcium 9.1 mg/dl (8.4-10.2); Carbon Dioxide 24 mmol/L (22-30); Chloride 107 mmol/L (98-107); Estimated Creatinine Clearance 75 ml/min; Glucose 138 mg/dl (70-99); Potassium 4.4 mmol/L (3.5-5.1); Sodium 138 mmol/L (135-145); eGFR 52.64
[2024-03-01] MEDS: LIPITOR 20 MG PO (08:28)
[2024-03-01] MEDS: ROXICODONE 5 MG PO ×2 (08:28→12:16)
[2024-03-01] MEDS: VITAMIN C 1000 MG PO (08:29)
[2024-03-01] MEDS: OSCAL CAL 500 500 MG PO (08:29)
[2024-03-01] MEDS: COREG 12.5 MG PO (08:29)
[2024-03-01] MEDS: SENOKOT-S 1 TABLET PO (08:29)
[2024-03-01] MEDS: TYLENOL 650 MG PO ×2 (08:29→12:16)
[2024-03-01] MEDS: ASPIR LOW (ENTERIC COATED) 81 MG PO (08:29)
[2024-03-01] MEDS: NEURONTIN 300 MG PO (08:29)
[2024-03-01] MEDS: THERAGRAN 1 TABLET PO (08:29)
[2024-03-01] MEDS: VITAMIN D3 (cholecalciferol) 50 MCG PO (08:29)
--- NOTE | 2024-03-01 08:29 | W.PN.HOSP.TC ---
Addendum entered and electronically signed by Latanya Le MD 03/03/24 16:07:
KODY only
Original Note:
Today's Communication/Plan
-
dc to [facility] today
Assessment / Plan
Assessment / Plan
Assessment:
Sepsis (fever, leukocytosis) POA
Open Right foot wound with underlying acute osteomyelitis with surrounding cellulitis
Previous History of right foot wound dehiscence with underlying osteomyelitis status post right transmetatarsal amputation as well as MSSA bacteremia
- wound cultures MRSA
- s/p BKA 02/26 which represents definitive cure and Abx were stopped
- continue PO pain control + bowel regimen
- wound care per Vascular
- PT/OT with acute rehab placement today
KODY, initially improved
- then returned 02/24 with Creat 2.3
- given concurrent Vancomycin and Zosyn, likely idiosyncratic increase in Cr. FENA 1.3 consistent with intrinsic etiology. Eosinophils negative.
- monitor bladder scans
- hold nephrotoxins
- Nephrology following
- follow BMP, Cr is now 1.5
Diarrhea
- C. Diff neg. ?abx associated diarrhea
Hyponatremia
- resolved
History of right upper extremity DVT related to PICC line
- Patient completed anticoagulation last week
Type 2 diabetes
- continue Toujeo 25 units daytime, 30 units nighttime
- continue premeal Novolog
- insulin sliding scale
- A1c is 7.2%
Essential hypertension
- continue Coreg
- resume lisinopril at discharge, repeat BMP in 3 days
Acute post-op anemia on chronic anemia
- monitor Hb
- continue ferrous sulfate
Hypercholesterolemia
- continue statin
DVT ppx: Heparin
Code: Full
More than 30 minutes spent in discharge including
Final examination of the patient
Summarizing hospital stay
Instructions for continuing care to all relevant caregivers
Preparation of discharge records, prescriptions, and referral forms
Total time spent (in minutes):41
Anticipated Discharge: Today
Subjective/Interval History
-
Date of Service: March 01, 2024
successful BM last evening
pain controlled
Objective Data
-
Labs:
Laboratory Results
03/01/24
07:02
WBC 6.9
Hgb 8.9 L
Hct 25.9 L
Plt Count 389
Sodium 138
Potassium 4.4
Chloride 107
Carbon Dioxide 24
BUN 18
Creatinine 1.5 H
Glucose 138 H
Calcium 9.1
Vital Signs:
Vital Signs
Temp Pulse Resp BP Pulse Ox
98.5 F 66 20 150/69 94
03/01/24 07:07 03/01/24 07:07 03/01/24 07:07 03/01/24 07:07 03/01/24 07:07
I&O
02/29/24 03/01/24 03/02/24
06:59 06:59 06:59
Intake Total 2480 / 2480 2302.2 / 2302.2
Output Total 1989 4670 / 4670
Balance 490 / 490 -2367.8 / -2367.8
Physical Exam
-
General: No Apparent Distress
HEENT: Normocephalic and Atraumatic
Respiratory: Negative Wheezes
Cardiac: Regular Rhythm and S1/S2
GI: Soft
Genito-urinary: No Costovertebral Tender
Musculoskeletal: Edema, Right Lower Extrem (s/p BKA)
Neuro: AO x 3
Psych: Calm
Data Reviewed
-
Total Time Spent with Patient (in minutes): 41
Labs: Labs Reviewed by me
[2024-03-01] MEDS: HEPARIN 5000 UNITS SC (08:30)
[2024-03-01] MEDS: NOVOLOG FLEXPEN 20 UNITS SC ×2 (08:30→12:18)
[2024-03-01] MEDS: NOVOLOG FLEXPEN-LOW RESISTANCE 1 UNITS SC ×2 (08:31→12:17)
[2024-03-01] MEDS: DESENEX/MITRAZOL/ZEASORB 1 APPLIC TOPICAL (08:34)
[2024-03-01] MEDS: VITAMIN B-12 1000 MCG PO (08:34)
[2024-03-01] MEDS: LANTUS 0.2 UNITS SC (08:36)
--- NOTE | 2024-03-01 08:56 | W.DS.TRANS ---
DC Summary - [facility]
-
Discharge Instructions:
Discharge Diagnosis/Procedures sepsis with open R foot wound s/p BKA 02/26. KODY
from antibiotics
Diet As tolerated,Diabetic, Carb Controlled
Activity No strenuous activity,As tolerated
Driving Restrictions Not until seen by your Dr
Bathing Restrictions OK to Shower
Blood Work repeat BMP in 3 days
Wound Care Can leave staple site open to air, particularly
at night. However, during the day as tolerated
you can Junito wrap around the right lower
extremity with mild compression to decrease
swelling.
Instructions:
Stand-Alone Forms:
Changes to Home Medications: No
Discharge Medications:
DC Medications w/original date entered in [facility]
calcium carbonate (Calcium 600) 600 mg PO DAILY Supplement 04/23/13
lisinopril 20 mg tablet 20 mg PO DAILY Blood pressure 04/23/13
gabapentin 300 mg capsule 300 mg PO TID pain 11/11/13
carvedilol 12.5 mg tablet 12.5 mg PO BID Blood pressure 09/13/20
diphenhydramine HCl 25 mg capsule (Banophen) 25 mg PO HS sleep 09/13/20
cofqdnmsdrm-flmpy-ehm-vit C-Mn 500 mg-400 mg-166.6 mg tablet (Flexi Joint) 1 tab PO DAILY Supplement 03/29/22
aspirin 81 mg tablet,delayed release 81 mg PO DAILY Blood clot prevention/tx 08/22/22
cyanocobalamin (vitamin B-12) 1,000 mcg tablet 1,000 mcg PO MOTUTHFRSA Supplement 08/22/22
Bifidobacterium infantis 4 mg capsule (Align) 4 mg PO NOON probiotic 10/05/22
ascorbic acid (vitamin C) 1,000 mg tablet (Vitamin C) 1,000 mg PO DAILY Supplement 08/24/23
atorvastatin 20 mg tablet 20 mg PO DAILY High Cholesterol 08/24/23
cholecalciferol (vitamin D3) 50 mcg (2,000 unit) tablet 50 mcg PO DAILY Supplement 08/24/23
ferrous sulfate 325 mg (65 mg iron) tablet (iron) 325 mg PO Q48H Supplement 08/24/23
insulin aspart U-100 100 unit/mL (3 mL) subcutaneous pen (Novolog FlexPen U-100 Insulin aspart) 20 unit SC AC Diabetes 08/24/23
therapeutic multivitamin 1 tab PO DAILY Supplement 08/24/23
zolpidem 5 mg tablet 5 mg PO HSPRN PRN sleep 09/21/23
meclizine 25 mg tablet 25 mg PO Q8HPRN PRN dizziness 02/20/24
semaglutide 0.25 mg or 0.5 mg (2 mg/3 mL) subcutaneous pen injector (Ozempic) 0.5 mg SC MO Diabetes 02/20/24
cyclobenzaprine 10 mg tablet 5 mg (1/2 x 10 mg) PO Q8HPRN PRN muscle spasm #10 tabs 03/01/24
insulin glargine U-300 conc 300 unit/mL (1.5 mL) subcutaneous pen (Toujeo SoloStar U-300 Insulin) 20 unit (0.0667 mL) SC DAILY Diabetes #0 mL 03/01/24
insulin glargine U-300 conc 300 unit/mL (1.5 mL) subcutaneous pen (Toujeo SoloStar U-300 Insulin) 24 unit (0.08 mL) SC HS Diabetes #0 mL 03/01/24
miconazole nitrate 2 % topical powder (Miconazorb AF) 1 applic topical BID #85 grams 03/01/24
oxycodone 10 mg tablet 10 mg PO Q4HPRN PRN moderate pain #10 tabs 03/01/24
oxycodone 5 mg tablet 5 mg PO Q4HPRN PRN mild pain #10 tabs 03/01/24
polyethylene glycol 3350 17 gram oral powder packet (HealthyLax) 17 g PO DAILY #30 ea 03/01/24
sennosides 8.6 mg-docusate sodium 50 mg tablet (Stool Softener-Laxative) 1 tab PO BID #30 tabs 03/01/24
Home Medication Changes
Pending Results: No
Total time spent discharging patient (in min): 42
--- NOTE | 2024-03-01 09:08 | CM ---
Chart reviewed and call placed to Lindy at [facility], that patient was cleared for discharge today, per Lindy bed is available at [facility]. IMM provided to patient 02/29/24.
Rahul
Report #: [phone]
Fax #: [phone]
[2024-03-01 11:30] VITALS: BP 138/70
[2024-03-01 11:59] LABS: Glucose - Point of Care 155 mg/dl (70-99)
[2024-03-01] MEDS: VISBIOME 1 CAP PO (12:16)
--- NOTE | 2024-03-03 15:07 | PN.CDI ---
CDI
- -
CDI:
Physician Documentation Request
Admit Date: 02/20/24 20:41
Dear Doctor Rey,
Patient admitted with sepsis.
03/01 PN, 'KODY, initially improved- then returned 02/24 with Creat 2.3- given concurrent Vancomycin and Zosyn, likely idiosyncratic increase in Cr. FENA 1.3 consistent with intrinsic etiology....- hold nephrotoxins.'
Laboratory Tests
02/20/24 02/23/24 02/25/24
16:37 07:44 08:02
Creatinine 1.4 H 0.9 2.3 H
Please clarify which of the following accurately represents the patient's renal status:
KODY with ATN
KODY only
Other
Use of terms such as suspected, likely, concern for, or probable (associated with a specific diagnosis that is being evaluated, monitored, or treated as if it exists) are acceptable and can be coded in the inpatient setting, when documented at the
time of discharge.
Thank you,
Ida MONSALVEN,RN,CCDS
CDI Specialist
Available via tiger text
== END 2024-03-01 13:45 | DRG 854 ==
LOC: 4 WEST ACU 20:41
PROVIDERS: Internal Medicine; Internal Medicine Infectious Disease; Nurse Practitioner Acute Care; Student in an Organized Health Care Education/Training Program; ADMITTING PHYSICIAN Hospitalist; ATTENDING PHYSICIAN Internal Medicine; CONSULT PHYSICIAN Internal Medicine Cardiovascular Disease; CONSULT PHYSICIAN Physical Medicine & Rehabilitation; CONSULT PHYSICIAN Specialist; CONSULT PHYSICIAN Student in an Organized Health Care Education/Training Program; CONSULT PHYSICIAN Surgery Vascular Surgery; EMERGENCY PHYSICIAN Emergency Medicine; FAMILY PHYSICIAN Family Medicine
PROC: 0Y6H0Z3 Detachment at Right Lower Leg, Low, Open Approach (ICD-10-PCS; 2024-02-27)
DX: A41.02 Sepsis due to Methicillin resistant Staphylococcus aureus (principal); E87.1 Hypo-osmolality and hyponatremia; L97.419 Non-pressure chronic ulcer of right heel and midfoot with unspecified severity; N17.9 Acute kidney failure, unspecified; T81.31XA Disruption of external operation (surgical) wound, not elsewhere classified, initial encounter; L03.115 Cellulitis of right lower limb; K52.1 Toxic gastroenteritis and colitis; M86.171 Other acute osteomyelitis, right ankle and foot; Z68.41 Body mass index [BMI] 40.0-44.9, adult; E11.69 Type 2 diabetes mellitus with other specified complication; E11.621 Type 2 diabetes mellitus with foot ulcer; E11.40 Type 2 diabetes mellitus with diabetic neuropathy, unspecified; E78.00 Pure hypercholesterolemia, unspecified; I10 Essential (primary) hypertension; D50.9 Iron deficiency anemia, unspecified; G47.00 Insomnia, unspecified; G47.30 Sleep apnea, unspecified; I45.10 Unspecified right bundle-branch block; E66.01 Morbid (severe) obesity due to excess calories; T36.8X5A Adverse effect of other systemic antibiotics, initial encounter; Y92.239 Unspecified place in hospital as the place of occurrence of the external cause; Y83.5 Amputation of limb(s) as the cause of abnormal reaction of the patient, or of later complication, without mention of misadventure at the time of the procedure; Y92.9 Unspecified place or not applicable; Z87.442 Personal history of urinary calculi; Z80.0 Family history of malignant neoplasm of digestive organs; Z80.7 Family history of other malignant neoplasms of lymphoid, hematopoietic and related tissues; Z89.421 Acquired absence of other right toe(s); Z98.84 Bariatric surgery status; Z86.718 Personal history of other venous thrombosis and embolism; Z88.6 Allergy status to analgesic agent; Z88.8 Allergy status to other drugs, medicaments and biological substances; Z91.018 Allergy to other foods; Z79.82 Long term (current) use of aspirin; Z79.4 Long term (current) use of insulin; Z79.85 Long-term (current) use of injectable non-insulin antidiabetic drugs
CPT/HCPCS: 88307; 88311; 27880; 73630; 76770; 80048; 80053; 80202; 81003; 81015; 81099; 82570; 82962; 83036; 83605; 83735; 84300; 85025; 85027; 86850; 86900; 86901; 86920; 87070; 87147; 87186; 87205; 87324; 87449; 93005; 93922; 93925; 96365; 96367; 97163; 97167; 97530; 97535; 99284

== ENCOUNTER → 2024-03-21 06:33 | Outpatient (REF) | payer MEDICARE, OTHER, SELFPAY ==
[2024-03-21 07:40] LABS: % Basophils 0.6 % (0-2); % Immature Granulocytes 0.2 % (0-0.5); % Monocytes 7.2 % (1.7-9.3); Absolute Eosinophils 0.5 10^3/uL (0-0.7); Absolute Monocytes 0.5 10^3/uL (0.1-0.6); Absolute Neutrophils 3.6 10^3/uL (1.4-6.5); Hematocrit 32.1 % (39.0-52.0); Hemoglobin 10.6 g/dL (13.0-18.0); Mean Corpuscular Hgb 28.6 pg (27.0-31.0); Mean Corpuscular Volume 86.8 fL (80.0-94.0); Mean Platelet Volume 9.4 fL (7.4-10.4); Nucleated Red Blood Cells % 0 % (-); Platelet Count 269 10^3/uL (130-400); Red Cell Dist. Width 14.6 % (11.5-14.5); White Blood Cell Count 6.6 10^3/uL (4.8-10.8)
[2024-03-21 08:01] LABS: ALT (SGPT) 19 U/L (0-50); AST (SGOT) 24 U/L (17-59); Albumin 3.8 g/dl (3.5-5.0); Alkaline Phosphatase 162 U/L (38-126); Blood Urea Nitrogen 16 mg/dl (9-20); Calcium 9.3 mg/dl (8.4-10.2); Carbon Dioxide 25 mmol/L (22-30); Chloride 107 mmol/L (98-107); Glucose 128 mg/dl (70-99); HDL Cholesterol 36 mg/dl; Iron 62 ug/dl (49-181); LDL Cholesterol, Calculated 60 mg/dl; Potassium 4.2 mmol/L (3.5-5.1); Sodium 143 mmol/L (135-145); Total Bilirubin 0.9 mg/dl (0.2-1.3); Total Cholesterol 119 mg/dl (50-199); Total Protein 7.3 g/dl (6.3-8.2); Triglyceride 118 mg/dl (10-149); Very Low Density Lipoprotein 23 mg/dl (0-30); eGFR > 60.00
[2024-03-21 08:11] LABS: Percent Saturation 23 % (20-50); Total Iron Binding Capacity 268 ug/dl (261-462)
[2024-03-21 08:25] LABS: Microalbumin, Random Urine 0.8 mg/dl (0.6-1.7); Microalbumin/creatinine Ratio 6.1 mg/g
[2024-03-21 09:06] LABS: Ferritin 33.2 ng/ml (17.9-464.0)
[2024-03-21 10:09] LABS: Glycohemoglobin (HgbA1c) 6.2 % (4.0-5.6)
== END ==
LOC: REG 06:33
PROVIDERS: ATTENDING PHYSICIAN Family Medicine
DX: E11.69 Type 2 diabetes mellitus with other specified complication (principal); Z79.4 Long term (current) use of insulin; D50.9 Iron deficiency anemia, unspecified
CPT/HCPCS: 36415; 80053; 80061; 82043; 82570; 82728; 83036; 83540; 83550; 85025

== ENCOUNTER 2024-03-28 14:58 | Outpatient (RCR) | payer MEDICARE, OTHER, SELFPAY | END 2024-03-28 23:59 | disposition home or self-care (01) | LOC: RPT 14:58 | PROVIDERS: ATTENDING PHYSICIAN Physical Medicine & Rehabilitation; FAMILY PHYSICIAN Family Medicine | DX: M79.661 Pain in right lower leg (principal); Z89.519 Acquired absence of unspecified leg below knee; Z89.511 Acquired absence of right leg below knee; Z73.6 Limitation of activities due to disability | CPT/HCPCS: 97110; 97112; 97116; 97140; 97163; 97167; 97530 ==

== ENCOUNTER 2024-04-17 14:57 | Outpatient (RCR) | payer MEDICARE, OTHER, SELFPAY | END 2024-04-17 23:59 | disposition home or self-care (01) | LOC: RPT 14:57 | PROVIDERS: ATTENDING PHYSICIAN Physical Medicine & Rehabilitation; FAMILY PHYSICIAN Family Medicine | DX: Z89.519 Acquired absence of unspecified leg below knee (principal); Z74.09 Other reduced mobility | CPT/HCPCS: 97110; 97112; 97140; 97530 ==

== ENCOUNTER → 2024-04-25 13:39 | Outpatient (REF) | payer MEDICARE, OTHER, SELFPAY | LOC: RAD 13:39 | PROVIDERS: ATTENDING PHYSICIAN Family Medicine; FAMILY PHYSICIAN Family Medicine; REFERRING PHYSICIAN Surgery Vascular Surgery | DX: M76.62 Achilles tendinitis, left leg (principal); M79.89 Other specified soft tissue disorders; R09.89 Other specified symptoms and signs involving the circulatory and respiratory systems; R22.42 Localized swelling, mass and lump, left lower limb | CPT/HCPCS: 93971 ==

== ENCOUNTER 2024-04-28 16:15 | Emergency (ER) | payer MEDICARE, OTHER, SELFPAY ==
[2024-04-28 16:40] VITALS: BP 111/74
[2024-04-28 17:12] LABS: % Basophils 0.4 % (0-2); % Eosinophils 3.4 % (0-6); % Immature Granulocytes 0.2 % (0-0.5); % Monocytes 7.2 % (1.7-9.3); % Neutrophils 58.8 % (42.2-75.2); Absolute Eosinophils 0.3 10^3/uL (0-0.7); Absolute Lymphocytes 2.7 10^3/uL (1.2-3.4); Absolute Monocytes 0.7 10^3/uL (0.1-0.6); Absolute Neutrophils 5.3 10^3/uL (1.4-6.5); Hematocrit 37.2 % (39.0-52.0); Hemoglobin 12.5 g/dL (13.0-18.0); Mean Corp Hgb Conc. 33.6 g/dL (33.0-37.0); Mean Corpuscular Hgb 27.2 pg (27.0-31.0); Nucleated Red Blood Cells % 0 % (-); Platelet Count 289 10^3/uL (130-400); Red Blood Cell Count 4.59 10^6/uL (4.70-6.10); Red Cell Dist. Width 13.8 % (11.5-14.5)
[2024-04-28 17:16] LABS: ALT (SGPT) 20 U/L (0-50); AST (SGOT) 24 U/L (17-59); Albumin 4.4 g/dl (3.5-5.0); Alkaline Phosphatase 122 U/L (38-126); Blood Urea Nitrogen 16 mg/dl (9-20); Carbon Dioxide 21 mmol/L (22-30); Chloride 104 mmol/L (98-107); Glucose 137 mg/dl (70-99); Potassium 4.5 mmol/L (3.5-5.1); Sodium 140 mmol/L (135-145); Total Bilirubin 0.9 mg/dl (0.2-1.3); Total Protein 7.7 g/dl (6.3-8.2); eGFR > 60.00
[2024-04-28 18:09] VITALS: BMI 37.2
--- NOTE | 2024-04-28 18:36 | ED.GENMED ---
History of Present Illness
General
Chief Complaint: Musculo-Skeletal Complaint
Source: patient and significant other (Partner)
Exam Limitations: none
Time Seen by Provider: 04/28/24 17:57
History of Present Illness
History of Present Illness:
This is a 63 year old male that comes in with c/o left leg pain. States that he has severe left calf pain. States that he had started PT and he told them about the left calf pain. States that he was giving stretching exercises. State that his pain
continued to get worse so on he cancelled his PT appointment. Sunday he went to see the PCP and he was given a Muscle relaxer. State that he was given Voltaren also. States that the pain continued to get worse over the weekend. States that
today he was unable to get OOB, States that he had an UC on Sunday and this was negative for DVT. States that he has a slight headache and luong diarrhea on Sunday. Denies any fever, chills, chest pain, SOB, abd pain, nausea, vomiting, dizziness,
urinary burning.
Past History
Past History
ED Past Medical History: HTN, Hypercholesterolemia, IDDM, Other (Back pain, Neuropathy, Sciatica, sleep apnea, Renal calculus, Cellulitis, Iron def anemia, ) and Other (Osteomyelitis right foot, kidney stones, Cellulitis, osteomyelitis L foot with
surgery on 05/07/23)
ED Past Surgical History: Appendectomy, Orthopedic (Amputation toes of right foot, BKA right February 27, 2024), Tonsilectomy, Urological (Llithotripsy) and Other (gastric stapling , Eliana-en-Y, debridement of right foot wound)
Social History
Tobacco: Non-smoker
Alcohol: Occasional
Drug: None
Personal: Partner (Same sex )
Living: with roommate
Employment: Not employed
Family History
Family History: Other (Father with stomach cancer and father with lymphoma)
Review of Systems
Review of Systems
All Other Systems: ROS reviewed and negative except as documented in HPI and ROS
Constitutional: Reports no symptoms; Denies fever or chills
EENT: Reports no symptoms
Respiratory: Denies cough or trouble breathing
Cardiac: Reports no symptoms; Denies chest pain
ABD/GI: Reports no symptoms; Denies abdominal pain, nausea, vomiting or diarrhea
: Reports no symptoms; Denies dysuria, frequency or urgency
Musculoskeletal: Reports other (Left calf pain)
Skin: Reports no symptoms
Neurological: Reports headache (Slight); Denies dizzy
Psychiatric: Reports no symptoms
Phy Exam
General Physical Exam
General Presentation: no apparent distress
General age: appears stated age
General Skin: warm and dry
General Habitus: normal
General Mental: alert
General Hydration: dry mucous membranes
ENT Exam
ENT Exam: TM's normal, pharynx normal and neck supple
Eye Exam
Eye Exam: EOMI
Cardiovascular Exam
Cardiovascular Exam: regular rate/rhythm, no edema and normal peripheral pulses
Pulmonary Exam
Pulmonary Exam: lungs clear, no respiratory distress, no rales, chest non tender, no crackles, no rhonchi, no wheezing and no cough
Gastrointestinal Exam
Gastrointestinal Exam: normal bowel sounds, non tender, soft, no organomegaly, no pulsatile mass and non distended
Musculoskeletal Exam
Musculoskeletal Exam: full ROM, no edema and other (Good peripherl pulses left leg)
Skin Exam
Skin Exam: normal color, warm/dry, no rash, no petechia and other (RBK incision line clean and dry, )
Psychiatric Exam
Psychiatric Exam: normal mood/affect
Course
Orders/Labs/Results
Orders:
Orders
04/28/24 16:52
Complete Blood Count/With Diff Urgent
Comprehensive Metabolic Panel Urgent
04/28/24 18:51
Acetaminophen [Tylenol] 1,000 mg PO NOW STA
Oxycodone [Roxicodone] 5 mg PO NOW STA
Abnormal Lab Results
04/28/24
16:52
RBC 4.59 L 10^6/uL
(4.70-6.10)
Hgb 12.5 L g/dL
(13.0-18.0)
Hct 37.2 L %
(39.0-52.0)
Absolute Monos (auto) 0.7 H 10^3/uL
(0.1-0.6)
Carbon Dioxide 21 L mmol/L
(22-30)
Glucose 137 H mg/dl
(70-99)
04/28/24 16:52
04/28/24 16:52
Hb slightly low. Hyperglycemia.
Vital Signs
Initial and Last Documented VS:
Initial Vital Signs
Temp Pulse Resp BP Pulse Ox
97.8 F 75 16 111/74 98
04/28/24 16:40 04/28/24 16:40 04/28/24 16:40 04/28/24 16:40 04/28/24 16:40
Last Documented Vital Signs
Temp Pulse Resp BP Pulse Ox
97.8 F 70 16 122/82 96
04/28/24 16:40 04/28/24 20:31 04/28/24 20:31 04/28/24 20:31 04/28/24 20:31
MDM/Problems Addressed
Differential Diagnosis Includes:
Muscle pain,
MDM/Problems Addressed:
This is a 63 year old male that comes in with c/o left leg pain. States that this started last week and he cancelled his PT on . Patient saw the PCP and was given Voltaren and a muscle relaxer. States that nothing is helping. US negative for
DVT.
back into see patient. Patient states that he is feeling so much better. Patient is able to lift his leg and states that he has not been able to do this. Patient to follow up with Dr. Garcia and PT. Return with any concerns.
Chronic conditions affecting care:
amputation RBK
Chronic conditions affecting care: DM
Acute Exacerbation and/or Progression of Chronic Illness:
NA
*Pulse Oximetry
Patient hypoxic: no
*EKG
Interpreted by ED Provider?: NA
Rate: EKG- N/A
*Rotary Drill Operator Interpretation
Rate: Rotary Drill Operator- N/A
*Critical Care Note
Total Time (30-74mins, 75-104mins- exclusive of procedures): Not Applicable
ED Attending Note
-
Portions of this chart may have been created with voice recognition software.� Occasional wrong word or��sound alike� substitutions may have occurred due to the inherent limitations of voice recognition software.
Discharge Plan
Departure
Patient Disposition: Home (Routine Discharge)
Date of Disposition: 04/28/24
Time of Disposition: 20:34
Patient with high blood pressure during this ER visit?: No
Condition: Good
Covid-19: Not Applicable
Discharge Problem:
Pain in left leg, Musculoskeletal leg pain
Instructions: Musculoskeletal Pain
Prescriptions:
New
oxycodone 5 mg tablet
5 mg PO Q8H PRN (Reason: Pain) Qty: 15 0RF
No Action
calcium carbonate [Calcium 600] 600 MG tablet
600 mg PO DAILY
gabapentin 300 MG capsule
300 mg PO TID
carvedilol 12.5 MG tablet
12.5 mg PO BID
Flexi Joint 500-400-166.6 mg Tablet
1 tab PO DAILY
cyanocobalamin (vitamin B-12) 1,000 mcg Tablet
1,000 mcg PO MOTUTHFRSA
aspirin 81 mg Tablet,Delayed Release (Dr/Ec)
81 mg PO DAILY
Align 4 mg Capsule
4 mg PO NOON
ascorbic acid (vitamin C) [Vitamin C] 1,000 mg Tablet
1,000 mg PO DAILY
atorvastatin 20 mg Tablet
20 mg PO DAILY
therapeutic multivitamin Tablet
1 tab PO DAILY
ferrous sulfate [iron] 325 mg (65 mg iron) Tablet
325 mg PO Q48H
Patient Comments:
08/24/2023, Q72H@0800.
cholecalciferol (vitamin D3) 50 mcg (2,000 unit) Tablet
50 mcg PO DAILY
zolpidem 5 mg Tablet
5 mg PO HSPRN PRN (Reason: sleep)
Patient Comments:
02/20/2024: last filled 07/13/22, 90 tabs for 90 days from [facility]
meclizine 25 mg tablet
25 mg PO Q8HPRN PRN (Reason: dizziness)
Ozempic 0.25 mg or 0.5 mg (2 mg/3 mL) pen injector
0.5 mg SC MO
cyclobenzaprine 10 mg Tablet
5 mg PO Q8HPRN PRN (Reason: muscle spasm) Qty: 10 0RF
polyethylene glycol 3350 [HealthyLax] 17 gram Powder In Packet
17 g PO DAILY Qty: 30 0RF
miconazole nitrate [Miconazorb AF] 2 % Powder
1 applic topical BID Qty: 85 0RF
ammonium lactate 12 % Lotion
1 applic topical BID 30 Days Qty: 1 0RF
sennosides-docusate sodium [Stool Softener-Laxative] 8.6-50 mg Tablet
1 tab PO BID Qty: 30 0RF
insulin glargine U-300 conc [Toujeo SoloStar U-300 Insulin] 300 UNIT/ML insulin pen
20 unit SC HS Qty: 0 0RF
insulin glargine U-300 conc [Toujeo SoloStar U-300 Insulin] 300 UNIT/ML insulin pen
18 unit SC DAILY Qty: 0 0RF
Referrals:
Benjamin [facility] MD [Family Provider] - Follow up in 2-3 days
Activity Restrictions/Additional Instructions:
As discussed, your blood work shows that your blood sugar is elevated. Please increase your water intake to 8-8oz glasses daily. Your US from Sunday was negative for DVT and there is no redness or significant swelling noted. This is most likely
Musculoskeletal pain. Please follow up with Dr. Garcia for further evaluation. A prescription for Oxycodone has been sent to your Pharmacy. Please use this for more severe pain. Alternate with Tylenol 1000mg every 6 hours for pain. IF YOU HAVE
INCREASED OR CHANGING PAIN, OR YOU HAVE ANY OTHER CONCERNS PLEASE RETURN TO THE EMERGENCY ROOM.
Interventions
Interventions:
*Risk Screen - Suicide Last Done: 04/28/24 16:40
*General Assessment Last Done: 04/28/24 18:09
*Neglect/Abuse Screening Last Done: 04/28/24 16:40
ED-Musculoskeletal Assessment Last Done: 04/28/24 18:09
Discharge Date and Time
Print Language: CITIZEN [place]
[2024-04-28] MEDS: ROXICODONE 5 MG PO (18:55)
[2024-04-28] MEDS: TYLENOL 1000 MG PO (18:55)
[2024-04-28 20:31] VITALS: BP 122/82
== END 2024-04-28 21:08 | disposition home or self-care (01) ==
LOC: EMR 16:15
PROVIDERS: Emergency Medicine; EMERGENCY PHYSICIAN Emergency Medicine; FAMILY PHYSICIAN Family Medicine
DX: M79.662 Pain in left lower leg (principal)
CPT/HCPCS: 99282; 80053; 85025

== ENCOUNTER 2024-05-04 08:37 | Emergency (ER) | payer MEDICARE, OTHER, SELFPAY ==
[2024-05-04 08:40] VITALS: BP 111/76
--- NOTE | 2024-05-04 10:52 | ED.GENMED ---
History of Present Illness
<AMBER Johnson - Last Filed: 05/04/24 13:16>
General
Chief Complaint: Musculo-Skeletal Complaint
Source: patient
Exam Limitations: none
Time Seen by Provider: 05/04/24 09:27
Nursing documentation reviewed up to this point in time: agreed with
History of Present Illness
History of Present Illness:
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 He saw his
family doctor over a week and a half ago and had ultrasound which ruled out DVT. In addition patient reports he was just seen here on April 28 for same complaints. Patient had blood work at that time and was discharged on oxycodone 5 mg he is
also taking the muscle laxer however reports that is not relieving his symptoms.
He denies any prior history of DVT PE. He is however mostly in the bed with recent right BKA. He denies any fever chills swelling shortness of breath. He denies any swelling to the area or redness.
Past History
<AMBER Johnson - Last Filed: 05/04/24 13:16>
Past History
ED Past Medical History: HTN, Hypercholesterolemia, IDDM, Other (Back pain, Neuropathy, Sciatica, sleep apnea, Renal calculus, Cellulitis, Iron def anemia, ) and Other (Osteomyelitis right foot, kidney stones, Cellulitis, osteomyelitis L foot with
surgery on 05/07/23)
ED Past Surgical History: Appendectomy, Orthopedic (Amputation toes of right foot, BKA right February 27, 2024), Tonsilectomy, Urological (Llithotripsy) and Other (gastric stapling , Eliana-en-Y, debridement of right foot wound)
Social History
Tobacco: Non-smoker
Alcohol: Occasional
Drug: None
Personal: Partner (Same sex )
Living: with roommate
Employment: Not employed
Family History
Family History: Other (Father with stomach cancer and father with lymphoma)
Review of Systems
<AMBER Johnson - Last Filed: 05/04/24 13:16>
Review of Systems
Allergies reviewed?: Yes
All Other Systems: ROS reviewed and negative except as documented in HPI and ROS
Constitutional: Reports no symptoms; Denies fever, fatigue or chills
Respiratory: Reports no symptoms
Cardiac: Reports no symptoms
ABD/GI: Reports no symptoms
Musculoskeletal: Reports other (left foot /lower leg pain denies swelling/redness )
Skin: Reports no symptoms
Neurological: Reports no symptoms
Hematologic/Lymphatic: Reports no symptoms
Psychiatric: Reports no symptoms
Phy Exam
<AMBER Johnson - Last Filed: 05/04/24 13:16>
General Physical Exam
General Presentation: no apparent distress
General age: appears stated age
General Skin: warm and dry
General Habitus: normal
General Mental: alert
Neurological Exam
Neurological Exam: alert and oriented x3
Musculoskeletal Exam
Musculoskeletal Exam: other (Right BKA with dressing in place, left lower extremity with strong pulses and normal sensation nontender to palpation no swelling to foot ankle lower leg. He has good range of motion to leg.)
Skin Exam
Skin Exam: normal color and warm/dry
Psychiatric Exam
Psychiatric Exam: normal mood/affect
Course
<AMBER Johnson - Last Filed: 05/04/24 13:16>
Orders/Labs/Results
Orders:
Orders
05/04/24 10:37
Foot, Left 3 View [CR Foot - Left Min 3 Views] Urgent
Comment:
Reason For Exam: pain
Venous Doppler Lwr Ext Left [US Periph Venous LOWER Ext LT] Urgent
Comment:
Reason For Exam: pain
05/04/24 10:38
Tib/Fib, Left 2 View [CR Leg Tibia/fibula Left 2 Vw] Urgent
Comment:
Reason For Exam: pain
05/04/24 13:08
Vital Signs- Treatment ONCE
Frequency: Once
Vital Signs
Initial and Last Documented VS:
Initial Vital Signs
Temp Pulse Resp BP Pulse Ox
97.8 F 80 16 111/76 97
05/04/24 08:40 05/04/24 08:40 05/04/24 08:40 05/04/24 08:40 05/04/24 08:40
Last Documented Vital Signs
Temp Pulse Resp BP Pulse Ox
97.8 F 80 16 111/76 97
05/04/24 08:40 05/04/24 08:40 05/04/24 08:40 05/04/24 08:40 05/04/24 08:40
Radiation Control Worker consulted with Physician
Radiation Control Worker consulted with physician?: Yes
Name of Physician Consulted: Silvano
<Tom Schaefer MD - Last Filed: 05/04/24 13:13>
Orders/Labs/Results
Orders:
Orders
05/04/24 10:37
Foot, Left 3 View [CR Foot - Left Min 3 Views] Urgent
Comment:
Reason For Exam: pain
Venous Doppler Lwr Ext Left [US Periph Venous LOWER Ext LT] Urgent
Comment:
Reason For Exam: pain
05/04/24 10:38
Tib/Fib, Left 2 View [CR Leg Tibia/fibula Left 2 Vw] Urgent
Comment:
Reason For Exam: pain
05/04/24 13:08
Vital Signs- Treatment ONCE
Frequency: Once
Vital Signs
Initial and Last Documented VS:
Initial Vital Signs
Temp Pulse Resp BP Pulse Ox
97.8 F 80 16 111/76 97
05/04/24 08:40 05/04/24 08:40 05/04/24 08:40 05/04/24 08:40 05/04/24 08:40
Last Documented Vital Signs
Temp Pulse Resp BP Pulse Ox
97.8 F 80 16 111/76 97
05/04/24 08:40 05/04/24 08:40 05/04/24 08:40 05/04/24 08:40 05/04/24 08:40
<AMBER Johnson - Last Filed: 05/04/24 13:16>
MDM/Problems Addressed
Differential Diagnosis Includes:
not limited to: Muscle pain DVT less likely fracture
MDM/Problems Addressed:
Patient complains of left lower leg pain for the past several weeks he was seen here as document April 28 had normal blood work. He continues to complain of pain. He has posted to physical therapy for his recent right BKA but has not been able
to do so because of pain with weightbearing on this left leg. He has mostly been in bed. He had an outpatient ultrasound however with persistent pain repeat ultrasound was done and negative on exam he has no obvious swelling or redness he does
have strong pulses and normal sensation x-rays are negative. Patient reports pain in the up to the back. Musculoskeletal/tendonitis versus radicular pain. Patient denies any bowel or bladder continence.
Patient's blood work from previous ED visit was reviewed and negative.
Patient eval by ED physician as discussed with Dr. Schaefer will DC with additional pain medication as he complains of pain and is going to run out of this medication. Steroids were considered her with being a diabetic we will hold off. I did review
with patient that will DC with additional pain medication however to d/c to stop his muscle relaxer and f/u w/ ortho.
Chronic conditions affecting care:
recent right bka , dm
<AMBER Johnson - Last Filed: 05/04/24 13:16>
*Radiology
Radiology exam reviewed: radiology read reviewed
*Pulse Oximetry
Patient hypoxic: no
*Critical Care Note
Total Time (30-74mins, 75-104mins- exclusive of procedures): Not Applicable
Data Reviewed
Review of Other/Old Records Reveals: Other (previous ED visit and labs )
ED Attending Note
<AMBER Johnson - Last Filed: 05/04/24 13:16>
-
Portions of this chart may have been created with voice recognition software.� Occasional wrong word or��sound alike� substitutions may have occurred due to the inherent limitations of voice recognition software.
<Tom Schaefer MD - Last Filed: 05/04/24 13:13>
ED Attending Note
Patient seen and examined by attending physician: Yes
I performed the substantive portion of visit, reviewed & personally made and approve the management plan that is documented in note by myself or MADELINE.: Yes
ED Attending Note:
63-year-old male with ongoing left leg pain. Mostly below the knee on the left side. Increased with weightbearing. Some mild pain in the left buttock. No fever chills no urinary symptoms no other complaints. Patient was seen by the primary
physician and here. Had a previous negative Doppler ultrasound.
On exam patient is nontoxic in no distress. He is slightly sleepy but has been on Flexeril and opioids for pain management. Abdomen is soft and nontender. Elevated BMI. Good femoral pulses. No tenderness to the buttock. No spinal tenderness.
No increased pain with straight leg raising. Great distal pulses dorsalis pedis posterior tibial on the left. Some tenderness along the distal Achilles and distal muscle of the calf posteriorly. However no swelling no warmth no erythema. Knee is
normal. Hip is normal.
X-ray shows some osteophytes otherwise unremarkable. Ultrasound is negative. Clinically this is either a radiculopathy/sciatica or possible tendinitis of the gastroc calcaneal insertion. More suspicious of #2. Patient does have a cast boot at
home he will use. Continued pain management. Will stop the Flexeril. Orthopedic follow-up. Nothing clinically to support a vascular either arterial or venous issue. Nothing to support an infectious issue.
Discharge Plan
Departure
Patient Disposition: Home (Routine Discharge)
Date of Disposition: 05/04/24
Time of Disposition: 13:08
Patient with high blood pressure during this ER visit?: No
Covid-19: Not Applicable
Discharge Problem:
muscle and bone pain
Instructions: Muscle and Bone Pain (DC)
Prescriptions:
New
oxycodone 5 mg tablet
5 mg PO TID PRN (Reason: Pain) Qty: 10 0RF
oxycodone 5 mg tablet
5 mg PO Q8H PRN (Reason: Pain) Qty: 10 0RF
No Action
calcium carbonate [Calcium 600] 600 MG tablet
600 mg PO DAILY
gabapentin 300 MG capsule
300 mg PO TID
carvedilol 12.5 MG tablet
12.5 mg PO BID
Flexi Joint 500-400-166.6 mg Tablet
1 tab PO DAILY
cyanocobalamin (vitamin B-12) 1,000 mcg Tablet
1,000 mcg PO MOTUTHFRSA
aspirin 81 mg Tablet,Delayed Release (Dr/Ec)
81 mg PO DAILY
Align 4 mg Capsule
4 mg PO NOON
ascorbic acid (vitamin C) [Vitamin C] 1,000 mg Tablet
1,000 mg PO DAILY
atorvastatin 20 mg Tablet
20 mg PO DAILY
therapeutic multivitamin Tablet
1 tab PO DAILY
ferrous sulfate [iron] 325 mg (65 mg iron) Tablet
325 mg PO Q48H
Patient Comments:
08/24/2023, Q72H@0800.
cholecalciferol (vitamin D3) 50 mcg (2,000 unit) Tablet
50 mcg PO DAILY
zolpidem 5 mg Tablet
5 mg PO HSPRN PRN (Reason: sleep)
Patient Comments:
02/20/2024: last filled 07/13/22, 90 tabs for [facility] days from [facility]
meclizine 25 mg tablet
25 mg PO Q8HPRN PRN (Reason: dizziness)
Ozempic 0.25 mg or 0.5 mg (2 mg/3 mL) pen injector
0.5 mg SC MO
cyclobenzaprine 10 mg Tablet
5 mg PO Q8HPRN PRN (Reason: muscle spasm) Qty: 10 0RF
polyethylene glycol 3350 [HealthyLax] 17 gram Powder In Packet
17 g PO DAILY Qty: 30 0RF
miconazole nitrate [Miconazorb AF] 2 % Powder
1 applic topical BID Qty: 85 0RF
oxycodone 5 mg tablet
5 mg PO Q8H PRN (Reason: Pain) Qty: 15 0RF
ammonium lactate 12 % Lotion
1 applic topical BID 30 Days Qty: 1 0RF
sennosides-docusate sodium [Stool Softener-Laxative] 8.6-50 mg Tablet
1 tab PO BID Qty: 30 0RF
insulin glargine U-300 conc [Toujeo SoloStar U-300 Insulin] 300 UNIT/ML insulin pen
20 unit SC HS Qty: 0 0RF
insulin glargine U-300 conc [Toujeo SoloStar U-300 Insulin] 300 UNIT/ML insulin pen
18 unit SC DAILY Qty: 0 0RF
Referrals:
Edmundo Lucas MD [Active] -
Benjamin Simon MD [Family Provider] -
Activity Restrictions/Additional Instructions:
As discussed stop muscle laxer however you may continue oxycodone. a short prescription was sent to your pharmacy. Please follow-up however with orthopedics. Your symptoms are either consistent with a radicular, pinched nerve pain in your back or
tendinitis/ muscle pain. Return if any worsening of symptoms
Discharge Date and Time
Print Language: MONTENEGRIN
[2024-05-04 13:26] VITALS: BP 112/70
== END 2024-05-04 13:27 | disposition home or self-care (01) ==
LOC: EMR 08:37
PROVIDERS: EMERGENCY PHYSICIAN Emergency Medicine; FAMILY PHYSICIAN Family Medicine
DX: M79.10 Myalgia, unspecified site (principal); M89.8X9 Other specified disorders of bone, unspecified site; I10 Essential (primary) hypertension; E78.00 Pure hypercholesterolemia, unspecified; E11.40 Type 2 diabetes mellitus with diabetic neuropathy, unspecified; E11.69 Type 2 diabetes mellitus with other specified complication; G47.30 Sleep apnea, unspecified; Z87.442 Personal history of urinary calculi; Z89.511 Acquired absence of right leg below knee; Z90.49 Acquired absence of other specified parts of digestive tract
CPT/HCPCS: 99284; 73590; 73630; 93971

== ENCOUNTER 2024-05-07 20:59 | Inpatient (IN) | payer MEDICARE, OTHER, SELFPAY ==
[2024-05-07 14:43] VITALS: BP 90/57
[2024-05-07 14:51] LABS: Glucose - Point of Care 179 mg/dl (70-99)
[2024-05-07 15:11] LABS: % Basophils 0.6 % (0-2); % Eosinophils 3.8 % (0-6); % Immature Granulocytes 0.3 % (0-0.5); % Lymphocytes 27.1 % (20.5-51.1); % Monocytes 6.6 % (1.7-9.3); % Neutrophils 61.6 % (42.2-75.2); Absolute Basophils 0.1 10^3/uL (0-0.2); Absolute Eosinophils 0.4 10^3/uL (0-0.7); Absolute Lymphocytes 2.7 10^3/uL (1.2-3.4); Absolute Monocytes 0.7 10^3/uL (0.1-0.6); Absolute Neutrophils 6.2 10^3/uL (1.4-6.5); Hematocrit 41.6 % (39.0-52.0); Hemoglobin 14.3 g/dL (13.0-18.0); Mean Corp Hgb Conc. 34.4 g/dL (33.0-37.0); Mean Corpuscular Hgb 28.5 pg (27.0-31.0); Mean Platelet Volume 9.3 fL (7.4-10.4); Nucleated Red Blood Cells % 0 % (-); Platelet Count 323 10^3/uL (130-400); Red Blood Cell Count 5.01 10^6/uL (4.70-6.10); Red Cell Dist. Width 13.7 % (11.5-14.5); White Blood Cell Count 10.1 10^3/uL (4.8-10.8)
[2024-05-07 15:26] LABS: ALT (SGPT) 22 U/L (0-50); AST (SGOT) 32 U/L (17-59); Albumin 4.6 g/dl (3.5-5.0); Alkaline Phosphatase 139 U/L (38-126); Blood Urea Nitrogen 19 mg/dl (9-20); Carbon Dioxide 21 mmol/L (22-30); Chloride 102 mmol/L (98-107); Glucose 187 mg/dl (70-99); Potassium 5.1 mmol/L (3.5-5.1); Sodium 137 mmol/L (135-145); Total Bilirubin 1.2 mg/dl (0.2-1.3); Total Protein 7.9 g/dl (6.3-8.2); eGFR > 60.00
[2024-05-07 16:00] VITALS: BP 97/86
[2024-05-07 16:43] LABS: Erythrocyte Sed Rate 34 mm/hour (0-20)
[2024-05-07 17:00] VITALS: BP 93/67
--- NOTE | 2024-05-07 17:26 | ED.GENMED ---
History of Present Illness
General
Chief Complaint: Musculo-Skeletal Complaint
Source: patient, records and physician
Exam Limitations: none
Time Seen by Provider: 05/07/24 15:36
Nursing documentation reviewed up to this point in time: agreed with
History of Present Illness
History of Present Illness:
Patient is a 63-year-old male who presents to the emergency department complaining of low back pain and left lower extremity pain. 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 Patient is a diabetic. Patient states he started with
leg pain and has been worked up for that. I was confirmed looking at his charts. Patient then states the pain is in the back. Patient has no pain in his low back with laying flat. Increases with sitting or standing. Patient has not been able to
get out of bed for the last couple weeks secondary to pain. Patient saw his orthopedist today who then sent him to the emergency department for urgent MRI as he was concerned about discitis. Patient denies any incontinence of bowel or bladder.
Patient denies numbness or paresthesias. Patient denies any weakness in the leg but is unable to weight-bear on the leg secondary to pain. Patient denies fever or chills, nasal congestion, sore throat or cough. Patient denies any GI or
symptoms. Patient's appetite has been good.
Past History
Past History
ED Past Medical History: HTN, Hypercholesterolemia, IDDM, Other (Back pain, Neuropathy, Sciatica, sleep apnea, Renal calculus, Cellulitis, Iron def anemia, ) and Other (Osteomyelitis right foot, kidney stones, Cellulitis, osteomyelitis L foot with
surgery on 05/07/23)
ED Past Surgical History: Appendectomy, Orthopedic (Amputation toes of right foot, BKA right February 27, 2024), Tonsilectomy, Urological (Llithotripsy) and Other (gastric stapling , Eliana-en-Y, debridement of right foot wound)
Social History
Tobacco: Non-smoker
Alcohol: Occasional
Drug: None
Personal: Partner (Same sex )
Living: with roommate
Employment: Not employed
Family History
Family History: Other (Father with stomach cancer and father with lymphoma)
Review of Systems
Review of Systems
All Other Systems: ROS reviewed and negative except as documented in HPI and ROS
Constitutional: Reports fatigue; Denies fever or chills
EENT: Reports no symptoms
Respiratory: Reports no symptoms
Cardiac: Reports no symptoms
ABD/GI: Reports no symptoms
: Reports no symptoms
Musculoskeletal: Reports back pain
Skin: Reports no symptoms
Neurological: Denies numbness
Hematologic/Lymphatic: Reports no symptoms
Psychiatric: Reports no symptoms
Phy Exam
Physical Exam
Physical Exam:
Physical Exam
General: mild to moderate distress, alert and appropriate, obese, well hydrated
HENT: Normocephalic, supple with no lymphadenopathy, no thyromegaly
Eyes: Clear sclera, conjuctiva without injection
Heart: Regular rhythm and rate. No S3, S4. No murmur.
Lungs: No respiratory distress, no stridor, lung sounds clear and equal bilaterally
Abdomen: Soft, nontender, no organomegaly, no CVA tenderness, BS good
Neuro: Alert and oriented x 3, CN II - XII intact, no motor focality, no cerebellar dysfunction, sensory intact
Skin: no rash
Psychiatric: well kept. interactive and cooperative
Extremities: No edema, cyanosis, tenderness. Right BKA
Musculoskeletal: Tenderness L 4, 5 and left SI joint
Course
Orders/Labs/Results
Orders:
Orders
05/07/24 15:03
C-Reactive Protein Urgent
Comment: ADD ON
Complete Blood Count/With Diff Urgent
Comprehensive Metabolic Panel Urgent
Erythrocyte Sed Rate Urgent
Comment: ADD ON
05/07/24 16:24
Add On- LAB Urgent
Tests Added?: Sed rate, crp (sepsis)
05/07/24 17:24
MR Lumbar W/o & With Contrast Urgent
Comment:
Reason For Exam: Back pain rad to LLE ortho discitis
Recent pill cam endoscopy?: No
05/07/24 18:47
Oxycodone [Roxicodone] 5 mg PO NOW STA
Abnormal Lab Results
05/07/24 05/07/24
14:50 15:03
Absolute Monos (auto) 0.7 H 10^3/uL
(0.1-0.6)
ESR 34 H mm/hour
(0-20)
Carbon Dioxide 21 L mmol/L
(22-30)
Glucose 187 H mg/dl
(70-99)
Alkaline Phosphatase 139 H U/L
(38-126)
C-Reactive Protein 20.80 H mg/L
(0.0-10.00)
POC Glucose 179 H mg/dl
(70-99)
05/07/24 15:03
05/07/24 15:03
Vital Signs
Initial and Last Documented VS:
Initial Vital Signs
Temp Pulse Resp BP Pulse Ox
98.5 F 80 16 90/57 95
05/07/24 14:43 05/07/24 14:43 05/07/24 14:43 05/07/24 14:43 05/07/24 14:43
Last Documented Vital Signs
Temp Pulse Resp BP Pulse Ox
98.5 F 77 16 93/67 95
05/07/24 14:43 05/07/24 17:00 05/07/24 14:43 05/07/24 17:00 05/07/24 18:30
*Radiology
Radiology exam reviewed: other (Attempted to get MRI but no capacity tonight)
*Pulse Oximetry
Patient hypoxic: no
*EKG
Interpreted by ED Provider?: NA
*Design Drafter Chief Interpretation
Rate: Design Drafter Chief- N/A
*Critical Care Note
Total Time (30-74mins, 75-104mins- exclusive of procedures): Not Applicable
Update Note
Update Note:
Patient's inflammatory markers are elevated. Patient does have symptoms are concerning for discitis. Able to get the MRI tomorrow if admitted. Will start the patient on antibiotics and admit.
ED Attending Note
-
Portions of this chart may have been created with voice recognition software.� Occasional wrong word or��sound alike� substitutions may have occurred due to the inherent limitations of voice recognition software.
Discharge Plan
Departure
Patient Disposition: Admit
Date of Disposition: 05/07/24
Time of Disposition: 19:32
Admit to: Med/Surg
Admit to doctor: Hospitalist
Presentation/result/management discussed w/ accepting MD/DO: Hospitalist
Patient with high blood pressure during this ER visit?: No
Condition: Fair
Covid-19: Not Applicable
Discharge Problem:
Back pain, Discitis of lumbar region
Prescriptions:
No Action
calcium carbonate [Calcium 600] 600 MG tablet
600 mg PO DAILY
gabapentin 300 MG capsule
300 mg PO TID
carvedilol 12.5 MG tablet
12.5 mg PO BID
Flexi Joint 500-400-166.6 mg Tablet
1 tab PO DAILY
cyanocobalamin (vitamin B-12) 1,000 mcg Tablet
1,000 mcg PO MOTUTHFRSA
aspirin 81 mg Tablet,Delayed Release (Dr/Ec)
81 mg PO DAILY
Align 4 mg Capsule
4 mg PO NOON
ascorbic acid (vitamin C) [Vitamin C] 1,000 mg Tablet
1,000 mg PO DAILY
atorvastatin 20 mg Tablet
20 mg PO DAILY
therapeutic multivitamin Tablet
1 tab PO DAILY
ferrous sulfate [iron] 325 mg (65 mg iron) Tablet
325 mg PO Q48H
Patient Comments:
08/24/2023, Q72H@0800.
cholecalciferol (vitamin D3) 50 mcg (2,000 unit) Tablet
50 mcg PO DAILY
zolpidem 5 mg Tablet
5 mg PO HSPRN PRN (Reason: sleep)
Patient Comments:
02/20/2024: last filled 07/13/22, 90 tabs [facility]
meclizine 25 mg tablet
25 mg PO Q8HPRN PRN (Reason: dizziness)
Ozempic 0.25 mg or 0.5 mg (2 mg/3 mL) pen injector
0.5 mg SC MO
cyclobenzaprine 10 mg Tablet
5 mg PO Q8HPRN PRN (Reason: muscle spasm) Qty: 10 0RF
polyethylene glycol 3350 [HealthyLax] 17 gram Powder In Packet
17 g PO DAILY Qty: 30 0RF
miconazole nitrate [Miconazorb AF] 2 % Powder
1 applic topical BID Qty: 85 0RF
oxycodone 5 mg tablet
5 mg PO Q8H PRN (Reason: Pain) Qty: 15 0RF
oxycodone 5 mg tablet
5 mg PO TID PRN (Reason: Pain) Qty: 10 0RF
oxycodone 5 mg tablet
5 mg PO Q8H PRN (Reason: Pain) Qty: 10 0RF
ammonium lactate 12 % Lotion
1 applic topical BID 30 Days Qty: 1 0RF
sennosides-docusate sodium [Stool Softener-Laxative] 8.6-50 mg Tablet
1 tab PO BID Qty: 30 0RF
insulin glargine U-300 conc [Toujeo SoloStar U-300 Insulin] 300 UNIT/ML insulin pen
20 unit SC HS Qty: 0 0RF
insulin glargine U-300 conc [Toujeo SoloStar U-300 Insulin] 300 UNIT/ML insulin pen
18 unit SC DAILY Qty: 0 0RF
Referrals:
Benjamin Simon MD [Family Provider] -
Interventions
Interventions:
*Risk Screen - Suicide Last Done: 05/07/24 14:43
*General Assessment Last Done: 05/07/24 15:44
*Neglect/Abuse Screening Last Done: 05/07/24 14:43
*ED COVID-19 Vaccine History Last Done: 05/07/24 15:44
ED-Musculoskeletal Assessment Last Done: 05/07/24 15:44
Discharge Date and Time
Print Language: ICELANDIC
[2024-05-07] MEDS: ROXICODONE 5 MG PO (19:08)
[2024-05-07 19:25] VITALS: BP 126/72
[2024-05-07 20:00] VITALS: BP 132/81
--- NOTE | 2024-05-07 20:35 | HPS.HSE ---
Family Physician
-
Family Physician: Benjamin Kumar [facility], [place]
Chief Complaint
-
back pain
History of Present Illness
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
foot status post right BKA, hyperlipidemia presenting with left lower back pain which started few weeks ago which progressed and radiated up to the lower back. Pain increases with sitting or standing. Patient has not been able to get out of bed
for the past couple weeks secondary to pain. Patient saw orthopedics today and up to the emergency room for urgent MRI since he was concerned about discitis. Patient denies any incontinence of bowel or bladder. He denies numbness or tingling.
Denies any weakness in the leg but is unable to bear weight secondary to pain. Denies fevers or chills, sore throat or cough. He denies any urinary symptoms. His appetite has been good.
Denies smoking or alcohol use.
Medical History
Past Medical History
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
status post right BKA, hyperlipidemia)
Past Surgical History: Reports Other (Appendectomy, Orthopedic (Amputation toes of right foot, BKA right February 27, 2024), Tonsilectomy, Urological (Llithotripsy) and Other (gastric stapling , Eliana-en-Y, debridement of right foot wound))
Social History
Tobacco: Non-smoker
Alcohol: None
Drug: None
Family History
Family History: Not pertinent
Allergies / Home Medications
Allergies reflects when Allergies were last updated in [facility].
Home Medications with original date entered in [facility]
Allergy/Medication List:
Allergies
Allergy/AdvReac Type Severity Reaction Status Date / Time
coconut Allergy Rash Verified 04/28/24 16:45
ketorolac Allergy Rash Verified 04/28/24 16:45
NSAIDS (Non-Steroidal Allergy Rash Verified 04/28/24 16:45
Anti-Inflamma
Home Medications
calcium carbonate (Calcium 600) 600 mg PO DAILY Supplement 04/23/13
gabapentin 300 mg capsule 300 mg PO TID pain 11/11/13
carvedilol 12.5 mg tablet 12.5 mg PO BID Blood pressure 09/13/20
fmsptmnvrhd-xdlwa-tse-vit C-Mn 500 mg-400 mg-166.6 mg tablet (Flexi Joint) 1 tab PO DAILY Supplement 03/29/22
aspirin 81 mg tablet,delayed release 81 mg PO DAILY Blood clot prevention/tx 08/22/22
cyanocobalamin (vitamin B-12) 1,000 mcg tablet 1,000 mcg PO MOTUTHFRSA Supplement 08/22/22
Bifidobacterium infantis 4 mg capsule (Align) 4 mg PO NOON probiotic 10/05/22
ascorbic acid (vitamin C) 1,000 mg tablet (Vitamin C) 1,000 mg PO DAILY Supplement 08/24/23
atorvastatin 20 mg tablet 20 mg PO DAILY High Cholesterol 08/24/23
cholecalciferol (vitamin D3) 50 mcg (2,000 unit) tablet 50 mcg PO DAILY Supplement 08/24/23
ferrous sulfate 325 mg (65 mg iron) tablet (iron) 325 mg PO Q48H Supplement 08/24/23
therapeutic multivitamin 1 tab PO DAILY Supplement 08/24/23
zolpidem 5 mg tablet 5 mg PO HSPRN PRN sleep 09/21/23
meclizine 25 mg tablet 25 mg PO Q8HPRN PRN dizziness 02/20/24
miconazole nitrate 2 % topical powder (Miconazorb AF) 1 applic topical BID #85 grams 03/01/24
ammonium lactate 12 % lotion 1 applic topical BID Skin issues 30 days #1 container 03/11/24
insulin glargine U-300 conc 300 unit/mL (1.5 mL) subcutaneous pen (Toujeo SoloStar U-300 Insulin) 18 unit (0.06 mL) SC DAILY Diabetes #0 mL 03/11/24
insulin glargine U-300 conc 300 unit/mL (1.5 mL) subcutaneous pen (Toujeo SoloStar U-300 Insulin) 20 unit (0.0667 mL) SC HS Diabetes #0 mL 03/11/24
dulaglutide 4.5 mg/0.5 mL subcutaneous pen injector (Trulicity) 4.5 mg SC MO 05/07/24
insulin aspart U-100 100 unit/mL (3 mL) subcutaneous pen (Novolog FlexPen U-100 Insulin aspart) 15 unit SC AC 05/07/24
lisinopril 20 mg tablet 20 mg PO DAILY 05/07/24
oxycodone 5 mg tablet 5 mg PO Q8H 05/07/24
Review of Systems
-
History Source: Patient
A 12 point ROS was completed and negative except as noted: Yes
Constitutional: Reports No Symptoms
EENT: Reports No Symptoms
Respiratory: Reports No Symptoms
Cardiac: Reports No Symptoms
Abdomen/GI: Reports No Symptoms
: Reports No Symptoms
Musculoskeletal: Reports No Symptoms
Skin: Reports No Symptoms
Neurological: Reports No Symptoms
Endocrine: Reports No Symptoms
Hematologic/Lymphatic: Reports No Symptoms
Psych: Reports No Symptoms
Physical Exam
Vital Signs
Vital Signs
Temp Pulse Resp BP Pulse Ox
98.5 F 74 16 93/67 99
05/07/24 14:43 05/07/24 19:16 05/07/24 14:43 05/07/24 17:00 05/07/24 19:16
Physical Exam
General: Well Developed, Well Nourished and No Apparent Distress
HEENT: NormoCephalic, Moist mucous membranes and Atraumatic
Respiratory: Clear
Cardiac: S1/S2 and Regular Rhythm; No Murmur or Rub
GI: Soft, Non Tender, Non Distended and Normal Bowel Sounds; No Organomegaly
Rectal: Deferred by Provider
Musculoskeletal: No Clubbing, No Cyanosis and No Edema
Skin: No Rash
Neuro: Nonfocal/grossly intact
Laboratory Results
-
05/07/24 15:03
05/07/24 15:03
Laboratory Results
Total Bilirubin 1.2 mg/dl (0.2-1.3) 05/07/24 15:03
AST 32 U/L (17-59) 05/07/24 15:03
ALT 22 U/L (0-50) 05/07/24 15:03
Alkaline Phosphatase 139 U/L (38-126) H 05/07/24 15:03
Data Reviewed
-
Lab Data: Labs Reviewed by me
Old Records: Reviewed
Impression/Plan
-
IMPRESSION:
PLAN:
# Acute lower back pain/lower extremity pain concerning for discitis
-Blood pressure 90s systolic, but not septic
-Elevated inflammatory markers
-MRI pending to evaluate for discitis
-Blood cultures pending
-Antibiotics ordered but not given, as biopsy should be performed first if discitis on MRI
-Continue oxycodone
Right BKA from prior osteomyelitis
Essential hypertension
-Hold lisinopril due to blood pressure 90s
-Continue Coreg
History of right bundle branch block
CKD 2�3
-Renal function
Type 2 diabetes
-Continue Toujeo 18 units daily, 20 units nighttime
-Continue 15 units Humalog before meals
-Insulin sliding scale
Diabetic neuropathy
-Continue gabapentin
Chronic anemia
History of iron deficiency anemia
Hypercholesterolemia
-Continue statin
Obstructive sleep apnea
History of right upper extremity DVT secondary to PICC line
-Completed anticoagulation
Chronic back pain
Full code
DVT prophylaxis�heparin
Diabetic diet
[2024-05-07 21:42] LABS: Glucose - Point of Care 184 mg/dl (70-99)
[2024-05-07 22:00] VITALS: BP 106/58
[2024-05-07 22:30] VITALS: BMI 38.3
[2024-05-08] MEDS: NEURONTIN 300 MG PO ×2 (00:39→09:09)
[2024-05-08 00:40] LABS: Glucose - Point of Care 120 mg/dl (70-99)
[2024-05-08] MEDS: ROXICODONE 5 MG PO ×3 (00:40→13:03)
[2024-05-08] MEDS: LANTUS 0.16 UNITS SC (00:45)
--- NOTE | 2024-05-08 07:21 | W.PN.HOSP.TC ---
Addendum entered and electronically signed by Octavio Sutton MD 05/08/24 13:44:
dc home
mri without evidence of discitis or osteomyelitis.
Original Note:
Today's Communication/Plan
-
MRI conducted showed no evidence of discitis or osteolytic diverticulitis. The patient appears to be at his baseline and there are no acute medical problems occurring at the present time. The patient is appropriate to be followed in the outpatient
setting by spine and pain.
Assessment / Plan
Assessment / Plan
HPI: Patient is a 63-year-old male who presented to the emergency department complaining of low back pain and left lower extremity pain. 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 The patient is
diabetic. The patient stated that he has been having leg pain and had been worked up for that. He also stated that the pain is in his back and he had no pain in his low back while lying flat. The pain in his back increased with sitting or
standing. The patient had not been able to get out of bed for the last couple of weeks secondary to this pain. The patient saw his orthopedist the day of his presentation to the emergency department who sent him to the emergency department for an
urgent MRI as he was concerned about discitis. Patient denied any incontinence of the bowel or bladder. Patient also denied numbness or paresthesias. The patient denied any weakness in the leg but was unable to weight-bear on the leg secondary to
pain. The patient denied any fever or chills, nasal congestion, sore throat or cough. Patient denied any GI or symptoms. Patient's appetite was good.
Impression/Plan:
-Acute lower back pain/lower extremity pain:
MRI conducted on 05/07/2024 ruled out discitis or osteolytic diverticulitis
Blood pressures in the 90s systolic but not septic
Alk phos elevated at 139 and C-reactive protein elevated at 20.8
Blood cultures pending
Will assess the need for antibiotics
Continue oxycodone for pain management
No acute processes occurring at the present time. Patient should be followed up in the outpatient setting with spine and pain management.
-Essential hypertension:
Holding lisinopril - hold parameters are systolic blood pressure less than 100
Continue Coreg
-Past medical history of right bundle branch block
-Right below the knee amputation from prior osteomyelitis
-CKD stage II/IIIa:
Patient's eGFR fluctuates between 45 and greater than 60
Patient's creatinine stable at 1.3
-Type 2 diabetes:
Continue Toujeo 18 units daily, 20 units
Continue 15 units Humalog before meals
Low resistance insulin sliding scale started
-Diabetic neuropathy:
Continue gabapentin
-Chronic anemia
-History of iron deficiency anemia
Follow CBC
-Hypercholesterolemia:
Continue atorvastatin 20 mg
-Obstructive sleep apnea
Provide patient education in regards to sleep apnea
Assess if patient will benefit from use of CPAP
-History of right upper extremity DVT secondary to PICC line:
Completed anticoagulation
-Chronic back pain:
Continue oxycodone 5 mg every 8 hours
FULL CODE STATUS
DVT prophylaxis�heparin subcu
Diabetic diet
Anticipated Discharge: Today
Subjective/Interval History
-
Date of Service: May 08, 2024
Met with patient at the bedside. Overall he is doing well and offers no complaints at the present time. He states that his pain is better than it was on admission and that his pain is being well-controlled on current pain medications. He is
unsure why he was admitted and felt that he could get his MRI outpatient but followed the recommendations of the provider he was seeing. He hopes to be discharged today.
Objective Data
-
Labs:
Labs
05/08/24 07:15
05/08/24 07:15
Vital Signs:
Vital Signs
Temp Pulse Resp BP Pulse Ox
98.6 F 77 18 106/58 96
05/07/24 22:00 05/07/24 22:00 05/07/24 22:00 05/07/24 22:00 05/08/24 00:50
I&O
05/07/24 05/08/24 05/09/24
06:59 06:59 06:59
Output Total 400 / 400
Balance -400 / -400
Review of Systems
-
History Source: Patient
Constitutional: Reports No Symptoms
EENT: Reports No Symptoms Reported
Respiratory: Reports No Symptoms
Cardiac: Reports No Symptoms
Abdomen/GI: Reports No Symptoms
Breast: Reports No Symptoms
Genitourinary: Reports No Symptoms
Musculoskeletal: Reports Other (Back pain)
Skin: Reports No Symptoms
Neuro: Reports No Symptoms
Endocrine: Reports No Symptoms
Hematologic / Lymphatic: Reports No Symptoms
Physical Exam
-
General: Well Developed, Well Nourished, No Apparent Distress, Comfortable and Morbidly Obese
HEENT: Normocephalic, Atraumatic and Moist Mucous Membranes
Respiratory: Clear to Auscultation
Cardiac: Regular Rhythm and S1/S2
Breast: Deferred by me
GI: Soft, Nontender, Nondistended and Normal Bowel Sounds
Rectal: Deferred by Provider
Genito-urinary: Deferred by me
Musculoskeletal: No Clubbing, No Cyanosis, No Edema and Other (Amputation status right lower limb)
Skin: Warm and Dry
Neuro: Awake, Alert, Oriented and AO x 3
[2024-05-08 07:46] LABS: Glucose - Point of Care 121 mg/dl (70-99)
[2024-05-08 07:50] VITALS: BP 133/69
[2024-05-08 08:05] LABS: % Basophils 0.5 % (0-2); % Eosinophils 4.6 % (0-6); % Immature Granulocytes 0.3 % (0-0.5); % Lymphocytes 38.4 % (20.5-51.1); % Monocytes 7.7 % (1.7-9.3); % Neutrophils 48.5 % (42.2-75.2); Absolute Eosinophils 0.3 10^3/uL (0-0.7); Absolute Lymphocytes 2.8 10^3/uL (1.2-3.4); Absolute Monocytes 0.6 10^3/uL (0.1-0.6); Absolute Neutrophils 3.6 10^3/uL (1.4-6.5); Hematocrit 37.3 % (39.0-52.0); Hemoglobin 12.6 g/dL (13.0-18.0); Mean Corp Hgb Conc. 33.8 g/dL (33.0-37.0); Mean Corpuscular Hgb 27.4 pg (27.0-31.0); Mean Corpuscular Volume 81.1 fL (80.0-94.0); Mean Platelet Volume 9.3 fL (7.4-10.4); Nucleated Red Blood Cells % 0 % (-); Platelet Count 262 10^3/uL (130-400); Red Cell Dist. Width 13.8 % (11.5-14.5); White Blood Cell Count 7.4 10^3/uL (4.8-10.8)
[2024-05-08 08:18] LABS: ALT (SGPT) 19 U/L (0-50); AST (SGOT) 22 U/L (17-59); Alkaline Phosphatase 128 U/L (38-126); Blood Urea Nitrogen 20 mg/dl (9-20); Calcium 9.3 mg/dl (8.4-10.2); Carbon Dioxide 24 mmol/L (22-30); Chloride 101 mmol/L (98-107); Estimated Creatinine Clearance 100 ml/min; Glucose 115 mg/dl (70-99); Potassium 4.2 mmol/L (3.5-5.1); Sodium 140 mmol/L (135-145); Total Bilirubin 0.8 mg/dl (0.2-1.3); Total Protein 7.1 g/dl (6.3-8.2); eGFR > 60.00
[2024-05-08] MEDS: VITAMIN C 1000 MG PO (09:09)
[2024-05-08] MEDS: COREG 12.5 MG PO (09:09)
[2024-05-08] MEDS: OSCAL CAL 500 500 MG PO (09:09)
[2024-05-08] MEDS: VITAMIN D3 (cholecalciferol) 50 MCG PO (09:10)
[2024-05-08] MEDS: FEOSOL 325 MG PO (09:10)
[2024-05-08] MEDS: ASPIR LOW (ENTERIC COATED) 81 MG PO (09:10)
[2024-05-08] MEDS: LIPITOR 20 MG PO (09:11)
[2024-05-08] MEDS: THERAGRAN 1 TABLET PO (09:11)
[2024-05-08] MEDS: VITAMIN B-12 1000 MCG PO (09:13)
[2024-05-08] MEDS: LIDOCAINE 4% PATCH 1 PATCH TOPICAL (09:13)
[2024-05-08] MEDS: LANTUS 0.14 UNITS SC (09:17)
[2024-05-08] MEDS: DESENEX/MITRAZOL/ZEASORB 1 APPLIC TOPICAL (09:18)
[2024-05-08] MEDS: HEPARIN 5000 UNITS SC (09:19)
[2024-05-08] MEDS: LAC HYDRIN, AM LACTIN LOTION 1 APPLIC TOPICAL (09:19)
[2024-05-08] MEDS: NOVOLOG FLEXPEN 15 UNITS SC ×2 (09:21→13:00)
[2024-05-08 10:27] LABS: Glycohemoglobin (HgbA1c) 5.9 % (4.0-5.6)
[2024-05-08 12:23] LABS: Glucose - Point of Care 103 mg/dl (70-99)
[2024-05-08] MEDS: VISBIOME 1 CAP PO (12:35)
[2024-05-08] MEDS: AFLURIA (36 mos+) 2024-2025 FORMULA 0.5 ML IM (12:58)
--- NOTE | 2024-05-08 14:04 | CM ---
channel development manager reviewed patient's chart and met with patient and patient lives with with his partner in a one story modular home with a ramp to enter, patient is w/c level, patient had [facility] visiting nurses however patient plans on using outpatient
PT/OT at discharge.
Plan; Home with partner at discharge and follow up with outpatient PT/OT.
PCP: Dr Simon
Pharmacy [facility].
--- NOTE | 2024-05-08 16:39 | W.DCSUMMARY ---
Discharge Summary
Discharge Data
Date of Admission: 05/07/24
Date of Discharge: 05/08/24
-
Pending Results: No
Hospital Course
Patient is a 63-year-old male who presented to the emergency department complaining of low back pain and left lower extremity pain. 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 The patient is
diabetic. The patient stated that he has been having leg pain and had been worked up for that. He also stated that the pain is in his back and he had no pain in his low back while lying flat. The pain in his back increased with sitting or
standing. The patient had not been able to get out of bed for the last couple of weeks secondary to this pain. The patient saw his orthopedist the day of his presentation to the emergency department who sent him to the emergency department for an
urgent MRI as he was concerned about discitis. Patient denied any incontinence of the bowel or bladder. Patient also denied numbness or paresthesias. The patient denied any weakness in the leg but was unable to weight-bear on the leg secondary to
pain. The patient denied any fever or chills, nasal congestion, sore throat or cough. Patient denied any GI or symptoms. Patient's appetite was good. Patient was admitted for concerns of discitis of the lumbar region.
Patient was given oxycodone for pain management and managed mostly on his home medications. He was put on an insulin sliding scale for his type 2 diabetes. Peripheral vascular ultrasound from 05/04/2024 prior to this admission showed no sonographic
evidence of lower extremity deep venous thromboses. An MRI was conducted on 05/08/2024 showed no evidence for discitis or osteolytic diverticulitis. There was some changes of degenerative disc disease with progression since the 2013 examination
especially at L4-5 and L5-S1. The patient is medically stable and had no acute symptoms needing emergent management. The patient believes that he is at his baseline and would like to be discharged.
The patient has reached maximal benefit from this hospital stay and is appropriate for discharge at the present time. There are no barriers that would impede this patient from being safely discharged at this time. The patient has been recommended
to continue to follow-up with his spine monitoring specialist and with pain management. The patient should follow-up with his primary care provider 1 to 2 weeks after being discharged from the hospital.
Discharge Plan
-
Patient Disposition: Home (Routine Discharge)
Discharge Diagnosis/Procedures: Back pain
Condition: Good
Diet: Diabetic, Carb Controlled
Activity: No restrictions
Driving Restrictions: As prior to admission
Bathing Restrictions: None
Referrals:
Benjamin Simon MD [Family Provider] - in one to two weeks
Bruce Wilcox PA-C [Specified Professional Personl] - in two to three weeks
Additional Discharge Medication Instructions: Patient should be followed up by Pain and Orthopedic Spine specialists in the outpatient setting.
Prescriptions:
Continued
calcium carbonate [Calcium 600] 600 MG tablet
600 mg PO DAILY
gabapentin 300 MG capsule
300 mg PO TID
carvedilol 12.5 MG tablet
12.5 mg PO BID
Flexi Joint 500-400-166.6 mg Tablet
1 tab PO DAILY
cyanocobalamin (vitamin B-12) 1,000 mcg Tablet
1,000 mcg PO MOTUTHFRSA
aspirin 81 mg Tablet,Delayed Release (Dr/Ec)
81 mg PO DAILY
Align 4 mg Capsule
4 mg PO NOON
ascorbic acid (vitamin C) [Vitamin C] 1,000 mg Tablet
1,000 mg PO DAILY
atorvastatin 20 mg Tablet
20 mg PO DAILY
therapeutic multivitamin Tablet
1 tab PO DAILY
ferrous sulfate [iron] 325 mg (65 mg iron) Tablet
325 mg PO Q48H
Patient Comments:
08/24/2023, Q72H@0800.
cholecalciferol (vitamin D3) 50 mcg (2,000 unit) Tablet
50 mcg PO DAILY
zolpidem 5 mg Tablet
5 mg PO HSPRN PRN (Reason: sleep)
Patient Comments:
05/07/2024: last filled 07/13/22, 90 tabs for 90 days from [facility]
meclizine 25 mg tablet
25 mg PO Q8HPRN PRN (Reason: dizziness)
miconazole nitrate [Miconazorb AF] 2 % Powder
1 applic topical BID Qty: 85 0RF
lisinopril 20 mg tablet
20 mg PO DAILY
insulin aspart U-100 [Novolog FlexPen U-100 Insulin] 100 unit/mL (3 mL) insulin pen
15 unit SC AC
Trulicity 4.5 mg/0.5 mL pen injector
4.5 mg SC MO
oxycodone 5 mg tablet
5 mg PO Q8H
Patient Comments:
05/07/2024: last filled 05/04/24, 10 tabs for 4 days fro [id number]
ammonium lactate 12 % Lotion
1 applic topical BID 30 Days Qty: 1 0RF
insulin glargine U-300 conc [Toujeo SoloStar U-300 Insulin] 300 UNIT/ML insulin pen
20 unit SC HS Qty: 0 0RF
insulin glargine U-300 conc [Toujeo SoloStar U-300 Insulin] 300 UNIT/ML insulin pen
18 unit SC DAILY Qty: 0 0RF
Discharge Orders:
Discharge Patient (As Directed); Ordered 05/08/24
Ordered By: Rey Gotti
Discharge Date and Time
Discharge Date/Time: 05/08/24 15:05
Print Language: UZBEK
== END 2024-05-08 15:05 | disposition home or self-care (01) | DRG 552 ==
LOC: 4 WEST ACU 20:59
PROVIDERS: Emergency Medicine; ADMITTING PHYSICIAN Hospitalist; ATTENDING PHYSICIAN Hospitalist; EMERGENCY PHYSICIAN Emergency Medicine; FAMILY PHYSICIAN Family Medicine
DX: M51.362 Other intervertebral disc degeneration, lumbar region with discogenic back pain and lower extremity pain (principal); M51.372 Other intervertebral disc degeneration, lumbosacral region with discogenic back pain and lower extremity pain; M54.50 Low back pain, unspecified; M79.605 Pain in left leg; E78.00 Pure hypercholesterolemia, unspecified; N18.2 Chronic kidney disease, stage 2 (mild); I12.9 Hypertensive chronic kidney disease with stage 1 through stage 4 chronic kidney disease, or unspecified chronic kidney disease; I45.10 Unspecified right bundle-branch block; D64.9 Anemia, unspecified; G47.33 Obstructive sleep apnea (adult) (pediatric); G89.29 Other chronic pain; D50.9 Iron deficiency anemia, unspecified; M54.30 Sciatica, unspecified side; R79.82 Elevated C-reactive protein (CRP); G62.9 Polyneuropathy, unspecified; E11.40 Type 2 diabetes mellitus with diabetic neuropathy, unspecified; E11.22 Type 2 diabetes mellitus with diabetic chronic kidney disease; Z87.442 Personal history of urinary calculi; Z89.511 Acquired absence of right leg below knee; Z80.0 Family history of malignant neoplasm of digestive organs; Z80.7 Family history of other malignant neoplasms of lymphoid, hematopoietic and related tissues; Z79.4 Long term (current) use of insulin; Z79.82 Long term (current) use of aspirin; Z79.891 Long term (current) use of opiate analgesic; Z88.6 Allergy status to analgesic agent; Z88.8 Allergy status to other drugs, medicaments and biological substances; Z91.018 Allergy to other foods; Z86.718 Personal history of other venous thrombosis and embolism
CPT/HCPCS: 72158; 80053; 82962; 83036; 85025; 85652; 86140; 87040; 90686; 96374; 99284; A9575; G0008

== ENCOUNTER → 2024-06-21 07:05 | Outpatient (REF) | payer MEDICARE, OTHER, SELFPAY ==
[2024-06-21 07:41] LABS: % Basophils 0.5 % (0-2); % Eosinophils 1.5 % (0-6); % Immature Granulocytes 0.3 % (0-0.5); % Lymphocytes 30.8 % (20.5-51.1); % Monocytes 5.1 % (1.7-9.3); % Neutrophils 61.8 % (42.2-75.2); Absolute Eosinophils 0.1 10^3/uL (0-0.7); Absolute Lymphocytes 2.7 10^3/uL (1.2-3.4); Absolute Monocytes 0.5 10^3/uL (0.1-0.6); Absolute Neutrophils 5.4 10^3/uL (1.4-6.5); Hematocrit 37.9 % (39.0-52.0); Mean Corp Hgb Conc. 34.3 g/dL (33.0-37.0); Mean Corpuscular Hgb 28.7 pg (27.0-31.0); Mean Corpuscular Volume 83.7 fL (80.0-94.0); Mean Platelet Volume 8.9 fL (7.4-10.4); Nucleated Red Blood Cells % 0 % (-); Platelet Count 252 10^3/uL (130-400); Red Blood Cell Count 4.53 10^6/uL (4.70-6.10); Red Cell Dist. Width 14.6 % (11.5-14.5); White Blood Cell Count 8.8 10^3/uL (4.8-10.8)
[2024-06-21 08:16] LABS: ALT (SGPT) 24 U/L (0-50); AST (SGOT) 20 U/L (17-59); Albumin 3.9 g/dl (3.5-5.0); Alkaline Phosphatase 116 U/L (38-126); Blood Urea Nitrogen 15 mg/dl (9-20); Calcium 9.2 mg/dl (8.4-10.2); Carbon Dioxide 23 mmol/L (22-30); Chloride 108 mmol/L (98-107); Glucose 112 mg/dl (70-99); HDL Cholesterol 48 mg/dl; Iron 94 ug/dl (49-181); LDL Cholesterol, Calculated 72 mg/dl; Potassium 4.5 mmol/L (3.5-5.1); Sodium 143 mmol/L (135-145); Total Bilirubin 0.8 mg/dl (0.2-1.3); Total Cholesterol 136 mg/dl (50-199); Total Protein 6.8 g/dl (6.3-8.2); Triglyceride 83 mg/dl (10-149); Very Low Density Lipoprotein 16 mg/dl (0-30); eGFR > 60.00
[2024-06-21 08:27] LABS: Percent Saturation 30 % (20-50); Total Iron Binding Capacity 308 ug/dl (261-462)
[2024-06-21 08:49] LABS: Microalbumin, Random Urine < 0.6 mg/dl (0.6-1.7)
[2024-06-21 11:07] LABS: Glycohemoglobin (HgbA1c) 6.5 % (4.0-5.6)
== END ==
LOC: REG 07:05
PROVIDERS: ATTENDING PHYSICIAN Family Medicine; REFERRING PHYSICIAN Internal Medicine Endocrinology, Diabetes & Metabolism
DX: E11.42 Type 2 diabetes mellitus with diabetic polyneuropathy (principal); Z79.4 Long term (current) use of insulin; E11.65 Type 2 diabetes mellitus with hyperglycemia; E53.8 Deficiency of other specified B group vitamins; E55.9 Vitamin D deficiency, unspecified; E78.00 Pure hypercholesterolemia, unspecified
CPT/HCPCS: 80053; 80061; 82043; 82570; 82728; 83036; 83540; 83550; 85025

== ENCOUNTER 2024-06-24 07:18 | Outpatient (RCR) | payer MEDICARE, OTHER, SELFPAY | END 2024-06-24 23:59 | disposition home or self-care (01) | LOC: RPT 07:18 | PROVIDERS: ATTENDING PHYSICIAN Psychiatry & Neurology Neurology; FAMILY PHYSICIAN Family Medicine | DX: M54.16 Radiculopathy, lumbar region (principal); Z73.6 Limitation of activities due to disability | CPT/HCPCS: 97110; 97162 ==

== ENCOUNTER 2024-07-21 08:45 | Outpatient (RCR) | payer MEDICARE, OTHER, SELFPAY | END 2024-07-21 10:23 | disposition home or self-care (01) | LOC: RPT 08:45 | PROVIDERS: ATTENDING PHYSICIAN Psychiatry & Neurology Neurology; FAMILY PHYSICIAN Family Medicine | DX: M54.16 Radiculopathy, lumbar region (principal); Z73.6 Limitation of activities due to disability | CPT/HCPCS: 97010; 97110 ==

== ENCOUNTER → 2025-01-02 07:38 | Outpatient (REF) | payer MEDICARE, OTHER, SELFPAY ==
[2025-01-02 08:35] LABS: % Basophils 0.5 % (0-2); % Eosinophils 3.1 % (0-6); % Immature Granulocytes 0.3 % (0-0.5); % Lymphocytes 26.6 % (20.5-51.1); % Monocytes 7.1 % (1.7-9.3); % Neutrophils 62.4 % (42.2-75.2); Absolute Eosinophils 0.2 10^3/uL (0-0.7); Absolute Lymphocytes 2.1 10^3/uL (1.2-3.4); Absolute Monocytes 0.6 10^3/uL (0.1-0.6); Absolute Neutrophils 4.8 10^3/uL (1.4-6.5); Hematocrit 37.4 % (39.0-52.0); Mean Corp Hgb Conc. 34.8 g/dL (33.0-37.0); Mean Corpuscular Hgb 29.4 pg (27.0-31.0); Mean Corpuscular Volume 84.6 fL (80.0-94.0); Mean Platelet Volume 9.4 fL (7.4-10.4); Nucleated Red Blood Cells % 0 % (-); Platelet Count 244 10^3/uL (130-400); Red Blood Cell Count 4.42 10^6/uL (4.70-6.10); Red Cell Dist. Width 13.8 % (11.5-14.5); White Blood Cell Count 7.8 10^3/uL (4.8-10.8)
[2025-01-02 09:15] LABS: ALT (SGPT) 23 U/L (0-50); AST (SGOT) 24 U/L (17-59); Albumin 4.3 g/dl (3.5-5.0); Alkaline Phosphatase 138 U/L (38-126); Blood Urea Nitrogen 10 mg/dl (9-20); Calcium 9.3 mg/dl (8.4-10.2); Carbon Dioxide 23 mmol/L (22-30); Chloride 109 mmol/L (98-107); Glucose 130 mg/dl (70-99); HDL Cholesterol 34 mg/dl; LDL Cholesterol, Calculated 75 mg/dl; Potassium 4.4 mmol/L (3.5-5.1); Sodium 140 mmol/L (135-145); Total Bilirubin 1.2 mg/dl (0.2-1.3); Total Cholesterol 135 mg/dl (50-199); Total Protein 6.8 g/dl (6.3-8.2); Triglyceride 131 mg/dl (10-149); Very Low Density Lipoprotein 26 mg/dl (0-30); eGFR > 60.00
[2025-01-02 09:46] LABS: Glycohemoglobin (HgbA1c) 6.7 % (4.0-5.6)
== END ==
LOC: REG 07:38
PROVIDERS: ATTENDING PHYSICIAN Internal Medicine Endocrinology, Diabetes & Metabolism; FAMILY PHYSICIAN Family Medicine
DX: D50.9 Iron deficiency anemia, unspecified (principal); E11.69 Type 2 diabetes mellitus with other specified complication; Z79.4 Long term (current) use of insulin; E11.42 Type 2 diabetes mellitus with diabetic polyneuropathy; E11.65 Type 2 diabetes mellitus with hyperglycemia; E55.9 Vitamin D deficiency, unspecified; E78.2 Mixed hyperlipidemia; I10 Essential (primary) hypertension
CPT/HCPCS: 36415; 80053; 80061; 83036; 85025

== ENCOUNTER 2025-01-26 15:21 | Outpatient (RCR) | payer MEDICARE, OTHER, SELFPAY | END 2025-01-26 23:59 | disposition home or self-care (01) | LOC: RPT 15:21 | PROVIDERS: ATTENDING PHYSICIAN Physician Assistant Surgical; FAMILY PHYSICIAN Family Medicine | DX: R26.89 Other abnormalities of gait and mobility (principal); Z89.511 Acquired absence of right leg below knee; Z73.6 Limitation of activities due to disability | CPT/HCPCS: 97110; 97112; 97116; 97162; 97763 ==

== ENCOUNTER 2025-02-24 15:50 | Outpatient (RCR) | payer MEDICARE, OTHER, SELFPAY | END 2025-02-24 23:59 | disposition home or self-care (01) | LOC: RPT 15:50 | PROVIDERS: ATTENDING PHYSICIAN Physician Assistant Surgical; FAMILY PHYSICIAN Family Medicine | DX: R26.89 Other abnormalities of gait and mobility (principal); Z89.511 Acquired absence of right leg below knee; Z73.6 Limitation of activities due to disability | CPT/HCPCS: 97110; 97112; 97116 ==

== ENCOUNTER → 2025-03-21 07:03 | Outpatient (REF) | payer MEDICARE, OTHER, SELFPAY ==
[2025-03-21 08:19] LABS: Hematocrit 37.4 % (39.0-52.0); Hemoglobin 12.8 g/dL (13.0-18.0); Mean Corp Hgb Conc. 34.2 g/dL (33.0-37.0); Mean Corpuscular Volume 86.0 fL (80.0-94.0); Platelet Count 256 10^3/uL (130-400); Red Cell Dist. Width 13.1 % (11.5-14.5)
[2025-03-21 09:38] LABS: Blood Urea Nitrogen 12 mg/dl (9-20); Calcium 9.4 mg/dl (8.4-10.2); Carbon Dioxide 24 mmol/L (22-30); Chloride 108 mmol/L (98-107); Glucose 111 mg/dl (70-99); Potassium 4.4 mmol/L (3.5-5.1); Sodium 139 mmol/L (135-145); eGFR > 60.00
[2025-03-21 10:52] LABS: Glycohemoglobin (HgbA1c) 6.1 % (4.0-5.6)
== END ==
LOC: REG 07:03
PROVIDERS: ATTENDING PHYSICIAN Family Medicine; REFERRING PHYSICIAN Internal Medicine Endocrinology, Diabetes & Metabolism
DX: E11.69 Type 2 diabetes mellitus with other specified complication (principal); Z79.4 Long term (current) use of insulin; D50.9 Iron deficiency anemia, unspecified
CPT/HCPCS: 36415; 80048; 83036; 85027

== ENCOUNTER → 2025-03-26 14:51 | Outpatient (REF) | payer MEDICARE, OTHER, SELFPAY | LOC: RAD 14:51 | PROVIDERS: ATTENDING PHYSICIAN Physician Assistant; FAMILY PHYSICIAN Orthopaedic Surgery; REFERRING PHYSICIAN Family Medicine | DX: S88.111D Complete traumatic amputation at level between knee and ankle, right lower leg, subsequent encounter (principal); I82.401 Acute embolism and thrombosis of unspecified deep veins of right lower extremity; R22.42 Localized swelling, mass and lump, left lower limb | CPT/HCPCS: 93922; 93925; 93971 ==

== ENCOUNTER 2025-03-27 15:55 | Outpatient (RCR) | payer MEDICARE, OTHER, SELFPAY | END 2025-03-27 23:59 | disposition home or self-care (01) | LOC: RPT 15:55 | PROVIDERS: ATTENDING PHYSICIAN Physician Assistant Surgical; FAMILY PHYSICIAN Family Medicine | DX: R26.89 Other abnormalities of gait and mobility (principal); Z89.511 Acquired absence of right leg below knee; Z73.6 Limitation of activities due to disability | CPT/HCPCS: 97112; 97116; 97763 ==

== ENCOUNTER 2025-04-10 14:57 | Outpatient (RCR) | payer MEDICARE, OTHER, SELFPAY | END 2025-04-14 12:12 | disposition home or self-care (01) | LOC: RPT 14:57 | PROVIDERS: ATTENDING PHYSICIAN Physician Assistant Surgical; FAMILY PHYSICIAN Family Medicine | DX: Z47.81 Encounter for orthopedic aftercare following surgical amputation (principal); R26.89 Other abnormalities of gait and mobility (principal); Z89.511 Acquired absence of right leg below knee; Z73.6 Limitation of activities due to disability | CPT/HCPCS: 97112; 97116 ==

== ENCOUNTER → 2025-06-27 07:02 | Outpatient (REF) | payer MEDICARE, OTHER, SELFPAY ==
[2025-06-27 09:14] LABS: Microalb - Urine Creatinine 109.700 mg/dl
[2025-06-27 09:19] LABS: Microalbumin, Random Urine 0.7 mg/dl (0.6-1.7)
[2025-06-27 09:31] LABS: ALT (SGPT) 22 U/L (0-50); AST (SGOT) 24 U/L (17-59); Albumin 4.1 g/dl (3.5-5.0); Alkaline Phosphatase 137 U/L (38-126); Blood Urea Nitrogen 12 mg/dl (9-20); Calcium 8.9 mg/dl (8.4-10.2); Carbon Dioxide 27 mmol/L (22-30); Chloride 107 mmol/L (98-107); Glucose 133 mg/dl (70-99); HDL Cholesterol 39 mg/dl; LDL Cholesterol, Calculated 71 mg/dl; Potassium 4.4 mmol/L (3.5-5.1); Sodium 137 mmol/L (135-145); Total Protein 6.8 g/dl (6.3-8.2); Very Low Density Lipoprotein 17 mg/dl (0-30); eGFR > 60.00
[2025-06-27 10:16] LABS: Vitamin B12 > 1000 pg/ml (239-931)
[2025-06-27 13:49] LABS: Glycohemoglobin (HgbA1c) 6.2 % (4.0-5.9)
== END ==
LOC: REG 07:02
PROVIDERS: ATTENDING PHYSICIAN Internal Medicine Endocrinology, Diabetes & Metabolism; FAMILY PHYSICIAN Family Medicine
DX: E11.65 Type 2 diabetes mellitus with hyperglycemia (principal); E53.8 Deficiency of other specified B group vitamins; E66.01 Morbid (severe) obesity due to excess calories; E78.2 Mixed hyperlipidemia; I10 Essential (primary) hypertension
CPT/HCPCS: 36415; 80053; 80061; 82043; 82570; 82607; 83036